=== PATIENT | male | born 1945 | race Caucasian/White ===

== ENCOUNTER → 2017-01-19 | Outpatient (REF) | payer MEDICARE ==
[~2017-01-19] MED LIST: ASPI81TA45 OR; GLUC1000 OR; INHALER; LISI20TA5 OR; LOPR50TA OR; NEUR100C OR; PAIN MED; PLAV75TA2 OR; SIMV20TA2 OR
[2017-01-19 16:36] LABS: BASO % 0.5 % (0.0-1.0); EOS # 0.2 K/mm3 (0.0-0.50); EOS % 3.9 % (0.0-3.0); LARGE UNSTAINED CELL # 0.1 K/mm3 (0.0-0.4); LARGE UNSTAINED CELL % 0.9 % (0.0-4.0); LYMPH # 1.6 K/mm3 (1.5-4.5); LYMPH % 25.2 % (24.0-44.0); MEAN CORPUSCULAR HEMOGLOBIN 32.4 pg (27.0-33.0); MEAN CORPUSCULAR VOLUME 95.2 fl (80.0-96.0); MONO # 0.4 K/mm3 (0.0-0.8); MONO % 6.9 % (0.0-5.0); NEUTROPHILS # 3.8 K/mm3 (1.8-7.7); NEUTROPHILS % 62.5 % (36.0-66.0); PLATELET COUNT, AUTOMATED 139 k/mm3 (150-450); RED CELL DISTRIBUTION WIDTH 12.4 % (11.5-14.5); WHITE BLOOD COUNT 6.1 K/mm3 (4.0-10.0)
[2017-01-19 17:30] LABS: ALBUMIN 4.2 GM/DL (3.2-5.2); ALBUMIN/GLOBULIN RATIO 1.17 (1.00-1.93); BILIRUBIN,TOTAL 0.6 MG/DL (0.2-1.0); CALCIUM LEVEL 9.8 MG/DL (8.8-10.2); CREATININE FOR GFR 1.7 MG/DL (0.70-1.30); GLOMERULAR FILTRATION RATE 42.6 (>42); TOTAL PROTEIN 7.8 GM/DL (6.4-8.2)
== END ==
LOC: M LAB REF 16:12
PROVIDERS: ATTEND Family Medicine
DX: Z00.00 Encounter for general adult medical examination without abnormal findings (principal); M21.969 Unspecified acquired deformity of unspecified lower leg; R41.89 Other symptoms and signs involving cognitive functions and awareness; E11.43 Type 2 diabetes mellitus with diabetic autonomic (poly)neuropathy; E78.4 Other hyperlipidemia; I10 Essential (primary) hypertension; I69.990 Apraxia following unspecified cerebrovascular disease; E11.65 Type 2 diabetes mellitus with hyperglycemia

== ENCOUNTER → 2017-02-07 | Outpatient (REF) | payer MEDICARE ==
[2017-02-07 19:22] LABS: ANION GAP 10 MEQ/L (8-16); BLOOD UREA NITROGEN 9 MG/DL (7-18); CALCIUM LEVEL 8.1 MG/DL (8.8-10.2); CARBON DIOXIDE LEVEL 24 MEQ/L (21-32); CHLORIDE LEVEL 104 MEQ/L (98-107); CREATININE FOR GFR 1.04 MG/DL (0.70-1.30); GLOMERULAR FILTRATION RATE > 60.0 (>42); GLUCOSE, FASTING 158 MG/DL (83-110); POTASSIUM SERUM 4.4 MEQ/L (3.5-5.1); SODIUM LEVEL 138 MEQ/L (136-145)
== END ==
LOC: M LAB REF 16:06
PROVIDERS: ATTEND Family Medicine
DX: E11.9 Type 2 diabetes mellitus without complications (principal)

== ENCOUNTER → 2017-03-28 | Outpatient (REF) | payer MEDICARE ==
[2017-03-28 18:41] LABS: ANION GAP 8 MEQ/L (8-16); BLOOD UREA NITROGEN 24 MG/DL (7-18); CALCIUM LEVEL 9.1 MG/DL (8.8-10.2); CARBON DIOXIDE LEVEL 28 MEQ/L (21-32); CHLORIDE LEVEL 104 MEQ/L (98-107); CREATININE FOR GFR 1.01 MG/DL (0.70-1.30); GLOMERULAR FILTRATION RATE > 60.0 (>42); GLUCOSE, FASTING 164 MG/DL (83-110); POTASSIUM SERUM 4.8 MEQ/L (3.5-5.1); SODIUM LEVEL 140 MEQ/L (136-145)
== END ==
LOC: M LAB REF 17:26
PROVIDERS: ATTEND Family Medicine
DX: E11.40 Type 2 diabetes mellitus with diabetic neuropathy, unspecified (principal)

== ENCOUNTER 2017-04-25 19:23 | Emergency (ER) | payer MEDICARE ==
[~2017-04-25] VITALS: Ht 167.6 cm; Wt 72.0 kg
[2017-04-25] MEDS ORDERED: METOCLOPRAMIDE INJ 10MG/2ML VIAL (J2765) IV ONE (20:15)
[2017-04-25] MEDS ORDERED: NS 1,000 ML IV ONE (20:30)
[2017-04-25 20:41] LABS: BASO % 0.3 % (0.0-1.0); EOS # 0.1 10^3/uL (0.0-0.50); EOS % 0.6 % (0.0-3.0); IMMATURE GRANULOCYTE % 0.5 % (0-0); LYMPH # 0.4 10^3/uL (1.5-4.5); LYMPH % 3.5 % (24.0-44.0); MEAN CORPUSCULAR HGB CONC 34.3 g/dl (32.0-36.5); MEAN CORPUSCULAR VOLUME 93.1 fl (80.0-96.0); MONO # 0.8 10^3/uL (0.0-0.8); NEUTROPHILS # 9.7 10^3/uL (1.8-7.7); NEUTROPHILS % 88.1 % (36.0-66.0); PLATELET COUNT, AUTOMATED 145 10^3/uL (150-450); RED CELL DISTRIBUTION WIDTH 12.3 % (11.5-14.5)
[2017-04-25] MEDS: MORPHINE 2 MG/ML 1ML SYRINGE IV PRN ×2 (20:44→22:23)
[2017-04-25 21:06] LABS: ALBUMIN 3.9 GM/DL (3.2-5.2); ALBUMIN/GLOBULIN RATIO 1.34 (1.00-1.93); ALKALINE PHOSPHATASE 59 U/L (45-117); ALT/SGPT 16 U/L (12-78); ANION GAP 6 MEQ/L (8-16); AST/SGOT 13 U/L (7-37); BILIRUBIN,DIRECT 0.2 MG/DL (0.0-0.2); BILIRUBIN,TOTAL 0.5 MG/DL (0.2-1.0); BLOOD UREA NITROGEN 24 MG/DL (7-18); CALCIUM LEVEL 8.4 MG/DL (8.8-10.2); CARBON DIOXIDE LEVEL 28 MEQ/L (21-32); CHLORIDE LEVEL 106 MEQ/L (98-107); CREATININE FOR GFR 1.13 MG/DL (0.70-1.30); GLOMERULAR FILTRATION RATE > 60.0 (>42); GLUCOSE, FASTING 225 MG/DL (83-110); POTASSIUM SERUM 4.6 MEQ/L (3.5-5.1); SODIUM LEVEL 140 MEQ/L (136-145); TOTAL PROTEIN 6.8 GM/DL (6.4-8.2)
[2017-04-25 22:57] VITALS: BP 108/68
== END 2017-04-26 00:32 | disposition short-term general hospital (02) ==
LOC: EDBD 19:23 → M ED 19:23
DX: T25.222A Burn of second degree of left foot, initial encounter (principal); T25.221A Burn of second degree of right foot, initial encounter; X58.XXXA Exposure to other specified factors, initial encounter; Y92.099 Unspecified place in other non-institutional residence as the place of occurrence of the external cause; Y93.89 Activity, other specified; Y99.9 Unspecified external cause status; I10 Essential (primary) hypertension; E11.9 Type 2 diabetes mellitus without complications; Z79.82 Long term (current) use of aspirin; Z79.84 Long term (current) use of oral hypoglycemic drugs; Z79.899 Other long term (current) drug therapy
CPT/HCPCS: 80048; 80076; 82550; 82553; 83036; 83605; 83690; 84484; 85025; 86140; 87040; 93041; 96374; 96375; 99285; J2765

== ENCOUNTER → 2017-07-18 | Outpatient (REF) | payer MEDICARE ==
[2017-07-18 18:38] LABS: ANION GAP 5 MEQ/L (8-16); BLOOD UREA NITROGEN 15 MG/DL (7-18); CARBON DIOXIDE LEVEL 28 MEQ/L (21-32); CHLORIDE LEVEL 103 MEQ/L (98-107); CREATININE FOR GFR 1.22 MG/DL (0.70-1.30); GLOMERULAR FILTRATION RATE > 60.0 (>42); GLUCOSE, FASTING 199 MG/DL (70-100); POTASSIUM SERUM 5.1 MEQ/L (3.5-5.1); SODIUM LEVEL 136 MEQ/L (136-145)
== END ==
LOC: M LAB REF 17:51
DX: E11.9 Type 2 diabetes mellitus without complications (principal)
CPT/HCPCS: 80048

== ENCOUNTER → 2018-01-29 | Outpatient (REF) | payer MEDICARE ==
[2018-01-29 12:17] LABS: BASO % 0.5 % (0.0-1.0); EOS # 0.5 10^3/uL (0.0-0.50); EOS % 7.7 % (0.0-3.0); HEMATOCRIT 33.8 % (42.0-52.0); HEMOGLOBIN 11.1 g/dl (13.5-17.5); IMMATURE GRANULOCYTE % 0.2 % (0-3.0); LYMPH # 1.6 10^3/uL (1.5-4.5); LYMPH % 27.3 % (24.0-44.0); MEAN CORPUSCULAR HEMOGLOBIN 31.2 pg (27.0-33.0); MEAN CORPUSCULAR HGB CONC 32.8 g/dl (32.0-36.5); MEAN CORPUSCULAR VOLUME 94.9 fl (80.0-96.0); MONO # 0.5 10^3/uL (0.0-0.8); MONO % 7.9 % (0.0-5.0); NEUTROPHILS # 3.4 10^3/uL (1.8-7.7); NEUTROPHILS % 56.4 % (36.0-66.0); PLATELET COUNT, AUTOMATED 199 10^3/uL (150-450); RED BLOOD COUNT 3.56 10^6/uL (4.30-6.10); RED CELL DISTRIBUTION WIDTH 13.1 % (11.5-14.5); WHITE BLOOD COUNT 5.9 10^3/uL (4.0-10.0)
[2018-01-29 12:39] LABS: ALBUMIN 3.9 GM/DL (3.2-5.2); ALBUMIN/GLOBULIN RATIO 1.15 (1.00-1.93); ALKALINE PHOSPHATASE 91 U/L (45-117); ALT/SGPT 15 U/L (12-78); ANION GAP 9 MEQ/L (8-16); AST/SGOT 12 U/L (7-37); BILIRUBIN,TOTAL 0.4 MG/DL (0.2-1.0); BLOOD UREA NITROGEN 22 MG/DL (7-18); C REACTIVE PROTEIN QUANTITATIV < 0.30 MG/DL (0.00-0.30); CALCIUM LEVEL 9.2 MG/DL (8.8-10.2); CARBON DIOXIDE LEVEL 26 MEQ/L (21-32); CHLORIDE LEVEL 104 MEQ/L (98-107); GLOMERULAR FILTRATION RATE 49.1 (>42); GLUCOSE, FASTING 151 MG/DL (70-100); SODIUM LEVEL 139 MEQ/L (136-145); TOTAL PROTEIN 7.3 GM/DL (6.4-8.2)
[2018-01-29 12:45] LABS: ERYTHROCYTE SEDIMENTATION RATE 36 mm/hr (0-20)
== END ==
LOC: M SFHCPLAZ 09:08
DX: M86.172 Other acute osteomyelitis, left ankle and foot (principal); Z23 Encounter for immunization
CPT/HCPCS: 80053

== ENCOUNTER → 2018-02-05 | Outpatient (REF) | payer MEDICARE ==
[2018-02-05 16:05] LABS: BASO % 0.3 % (0.0-1.0); EOS # 0.5 10^3/uL (0.0-0.50); EOS % 7.9 % (0.0-3.0); HEMATOCRIT 36.4 % (42.0-52.0); HEMOGLOBIN 11.8 g/dl (13.5-17.5); IMMATURE GRANULOCYTE % 0.2 % (0-3.0); LYMPH # 1.7 10^3/uL (1.5-4.5); LYMPH % 25.9 % (24.0-44.0); MEAN CORPUSCULAR HEMOGLOBIN 31.1 pg (27.0-33.0); MEAN CORPUSCULAR HGB CONC 32.4 g/dl (32.0-36.5); MONO # 0.5 10^3/uL (0.0-0.8); NEUTROPHILS # 3.7 10^3/uL (1.8-7.7); NEUTROPHILS % 57.7 % (36.0-66.0); PLATELET COUNT, AUTOMATED 175 10^3/uL (150-450); RED BLOOD COUNT 3.79 10^6/uL (4.30-6.10); RED CELL DISTRIBUTION WIDTH 13.1 % (11.5-14.5); WHITE BLOOD COUNT 6.5 10^3/uL (4.0-10.0)
[2018-02-05 16:16] LABS: ANION GAP 7 MEQ/L (8-16); BLOOD UREA NITROGEN 14 MG/DL (7-18); C REACTIVE PROTEIN QUANTITATIV < 0.30 MG/DL (0.00-0.30); CALCIUM LEVEL 8.7 MG/DL (8.8-10.2); CARBON DIOXIDE LEVEL 27 MEQ/L (21-32); CHLORIDE LEVEL 108 MEQ/L (98-107); CREATININE FOR GFR 1.18 MG/DL (0.70-1.30); GLOMERULAR FILTRATION RATE > 60.0 (>42); GLUCOSE, FASTING 97 MG/DL (70-100); POTASSIUM SERUM 5.1 MEQ/L (3.5-5.1); SODIUM LEVEL 142 MEQ/L (136-145)
== END ==
LOC: M SFHCPLAZ 12:53
DX: M86.172 Other acute osteomyelitis, left ankle and foot (principal)
CPT/HCPCS: 80048

== ENCOUNTER 2018-04-28 09:47 | Emergency (ER) | payer MEDICARE ==
[~2018-04-28] VITALS: Ht 165.1 cm; Wt 68.2 kg
[~2018-04-28 09:47] MED LIST changes: +GLIM4TAB; +SERT-138; +ZOFR4TAB14 PO
[2018-04-28] MEDS ORDERED: IPRATROPIUM 0.5MG/ALBUTEROL 2.5MG INH SOL UD 3ML (DUONEB)(J7620) NEB ONE (10:15)
[2018-04-28] MEDS ORDERED: ALBUTEROL SULFATE 2.5 MG/0.5 ML INH NEB SOLN INH ONE (10:15)
[2018-04-28 10:25] LABS: VENOUS BASE EXCESS 0.7 (-2.0-2.0); VENOUS HCO3 27.3 MEQ/L (23.0-27.0); VENOUS PARTIAL PRESSURE CO2 51.1 mmHg (38.0-50.0); VENOUS PARTIAL PRESSURE O2 31.9 mmHg (30.0-50.0); VENOUS PH 7.345 UNITS (7.330-7.430); VENOUS STANDARD HCO3 24.3 MEQ/L; VENOUS TOTAL CO2 28.8 MEQ/L (24.0-28.0)
[2018-04-28 10:30] VITALS: BP 224/102
[2018-04-28] MEDS ORDERED: LISINOPRIL 20 MG TAB PO ONE (10:30)
[2018-04-28 10:33] LABS: BASO % 0.4 % (0.0-1.0); EOS # 0.4 10^3/uL (0.0-0.50); EOS % 5.8 % (0.0-3.0); HEMATOCRIT 38.6 % (42.0-52.0); HEMOGLOBIN 13.2 g/dl (13.5-17.5); LYMPH # 1.5 10^3/uL (1.5-4.5); LYMPH % 21.5 % (24.0-44.0); MEAN CORPUSCULAR HEMOGLOBIN 31.6 pg (27.0-33.0); MEAN CORPUSCULAR HGB CONC 34.2 g/dl (32.0-36.5); MEAN CORPUSCULAR VOLUME 92.3 fl (80.0-96.0); MONO # 0.5 10^3/uL (0.0-0.8); MONO % 7.6 % (0.0-5.0); NEUTROPHILS # 4.4 10^3/uL (1.8-7.7); NEUTROPHILS % 64.6 % (36.0-66.0); PLATELET COUNT, AUTOMATED 145 10^3/uL (150-450); RED BLOOD COUNT 4.18 10^6/uL (4.30-6.10); WHITE BLOOD COUNT 6.9 10^3/uL (4.0-10.0)
--- NOTE | 2018-04-28 10:39 | REP ---
Clinical: Shortness of breath. Technique: AP semiupright view. Comparison: 11/16/2011 Findings: Mediastinum and cardiac silhouette are stable. Lung bradford demonstrate stable chronic interstitial changes. No acute consolidation, effusion, or pneumothorax. Skeletal structures are intact. Impression: Chronic stable changes. No acute cardiopulmonary process. Electronically Signed by Montrell Cole MD 04/28/2018 10:31 A
[2018-04-28 10:47] LABS: ABG BASE EXCESS -0.1 (-2.0-2.0); ABG O2 SATURATION 97.2 % (95.0-99.0); ABG PARTIAL PRESSURE CO2 42.4 mmHg (35.0-45.0); ABG PARTIAL PRESSURE O2 89.7 mmHg (75.0-100.0); ABG STANDARD HCO3 24.4 MEQ/L (22.0-26.0); ABG TOTAL CO2 26.3 MEQ/L (23.0-31.0); ABG pH (ARTERIAL) 7.388 UNITS (7.350-7.450)
[2018-04-28 10:59] LABS: ALBUMIN 3.9 GM/DL (3.2-5.2); ALT/SGPT 21 U/L (12-78); BILIRUBIN,DIRECT 0.2 MG/DL (0.0-0.2); BILIRUBIN,TOTAL 0.7 MG/DL (0.2-1.0); BLOOD UREA NITROGEN 22 MG/DL (7-18); CARBON DIOXIDE LEVEL 29 MEQ/L (21-32); CHLORIDE LEVEL 102 MEQ/L (98-107); CREATININE FOR GFR 1.25 MG/DL (0.70-1.30); GLOMERULAR FILTRATION RATE > 60.0 (>42); GLUCOSE, FASTING 211 MG/DL (70-100); LIPASE 128 U/L (73-393); POTASSIUM SERUM 5.2 MEQ/L (3.5-5.1); SODIUM LEVEL 137 MEQ/L (136-145); THYROXINE (T4) 8.9 UG/DL (4.5-12.0); TOTAL PROTEIN 7.5 GM/DL (6.4-8.2)
[2018-04-28 11:13] LABS: CPK CREATINE PHOSPHOKINASE 84 U/L (39-308); MB/CK RELATIVE INDEX 3.69 (< OR =4); TROPONIN I < 0.02 NG/ML (< 0.10)
[2018-04-28 11:47] LABS: INFLUENZA A AMPLIFICATION NEGATIVE (NEGATIVE); INFLUENZA B AMPLIFICATION NEGATIVE (NEGATIVE)
[2018-04-28 12:30] VITALS: BP 148/67
[2018-04-28] MEDS ORDERED: AZITHROMYCIN 250 MG TAB PO ONE (12:30)
[2018-04-28] MEDS ORDERED: VENTAER INH (12:35)
[2018-04-28] MEDS ORDERED: ZITHTAB PO (12:35)
--- NOTE | 2018-04-28 19:28 | ECGEPIP ---
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
== END 2018-04-28 12:51 | disposition home or self-care (01) ==
LOC: M ED 09:47
DX: J40 Bronchitis, not specified as acute or chronic (principal); I10 Essential (primary) hypertension; E11.9 Type 2 diabetes mellitus without complications; J44.9 Chronic obstructive pulmonary disease, unspecified; E78.9 Disorder of lipoprotein metabolism, unspecified; N40.0 Benign prostatic hyperplasia without lower urinary tract symptoms; Z79.899 Other long term (current) drug therapy; Z91.19 Patient's noncompliance with other medical treatment and regimen; Z87.891 Personal history of nicotine dependence

== ENCOUNTER 2018-07-01 13:46 | Inpatient (IN) | payer MEDICARE ==
[~2018-07-01] VITALS: Ht 165.1 cm; Wt 70.0 kg
[~2018-07-01 13:46] MED LIST changes: +VENTAER INH; +ZITHTAB PO
--- NOTE | 2018-07-01 14:33 | REP ---
CT Head without contrast HISTORY: Rule out infarction COMPARISON: 10/15/2017 An area of decreased attenuation is present in the right basal ganglia. This represents an old lacunar infarction. Areas of decreased attenuation are present in the periventricular white matter. This represents small-vessel ischemic disease. There is no intraparenchymal hemorrhage, acute infarct, mass or midline shift. The ventricular system and cortical sulci are dilated consistent with mild volume loss. There is no extra cerebral collection. There is no fracture. The visualized sinuses are clear. IMPRESSION: 1. Old right basal ganglia lacunar infarction. 2. Small vessel ischemic disease. 3. Mild volume loss. Electronically Signed by Jimbo Huertas MD 07/01/2018 02:23 P
--- NOTE | 2018-07-01 14:36 | REP ---
CT cervical spine without contrast HISTORY: Rule out infarction COMPARISON: 04/28/2012 There is no acute fracture or subluxation. Disc bulges are present at the C3-4 through C5-6 levels. A disc bulge with associated osteophyte formation is present at the C6-7 level. There is minimal narrowing of the spinal canal. Uncinate process and/or facet hypertrophy are present at the C2-3 through C7-T1 levels. These findings produce minimal to moderate narrowing of the neural foramina. The C4-5 through C6-7 intervertebral discs are decreased in height consistent with disc degeneration. IMPRESSION: 1. There is no acute fracture or subluxation. 2. There is cervical spondylosis at the C2-3 through C7-T1 levels. Electronically Signed by Jimbo Huertas MD 07/01/2018 02:28 P
--- NOTE | 2018-07-01 14:55 | REP ---
Chest one-view HISTORY: Altered mental status Comparison: 04/28/2018 The left lung is hyperinflated. A minimal increase in interstitial markings is present in the lungs consistent with chronic interstitial change. There is blunting of the left costophrenic angle due to pleural thickening or small pleural effusion. The heart is normal in size. The pulmonary vasculature is normal in appearance. Impression: 1. Chronic interstitial change. 2. There is blunting of the left costophrenic angle due to pleural thickening or small pleural effusion. Electronically Signed by Jimbo Huertas MD 07/01/2018 02:47 P
--- NOTE | 2018-07-01 14:59 | REP ---
Clinical: Left shoulder pain. Technique: Internal rotation, external rotation, and Y view of the left shoulder. Findings: Age-related osteopenia. Cortical irregularity and spurring at the acromioclavicular joint is appreciated along with subtle blunting to the ossified glenoid rim. Subacromial space measures 7 mm maximal diameter. Chondrocalcinosis suggested. No acute fracture dislocation. Impression: Mild/moderate arthritic degenerative changes. Electronically Signed by Montrell Cole MD 07/01/2018 02:50 P
--- NOTE | 2018-07-01 15:00 | REP ---
Clinical: Pain. Technique: AP view of the pelvis with neutral and frog lateral views of the right and left hip. Findings: Age-related degenerative changes to the pelvis and hips noted. Peripheral vascular disease identified. The no acute fracture dislocation. Impression: Age-related degenerative changes to the pelvis and hips. Electronically Signed by Montrell Cole MD 07/01/2018 02:51 P
[2018-07-01 15:04] LABS: BASO % 0.1 % (0.0-1.0); HEMATOCRIT 35.3 % (42.0-52.0); HEMOGLOBIN 12.5 g/dl (13.5-17.5); LYMPH # 0.3 10^3/uL (1.5-4.5); LYMPH % 1.9 % (24.0-44.0); MEAN CORPUSCULAR HGB CONC 35.4 g/dl (32.0-36.5); MEAN CORPUSCULAR VOLUME 90.3 fl (80.0-96.0); MONO # 1.6 10^3/uL (0.0-0.8); MONO % 9.4 % (0.0-5.0); NEUTROPHILS # 15.2 10^3/uL (1.8-7.7); NEUTROPHILS % 88.1 % (36.0-66.0); PLATELET COUNT, AUTOMATED 138 10^3/uL (150-450); RED BLOOD COUNT 3.91 10^6/uL (4.30-6.10); WHITE BLOOD COUNT 17.3 10^3/uL (4.0-10.0)
[2018-07-01 15:08] LABS: ABG BASE EXCESS -9.2 (-2.0-2.0); ABG HCO3 15.6 MEQ/L (22.0-26.0); ABG O2 SATURATION 96.6 % (95.0-99.0); ABG PARTIAL PRESSURE CO2 30.7 mmHg (35.0-45.0); ABG PARTIAL PRESSURE O2 92.4 mmHg (75.0-100.0); ABG STANDARD HCO3 17.2 MEQ/L (22.0-26.0); ABG TOTAL CO2 16.5 MEQ/L (23.0-31.0); ABG pH (ARTERIAL) 7.323 UNITS (7.350-7.450)
[2018-07-01 15:31] LABS: AMPHETAMINES LEVEL URINE NEGATIVE (NEGATIVE); BARBITURATES URINE NEGATIVE (NEGATIVE); BENZODIAZEPINES URINE NEGATIVE (NEGATIVE); CANNABINOIDS URINE NEGATIVE (NEGATIVE); COCAINE METABOLITE URINE NEGATIVE (NEGATIVE); METHADONE URINE NEGATIVE (NEGATIVE); OPIATES URINE NEGATIVE (NEGATIVE); PHENCYCLIDINE URINE NEGATIVE (NEGATIVE)
[2018-07-01 15:40] LABS: ALBUMIN 3.8 GM/DL (3.2-5.2); ALT/SGPT 42 U/L (12-78); BILIRUBIN,DIRECT 0.6 MG/DL (0.0-0.2); BILIRUBIN,TOTAL 1.6 MG/DL (0.2-1.0); BLOOD UREA NITROGEN 33 MG/DL (7-18); CALCIUM LEVEL 8.5 MG/DL (8.8-10.2); CARBON DIOXIDE LEVEL 20 MEQ/L (21-32); CHLORIDE LEVEL 92 MEQ/L (98-107); CPK CREATINE PHOSPHOKINASE 2358 U/L (39-308); ETHYL ALCOHOL (ETHANOL) < 0.003 % (0.000-0.010); GLOMERULAR FILTRATION RATE 45.6 (>42); GLUCOSE, FASTING 558 MG/DL (70-100); MB/CK RELATIVE INDEX 1.76 (< OR =4); POTASSIUM SERUM 4.6 MEQ/L (3.5-5.1); SODIUM LEVEL 130 MEQ/L (136-145); THYROID STIMULATING HORMONE 0.563 uIU/ML (0.358-3.740); TROPONIN I 0.05 NG/ML (< 0.10)
[2018-07-01] MEDS ORDERED: ONDANSETRON 4MG/2ML VIAL (J2405) IV ONE (15:45)
[2018-07-01] MEDS ORDERED: PANTOPRAZOLE 40MG INJ (PROTONIX) (C9113) IV ONE (15:45)
[2018-07-01] MEDS ORDERED: med rec comment (15:59)
[2018-07-01] MEDS ORDERED: OXAZEPAM 15 MG CAP PO ONE (16:15)
[2018-07-01] MEDS ORDERED: HumaLOG INSULIN (NovoLOG) PER UNIT SC ONE (16:15)
[2018-07-01] MEDS ORDERED: NS 1,000 ML IV ONE ×2 (16:15)
[2018-07-01] MEDS ORDERED: NS 1,000 ML IV SCH ×2 (19:24→20:05)
[2018-07-01] MEDS ORDERED: LORazepam 2 MG TAB PO PRN (19:45)
[2018-07-01] MEDS ORDERED: GLUCAGON FOR INJ 1 MG VIAL (J1610) SC PRN (19:45)
[2018-07-01] MEDS ORDERED: GLUCOSE 4 GM CHEW TABLET PO PRN (19:45)
[2018-07-01] MEDS ORDERED: DEXTROSE 50% 50 ML SYRINGE IV PRN ×2 (19:45→22:00)
[2018-07-01] MEDS ORDERED: D5W/0.45% SODIUM CHLORIDE 1,000 ML IV SCH (20:05)
[2018-07-01] MEDS ORDERED: INSULIN HUMAN REGULAR 100 UNITS in NS 99 ML IV SCH (20:51)
[2018-07-01 20:58] LABS: CREATININE FOR GFR 1.48 MG/DL (0.70-1.30); GLOMERULAR FILTRATION RATE 49.9 (>42)
[2018-07-01] MEDS ORDERED: INSULIN IV RATE CHANGE DOCUMENTATION ML/HR XX SCH (21:00)
[2018-07-01] MEDS: THIAMINE 100 MG TAB PO SCH (21:00)
[2018-07-01] MEDS ORDERED: HumaLOG INSULIN (NovoLOG) PER UNIT SC SCH (21:00)
[2018-07-01] MEDS: HEPARIN SOD (PORCINE) 5000 UNITS/ML VIAL SQ SCH (21:00)
[2018-07-01 22:58] LABS: CALCIUM LEVEL 8.1 MG/DL (8.8-10.2); CREATININE FOR GFR 1.41 MG/DL (0.70-1.30); GLOMERULAR FILTRATION RATE 52.7 (>42)
[2018-07-01 23:31] VITALS: BP 136/82
--- NOTE | 2018-07-01 23:50 | HPE ---
DATE OF ADMISSION: 07/01/2018 CHIEF COMPLAINT: Found down by family. HISTORY OF PRESENT ILLNESS: This is a 72-year-old gentleman with a past medical history of diabetes, hypertension, solitary kidney, prior history of osteomyelitis of the left foot, status post surgeries, history of carotid endarterectomy, found today by his family down on his front porch. The patient reports that he remembers coming home from a bar late last night where he had at least a six pack to drink. He remembers falling on his front porch in an area which is enclosed and after he fell, he could not get up again. He was unable to call for help. His sister, who lives locally, had a neighbor drive by his home this morning, and he found him down, responsive but with multiple abrasions on his right leg. The patient reports that he has not taken his medications for several months. He does drink daily about six drinks a day. He has had a history of multiple falls and family is concerned about his ability to take care of himself. COURSE IN THE EMERGENCY ROOM: The patient was noted to be hyperglycemic with sugars above 500 with mid rhabdomyolysis and acute kidney injury (HOLGER). He was given two liter of fluid bolus and eight units of subcu insulin. He was noted to have an anion gap, and therefore, I am admitting him to the intensive care unit (ICU) for diabetic ketoacidosis (DKA). REVIEW OF SYSTEMS: Negative in 14 out of 14 systems except as noted above. PAST MEDICAL HISTORY: As noted above in the history of the present illness. PAST SURGICAL HISTORY: The patient reports a history of carotid endarterectomy (CEA), bilateral foot surgery, left rotator cuff surgery. MEDICATIONS: The patient is currently not taking any of his medications and has not for the last couple of months. However, he did fill medications in February, which included glimepiride 4 mg daily, metformin 1000 mg twice daily, lisinopril 20 mg daily, simvastatin 20 mg, sertraline 100 mg daily, and Neurontin 600 mg daily. However, he has not been taking these medications for several months. ALLERGIES: No known drug allergies. FAMILY HISTORY: Mother also had diabetes. SOCIAL HISTORY: The patient is . He denies any smoking. He has no children. He is retired. He does drink about a six-pack of beer a day, and he has been drinking most of his adult life. PHYSICAL EXAMINATION: Vital Signs: Currently, blood pressure 148/63, pulse of 100, respirations 16, saturating 98% on room air. General: He is tremulous throughout but in no acute distress. HEENT: Oropharynx clear. Neck: Supple. Cardiovascular: Patient is mildly tachycardic but no murmurs, rubs or gallops. Lungs: Clear to auscultation bilaterally. Abdomen: Soft, nontender, nondistended. Positive bowel sounds. Extremities: No clubbing, cyanosis, edema. Skin: The patient has got multiple abrasions throughout his right leg from this recent fall. Psych: Mood stable. Neurologic: The patient is alert and oriented, follows simple commands. No focal neurologic deficits. Musculoskeletal: Moves all extremities equally. LABORATORY: The patient has a white count to 17.3, hemoglobin 12.5, platelets of 138. Chemistry reveals a creatinine of 1.6, potassium of 4.6, sodium of 130. Sugar is 558 with an anion gap of 18. Lactate is 4 on admission. Repeat is 2.9. Total CK is elevated to 2358. IMAGING: The patient had jolley imaging done, including chest x-ray which showed chronic interstitial change. There is blunting of the left costophrenic angle due to pleural thickening or small pleural effusion. He had a head CT done. This shows old right basal ganglia lacunar infarct, small vessel ischemic disease, mild volume loss. He had a cervical C-spine done, which shows no acute fracture or subluxation. There is cervical spondylosis of C2 to C3 and C7 to T1. Shoulder x-ray showed mild to moderate arthritic degenerative change of the left shoulder. Hip x-ray bilaterally shows age-related degenerative changes to the pelvis and hips. ASSESSMENT AND PLAN: This is a 72-year-old gentleman with a past medical history of diabetes, on oral medications, hypertension, solitary kidney, osteomyelitis of the foot, who presents status post fall, yesterday found down with diabetic ketoacidosis, acute kidney injury, and alcohol withdrawal. PROBLEMS: 1. DKA. The patient presents with acidosis and anion gap, and elevated sugars. He is in DKA. Likely secondary to his medication noncompliance exacerbated likely by his dehydration. I have placed him on an insulin drip, and he is being admitted to the ICU. I have discussed the insulin drip orders with ICU nursing staff and the protocol orders are in. He is on IV fluids and nothing by mouth and will be transitioned to subcu insulin once his gap closes. We will monitor his potassium closely. He is on BMPs every 2 hours for now with aggressive fluid hydration. 2. Mild rhabdomyolysis. IV fluid hydration as above. 3. Mild HOLGER with a creatinine to 1.6. Likely secondary to dehydration. Continue IV fluids as above. 4. Alcohol withdrawal. Patient does report significant alcohol use and has symptoms of tremors, concerning for alcohol withdrawal. I have placed him on a Clinical [place] Withdrawal Assessment (CIWA) protocol for withdrawal symptoms, and he should also have a social work consult for cessation resources. 5. History of diabetes. The patient is on home glimepiride and metformin, last filled in February but has obviously been noncompliant. He is currently on an insulin drip and should be resumed on his home medications on discharge. 6. History of hypertension. The patient is apparently on lisinopril 20 mg, which he has not filled since February. Given he is presenting in HOLGER, I am holding this for now. 7. History of hyperlipidemia. The patient is on a home statin, which he also has not filled in a couple of months. I have resumed it for now. 8. Deep vein thrombosis (DVT) prophylaxis. I am placing him on subcu heparin.
[2018-07-02] VITALS: BP 136/82
[2018-07-02] MEDS: ACETAMINOPHEN TAB 650MG DOSE (2X325MG) PO PRN (00:28)
[2018-07-02] MEDS: SIMVASTATIN 20 MG TAB PO SCH ×2 (00:28→20:28)
[2018-07-02 00:29] LABS: CREATININE FOR GFR 1.37 MG/DL (0.70-1.30); GLOMERULAR FILTRATION RATE 54.5 (>42); POTASSIUM SERUM 4.8 MEQ/L (3.5-5.1)
[2018-07-02 02:37] LABS: CALCIUM LEVEL 7.7 MG/DL (8.8-10.2); CREATININE FOR GFR 1.35 MG/DL (0.70-1.30); GLOMERULAR FILTRATION RATE 55.5 (>42); POTASSIUM SERUM 4.6 MEQ/L (3.5-5.1)
[2018-07-02 04:00] VITALS: BP 133/78
[2018-07-02 05:15] LABS: HEMATOCRIT 28.1 % (42.0-52.0); MEAN CORPUSCULAR HEMOGLOBIN 31.3 pg (27.0-33.0); MEAN CORPUSCULAR HGB CONC 34.5 g/dl (32.0-36.5); MEAN CORPUSCULAR VOLUME 90.6 fl (80.0-96.0); PLATELET COUNT, AUTOMATED 105 10^3/uL (150-450); WHITE BLOOD COUNT 12.7 10^3/uL (4.0-10.0)
[2018-07-02 05:26] LABS: HEMOGLOBIN 9.7 g/dl (13.5-17.5)
[2018-07-02 05:34] LABS: CALCIUM LEVEL 7.7 MG/DL (8.8-10.2); CREATININE FOR GFR 1.28 MG/DL (0.70-1.30); POTASSIUM SERUM 4.4 MEQ/L (3.5-5.1)
[2018-07-02 07:01] LABS: BLOOD UREA NITROGEN 40 MG/DL (7-18); CALCIUM LEVEL 7.7 MG/DL (8.8-10.2); CARBON DIOXIDE LEVEL 26 MEQ/L (21-32); CHLORIDE LEVEL 104 MEQ/L (98-107); CREATININE FOR GFR 1.26 MG/DL (0.70-1.30); GLOMERULAR FILTRATION RATE > 60.0 (>42); GLUCOSE, FASTING 181 MG/DL (70-100); POTASSIUM SERUM 4.6 MEQ/L (3.5-5.1); SODIUM LEVEL 138 MEQ/L (136-145)
[2018-07-02] MEDS ORDERED: HumaLOG INSULIN (NovoLOG) PER UNIT SC SCH ×2 (07:30→21:00)
--- NOTE | 2018-07-02 07:42 | ECGEPIP ---
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
[2018-07-02 08:00] VITALS: BP 146/68
[2018-07-02] MEDS: FOLIC ACID 1 MG TAB PO SCH (08:05)
[2018-07-02] MEDS: HEPARIN SOD (PORCINE) 5000 UNITS/ML VIAL SQ SCH ×2 (08:05→20:28)
[2018-07-02] MEDS: HumaLOG INSULIN (NovoLOG) PER UNIT SC SCH ×3 (08:05→17:38)
[2018-07-02] MEDS: THIAMINE 100 MG TAB PO SCH ×2 (08:05→20:28)
[2018-07-02] MEDS: SERTRALINE 100 MG TAB PO SCH (08:05)
[2018-07-02] MEDS: MULTIVITAMINS/MINERALS THERAP 1 TAB PO SCH (08:05)
[2018-07-02 09:07] LABS: BLOOD UREA NITROGEN 40 MG/DL (7-18); CALCIUM LEVEL 7.9 MG/DL (8.8-10.2); CARBON DIOXIDE LEVEL 24 MEQ/L (21-32); CHLORIDE LEVEL 104 MEQ/L (98-107); CREATININE FOR GFR 1.18 MG/DL (0.70-1.30); GLOMERULAR FILTRATION RATE > 60.0 (>42); GLUCOSE, FASTING 191 MG/DL (70-100); POTASSIUM SERUM 4.4 MEQ/L (3.5-5.1); SODIUM LEVEL 136 MEQ/L (136-145)
[2018-07-02 11:24] LABS: BLOOD UREA NITROGEN 36 MG/DL (7-18); CALCIUM LEVEL 8.1 MG/DL (8.8-10.2); CARBON DIOXIDE LEVEL 25 MEQ/L (21-32); CHLORIDE LEVEL 104 MEQ/L (98-107); CREATININE FOR GFR 1.14 MG/DL (0.70-1.30); GLOMERULAR FILTRATION RATE > 60.0 (>42); GLUCOSE, FASTING 148 MG/DL (70-100); POTASSIUM SERUM 4.1 MEQ/L (3.5-5.1); SODIUM LEVEL 138 MEQ/L (136-145)
[2018-07-02 12:00] VITALS: BP 161/76
[2018-07-02 13:54] LABS: BLOOD UREA NITROGEN 37 MG/DL (7-18); CARBON DIOXIDE LEVEL 23 MEQ/L (21-32); CHLORIDE LEVEL 104 MEQ/L (98-107); CREATININE FOR GFR 1.07 MG/DL (0.70-1.30); GLOMERULAR FILTRATION RATE > 60.0 (>42); GLUCOSE, FASTING 140 MG/DL (70-100); POTASSIUM SERUM 4.2 MEQ/L (3.5-5.1); SODIUM LEVEL 137 MEQ/L (136-145)
--- NOTE | 2018-07-02 14:31 | REP ---
MRI STUDY OF THE LEFT SHOULDER: HISTORY: Shoulder pain after fall. Comparison radiographs are from July 01, 2018. TECHNIQUE: Axial, oblique coronal, and oblique sagittal imaging planes are utilized. T1- and T2-weighted scans were obtained with and without fat saturation. MRI FINDINGS: The patient had the considerable difficulty being motionless due to pain. He was not able to tolerate any more repeat sequences. MRI FINDINGS: There is discontinuity in the lateral margin of the scapula below the glenohumeral joint consistent with a scapular body fracture. This is somewhat displaced. There is considerable extra-articular mild fascial edema associated with this posteriorly and to a lesser extent anteriorly. The glenohumeral articulation is normally aligned. There is minimal glenohumeral joint fluid. No labral cartilage tear is seen. The fracture does not appear to be involving the glenoid neck or the glenoid itself. Scapular spine appears to be intact, although there is some metallic field susceptibility artifact suggesting previous acromioplasty or bursal surgery. The acromioclavicular joint is somewhat diastatic which may be postsurgical as well. This has an old appearance. No definite cuff tear. Biceps tendon appears intact. IMPRESSION: Scapular body fracture incompletely seen. Some motion artifact. Posterior edy-scapular edema pattern. Postoperative changes in the region of the AC joint. Consider CT study of the scapula. Electronically Signed by Malcolm Anguiano MD 07/02/2018 07:29 P
[2018-07-02 15:11] LABS: BLOOD UREA NITROGEN 36 MG/DL (7-18); CALCIUM LEVEL 8.1 MG/DL (8.8-10.2); CARBON DIOXIDE LEVEL 25 MEQ/L (21-32); CHLORIDE LEVEL 106 MEQ/L (98-107); CREATININE FOR GFR 1.06 MG/DL (0.70-1.30); GLOMERULAR FILTRATION RATE > 60.0 (>42); GLUCOSE, FASTING 142 MG/DL (70-100); POTASSIUM SERUM 4.2 MEQ/L (3.5-5.1); SODIUM LEVEL 139 MEQ/L (136-145)
[2018-07-02 16:00] VITALS: BP 155/83
[2018-07-02 16:54] LABS: BLOOD UREA NITROGEN 36 MG/DL (7-18); CALCIUM LEVEL 8.1 MG/DL (8.8-10.2); CARBON DIOXIDE LEVEL 21 MEQ/L (21-32); CHLORIDE LEVEL 105 MEQ/L (98-107); CREATININE FOR GFR 1.05 MG/DL (0.70-1.30); GLOMERULAR FILTRATION RATE > 60.0 (>42); GLUCOSE, FASTING 149 MG/DL (70-100); POTASSIUM SERUM 4.5 MEQ/L (3.5-5.1); SODIUM LEVEL 138 MEQ/L (136-145)
[2018-07-02] MEDS ORDERED: ONDANSETRON 4MG/2ML VIAL (J2405) IV PRN (18:00)
--- NOTE | 2018-07-02 18:34 | IPN ---
DATE: 07/02/2018 SUBJECTIVE: The patient is seen and examined in the room today. The patient still complains about significant pain at the left shoulder. The patient states that he has been falling more frequently for some time. The patient continues to drink a significant amount of alcohol, last drink was 1 to 2 days prior to admission. He admitted to drinking more than six cans of beer on a daily basis. The patient stated that he has not been taking his medications as instructed, may be due to financial issues. Denies any fever or chills. OBJECTIVE: VITAL SIGNS: Temperature is 98.2, pulse 81, respirations 21, blood pressure 146/68, pulse oximetry 97% on room air. GENERAL: The patient is alert and awake. Mild distress secondary to persistent left shoulder pain. HEENT: Normocephalic, atraumatic. Extraocular motors are grossly intact. CARDIOVASCULAR: S1, S2. Regular rate. LUNGS: Clear to auscultation bilaterally. ABDOMEN: Soft, nontender, nondistended. Bowel sounds present. MUSCULOSKELETAL: There is ecchymosis at the left shoulder. There is some swelling noted. There is tenderness to palpation. No lower extremity edema. LABORATORY DATA: WBC is 12.7, hemoglobin 9.7, hematocrit 28.1, platelet count is 105. Sodium 138, potassium 4.5, chloride 105, carbon dioxide 21, BUN 36, creatinine 1.05, GFR greater than 60, fasting glucose 149, calcium 8.1. ASSESSMENT AND PLAN: 1. Diabetic ketoacidosis. The patient has been off the insulin drip. The patient is currently on subcutaneous insulin. The patient is tolerating oral intake. Gap has been closed. 2. Alcohol dependence. According to the patient, he drinks about a six-pack on a daily basis, last drink was approximately 1 to 2 days prior to admission. The patient will be on Clinical [place] Withdrawal Assessment (CIWA) protocol. The patient is on folic acid, multivitamin, and thiamine. 3. Leukocytosis. The patient is afebrile. No clear source of infection at this time. Could be hemoconcentration, could be from DKA. Continue to monitor the patient at this time. 4. Mild rhabdomyolysis. Could be due to the fall injury. The patient presented with an elevated total CK. Continue to monitor. 5. History of hypertension. Currently, the patient is not on any blood pressure medications. We will continue to monitor. Previously, the patient was taking Lisinopril; however, due to noncompliance the patient has not been using Lisinopril. Lisinopril was on hold on admission due to acute kidney injury. 6. History of solitary kidney. 7. Prior history of osteomyelitis of left foot, status post surgery. 8. Medical noncompliance. May complicate patient's care. professional services specialist have been assisting with the patient's case. 9. Metabolic encephalopathy secondary to UTI. Resolved. 10. Deep vein thrombosis (DVT) prophylaxis. Heparin. MTDD
[2018-07-02 20:00] VITALS: BP 162/80
[2018-07-03] VITALS (21 sets, daily range): BP systolic 97–188; BP diastolic 53–103
[2018-07-03] MEDS: LISINOPRIL 40 MG TAB PO SCH (04:52)
[2018-07-03 06:07] LABS: HEMATOCRIT 30.9 % (42.0-52.0); HEMOGLOBIN 10.6 g/dl (13.5-17.5); MEAN CORPUSCULAR HEMOGLOBIN 31.8 pg (27.0-33.0); MEAN CORPUSCULAR HGB CONC 34.3 g/dl (32.0-36.5); MEAN CORPUSCULAR VOLUME 92.8 fl (80.0-96.0); RED BLOOD COUNT 3.33 10^6/uL (4.30-6.10); WHITE BLOOD COUNT 7.8 10^3/uL (4.0-10.0)
[2018-07-03 06:23] LABS: PLATELET COUNT, AUTOMATED 92 10^3/uL (150-450)
[2018-07-03 06:34] LABS: ALBUMIN 2.9 GM/DL (3.2-5.2); ALT/SGPT 54 U/L (12-78); BILIRUBIN,DIRECT 0.2 MG/DL (0.0-0.2); BILIRUBIN,TOTAL 0.8 MG/DL (0.2-1.0); BLOOD UREA NITROGEN 36 MG/DL (7-18); CALCIUM LEVEL 8.2 MG/DL (8.8-10.2); CARBON DIOXIDE LEVEL 22 MEQ/L (21-32); CHLORIDE LEVEL 105 MEQ/L (98-107); CPK CREATINE PHOSPHOKINASE 936 U/L (39-308); CREATININE FOR GFR 1.09 MG/DL (0.70-1.30); GLOMERULAR FILTRATION RATE > 60.0 (>42); GLUCOSE, FASTING 192 MG/DL (70-100); POTASSIUM SERUM 4.8 MEQ/L (3.5-5.1); SODIUM LEVEL 138 MEQ/L (136-145); TOTAL PROTEIN 6.2 GM/DL (6.4-8.2)
[2018-07-03] MEDS: HumaLOG INSULIN (NovoLOG) PER UNIT SC SCH ×4 (09:28→21:00)
[2018-07-03] MEDS: MULTIVITAMINS/MINERALS THERAP 1 TAB PO SCH (09:29)
[2018-07-03] MEDS: FOLIC ACID 1 MG TAB PO SCH (09:29)
[2018-07-03] MEDS: SERTRALINE 100 MG TAB PO SCH (09:30)
[2018-07-03] MEDS: HEPARIN SOD (PORCINE) 5000 UNITS/ML VIAL SQ SCH (09:30)
[2018-07-03] MEDS: THIAMINE 100 MG TAB PO SCH ×2 (09:30→21:06)
--- NOTE | 2018-07-03 12:01 | CR ---
DATE OF CONSULTATION: 07/03/2018 PROVIDER REQUESTING CONSULTATION: Dr. Garcia PROVIDER CONSULTED: Dr. Fred Castro, [facility]. CHIEF COMPLAINT: Left shoulder pain. HISTORY: The patient is a 72-year-old male with multiple comorbid conditions found by a family member down on his front porch two days ago on 07/01/2018. He was at the bar drinking late in the evening and remembers falling on the front porch. He was unable to get up again. When found, he was taken to the emergency room where he was treated for hyperglycemia, mild rhabdomyolysis and acute kidney injury. The patient was admitted to the progressive care unit (PCU) where he complained of left-sided shoulder pain. He had an MRI revealing a left scapula fracture. The patient was placed in a sling and orthopedics was consulted. CURRENT MEDICATIONS: The patient does have prescriptions for multiple medications, however has not been taking them over the last couple of months. He does have prescriptions for: - glimepiride 4 mg daily - metformin 1000 mg twice daily - lisinopril 20 mg daily - Zocor 20 mg daily - Neurontin 600 mg daily - Zoloft 100 mg daily ALLERGIES: There are no known drug allergies. PAST MEDICAL HISTORY: Diabetes. Hypertension. Solitary kidney. History of osteomyelitis of the left foot, status post surgery. History of carotid endarterectomy. Alcohol abuse. PAST SURGICAL HISTORY: Carotid endarterectomy. Bilateral foot surgery. Left rotator cuff repair. FAMILY HISTORY: Noncontributory. SOCIAL HISTORY: The patient is a and lives alone. He does not use tobacco products. He does drink approximately a six-pack of beer per day and is currently retired. REVIEW OF SYSTEMS: The patient denies fevers, chills, nausea, vomiting or diarrhea. Denies any chest pain, headaches or dizziness. Denies any abdominal pain. He does have left sided shoulder pain. GENERAL: The patient is well-nourished and well-developed. He is alert, oriented and cooperative. Mood and affect are appropriate. He is resting comfortably in his room chair. VITAL SIGNS: Blood pressure 138/66, heart rate 88, temperature 98.6, pulse oximetry 97%. NECK: Supple without lymphadenopathy. CARDIOVASCULAR: Radial pulses were 2+ and equal bilaterally. PULMONARY: Breathing is regular and nonlabored. ABDOMEN: Soft, nontender to palpation. MUSCULOSKELETAL: There is diffuse tenderness to palpation about the left shoulder and scapula. The patient does have limited motion of the shoulder secondary to pain. He does have good motion at the wrist and is able to move all of his fingers freely. Does have movement of the elbow although limited, again secondary to pain in the shoulder. SKIN: There is quite a bit of ecchymosis along the shoulder extending down into the left upper arm. Otherwise, skin appears to be warm and well perfused. The patient does have decreased sensation due to his diabetic neuropathy. IMAGING STUDIES: Scapular body fracture on the left that is incompletely seen on an MRI. Posterior periscapular edema pattern with postoperative changes noted in the region of the acromioclavicular (AC) joint. CT scan of the scapula was recommended for further evaluation. IMPRESSION: Left scapula fracture. PLAN: 1. We will go ahead and continue treatment in the sling on the left. The patient will come out of the sling multiple times daily to work on [id number] exercises at the elbow and wrist. We did discuss stiffness if he does not get these moving. 2. CT scan of the left scapula requested. Order placed. 3. Pain control per hospitalist. 4. Recommend follow-up in our office after discharge.
[2018-07-03] MEDS: ACETAMINOPHEN TAB 650MG DOSE (2X325MG) PO PRN (13:52)
--- NOTE | 2018-07-03 14:30 | REP ---
CT scapula left side without contrast: History: Evaluate left scapular fracture. CT technique : Helical scanning is acquired through the left scapula. 3 mm axial images are generated. Multiplanar re-formation images are generated in multiple projections and 3D imaging is generated. CT findings: There is a comminuted fracture across the superior body of the scapula extending from the lateral to the medial scapular surface. There is some overriding along the lateral scapular border. The acromion process, scapular spine, coracoid process and glenoid appear intact. No humeral fracture is seen. Also noted is extrathoracic subcutaneous emphysema. There are nondisplaced fractures of the left anterolateral 3rd and 4th ribs. In addition, there is a moderate-sized left-sided pneumothorax visible. Impression: Transversely oriented comminuted fracture through the upper body of the scapula from medial to lateral margin with some override. Left lateral 3rd and 4th rib fractures. A moderate-sized left-sided pneumothorax noted. Findings were telephoned to Dr. Maribel Garcia at the time of this dictation. Electronically Signed by Malcolm Anguiano MD 07/03/2018 03:22 P
[2018-07-03] MEDS ORDERED: LIDOCAINE 1% MDV 20ML VIAL As Ordered ONE (15:17)
[2018-07-03] MEDS ORDERED: FLUMAZENIL 0.5 MG/5 ML VIAL As Ordered ONE (15:18)
[2018-07-03] MEDS ORDERED: MIDAZOLAM INJ 2 MG/2 ML VIAL (J2250) As Ordered ONE ×2 (15:19→15:20)
[2018-07-03] MEDS ORDERED: LIDOCAINE 1% MDV 20ML VIAL SC ONE (15:20)
[2018-07-03] MEDS ORDERED: MIDAZOLAM INJ 2 MG/2 ML VIAL (J2250) IV SCH (15:20)
--- NOTE | 2018-07-03 15:34 | REP ---
Clinical: Pneumothorax. Comparison: The 07/01/2018 . Technique: PA and lateral. Findings: A moderate left apical pneumothorax of approximately 35% is suggested without associated mediastinal shift. Subcutaneous emphysema along the lateral chest wall is also identified. No obvious rib fracture. Known scapular fracture is poorly visible likely due to a nondisplaced fracture line. Mediastinum and cardiac silhouette are within normal limits. Right hemithorax is well-aerated and clear. Impression: 1. Moderate left pneumothorax and subcutaneous emphysema. Electronically Signed by Montrell Cole MD 07/03/2018 03:26 P
[2018-07-03] MEDS ORDERED: PERCOCET 5MG/325MG TAB PO PRN (15:45)
[2018-07-03] MEDS ORDERED: LEVALBUTEROL 1.25 MG/0.5 ML CONCENTRATE NEB NEB PRN (15:45)
[2018-07-03] MEDS ORDERED: BISACODYL 10 MG SUPP PR PRN (15:45)
--- NOTE | 2018-07-03 16:04 | CR ---
DATE OF CONSULTATION: 07/03/2018 The patient is seen at the request of Dr. Garcia of the hospitalist service for an incidentally discovered pneumothorax on a shoulder CT on the left side. HISTORY OF PRESENT ILLNESS: The patient is a 72-year-old white male who on 07/01/2018 felt dizzy and then fell from his porch on to a concrete slab. He states that he did not lose consciousness. He admits to drinking at least two bottles of beer a day and his sister tells me that he drinks to excess and is often times at the bar and is inebriated. He was admitted to the hospital after his fall for mild diabetic ketoacidosis, for which he was placed on insulin drip. He states that he has had no fevers, chills or sweats, but states that he has also lost 50 pounds since summer. His sister does not corroborate the 50 pound weight loss. He has an occasional cough. No sputum production. No hemoptysis. He complains of pain in his shoulder and also notes increased pain when he takes a deep breath. The pain is centered in and around his shoulder, but also in his anterior superior left chest. There has been no dysphagia. He does state that he does get short of breath with exertion, although he does not exert himself much secondary to neuropathy of his foot and deformity of his foot where he has had surgery. He sleeps in a recliner, indicates that he cannot breathe when he lies flat. He denies waking up short of breath at night. He denies leg swelling. PAST MEDICAL HISTORY: 1. Diabetes. 2. Hypertension. 3. History of osteomyelitis of the left foot, status post drainage and surgeries. 4. Cerebrovascular disease with a history of right carotid endarterectomy. ALLERGIES: None. MEDICATIONS: At home: - glimepiride 4 mg daily - metformin 1000 mg twice a day - Lisinopril 20 mg daily - simvastatin 20 mg daily - sertraline 100 mg daily - Neurontin 600 mg daily The admitting physician notes that he does not take any of his medications at home. TRAVEL HISTORY: He has been to [place] and [place]. OCCUPATIONAL HISTORY: Worked at the [employer]. Denies any asbestos exposure. EXPOSURES: He has a cat at home. No birds or dogs. No exposures to tuberculosis. REVIEW OF SYSTEMS: EYES: Sometimes has diplopia. Without prior jaundice. Without amaurosis fugax. NOSE: Without epistaxis. MOUTH: Is edentulous. RESPIRATORY: See history of present illness. CARDIAC: See history of present illness. No prior history of myocardial infarction. He does get cramps when he walks in the back of his legs. Denies peripheral edema. The above history of orthopnea. GASTROINTESTINAL: Without recent nausea or vomiting or diarrhea. No melena, hematochezia, hematemesis. Denies abdominal pain. 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 He is able to move all of his fingers and toes without paralyses. Without seizures. ENDOCRINE: Without thyroid disease. With diabetes. PSYCHIATRIC: Without pathological anxieties, depression, or psychoses. He does apparently have a problem with excess alcohol intake. PHYSICAL EXAMINATION: Underweight, white male, almost cachectic, complaining of pain in his left shoulder. VITAL SIGNS: Temperature 98.6 with a heart rate of 88 in a sinus rhythm, respiratory rate of 18, who is 97% saturated on room air and his blood pressure is 138/66. EYES: Pupils are equal, round and reactive to light. Extraocular muscles intact. Sclerae nonicteric. NOSE: Without deformity. MOUTH: Shows his mucous membranes to be pink and moist. Lips and commissures without lesions. There is no thrush. He is edentulous. HEAD: Normocephalic. NECK: Supple. There is no jugular venous distention (JVD). No subcutaneous emphysema. Trachea is midline. He has 2+ carotid upstrokes with bilateral carotid systolic bruits. There is no lymphadenopathy. No thyromegaly. LUNGS: Markedly decreased breath sounds on the left side. Percussion note is full to the diaphragm. I hear no wheezes, rhonchi or rales. He does have occasional rhonchi, which clear with coughing. CARDIAC: Exam is without murmurs, clicks, gallops or rubs. I cannot feel his point of maximum impulse (PMI). S1, S2 are normal. ABDOMEN: Soft, nontender but tympanitic. Bowel sounds are positive. There is no hepatomegaly. No costovertebral angle tenderness. EXTREMITIES: No pretibial edema. No calf tenderness. No differential swelling of the upper extremities. He does have a deformed left foot, almost club foot. NEUROLOGIC: Cranial nerves II-XII intact. Gross motor and gross sensation intact. Gait is not tested. PSYCHIATRIC: Shows him to be awake and alert, oriented times three with appropriate mood and affect and conversational. LABORATORY DATA: His white count today is 7.8, down from 17.3 on admission. Hemoglobin and hematocrit are 10.6 and 30.9, down from 12.5 and 35.3, probably secondary to hemodilution. Platelet count is 92. There is no differential. Differential on admission showed 88% neutrophils, 2% lymphocytes and 9% monocytes. There are no immature forms. No toxic granulations. Chemistries show normal electrolytes with a BUN and creatinine of 36 and 1.09, down from 33 and 1.6 on admission. Glucose is 192. Calcium is 8.2 and albumin of 6.2. AST and ALT are 99 and 54, respectively, with a total bilirubin of 0.8 and an alkaline phosphatase of 84. There are no coagulation studies on him at this time. Urinalysis at the time of admission showed a 2+ protein, 3+ glucose and 3+ blood. His chest x-ray, in retrospect on admission, shows a small pneumothorax on the left. His chest x-ray today after discovery of the pneumothorax on the shoulder CT shows subcutaneous emphysema with a slight separation of the lung from the chest wall. I do see a small separation at the cupula of the chest. It is more hyperlucent, however. The lateral chest x-ray is not very interpretable as his arm could not be moved from his lateral side. The CT of his shoulder shows a pneumothorax on the left side. I see no rib fractures in those ribs that are visualized. The pneumothorax certainly looks quite significant. IMPRESSION: 1. Acute pneumothorax secondary to trauma. 2. Hypertension. 3. Diabetes. 4. Noncompliance with medical therapy. 5. Alcoholism. 6. Acute renal insufficiency, now resolved. 7. Hyperlipidemia. 8. Diabetic ketoacidosis, now resolved. PLAN/DISCUSSION: His shoulder CT combined with his physical examination, which showed markedly decreased breath sounds on the left side, will prompt me to place an anterior chest tube. I will do that under conscious sedation. I do think that he should have a syncope workup. His fall has been attributed to his inebriation; however, in the presence of a history of a prior stroke and carotid endarterectomy, he deserves a syncopal workup.
--- NOTE | 2018-07-03 16:04 | REP ---
Clinical: Status post chest tube placement for pneumothorax. Comparison: 07/03/2018 at 1500. Findings: Left apical chest tube identified. The left lung appears reinflated and the previously noted pneumothorax appears to have essentially resolved. Mediastinum and cardiac silhouette are normal. No focal consolidation. No effusion. Skeletal structures appear intact. The left scapular fracture is not identifiable by radiographic evaluation. Impression: 1. Status post left chest tube placement resolution of the previously noted pneumothorax. 2. Stable subcutaneous emphysema. Electronically Signed by Montrell Cole MD 07/03/2018 03:56 P
--- NOTE | 2018-07-03 16:26 | CR ---
DATE OF CONSULTATION: 07/03/2018 ADDENDUM TO NICOLASA CASTRO'S CONSULTATION Patient seen and examined. He has a left scapular fracture based on plain x-ray and an MRI scan. CT scan will be ordered to further define the fracture. Patient essentially had some falls recently. There were likely the culprit. I agree with Nicolasa Castro's assessment. The plan will be sling, CT scan and then follow up in the office in a week to 10 days for repeat x-ray. Overall, I think his prognosis is fairly good for this fracture.
--- NOTE | 2018-07-03 18:11 | IPNPDOC ---
Text Note Date of Service The patient was seen on 07/03/18. NOTE SUBJECTIVE: The patient is seen and examined in the room today. The patient still complains left shoulder pain. Denies shortness of breath. Denies fever or chill. OBJECTIVE: VITAL SIGNS: Listed below. GENERAL: Alert and awake. Mild distress secondary to persistent left shoulder pain. HEENT: Normocephalic, atraumatic. Extraocular motors are grossly intact. CARDIOVASCULAR: S1, S2. Regular rate. LUNGS: Decreased breath sound of left lung. No wheeze nor rhonchi. ABDOMEN: Soft, nontender, nondistended. Bowel sounds present. MUSCULOSKELETAL: Ecchymosis at the left shoulder. Tenderness to palpation. No lower extremity edema. Left foot deformity. LABORATORY DATA: Listed below. ASSESSMENT AND PLAN: # Pneumothorax. - Secondary to trauma from fall. - CT shoulder showed left sided pneumothorax. Left lateral 3rd and 4th rib fracture. Extrathoracic subcutaneous emphysema. - Thoracic surgery consulted. Chest tube placement. # Comminuted fracture of left scapula with left lateral 3rd and 4th rib fracture. - Secondary to trauma from fall. - Orthopedic surgery consulted. - Sling ordered. # Frequent fall - EKG from 07/01/18 demonstrate sinus tachycardia. Continue cardiac telemetry monitoring. - Medication reviewed. Echocardiogram ordered. Carotid US ordered. Orthostatic measurement ordered. #. Diabetic ketoacidosis. - Resolved. S/P insulin drip. Anion gap closed. Patient tolerate oral diet. On subcutaneous insulin regimen. #. Alcohol dependence. - Last drink was approximately 1 to 2 days prior to admission. On Clinical [place] Withdrawal Assessment (CIWA) protocol. On folic acid, multivitamin, and thiamine. #. Leukocytosis. - The patient is afebrile. No clear source of infection at this time. Possibly due to hemoconcentration, stress and/or from DKA. Continue to monitor the patient at this time. # Thrombocytopenia. - History of alcohol dependence. - Heparin on hold. HIT antibody ordered. #. Mild rhabdomyolysis. - Improving. Secondary to recent trauma. Continue to monitor. #. History of hypertension. - Patient has not taken any medication prior to hospitalization due to noncompliance. Start norvasc. #. History of solitary kidney. #. History of osteomyelitis of left foot, status post surgery. #. Medical noncompliance. - Complicate patient's care. tax services manager have been assisting with the patient's case. #. Deep vein thrombosis (DVT) prophylaxis. On JEET. VS,Fishbone, I+O VS, Fishbone, I+O Laboratory Tests 07/03/18 05:38 Red Blood Count 3.33 L, Mean Corpuscular Volume 92.8, Mean Corpuscular Hemoglobin 31.8, Mean Corpuscular Hemoglobin Concent 34.3, Red Cell Distribution Width 13.1 Vital Signs Date Time Temp Pulse Resp B/P (MAP) Pulse Ox O2 Delivery O2 Flow Rate FiO2 07/03/18 13:54 168/86 (113) 07/03/18 12:00 97.4 91 20 98 07/01/18 23:00 Room Air I&O- Last 24 Hours up to 6 AM 07/03/18 06:00 Intake Total 0 ml Output Total 500 ml Balance -500 ml JORGE LOCK DO Jul 03, 2018 18:11
--- NOTE | 2018-07-03 18:30 | REP ---
CAROTID ULTRASOUND: Real-time ultrasound evaluation and duplex Doppler interrogation of the extracranial carotid vasculature is performed. There is mild to moderate plaquing and narrowing in both carotid bulbs extending into the internal and external carotid arteries. Luminal narrowing is less than 50%. There is no evidence of hemodynamically significant stenosis of either internal carotid artery. Normal flow velocities are seen. The vertebral arteries demonstrate normal direction of flow. RIGHT LEFT Peak systolic velocity ICA 89.5 cm/s 91 cm/s End diastolic velocity ICA 16.6 cm/s 13.8 cm/s Peak systolic velocity CCA 80.9 cm/s 117.4 cm/s Peak systolic velocity ECA 165.8 cm/s 111.4 cm/s ICA/CCA ratio 1.11 0.70 IMPRESSION: Bilateral luminal narrowing of the internal carotid arteries less than 50%. No evidence of hemodynamically significant stenosis. Electronically Signed by Matt Purcell MD 07/03/2018 06:22 P
[2018-07-03] MEDS: LEVALBUTEROL 1.25 MG/0.5 ML CONCENTRATE NEB NEB SCH (20:43)
[2018-07-03] MEDS: SIMVASTATIN 20 MG TAB PO SCH (21:06)
[2018-07-03] MEDS: DOCUSATE SODIUM 100 MG CAP PO SCH (21:06)
[2018-07-03] MEDS: NORCO, ANEXSIA 5/325MG TABLET (HYDROcodone/ACETAMINOPHEN) PO PRN (21:08)
[2018-07-04] VITALS (9 sets, daily range): BP systolic 98–174; BP diastolic 50–91
[2018-07-04] MEDS: LEVALBUTEROL 1.25 MG/0.5 ML CONCENTRATE NEB NEB SCH ×4 (02:00→20:06)
[2018-07-04 06:02] LABS: HEMATOCRIT 30.5 % (42.0-52.0); HEMOGLOBIN 10.1 g/dl (13.5-17.5); MEAN CORPUSCULAR HEMOGLOBIN 31.9 pg (27.0-33.0); MEAN CORPUSCULAR HGB CONC 33.1 g/dl (32.0-36.5); MEAN CORPUSCULAR VOLUME 96.2 fl (80.0-96.0); PLATELET COUNT, AUTOMATED 100 10^3/uL (150-450); RED BLOOD COUNT 3.17 10^6/uL (4.30-6.10); WHITE BLOOD COUNT 5.5 10^3/uL (4.0-10.0)
[2018-07-04 06:12] LABS: BLOOD UREA NITROGEN 35 MG/DL (7-18); CALCIUM LEVEL 8.5 MG/DL (8.8-10.2); CARBON DIOXIDE LEVEL 29 MEQ/L (21-32); CHLORIDE LEVEL 104 MEQ/L (98-107); CREATININE FOR GFR 1.17 MG/DL (0.70-1.30); GLOMERULAR FILTRATION RATE > 60.0 (>42); GLUCOSE, FASTING 219 MG/DL (70-100); MAGNESIUM LEVEL 2.7 MG/DL (1.8-2.4); POTASSIUM SERUM 4.9 MEQ/L (3.5-5.1); SODIUM LEVEL 138 MEQ/L (136-145)
--- NOTE | 2018-07-04 08:21 | REP ---
Clinical: Status post left pneumothorax. Comparison: 07/03/2018. Findings: Left apical chest tube in stable satisfactory position and no significant residual pneumothorax is identified. Small amount of subcutaneous emphysema along the chest wall is again noted along with suspected left basilar atelectasis and small pleural reaction. Mediastinum and cardiac silhouette are normal. Right hemithorax appears relatively clear. Impression: No obvious residual left pneumothorax. Left basilar atelectasis and small pleural reaction noted. Electronically Signed by Montrell Cole MD 07/04/2018 08:12 A
[2018-07-04] MEDS: MOM 30ML SUSPENSION UDC PO SCH (08:34)
[2018-07-04] MEDS: PERCOCET 5MG/325MG TAB PO PRN ×2 (08:35→13:20)
[2018-07-04] MEDS: FOLIC ACID 1 MG TAB PO SCH (08:36)
[2018-07-04] MEDS: THIAMINE 100 MG TAB PO SCH (08:36)
[2018-07-04] MEDS: LISINOPRIL 40 MG TAB PO SCH (08:36)
[2018-07-04] MEDS: PANTOPRAZOLE 40MG TAB (PROTONIX) PO SCH (08:36)
[2018-07-04] MEDS: amLODIPine 5 MG TAB PO SCH (08:36)
[2018-07-04] MEDS: DOCUSATE SODIUM 100 MG CAP PO SCH ×2 (08:36→20:35)
[2018-07-04] MEDS: MULTIVITAMINS/MINERALS THERAP 1 TAB PO SCH (08:36)
[2018-07-04] MEDS: SERTRALINE 100 MG TAB PO SCH (08:36)
[2018-07-04] MEDS: HumaLOG INSULIN (NovoLOG) PER UNIT SC SCH ×4 (08:37→20:39)
--- NOTE | 2018-07-04 12:26 | IPN ---
DATE: 07/04/2018 Mr. Sebastian is sitting comfortably in the chair. However, he is still exquisitely painful in and around his shoulder. He has various ecchymoses on his shoulder. His chest tube pain is being well controlled. He is able to take a deep breath. His vital signs are a T-max of 97.6 with a heart rate that ranges between 74 and 80 in a sinus rhythm, a respiratory rate of 18 to 20 without the use of accessory muscles who is 95% saturated on 2 liters nasal cannula and whose blood pressure is ranging 174/79 to 129/69. His intake and output the past 24 hours has been recorded as 1040 in and 652 out for a positivity of 388 mL. He has only put out 2 mL from the chest tube and there is no air leak. Weight today is 71.3 kg compared to 68.7 kg yesterday. On physical examination, his lungs show equal breath sounds on either side. I hear no wheezes, rhonchi or rales. Percussion note is full to the diaphragm. Cardiac Exam: Without murmurs, clicks, gallops or rubs. I cannot feel his PMI. S1 and S2 are normal. Abdomen soft, nontender. Bowel sounds are positive. There is no hepatomegaly, no CVA tenderness. Extremities show on pretibial edema, no calf tenderness and no differential swelling of the upper extremities. Skin is warm, dry and perfused, without cyanosis or mottling, including that of the nail beds and knees. As noted above, he has ecchymoses over the left shoulder and back. Neck is supple. There is no jugular venous distention. No subcutaneous emphysema. Trachea is midline. Mouth shows his mucous membranes to be pink and moist. Lips and commissures without lesions. No thrush. Eyes show her pupils to be equal and reactive. Extraocular movements intact. Sclerae nonicteric. Neurologic shows II-XII intact along with gross motor and gross sensation intact. Gait is not tested. Psychiatric shows him to be awake, alert and oriented times three with appropriate mood and affect and conversational. His white count today is 5.5 with hemoglobin/hematocrit of 10.1/30.5 and a platelet count of 100. There is no differential on him. Electrolytes are normal with a BUN and creatinine of 35 and 1.17, glucose 219, with a calcium of 8.5 and a magnesium of 2.7. His chest x-ray today shows his lung fully expanded to the chest wall. Costophrenic angles are sharp. The chest tube is in a good place. There is minimal subcutaneous emphysema on the lateral chest wall. I do not see any overt infiltrates either on the PA or the lateral view. The lateral view is somewhat obscured by his arm as he cannot move his shoulder. IMPRESSION: 1. Traumatic pneumothorax. 2. Diabetes. 3. Hypertension. 4. History of osteomyelitis left foot. 5. Cerebrovascular disease. 6. Alcoholism. 7. Hyperlipidemia. 8. Acute renal insufficiency, resolved. PLAN AND DISCUSSION: I will take his chest tube off suction today. His shoulder is still exquisitely painful. I do know that Dr. Castro has seen him in consultation from orthopedics. He has a left scapular fracture. He is now in a sling.
--- NOTE | 2018-07-04 18:01 | IPNPDOC ---
Text Note Date of Service The patient was seen on 07/04/18. NOTE SUBJECTIVE: The patient is seen and examined in the room today with his sister. Patient tolerated chest tube placement yesterday. Patient still has significant pain at left shoulder. Denies fever or chill. OBJECTIVE: VITAL SIGNS: Listed below. GENERAL: Alert and awake. Mild distress secondary to persistent left shoulder pain. HEENT: Normocephalic, atraumatic. Extraocular motors are grossly intact. CARDIOVASCULAR: S1, S2. Regular rate. LUNGS: No wheeze nor rhonchi. ABDOMEN: Soft, nontender, nondistended. Bowel sounds present. MUSCULOSKELETAL: Ecchymosis at the left shoulder. Tenderness to palpation. No lower extremity edema. Left foot deformity. LABORATORY DATA: Listed below. ASSESSMENT AND PLAN: # Pneumothorax. - Secondary to trauma from fall. - CT shoulder showed left sided pneumothorax. Left lateral 3rd and 4th rib fracture. Extrathoracic subcutaneous emphysema. - Thoracic surgery consulted. Chest tube in place. # Comminuted fracture of left scapula with left lateral 3rd and 4th rib fracture. - Secondary to trauma from fall. - Orthopedic surgery consulted. - Sling ordered. # Frequent fall - EKG from 07/01/18 demonstrate sinus tachycardia. Continue cardiac telemetry monitoring. - Medications reviewed. Orthostatic measurements were negative. Urine toxicology was negative. Echocardiogram ordered. Carotid US reviewed. #. Diabetic ketoacidosis. - Resolved. S/P insulin drip. Anion gap closed. Patient tolerates oral diet. On subcutaneous insulin regimen. #. Alcohol dependence. - Last drink was approximately 1 to 2 days prior to admission. On Clinical [place] Withdrawal Assessment (CIWA) protocol. On folic acid, multivitamin, and thiamine. #. Leukocytosis. - The patient is afebrile. No clear source of infection at this time. Possibly due to hemoconcentration, stress and/or from DKA. Continue to monitor the patient at this time. # Thrombocytopenia. - History of alcohol dependence. - Heparin on hold. HIT antibody is negative. #. Mild rhabdomyolysis. - Improving. Secondary to recent trauma. Continue to monitor. #. History of hypertension. - Patient has not taken any medication prior to hospitalization due to noncompliance. On norvasc. #. History of solitary kidney. #. History of osteomyelitis of left foot, status post surgery. #. Medical noncompliance. - Complicate patient's care. resident services manager have been assisting with the patient's case. #. Deep vein thrombosis (DVT) prophylaxis. On JEET. VS,Fishbone, I+O VS, Fishbone, I+O Laboratory Tests 07/04/18 05:31 Red Blood Count 3.17 L, Mean Corpuscular Volume 96.2 H, Mean Corpuscular Hemoglobin 31.9, Mean Corpuscular Hemoglobin Concent 33.1, Red Cell Distribution Width 12.8, Calcium Level 8.5 L Vital Signs Date Time Temp Pulse Resp B/P (MAP) Pulse Ox O2 Delivery O2 Flow Rate FiO2 07/04/18 16:00 97.3 80 18 103/55 (71) 97 07/04/18 04:00 2.0 07/01/18 23:00 Room Air I&O- Last 24 Hours up to 6 AM 07/04/18 06:00 Intake Total 1160 ml Output Total 302 ml Balance 858 ml JORGE LOCK DO Jul 04, 2018 18:01
[2018-07-04] MEDS: NORCO, ANEXSIA 5/325MG TABLET (HYDROcodone/ACETAMINOPHEN) PO PRN (20:34)
[2018-07-04] MEDS: SIMVASTATIN 20 MG TAB PO SCH (20:34)
[2018-07-05] MEDS: LEVALBUTEROL 1.25 MG/0.5 ML CONCENTRATE NEB NEB SCH ×4 (01:13→20:00)
[2018-07-05 04:00] VITALS: BP_SYST 102; BP_SYST 145; BP_DIAS 57; BP_DIAS 67
[2018-07-05 05:26] LABS: HEMATOCRIT 29.7 % (42.0-52.0); HEMOGLOBIN 9.6 g/dl (13.5-17.5); MEAN CORPUSCULAR HEMOGLOBIN 31.8 pg (27.0-33.0); MEAN CORPUSCULAR HGB CONC 32.3 g/dl (32.0-36.5); MEAN CORPUSCULAR VOLUME 98.3 fl (80.0-96.0); PLATELET COUNT, AUTOMATED 112 10^3/uL (150-450); RED BLOOD COUNT 3.02 10^6/uL (4.30-6.10); WHITE BLOOD COUNT 5.6 10^3/uL (4.0-10.0)
[2018-07-05 05:45] LABS: HEMOGLOBIN A1c 10.9 %
[2018-07-05 05:50] LABS: CALCIUM LEVEL 8.3 MG/DL (8.8-10.2); CREATININE FOR GFR 1.86 MG/DL (0.70-1.30); GLOMERULAR FILTRATION RATE 38.3 (>42); MAGNESIUM LEVEL 2.9 MG/DL (1.8-2.4); POTASSIUM SERUM 4.8 MEQ/L (3.5-5.1)
[2018-07-05] MEDS: NORCO, ANEXSIA 5/325MG TABLET (HYDROcodone/ACETAMINOPHEN) PO PRN ×2 (06:46→18:00)
[2018-07-05 08:00] VITALS: BP 113/62
[2018-07-05] MEDS: MULTIVITAMINS/MINERALS THERAP 1 TAB PO SCH (08:13)
[2018-07-05] MEDS: DOCUSATE SODIUM 100 MG CAP PO SCH ×2 (08:13→20:58)
[2018-07-05] MEDS: PANTOPRAZOLE 40MG TAB (PROTONIX) PO SCH (08:13)
[2018-07-05] MEDS: MOM 30ML SUSPENSION UDC PO SCH (08:13)
[2018-07-05] MEDS: HumaLOG INSULIN (NovoLOG) PER UNIT SC SCH ×4 (08:13→21:03)
[2018-07-05] MEDS: FOLIC ACID 1 MG TAB PO SCH (08:14)
[2018-07-05] MEDS: LISINOPRIL 40 MG TAB PO SCH (08:14)
[2018-07-05] MEDS: SERTRALINE 100 MG TAB PO SCH (08:14)
[2018-07-05] MEDS: amLODIPine 5 MG TAB PO SCH (08:14)
--- NOTE | 2018-07-05 08:47 | REP ---
CHEST X-RAY: Two views. HISTORY: Left-sided pneumothorax. COMPARISON STUDY: July 03 and July 04, 2018. FINDINGS: The left apical chest tube remains in place. The left lung is reinflated. There is some residual extrathoracic soft tissue emphysema along the left lateral chest wall. A tiny left apical pleural air collection persists. There is slight blunting of the left lateral pleural angle. Left scapular fracture is again seen. There are old healed fractures on the right ribcage. Surgical clips are noted in the soft tissues of the neck on the right. IMPRESSION: Left chest tube remains in place. Tiny left apical pneumothorax. Slight blunting left lateral pleural angle. Scapular fracture unchanged. Electronically Signed by Malcolm Anguiano MD 07/05/2018 02:36 P
--- NOTE | 2018-07-05 11:01 | IPN ---
DATE: 07/05/2018 Mr. Sebastian is still complaining of shoulder and scapula pain directly referable to his fractured scapula. He is able to breathe well, however. His vital signs are a maximum temperature (t-max) of 97.6 with a heart rate that ranges between 75 and 82 in a sinus rhythm, a respiratory rate of 18 to 20 without the use of accessory muscles who is 93 to 94% saturated on room air and whose blood pressure is ranging 99/56 to 145/67. His intake and output the past 24 hours has been recorded as 720 in and 608 out for a positivity of 112 mL. He has put out 8 mL from the chest tube and there is no air leak. Weight today is 69.3 kg compared to 71.3 kg yesterday. PHYSICAL EXAMINATION: LUNGS: He has equal breath sounds on either side. I hear no wheezes, rhonchi or rales. Percussion note is full to the diaphragm. CARDIAC EXAM: Without murmurs, clicks, gallops or rubs. I cannot feel his point of maximum impulse (PMI). S1, S2 are normal. ABDOMEN: Soft, nontender but tympanitic and distended. There is no hepatomegaly. No costovertebral angle tenderness. EXTREMITIES: Show no pretibial edema. No calf tenderness. No differential swelling of the upper extremities. SKIN: Warm, dry and perfused without cyanosis or mottling, including that of the nail beds and knees. NECK: Supple. There is no jugular venous distention. No subcutaneous emphysema. Trachea is midline. MOUTH: Shows his mucous membranes to be pink and moist. Lips and commissures without lesions. There is no thrush. EYES: Show his pupils to be equal and reactive. Extraocular motion intact. Sclerae anicteric. NEUROLOGIC: Shows II through XII intact with gross motor and gross sensation intact. Gait is not tested. PSYCHIATRIC: Shows him to be awake and alert, oriented times three with appropriate mood and affect and conversational. His white count today is 5.6, unchanged from yesterday with a hemoglobin/hematocrit of 9.6 and 29.7, again essentially unchanged from yesterday. Platelet count is 112 and stable. There is no differential on him. His chemistries show normal electrolytes with a BUN and creatinine of 41 and 1.86 today, which is up from 35 and 1.17, glucose is 261 with a calcium of 8.3 and a magnesium of 2.9. He is on Lisinopril, as the only medication that could be impinging on his kidneys. He has never been placed on Toradol. His chest x-ray today shows his lung fully expanded to the chest wall. Chest tubes are in good place. There is minimal subcutaneous emphysema on the lateral chest wall, which seems to be dissipating. He has a blunted left costophrenic angle. Compared to yesterday, there is essentially no change from the costophrenic angle. IMPRESSION: 1. Traumatic pneumothorax. 2. Diabetes. 3. Hypertension. 4. History of osteomyelitis of the left foot. 5. Fractured scapula. 6. Cerebrovascular disease. 7. Alcoholism. 8. Hyperlipidemia. 9. Renal insufficiency, recurrent. PLAN AND DISCUSSION: I will remove his chest tubes today. I suggest that the Lisinopril be discontinued. His scapula fracture is being treated with a sling. He does not seem to be tremulous going through alcohol withdrawal at this point in time.
--- NOTE | 2018-07-05 11:21 | REP ---
Urinary tract sonogram: History: Acute renal injury. Comparison: None Findings: Scanning at the level of the urinary bladder shows no abnormality. Prostate dimensions are 2.8 x 3.4 x 4.4 cm transabdominally. Renal cortical echogenicity pattern is normal bilaterally and contours are smooth. There is no evidence of hydronephrosis, cyst, mass, or calculus in either kidney. The right kidney measures 11.1 x 6.1 x 5.1 cm. Left renal dimensions are 11.1 x 4.5 x 5.1 cm. Impression: Normal urinary tract sonography. Electronically Signed by Malcolm Anguiano MD 07/05/2018 11:13 A
[2018-07-05 12:00] VITALS: BP 119/61
[2018-07-05 16:00] VITALS: BP 133/71
[2018-07-05 17:44] VITALS: BP_SYST 121; BP_SYST 148; BP_SYST 153; BP_DIAS 58; BP_DIAS 68; BP_DIAS 69
--- NOTE | 2018-07-05 18:27 | IPNPDOC ---
Text Note Date of Service The patient was seen on 07/05/18. NOTE SUBJECTIVE: The patient is seen and examined in the room today with his sister. Patient states he has poor oral intake. He has significant left shoulder pain. Denies fever or chill. Patient agrees for rehab. OBJECTIVE: VITAL SIGNS: Listed below. GENERAL: Alert and awake. Mild persistent distress secondary to persistent left shoulder pain. HEENT: Normocephalic, atraumatic. Extraocular motors are grossly intact. CARDIOVASCULAR: S1, S2. Regular rate. LUNGS: No wheeze nor rhonchi. ABDOMEN: Soft, nontender, nondistended. Bowel sounds present. MUSCULOSKELETAL: Ecchymosis at the left shoulder. Sling in place. No lower extremity edema. Left foot deformity. LABORATORY DATA: Listed below. ASSESSMENT AND PLAN: # Pneumothorax. - Secondary to trauma from fall. - CT shoulder showed left sided pneumothorax. Left lateral 3rd and 4th rib fracture. Extrathoracic subcutaneous emphysema. - Thoracic surgery consulted. S/P Chest tube placement. # Acute renal injury. - Patient has rhabdomyolysis. Lisinopril on hold. US ordered. Encourage oral intake. Follow with urine study. Trial of IV fluid. # Frequent fall - EKG from 07/01/18 demonstrate sinus tachycardia. Continue cardiac telemetry monitoring. - Medications reviewed. Urine toxicology was negative. Echocardiogram ordered. Carotid US reviewed. - Orthostatic measurements were positive. # Comminuted fracture of left scapula with left lateral 3rd and 4th rib fracture. - Secondary to trauma from fall. - Orthopedic surgery consulted. - Sling ordered. #. Diabetic ketoacidosis. - Resolved. S/P insulin drip. Anion gap closed. Patient tolerates oral diet. On subcutaneous insulin regimen. #. Alcohol dependence. - Last drink was approximately 1 to 2 days prior to admission. On Clinical [place] Withdrawal Assessment (CIWA) protocol. On folic acid, multivitamin, and thiamine. #. Leukocytosis. - The patient is afebrile. No clear source of infection at this time. Possibly due to hemoconcentration, stress and/or from DKA. Continue to monitor the patient at this time. # Thrombocytopenia. - History of alcohol dependence. - HIT antibody is negative. #. Mild rhabdomyolysis. - Improving. Secondary to recent trauma. Continue to monitor. #. History of hypertension. - Patient has not taken any medication prior to hospitalization due to noncompliance. On norvasc. #. History of solitary kidney. #. History of osteomyelitis of left foot, status post surgery. #. Medical noncompliance. - Complicate patient's care. manager environmental services have been assisting with the patient's case. #. Deep vein thrombosis (DVT) prophylaxis. On JEET. VS,Fishbone, I+O VS, Fishbone, I+O Laboratory Tests 07/05/18 05:02 Red Blood Count 3.02 L, Mean Corpuscular Volume 98.3 H, Mean Corpuscular Hemoglobin 31.8, Mean Corpuscular Hemoglobin Concent 32.3, Red Cell Distribution Width 13.1, Calcium Level 8.3 L Vital Signs Date Time Temp Pulse Resp B/P (MAP) Pulse Ox O2 Delivery O2 Flow Rate FiO2 07/05/18 18:00 18 07/05/18 17:44 85 153/69 (97) 85 148/68 (94) 87 121/58 (79) 07/05/18 16:00 98.7 95 07/04/18 04:00 2.0 07/01/18 23:00 Room Air I&O- Last 24 Hours up to 6 AM 07/05/18 06:00 Intake Total 600 ml Output Total 608 ml Balance -8 ml JORGE LOCK DO Jul 05, 2018 18:27
[2018-07-05] MEDS ORDERED: NS 1,000 ML IV SCH (18:30)
[2018-07-05 18:50] LABS: HEMATOCRIT 30.6 % (42.0-52.0); HEMOGLOBIN 9.9 g/dl (13.5-17.5); MEAN CORPUSCULAR HEMOGLOBIN 31.8 pg (27.0-33.0); MEAN CORPUSCULAR HGB CONC 32.4 g/dl (32.0-36.5); MEAN CORPUSCULAR VOLUME 98.4 fl (80.0-96.0); PLATELET COUNT, AUTOMATED 116 10^3/uL (150-450); RED BLOOD COUNT 3.11 10^6/uL (4.30-6.10); WHITE BLOOD COUNT 5.8 10^3/uL (4.0-10.0)
[2018-07-05 19:42] LABS: CALCIUM LEVEL 7.9 MG/DL (8.8-10.2); CREATININE FOR GFR 1.63 MG/DL (0.70-1.30); GLOMERULAR FILTRATION RATE 44.6 (>42); POTASSIUM SERUM 4.8 MEQ/L (3.5-5.1)
[2018-07-05 20:00] VITALS: BP 125/65
[2018-07-05] MEDS: SIMVASTATIN 20 MG TAB PO SCH (20:58)
[2018-07-06] VITALS (7 sets, daily range): BP systolic 110–188; BP diastolic 56–79
--- NOTE | 2018-07-06 00:02 | ECHO ---
DATE OF PROCEDURE: 07/03/2018 DATE OF : 1945 AGE: 72 REFERRING PROVIDER: Dr. Maribel Garcia PATIENT LOCATION: Room 3228 REASON FOR THE ECHOCARDIOGRAM: Syncope. 2D MEASUREMENTS: IVS: 0.6 cm LV: 4.1 cm LVPW: 0.6 cm LA: 3.9 cm Aorta: 2.8 cm IVC: 1.9 cm DOPPLER MEASUREMENTS: Peak velocity across the aortic valve: 1.0 m/s Peak velocity across the LVOT: 0.81 m/s Mitral E: 0.68, Mitral A: 0.80 with a ratio of 0.9 Maximum tricuspid valve velocity: 2.4 m/s 2D COMMENTS: 1. Normal left ventricular size, wall thickness, and normal global left ventricular systolic function. The estimated left ventricular systolic ejection fraction is 60%. 2. Normal left atrium. Normal right atrium and right ventricle noted in limited views. 3. The atrial septum appeared to be normal without evidence of defect or shunt. 4. Normal aortic root. 5. No pericardial effusion seen. 6. Minimally calcified aortic valve with normal leaflet excursion. Mildly calcified mitral annulus with normal anterior mitral valve leaflet motion. Normal tricuspid valve. The pulmonic valve and proximal pulmonary artery branches were not well visualized. 7. The inferior vena cava was normal in size, central venous pressure is most likely normal. DOPPLER: It detects trace to mild tricuspid regurgitation. The calculated pulmonary artery systolic pressure varied between 30 to 40 mmHg. Abnormal relaxation pattern was noted across the mitral valve leaflet consistent with features of left ventricular diastolic dysfunction. IMPRESSION: 1. Normal global left ventricular systolic function. There were features of left ventricular diastolic dysfunction manifested by abnormal relaxation. 2. Aortic valve sclerosis without stenosis or aortic regurgitation. 3. Mitral annulus calcification, isolated without any mitral regurgitation or mitral stenosis. 4. Trace to mild tricuspid regurgitation with probably mild pulmonary hypertension. 5. The study was technically limited due to poor acoustic window. -
[2018-07-06] MEDS: LEVALBUTEROL 1.25 MG/0.5 ML CONCENTRATE NEB NEB SCH ×4 (01:10→20:40)
[2018-07-06 05:48] LABS: HEMATOCRIT 30.4 % (42.0-52.0); MEAN CORPUSCULAR HEMOGLOBIN 32.4 pg (27.0-33.0); MEAN CORPUSCULAR HGB CONC 32.9 g/dl (32.0-36.5); MEAN CORPUSCULAR VOLUME 98.4 fl (80.0-96.0); PLATELET COUNT, AUTOMATED 117 10^3/uL (150-450); RED BLOOD COUNT 3.09 10^6/uL (4.30-6.10); WHITE BLOOD COUNT 6.4 10^3/uL (4.0-10.0)
[2018-07-06 06:18] LABS: CALCIUM LEVEL 8.1 MG/DL (8.8-10.2); CREATININE FOR GFR 1.33 MG/DL (0.70-1.30); GLOMERULAR FILTRATION RATE 56.4 (>42); MAGNESIUM LEVEL 3.1 MG/DL (1.8-2.4)
--- NOTE | 2018-07-06 08:11 | REP ---
Follow-up left pneumothorax. Technique: PA and lateral. Comparison: 07/05/2018. Findings: Left-sided chest tube has been removed. No significant residual pneumothorax identified. Minimal pleuroparenchymal changes at the left base include trace atelectasis and small pleural effusion. Small residual amount of subcutaneous emphysema along the left lateral chest wall is decreased. No new acute process appreciated. Mediastinum and cardiac silhouette are normal. Skeletal structures are stable. Impression: No significant residual pneumothorax. Minimal left basilar atelectasis and small pleural effusion. Electronically Signed by Montrell Cole MD 07/06/2018 08:03 A
[2018-07-06] MEDS: PANTOPRAZOLE 40MG TAB (PROTONIX) PO SCH (08:32)
[2018-07-06] MEDS: SERTRALINE 100 MG TAB PO SCH (08:32)
[2018-07-06] MEDS: DOCUSATE SODIUM 100 MG CAP PO SCH ×2 (08:32→21:03)
[2018-07-06] MEDS: HumaLOG INSULIN (NovoLOG) PER UNIT SC SCH ×4 (08:32→21:08)
[2018-07-06] MEDS: MULTIVITAMINS/MINERALS THERAP 1 TAB PO SCH (08:33)
[2018-07-06] MEDS: FOLIC ACID 1 MG TAB PO SCH (08:33)
[2018-07-06] MEDS: ACETAMINOPHEN TAB 650MG DOSE (2X325MG) PO PRN (08:33)
[2018-07-06] MEDS: amLODIPine 10 MG TAB PO SCH (08:35)
--- NOTE | 2018-07-06 14:17 | IPN ---
DATE: 07/06/2018 Mr. Sebastian is moving better today and his pain seems to be better controlled. He can at least move his shoulder a bit. His vital signs shows a maximum temperature (t-max) of 98.7 with a heart rate that ranges between 82 and 75 in a sinus rhythm, a respiratory rate that is constant at 18 who is 94% to 97% saturated on room air and whose blood pressure is ranging 126/65 to 156/68. His intake and output the past 24 hours has been recorded as 1200 in and 800 out for a positivity of 400 mL. He weighs 69 kg today compared to 69.3 kg yesterday. On physical examination, his lungs show equal breath sounds on either side. Percussion note is full to the diaphragm. I feel no subcutaneous emphysema. I hear some occasional rhonchi which clear with coughing on the left side. Cardiac Exam: Without murmurs, clicks, gallops or rubs. I cannot feel his point of maximum impulse (PMI). S1, S2 are normal. Abdomen: Soft, nontender, but tympanitic. There is no costovertebral angle (CVA) tenderness. No hepatomegaly. EXTREMITIES: Show no pretibial edema. No calf tenderness. No differential swelling of the upper extremities. His shoulder and posterior chest in the distribution of the scapula is wood milling machine tender. Skin: Warm, dry and perfused without cyanosis or mottling, including that of the nail beds and knees. Neck is supple. There is no jugular venous distention. No subcutaneous emphysema. Trachea is midline. Mouth shows his mucous membranes to be pink and moist. Lips and commissures without lesions. There is no thrush. Eyes: Show his pupils to be equal and reactive. Extraocular motion intact. Sclerae anicteric. Neurologic shows II through XII intact with gross motor and gross sensation intact. Gait is not tested. Psychiatric shows him to be awake and alert, oriented times three with appropriate mood and affect and conversational. His chest x-ray shows his lung fully expanded to the chest wall. The subcutaneous emphysema on the lateral chest wall was all but gone. There is no residual pneumothorax. The right costophrenic angle is sharp, the left costophrenic angle is slightly blunted both on the PA and the lateral views. LABS: His electrolytes are normal with a BUN and creatinine of 39 and 1.33, improved from 42 and 1.63 yesterday. Glucose is 265 with a calcium of 8.1 and a magnesium of 3.1. White count today is 6.4 with hemoglobin and hematocrit of 10.0 and 34.4, essentially unchanged from yesterday, with a platelet count of 117. There is no differential. IMPRESSION: 1. Traumatic pneumothorax. 2. Diabetes. 3. Hypertension. 4. History of osteomyelitis of the left foot. 5. Fractured scapula on the left. 6. Cerebrovascular disease. 7. Alcoholism. 8. Hyperlipidemia. 9. Renal insufficiency, improving. PLAN AND DISCUSSION: His pneumothorax is resolved and I removed his chest tubes yesterday. Will remove the dressing today. He will not need to followup with me. The mainstay of his therapy now is physical therapy and getting him to ambulate and use his shoulder and left arm. I will therefore sign off from his case.
--- NOTE | 2018-07-06 19:13 | IPNPDOC ---
Text Note Date of Service The patient was seen on 07/06/18. NOTE SUBJECTIVE: The patient is seen and examined in the room today with his sister. Patient states his left shoulder pain is manageable. Denies shortness of breathing. Patient complains about dizziness when standing up. OBJECTIVE: VITAL SIGNS: Listed below. GENERAL: Alert and awake. No distress. HEENT: Normocephalic, atraumatic. Extraocular motors are grossly intact. CARDIOVASCULAR: S1, S2. Regular rate. LUNGS: No wheeze nor rhonchi. ABDOMEN: Soft, nontender, nondistended. Bowel sounds present. MUSCULOSKELETAL: Ecchymosis at the left shoulder. Sling in place. No lower extremity edema. Left foot deformity. LABORATORY DATA: Listed below. ASSESSMENT AND PLAN: # Pneumothorax. - Secondary to trauma from fall. - CT shoulder showed left sided pneumothorax. Left lateral 3rd and 4th rib fracture. Extrathoracic subcutaneous emphysema. - Thoracic surgery consulted. S/P Chest tube placement. # Acute renal injury. - Patient has rhabdomyolysis. Lisinopril on hold. US ordered. Encourage oral intake. Follow with urine study. Trial of IV fluid. Renal function is improving. # Frequent fall - EKG from 07/01/18 demonstrate sinus tachycardia. Continue cardiac telemetry monitoring. - Medications reviewed. Urine toxicology was negative. Echocardiogram reviewed. Carotid US reviewed. - Orthostatic measurements were positive. # Comminuted fracture of left scapula with left lateral 3rd and 4th rib fracture. - Secondary to trauma from fall. - Orthopedic surgery consulted. - Sling ordered. #. Diabetic ketoacidosis. - Resolved. S/P insulin drip. Anion gap closed. Patient tolerates oral diet. On subcutaneous insulin regimen. #. Alcohol dependence. - Last drink was approximately 1 to 2 days prior to admission. On Clinical [place] Withdrawal Assessment (CIWA) protocol. On folic acid, multivitamin, and thiamine. #. Leukocytosis. - The patient is afebrile. No clear source of infection at this time. Possibly due to hemoconcentration, stress and/or from DKA. Continue to monitor the patient at this time. # Thrombocytopenia. - History of alcohol dependence. - HIT antibody is negative. #. Mild rhabdomyolysis. - Improving. Secondary to recent trauma. Continue to monitor. #. History of hypertension. - Patient has not taken any medication prior to hospitalization due to noncompliance. On norvasc. #. History of solitary kidney. #. History of osteomyelitis of left foot, status post surgery. #. Medical noncompliance. - Complicate patient's care. banking services advisor have been assisting with the patient's case. #. Deep vein thrombosis (DVT) prophylaxis. On JEET. VS,Fishbone, I+O VS, Fishbone, I+O Laboratory Tests 07/06/18 05:24 Red Blood Count 3.09 L, Mean Corpuscular Volume 98.4 H, Mean Corpuscular Hemoglobin 32.4, Mean Corpuscular Hemoglobin Concent 32.9, Red Cell Distribution Width 12.9, Calcium Level 8.1 L Vital Signs Date Time Temp Pulse Resp B/P (MAP) Pulse Ox O2 Delivery O2 Flow Rate FiO2 07/06/18 11:55 98.0 79 18 129/60 (83) 95 07/04/18 04:00 2.0 07/01/18 23:00 Room Air I&O- Last 24 Hours up to 6 AM 07/06/18 06:00 Intake Total 1680 ml Output Total 1350 ml Balance 330 ml JORGE LOCK DO Jul 06, 2018 19:13
[2018-07-06] MEDS: SIMVASTATIN 20 MG TAB PO SCH (21:04)
[2018-07-06] MEDS: PERCOCET 5MG/325MG TAB PO PRN (21:05)
[2018-07-07] MEDS: LEVALBUTEROL 1.25 MG/0.5 ML CONCENTRATE NEB NEB SCH ×4 (01:38→19:07)
[2018-07-07 04:00] VITALS: BP 122/60
[2018-07-07 07:11] LABS: HEMATOCRIT 29.5 % (42.0-52.0); HEMOGLOBIN 9.6 g/dl (13.5-17.5); MEAN CORPUSCULAR HGB CONC 32.5 g/dl (32.0-36.5); MEAN CORPUSCULAR VOLUME 98.3 fl (80.0-96.0); PLATELET COUNT, AUTOMATED 131 10^3/uL (150-450); WHITE BLOOD COUNT 5.7 10^3/uL (4.0-10.0)
[2018-07-07 07:37] LABS: BLOOD UREA NITROGEN 32 MG/DL (7-18); CALCIUM LEVEL 7.8 MG/DL (8.8-10.2); CARBON DIOXIDE LEVEL 29 MEQ/L (21-32); CHLORIDE LEVEL 107 MEQ/L (98-107); CREATININE FOR GFR 1.22 MG/DL (0.70-1.30); GLOMERULAR FILTRATION RATE > 60.0 (>42); GLUCOSE, FASTING 260 MG/DL (70-100); MAGNESIUM LEVEL 2.7 MG/DL (1.8-2.4); POTASSIUM SERUM 5.2 MEQ/L (3.5-5.1); SODIUM LEVEL 141 MEQ/L (136-145)
[2018-07-07] MEDS: MULTIVITAMINS/MINERALS THERAP 1 TAB PO SCH (08:42)
[2018-07-07] MEDS: PANTOPRAZOLE 40MG TAB (PROTONIX) PO SCH (08:43)
[2018-07-07] MEDS: HumaLOG INSULIN (NovoLOG) PER UNIT SC SCH ×4 (08:43→21:28)
[2018-07-07] MEDS: FOLIC ACID 1 MG TAB PO SCH (08:43)
[2018-07-07] MEDS: DOCUSATE SODIUM 100 MG CAP PO SCH ×2 (08:43→21:25)
[2018-07-07] MEDS: amLODIPine 10 MG TAB PO SCH (08:43)
[2018-07-07] MEDS: SERTRALINE 100 MG TAB PO SCH (08:43)
[2018-07-07 08:56] VITALS: BP_SYST 120; BP_SYST 129; BP_SYST 138; BP_DIAS 57; BP_DIAS 58; BP_DIAS 66
[2018-07-07 11:10] VITALS: BP 150/69
[2018-07-07] MEDS: ACETAMINOPHEN TAB 650MG DOSE (2X325MG) PO PRN (11:56)
[2018-07-07 15:45] VITALS: BP 106/55
[2018-07-07 20:00] VITALS: BP 129/60
--- NOTE | 2018-07-07 20:18 | IPNPDOC ---
Text Note Date of Service The patient was seen on 07/07/18. NOTE SUBJECTIVE: The patient is seen and examined in the room today. Patient states his left shoulder pain is improving. Patient complains about dizziness when standing up. OBJECTIVE: VITAL SIGNS: Listed below. GENERAL: Alert and awake. No distress. HEENT: Normocephalic, atraumatic. Extraocular motors are grossly intact. CARDIOVASCULAR: S1, S2. Regular rate. LUNGS: No wheeze nor rhonchi. ABDOMEN: Soft, nontender, nondistended. Bowel sounds present. MUSCULOSKELETAL: Ecchymosis at the left shoulder. Sling in place. No lower extremity edema. Left foot deformity. LABORATORY DATA: Listed below. ASSESSMENT AND PLAN: # Frequent fall - EKG from 07/01/18 demonstrate sinus tachycardia. Continue cardiac telemetry monitoring. - Medications reviewed. Urine toxicology was negative. Echocardiogram reviewed. Carotid US reviewed. - Orthostatic measurements were positive. - Continue physical therapy and occupational therapy. - No event is recorded on cardiac telemetry. Downgrade to M/S. # Pneumothorax. - Secondary to trauma from fall. - CT shoulder showed left sided pneumothorax. Left lateral 3rd and 4th rib fracture. Extrathoracic subcutaneous emphysema. - Thoracic surgery consulted. S/P Chest tube placement. # Acute renal injury. - Patient has rhabdomyolysis. Lisinopril on hold. US ordered. Encourage oral intake. Follow with urine study. Trial of IV fluid. Renal function is improving. # Comminuted fracture of left scapula with left lateral 3rd and 4th rib fracture. - Secondary to trauma from fall. - Orthopedic surgery consulted. - Sling ordered. #. Diabetic ketoacidosis. - Resolved. S/P insulin drip. Anion gap closed. Patient tolerates oral diet. On subcutaneous insulin regimen. #. Alcohol dependence. - Last drink was approximately 1 to 2 days prior to admission. On Clinical [place] Withdrawal Assessment (CIWA) protocol. On folic acid, multivitamin, and thiamine. #. Leukocytosis. - The patient is afebrile. No clear source of infection at this time. Possibly due to hemoconcentration, stress and/or from DKA. Continue to monitor the patient at this time. # Thrombocytopenia. - History of alcohol dependence. - HIT antibody is negative. #. Mild rhabdomyolysis. - Improving. Secondary to recent trauma. Continue to monitor. #. History of hypertension. - Patient has not taken any medication prior to hospitalization due to noncompliance. On norvasc. #. History of solitary kidney. #. History of osteomyelitis of left foot, status post surgery. #. Medical noncompliance. - Complicate patient's care. financial services sales representative have been assisting with the patient's case. #. Deep vein thrombosis (DVT) prophylaxis. On JEET. VS,Fishbone, I+O VS, Fishbone, I+O Laboratory Tests 07/07/18 06:56 Red Blood Count 3.00 L, Mean Corpuscular Volume 98.3 H, Mean Corpuscular Hemoglobin 32.0, Mean Corpuscular Hemoglobin Concent 32.5, Red Cell Distribution Width 12.8, Calcium Level 7.8 L Vital Signs Date Time Temp Pulse Resp B/P (MAP) Pulse Ox O2 Delivery O2 Flow Rate FiO2 07/07/18 15:45 97.1 76 18 106/55 (72) 100 07/06/18 21:35 20.0 07/01/18 23:00 Room Air I&O- Last 24 Hours up to 6 AM 07/07/18 06:00 Intake Total 960 ml Output Total 350 ml Balance 610 ml JORGE LOCK DO Jul 07, 2018 20:17
[2018-07-07] MEDS: SIMVASTATIN 20 MG TAB PO SCH (21:25)
[2018-07-08] VITALS: BP 123/60
[2018-07-08 04:00] VITALS: BP 148/67
[2018-07-08] MEDS: LEVALBUTEROL 1.25 MG/0.5 ML CONCENTRATE NEB NEB SCH ×4 (04:38→20:01)
[2018-07-08 05:31] LABS: HEMOGLOBIN 10.3 g/dl (13.5-17.5); MEAN CORPUSCULAR HEMOGLOBIN 31.7 pg (27.0-33.0); MEAN CORPUSCULAR HGB CONC 33.2 g/dl (32.0-36.5); MEAN CORPUSCULAR VOLUME 95.4 fl (80.0-96.0); PLATELET COUNT, AUTOMATED 161 10^3/uL (150-450); RED BLOOD COUNT 3.25 10^6/uL (4.30-6.10); WHITE BLOOD COUNT 6.1 10^3/uL (4.0-10.0)
[2018-07-08 05:55] LABS: BLOOD UREA NITROGEN 24 MG/DL (7-18); CALCIUM LEVEL 7.9 MG/DL (8.8-10.2); CARBON DIOXIDE LEVEL 29 MEQ/L (21-32); CHLORIDE LEVEL 106 MEQ/L (98-107); CREATININE FOR GFR 1.18 MG/DL (0.70-1.30); GLOMERULAR FILTRATION RATE > 60.0 (>42); GLUCOSE, FASTING 236 MG/DL (70-100); MAGNESIUM LEVEL 2.4 MG/DL (1.8-2.4); POTASSIUM SERUM 4.9 MEQ/L (3.5-5.1); SODIUM LEVEL 139 MEQ/L (136-145)
[2018-07-08 08:00] VITALS: BP 143/62
[2018-07-08] MEDS: HumaLOG INSULIN (NovoLOG) PER UNIT SC SCH ×4 (08:16→20:15)
[2018-07-08] MEDS: SERTRALINE 100 MG TAB PO SCH (08:17)
[2018-07-08] MEDS: amLODIPine 10 MG TAB PO SCH (08:17)
[2018-07-08] MEDS: PANTOPRAZOLE 40MG TAB (PROTONIX) PO SCH (08:17)
[2018-07-08] MEDS: MULTIVITAMINS/MINERALS THERAP 1 TAB PO SCH (08:17)
[2018-07-08] MEDS: DOCUSATE SODIUM 100 MG CAP PO SCH ×2 (08:17→20:15)
[2018-07-08] MEDS: FOLIC ACID 1 MG TAB PO SCH (08:17)
[2018-07-08 11:57] LABS: OSMOLALITY URINE 511 MOSM/KG (500-800)
[2018-07-08 12:21] LABS: CREATININE,RANDOM URINE 34.6 MG/DL; SODIUM,RANDOM URINE 98 MEQ/L
[2018-07-08 16:00] VITALS: BP_SYST 109; BP_SYST 112; BP_SYST 91; BP_DIAS 51; BP_DIAS 54; BP_DIAS 73
--- NOTE | 2018-07-08 17:22 | IPNPDOC ---
Text Note Date of Service The patient was seen on 07/08/18. NOTE SUBJECTIVE: The patient is seen and examined in the room today. Left shoulder pain is under control. Patient states his dizziness is improving. OBJECTIVE: VITAL SIGNS: Listed below. GENERAL: Alert and awake. No distress. HEENT: Normocephalic, atraumatic. Extraocular motors are grossly intact. CARDIOVASCULAR: S1, S2. Regular rate. LUNGS: No wheeze nor rhonchi. ABDOMEN: Soft, nontender, nondistended. Bowel sounds present. MUSCULOSKELETAL: Ecchymosis at the left shoulder. Sling in place. No lower extremity edema. Left foot deformity. LABORATORY DATA: Listed below. ASSESSMENT AND PLAN: # Comminuted fracture of left scapula with left lateral 3rd and 4th rib fracture. - Secondary to trauma from fall. - Orthopedic surgery consulted. Sling ordered. - Continue physical therapy and occupational therapy. Patient may benefit from rehab. # Frequent fall - EKG from 07/01/18 demonstrate sinus tachycardia. Continue cardiac telemetry monitoring. - Medications reviewed. Urine toxicology was negative. UA was negative. Echocardiogram reviewed. Carotid US reviewed. - Continue physical therapy and occupational therapy. - No event was recorded on cardiac telemetry. - Orthostatic measurements were positive. # Pneumothorax. - Secondary to trauma from fall. - CT shoulder showed left sided pneumothorax. Left lateral 3rd and 4th rib fracture. Extrathoracic subcutaneous emphysema. - Thoracic surgery consulted. S/P Chest tube placement. # Acute renal injury. - Resolved. - Patient had rhabdomyolysis. Lisinopril on hold. Renal US was negative. UA was negative. Encourage oral intake. #. Diabetic ketoacidosis. - Resolved. S/P insulin drip. Anion gap closed. Patient tolerates oral diet. On subcutaneous insulin regimen. #. Alcohol dependence. - Last drink was approximately 1 to 2 days prior to admission. On Clinical [place] Withdrawal Assessment (CIWA) protocol. On folic acid, multivitamin, and thiamine. No sign of withdrawal. #. Leukocytosis. - Resolved. Possibly due to hemoconcentration, stress and/or from DKA. # Thrombocytopenia. - History of alcohol dependence. - Heparin on hold. HIT antibody was negative. #. Mild rhabdomyolysis. - Improved. Secondary to recent trauma. Continue to monitor. #. History of hypertension. - Patient has not taken any medication prior to hospitalization due to noncompl iance. On norvasc. #. History of solitary kidney. #. History of osteomyelitis of left foot, status post surgery. #. Medical noncompliance. - Complicate patient's care. director learning services have been assisting with the patient's case. #. Deep vein thrombosis (DVT) prophylaxis. On JEET. VS,Fishbone, I+O VS, Fishbone, I+O Laboratory Tests 07/08/18 05:15 Red Blood Count 3.25 L, Mean Corpuscular Volume 95.4, Mean Corpuscular Hemoglobin 31.7, Mean Corpuscular Hemoglobin Concent 33.2, Red Cell Distribution Width 12.7, Calcium Level 7.9 L Vital Signs Date Time Temp Pulse Resp B/P (MAP) Pulse Ox O2 Delivery O2 Flow Rate FiO2 07/08/18 16:00 83 112/73 (86) 86 91/54 (66) 88 109/51 (70) 07/08/18 16:00 96.8 18 91 07/06/18 21:35 20.0 I&O- Last 24 Hours up to 6 AM 07/08/18 06:00 Intake Total 1160 ml Output Total 0 ml Balance 1160 ml JORGE LOCK DO Jul 08, 2018 17:22
[2018-07-08] MEDS: SIMVASTATIN 20 MG TAB PO SCH (20:15)
[2018-07-08 23:59] VITALS: BP_SYST 107; BP_SYST 123; BP_SYST 152; BP_DIAS 52; BP_DIAS 54; BP_DIAS 67
[2018-07-09] MEDS: LEVALBUTEROL 1.25 MG/0.5 ML CONCENTRATE NEB NEB SCH ×4 (00:01→20:00)
[2018-07-09 04:58] LABS: HEMATOCRIT 29.9 % (42.0-52.0); HEMOGLOBIN 9.8 g/dl (13.5-17.5); MEAN CORPUSCULAR HEMOGLOBIN 31.3 pg (27.0-33.0); MEAN CORPUSCULAR HGB CONC 32.8 g/dl (32.0-36.5); MEAN CORPUSCULAR VOLUME 95.5 fl (80.0-96.0); PLATELET COUNT, AUTOMATED 171 10^3/uL (150-450); RED BLOOD COUNT 3.13 10^6/uL (4.30-6.10); WHITE BLOOD COUNT 5.5 10^3/uL (4.0-10.0)
[2018-07-09 05:17] LABS: BLOOD UREA NITROGEN 19 MG/DL (7-18); CARBON DIOXIDE LEVEL 28 MEQ/L (21-32); CHLORIDE LEVEL 103 MEQ/L (98-107); CREATININE FOR GFR 1.06 MG/DL (0.70-1.30); GLOMERULAR FILTRATION RATE > 60.0 (>42); GLUCOSE, FASTING 241 MG/DL (70-100); POTASSIUM SERUM 4.6 MEQ/L (3.5-5.1); SODIUM LEVEL 137 MEQ/L (136-145)
[2018-07-09 08:00] VITALS: BP 104/60
--- NOTE | 2018-07-09 08:12 | REP ---
Chest AP and lateral views: Comparison is 07/06/2018. There is no pneumothorax on the left on the right. There is a small left pleural effusion, not significantly changed. Lung bradford otherwise clear. Cardiac size normal. The vangie, mediastinum, skeletal structures are unremarkable. Impression: Small left pleural effusion. No pneumothorax. Electronically Signed by Matt Ordonez MD 07/09/2018 08:03 A
[2018-07-09] MEDS: HumaLOG INSULIN (NovoLOG) PER UNIT SC SCH ×4 (08:47→21:42)
[2018-07-09] MEDS: DOCUSATE SODIUM 100 MG CAP PO SCH ×2 (08:48→21:41)
[2018-07-09] MEDS: FOLIC ACID 1 MG TAB PO SCH (08:48)
[2018-07-09] MEDS: PANTOPRAZOLE 40MG TAB (PROTONIX) PO SCH (08:48)
[2018-07-09] MEDS: amLODIPine 10 MG TAB PO SCH (08:48)
[2018-07-09] MEDS: SERTRALINE 100 MG TAB PO SCH (08:48)
[2018-07-09] MEDS: MULTIVITAMINS/MINERALS THERAP 1 TAB PO SCH (08:48)
[2018-07-09 12:00] VITALS: BP_SYST 106; BP_SYST 119; BP_SYST 132; BP_DIAS 58; BP_DIAS 64; BP_DIAS 68
--- NOTE | 2018-07-09 15:17 | IPNPDOC ---
Subjective Date Seen The patient was seen on 07/09/18. Subjective Chief Complaint/HPI Patient seen and examined at the bedside. No acute overnight events noted. Objective Physical Examination General Exam: Positive: Alert, Cooperative, No Acute Distress ENT Exam: Positive: Mucous membr. moist/pink Neck Exam: Negative: JVD Chest Exam: Positive: Clear to auscultation, Wheezing, Diminished Heart Exam: Positive: Rate Normal, Normal S1, Normal S2 Abdomen Exam: Positive: Soft; Negative: Tenderness Extremity Exam: Positive: Other (left arm noted to be in a sling); Negative: Swelling Assessment /Plan Plan/VTE VTE Prophylaxis Ordered?: Yes Plan Comminuted fracture of left scapula with left lateral 3rd and 4th rib fracture. Secondary to trauma from fall. Orthopedic surgery consulted. Sling ordered. Continue physical therapy and occupational therapy. Patient may benefit from rehab. Frequent Falls 2/2 Alcohol Abuse, Orthostatic Hypotension No acute events noted on Telemetry Echocardiogram reviewed. Carotid US reviewed. Continue physical therapy and occupational therapy. Pneumothorax 2/[address] shoulder showed left sided pneumothorax. Left lateral 3rd and 4th rib fracture. Extrathoracic subcutaneous emphysema. Thoracic surgery consult appreciated s/p Chest tube placement and subsequent removal Acute Kidney Injury, Resolved Diabetic ketoacidosis, resolved Alcohol dependence. Cont On folic acid, multivitamin, and thiamine No sign of withdrawal--the patient is out of the withdrawal window at this time Thrombocytopenia, resolved History of hypertension. Cont on Norvasc. History of solitary kidney. History of osteomyelitis of left foot, status post surgery. Medical noncompliance. Complicate patient's care Deep vein thrombosis (DVT) prophylaxis SCDs/TEDs Disposition-as per PFS. VS[facility] Vital Signs/I&O Vital Signs Date Time Temp Pulse Resp B/P (MAP) Pulse Ox O2 Delivery O2 Flow Rate FiO2 07/09/18 12:00 97.0 84 19 132/68 (89) 94 07/06/18 21:35 20.0 I&O- Last 24 Hours up to 6 AM 07/09/18 06:00 Intake Total 1320 ml Output Total 1000 ml Balance 320 ml Laboratory Data 24H LABS Laboratory Tests 2 07/08/18 17:17: Bedside Glucose (Misc Panel) 289H 07/08/18 19:46: Bedside Glucose (Misc Panel) 257H 07/09/18 04:08: Nucleated Red Blood Cells % (auto) 0.0, Anion Gap 6L, Glomerular Filtration Rate > 60.0, Blood Urea Nitrogen 19H, Creatinine 1.06, Sodium Level 137, Potassium Level 4.6, Chloride Level 103, Carbon Dioxide Level 28, Calcium Level 8.0L, Magnesium Level 2.0 07/09/18 11:29: Bedside Glucose (Misc Panel) 254H CBC/BMP Laboratory Tests 07/09/18 04:08 Red Blood Count 3.13 L, Mean Corpuscular Volume 95.5, Mean Corpuscular Hemoglobin 31.3, Mean Corpuscular Hemoglobin Concent 32.8, Red Cell Distribution Width 12.7, Calcium Level 8.0 L Microbiology Microbiology 07/01/18 Blood Culture - Final, Complete NO GROWTH AFTER 5 DAYS JULIANE HALL MD Jul 09, 2018 15:17
[2018-07-09 16:30] VITALS: BP 121/62
[2018-07-09] MEDS: SIMVASTATIN 20 MG TAB PO SCH (21:41)
[2018-07-09 22:00] VITALS: BP 122/62
[2018-07-10] VITALS: BP_SYST 135; BP_SYST 137; BP_SYST 92; BP_DIAS 58; BP_DIAS 63; BP_DIAS 68
[2018-07-10 02:00] VITALS: BP 144/78
[2018-07-10] MEDS: LEVALBUTEROL 1.25 MG/0.5 ML CONCENTRATE NEB NEB SCH ×2 (02:00→08:29)
[2018-07-10 06:00] VITALS: BP 147/84
[2018-07-10 06:52] LABS: HEMATOCRIT 32.9 % (42.0-52.0); HEMOGLOBIN 10.8 g/dl (13.5-17.5); MEAN CORPUSCULAR HEMOGLOBIN 31.3 pg (27.0-33.0); MEAN CORPUSCULAR HGB CONC 32.8 g/dl (32.0-36.5); MEAN CORPUSCULAR VOLUME 95.4 fl (80.0-96.0); PLATELET COUNT, AUTOMATED 191 10^3/uL (150-450); RED BLOOD COUNT 3.45 10^6/uL (4.30-6.10); WHITE BLOOD COUNT 6.3 10^3/uL (4.0-10.0)
[2018-07-10 07:15] LABS: BLOOD UREA NITROGEN 17 MG/DL (7-18); CALCIUM LEVEL 8.5 MG/DL (8.8-10.2); CARBON DIOXIDE LEVEL 29 MEQ/L (21-32); CHLORIDE LEVEL 104 MEQ/L (98-107); GLOMERULAR FILTRATION RATE > 60.0 (>42); GLUCOSE, FASTING 236 MG/DL (70-100); POTASSIUM SERUM 4.9 MEQ/L (3.5-5.1); SODIUM LEVEL 137 MEQ/L (136-145)
[2018-07-10 08:26] VITALS: BP 147/84
[2018-07-10] MEDS: DOCUSATE SODIUM 100 MG CAP PO SCH (08:26)
[2018-07-10] MEDS: amLODIPine 10 MG TAB PO SCH (08:26)
[2018-07-10] MEDS: SERTRALINE 100 MG TAB PO SCH (08:26)
[2018-07-10] MEDS: PANTOPRAZOLE 40MG TAB (PROTONIX) PO SCH (08:26)
[2018-07-10] MEDS: MULTIVITAMINS/MINERALS THERAP 1 TAB PO SCH (08:26)
[2018-07-10] MEDS: ACETAMINOPHEN TAB 650MG DOSE (2X325MG) PO PRN (08:27)
[2018-07-10] MEDS: FOLIC ACID 1 MG TAB PO SCH (08:27)
[2018-07-10] MEDS: HumaLOG INSULIN (NovoLOG) PER UNIT SC SCH ×2 (08:27→11:39)
[2018-07-10] MEDS ORDERED: SERT-138 PO (09:05)
[2018-07-10] MEDS ORDERED: AMLO10TA5 PO (09:05)
[2018-07-10] MEDS ORDERED: VITMTA PO (09:05)
[2018-07-10] MEDS ORDERED: SIMV20TA2 PO (09:05)
[2018-07-10] MEDS ORDERED: PANT40TA3 PO (09:05)
[2018-07-10] MEDS ORDERED: FOLI1TAB11 PO (09:05)
[2018-07-10] MEDS ORDERED: METF-415 PO (15:41)
--- NOTE | 2018-07-10 15:55 | DS.PDOC ---
Discharge Summary General Date of Admission Jul 01, 2018 at 19:24 Date of Discharge 07/10/18 Specialist/Consultants Involve Dr. Castro of Orthopedic Surgery, Dr. Haro of Thoracic Surgery Discharge Summary PROCEDURES PERFORMED DURING STAY: None. ADMITTING/DISCHARGING DIAGNOSES: Comminuted fracture left scapula with left lateral third and fourth rib fracture Frequent falls secondary to alcohol abuse Left-sided pneumothorax Acute kidney injury Diabetic ketoacidosis History of diabetes mellitus History of alcohol abuse History of osteomyelitis left foot, status post surgery History of medical noncompliance COMPLICATIONS/CHIEF COMPLAINT: Acute Kidney Failure, Fall. HISTORY OF PRESENT ILLNESS: . 72-year-old male with past medical history of diabetes, hypertension, solitary k idney, ostium was left foot status post surgical intervention, history of carotid endarterectomy, and alcohol abuse presents to the ER with a chief complaint of being found down by family. The patient stated that he remembered coming home late from a bar the previous evening and notes that he had a sixpack of alcoholic beverages at least. The patient stated that he had not taken his medications for several months and consumes at least 6 a call at beverages daily. He has a history of multiple falls and was taken to the ER for further evaluation. In the ER, the patient was noted to be hyperglycemic with rhabdomyolysis and acute kidney injury. The patient was admitted to the hospitalist service for further evaluation. During hospitalization, the patient was also noted to have a left scapular fracture from the aforementioned fall/trauma area for which he had a sling placed by orthopedic surgery. In addition, the patient was also noted to have an incidentally found pneumothorax on the left. Thoracic surgery was consulted and placed a chest tube on 07/03 which was subsequently removed. Also, the patient's hemoglobin A1c was noted to be 10.9%. I have discussed options regarding treatment with the patient including subcutaneous insulin injections. At this time, the patient states that he would like to try oral medications only, and dietary/like some modifications. Metformin was discussed, and I did emphasize side effects including interactions with alcohol with the patient. He has v erbalized understanding of the same. At this time, the patient states that he is feeling much better. Alcohol cessation was discussed at length with the patient. I have asked the patient follow-up with his primary care physician within 7 days for further optimization of his medical comorbidities. The patient is also to follow up with orthopedic surgery as scheduled. Lastly, the patient has been co unseled to return to the ER for any acute emergencies. DISCHARGE MEDICATIONS: Please see below. ALLERGIES: Please see below. PHYSICAL EXAMINATION ON DISCHARGE: VITAL SIGNS: Please see below. General Exam: Positive: Alert, Cooperative, No Acute Distress ENT Exam: Positive: Mucous membr. moist/pink Neck Exam: Negative: JVD Chest Exam: Positive: Clear to auscultation, Wheezing, Diminished Heart Exam: Positive: Rate Normal, Normal S1, Normal S2 Abdomen Exam: Positive: Soft; Negative: Tenderness Extremity Exam: Positive: Other (left arm noted to be in a sling); Negative: Swelling LABORATORY DATA: Please see below. IMAGING: MRI STUDY OF THE LEFT SHOULDER: HISTORY: Shoulder pain after fall. Comparison radiographs are from July 01, 2018. TECHNIQUE: Axial, oblique coronal, and oblique sagittal imaging planes are utilized. T1- and T2-weighted scans were obtained with and without fat saturation. MRI FINDINGS: The patient had the considerable difficulty being motionless due to pain. He was not able to tolerate any more repeat sequences. MRI FINDINGS: There is discontinuity in the lateral margin of the scapula below the glenohumeral joint consistent with a scapular body fracture. This is somewhat displaced. There is considerable extra-articular mild fascial edema associated with this posteriorly and to a lesser extent anteriorly. The glenohumeral articulation is normally aligned. There is minimal glenohumeral joint fluid. No labral cartilage tear is seen. The fracture does not appear to be involving the glenoid neck or the glenoid itself. Scapular spine appears to be intact, although there is some metallic field susceptibility artifact suggesting previous acromioplasty or bursal surgery. The acromioclavicular joint is somewhat diastatic which may be postsurgical as well. This has an old appearance. No definite cuff tear. Biceps tendon appears intact. IMPRESSION: Scapular body fracture incompletely seen. Some motion artifact. Posterior edy-scapular edema pattern. Postoperative changes in the region of the AC joint. Consider CT study of the scapula. CT scapula left side without contrast: History: Evaluate left scapular fracture. CT technique : Helical scanning is acquired through the left scapula. 3 mm axial images are generated. Multiplanar re-formation images are generated in multiple projections and 3D imaging is generated. CT findings: There is a comminuted fracture across the superior body of the scapula extending from the lateral to the medial scapular surface. There is some overriding along the lateral scapular border. The acromion process, scapular spine, coracoid process and glenoid appear intact. No humeral fracture is seen. Also noted is extrathoracic subcutaneous emphysema. There are nondisplaced fractures of the left anterolateral 3rd and 4th ribs. In addition, there is a moderate-sized left-sided pneumothorax visible. Impression: Transversely oriented comminuted fracture through the upper body of the scapula from medial to lateral margin with some override. Left lateral 3rd and 4th rib fractures. A moderate-sized left-sided pneumothorax noted. CT Head without contrast HISTORY: Rule out infarction COMPARISON: 10/15/2017 An area of decreased attenuation is present in the right basal ganglia. This represents an old lacunar infarction. Areas of decreased attenuation are present in the periventricular white matter. This represents small-vessel ischemic disease. There is no intraparenchymal hemorrhage, acute infarct, mass or midline shift. The ventricular system and cortical sulci are dilated consistent with mild volume loss. There is no extra cerebral collection. There is no fracture. The visualized sinuses are clear. IMPRESSION: 1. Old right basal ganglia lacunar infarction. 2. Small vessel ischemic disease. 3. Mild volume loss. Chest one-view HISTORY: Altered mental status Comparison: 04/28/2018 The left lung is hyperinflated. A minimal increase in interstitial markings is present in the lungs consistent with chronic interstitial change. There is blunting of the left costophrenic angle due to pleural thickening or small pleural effusion. The heart is normal in size. The pulmonary vasculature is normal in appearance. Impression: 1. Chronic interstitial change. 2. There is blunting of the left costophrenic angle due to pleural thickening or small pleural effusion. PROGNOSIS: Fair ACTIVITY: As tolerated. DIET: 2 g low sodium, carb consistent diet DISCHARGE PLAN: DISPOSITION: [facility]. DISCHARGE INSTRUCTIONS: I have asked the patient follow-up with his primary care physician within 7 days for further optimization of his medical comorbidities. The patient is also to follow up with orthopedic surgery as scheduled. Abstain from alcohol. Lastly, the patient has been counseled to return to the ER for any acute emergencies. DISCHARGE CONDITION: Stable. TIME SPENT ON DISCHARGE: Greater than 30 minutes. Vital Signs/I&Os Vital Signs Date Time Temp Pulse Resp B/P (MAP) Pulse Ox O2 Delivery O2 Flow Rate FiO2 07/10/18 08:26 76 147/84 07/10/18 06:00 98.4 18 95 07/06/18 21:35 20.0 I&O- Last 24 Hours up to 6 AM 07/10/18 06:00 Intake Total 2280 ml Output Total 0 ml Balance 2280 ml Laboratory Data Labs 24H Laboratory Tests 2 07/09/18 16:46: Bedside Glucose (Misc Panel) 272H 07/09/18 19:36: Bedside Glucose (Misc Panel) 262H 07/10/18 06:19: Nucleated Red Blood Cells % (auto) 0.0, Anion Gap 4L, Glomerular Filtration Rate > 60.0, Blood Urea Nitrogen 17, Creatinine 1.10, Sodium Level 137, Potassium Level 4.9, Chloride Level 104, Carbon Dioxide Level 29, Calcium Level 8.5L, Magnesium Level 2.0 CBC/BMP Laboratory Tests 07/10/18 06:19 Red Blood Count 3.45 L, Mean Corpuscular Volume 95.4, Mean Corpuscular Hemoglobin 31.3, Mean Corpuscular Hemoglobin Concent 32.8, Red Cell Distribution Width 12.7, Calcium Level 8.5 L FSBS Laboratory Tests Test 07/09/18 16:46 07/09/18 19:36 Range/Units Bedside Glucose (Misc Panel) 272 262 83-110 MG/DL Microbiology Microbiology 07/01/18 Blood Culture - Final, Complete NO GROWTH AFTER 5 DAYS Discharge Medications Scheduled Amlodipine Besylate (Amlodipine Besylate) 10 Mg Tab, 10 MG PO DAILY Folic Acid (Folic Acid) 1 Mg Tab, 1 MG PO DAILY Metformin Hydrochloride (Metformin HCl ER) 1,000 Mg Tab, 1 TAB PO BID Multivitamins *[facility] STOCKED* (Thera M Plus *[facility] STOCKED*) 1 Tab Tab, 1 TAB PO DAILY Pantoprazole Sodium (Pantoprazole Sodium) 40 Mg Tab, 40 MG PO DAILY Sertraline HCl (Sertraline HCl) 100 Mg Tab, 100 MG PO DAILY Simvastatin (Simvastatin) 20 Mg Tab, 20 MG PO QHS Miscellaneous Medications [med rec comment] , (Reported) PT STATES HASN'T TAKEN MEDS IN 2+ MONTHS Allergies Coded Allergies: No Known Allergies (Verified , 04/25/17) JULIANE HALL MD Jul 10, 2018 15:55
[2019-07-01] MEDS ORDERED: HumaLOG INSULIN (NovoLOG) PER UNIT SC SCH (21:00)
== END 2018-07-10 12:25 | DRG 963 ==
LOC: M ED 13:46 → EDBD 13:46 → M ED INP 19:24 → M PCU 23:19 → M MS5PR 07-09 16:14
PROVIDERS: ADMIT Hospitalist; ATTEND Internal Medicine
DX: S27.0XXA Traumatic pneumothorax, initial encounter (principal); T79.6XXA Traumatic ischemia of muscle, initial encounter; E11.10 Type 2 diabetes mellitus with ketoacidosis without coma; N17.9 Acute kidney failure, unspecified; F10.239 Alcohol dependence with withdrawal, unspecified; S22.42XA Multiple fractures of ribs, left side, initial encounter for closed fracture; Q60.0 Renal agenesis, unilateral; I10 Essential (primary) hypertension; S42.112A Displaced fracture of body of scapula, left shoulder, initial encounter for closed fracture; T79.7XXA Traumatic subcutaneous emphysema, initial encounter; Z91.19 Patient's noncompliance with other medical treatment and regimen; R29.6 Repeated falls; Z79.899 Other long term (current) drug therapy; E78.5 Hyperlipidemia, unspecified; Z86.73 Personal history of transient ischemic attack (TIA), and cerebral infarction without residual deficits; D72.829 Elevated white blood cell count, unspecified; D69.6 Thrombocytopenia, unspecified

== ENCOUNTER → 2018-07-11 | Outpatient (REF) ==
[~2018-07-11] MED LIST changes: +AMLO10TA5 PO; +FOLI1TAB11 PO; +METF-415 PO; +PANT40TA3 PO; +SERT-138 PO; +SIMV20TA2 PO; +VITMTA PO; +med rec comment
[2018-07-11 11:27] LABS: HEMOGLOBIN A1c 10.8 %
== END ==
LOC: SKLAB2 08:00
DX: E11.9 Type 2 diabetes mellitus without complications (principal); Z79.899 Other long term (current) drug therapy

== ENCOUNTER → 2018-07-15 | Outpatient (REF) ==
[2018-07-15 08:58] LABS: HEMATOCRIT 34.2 % (42.0-52.0); HEMOGLOBIN 11.4 g/dl (13.5-17.5); MEAN CORPUSCULAR HEMOGLOBIN 31.2 pg (27.0-33.0); MEAN CORPUSCULAR HGB CONC 33.3 g/dl (32.0-36.5); MEAN CORPUSCULAR VOLUME 93.7 fl (80.0-96.0); PLATELET COUNT, AUTOMATED 256 10^3/uL (150-450); RED BLOOD COUNT 3.65 10^6/uL (4.30-6.10); WHITE BLOOD COUNT 7.7 10^3/uL (4.0-10.0)
[2018-07-15 09:28] LABS: ALT/SGPT 29 U/L (12-78); BILIRUBIN,TOTAL 0.4 MG/DL (0.2-1.0); BLOOD UREA NITROGEN 21 MG/DL (7-18); CALCIUM LEVEL 8.5 MG/DL (8.8-10.2); CARBON DIOXIDE LEVEL 30 MEQ/L (21-32); CHLORIDE LEVEL 103 MEQ/L (98-107); CHOLESTEROL LEVEL 142 MG/DL (<200); CHOLESTEROL RISK RATIO 2.784 (<5); CREATININE FOR GFR 0.95 MG/DL (0.70-1.30); GLOMERULAR FILTRATION RATE > 60.0 (>42); GLUCOSE, FASTING 156 MG/DL (70-100); HDL CHOLESTEROL 51 MG/DL (>40); LDL CHOLESTEROL 63 MG/DL (<100); NON-HDL-C 91 MG/DL; POTASSIUM SERUM 4.7 MEQ/L (3.5-5.1); SODIUM LEVEL 140 MEQ/L (136-145); TOTAL PROTEIN 6.1 GM/DL (6.4-8.2); TRIGLYCERIDES LEVEL 140 MG/DL (<150)
== END ==
LOC: SKLAB2 07:30
DX: F03.90 Unspecified dementia, unspecified severity, without behavioral disturbance, psychotic disturbance, mood disturbance, and anxiety (principal); F32.9 Major depressive disorder, single episode, unspecified; I10 Essential (primary) hypertension

== ENCOUNTER → 2018-08-23 | Outpatient (REF) ==
[2018-08-23 07:55] LABS: HEMOGLOBIN A1c 9.3 %
== END ==
LOC: SKLAB2 07:00
DX: E11.9 Type 2 diabetes mellitus without complications (principal)

== ENCOUNTER → 2018-09-11 | Outpatient (REF) | payer MEDICARE, MEDICAID ==
[2018-09-11 18:36] LABS: BASO % 0.5 % (0.0-1.0); EOS # 0.3 10^3/uL (0.0-0.50); EOS % 5.2 % (0.0-3.0); HEMOGLOBIN 11.8 g/dl (13.5-17.5); LYMPH # 1.5 10^3/uL (1.5-4.5); LYMPH % 22.8 % (24.0-44.0); MEAN CORPUSCULAR HEMOGLOBIN 30.2 pg (27.0-33.0); MEAN CORPUSCULAR HGB CONC 32.8 g/dl (32.0-36.5); MEAN CORPUSCULAR VOLUME 92.1 fl (80.0-96.0); MONO # 0.6 10^3/uL (0.0-0.8); MONO % 8.8 % (0.0-5.0); NEUTROPHILS # 4.1 10^3/uL (1.8-7.7); NEUTROPHILS % 62.4 % (36.0-66.0); PLATELET COUNT, AUTOMATED 153 10^3/uL (150-450); RED BLOOD COUNT 3.91 10^6/uL (4.30-6.10); WHITE BLOOD COUNT 6.6 10^3/uL (4.0-10.0)
[2018-09-11 19:25] LABS: CALCIUM LEVEL 9.2 MG/DL (8.8-10.2); CREATININE FOR GFR 1.42 MG/DL (0.70-1.30); GLOMERULAR FILTRATION RATE 52.3 (>42); POTASSIUM SERUM 4.7 MEQ/L (3.5-5.1)
[2018-09-11 19:44] LABS: HEMOGLOBIN A1c 9.6 %
== END ==
LOC: M SHH 17:48 → M LAB REF 17:48
PROVIDERS: ATTEND Family Medicine
DX: D64.9 Anemia, unspecified (principal); M21.6X9 Other acquired deformities of unspecified foot; E11.43 Type 2 diabetes mellitus with diabetic autonomic (poly)neuropathy; E11.21 Type 2 diabetes mellitus with diabetic nephropathy; E87.4 Mixed disorder of acid-base balance; E87.5 Hyperkalemia

== ENCOUNTER 2018-12-11 12:51 | Emergency (ER) | payer MEDICARE ==
[~2018-12-11] VITALS: Ht 167.6 cm; Wt 71.8 kg
[~2018-12-11 12:51] MED LIST changes: -GLIM4TAB; +GLIM4TAB5; -SIMV20TA2 PO; +SIMV20TA22 PO
[2018-12-11] MEDS ORDERED: GABA600T4 PO (13:09)
[2018-12-11] MEDS ORDERED: ATOR1TAB21 PO (13:09)
[2018-12-11] MEDS ORDERED: NS 1,000 ML IV ONE (13:15)
[2018-12-11] MEDS ORDERED: HumuLIN R (REGULAR) INSULIN (NovoLIN R) **100U/ML** PER UNIT IV ONE ×2 (13:15→14:30)
[2018-12-11] MEDS ORDERED: ONDANSETRON 4MG/2ML VIAL (J2405) IV ONE (13:30)
[2018-12-11 13:36] LABS: VENOUS BASE EXCESS -1.1 (-2.0-2.0); VENOUS HCO3 25.2 MEQ/L (23.0-27.0); VENOUS O2 SATURATION 80.1 % (60.0-80.0); VENOUS PARTIAL PRESSURE CO2 48.6 mmHg (38.0-50.0); VENOUS PARTIAL PRESSURE O2 44.9 mmHg (30.0-50.0); VENOUS PH 7.333 UNITS (7.330-7.430); VENOUS STANDARD HCO3 23.2 MEQ/L; VENOUS TOTAL CO2 26.7 MEQ/L (24.0-28.0)
[2018-12-11 13:38] LABS: BASO % 0.5 % (0.0-1.0); EOS # 0.2 10^3/uL (0.0-0.50); HEMATOCRIT 35.6 % (42.0-52.0); HEMOGLOBIN 12.1 g/dl (13.5-17.5); LYMPH # 1.2 10^3/uL (1.5-4.5); LYMPH % 20.6 % (24.0-44.0); MEAN CORPUSCULAR VOLUME 88.1 fl (80.0-96.0); MONO # 0.4 10^3/uL (0.0-0.8); MONO % 7.6 % (0.0-5.0); NEUTROPHILS # 3.9 10^3/uL (1.8-7.7); NEUTROPHILS % 68.1 % (36.0-66.0); PLATELET COUNT, AUTOMATED 119 10^3/uL (150-450); RED BLOOD COUNT 4.04 10^6/uL (4.30-6.10); WHITE BLOOD COUNT 5.7 10^3/uL (4.0-10.0)
[2018-12-11 14:17] LABS: ALBUMIN 3.9 GM/DL (3.2-5.2); BILIRUBIN,DIRECT 0.2 MG/DL (0.0-0.2); BILIRUBIN,TOTAL 0.6 MG/DL (0.2-1.0); CALCIUM LEVEL 8.8 MG/DL (8.8-10.2); CREATININE FOR GFR 1.64 MG/DL (0.70-1.30); GLOMERULAR FILTRATION RATE 44.2 (>42); HEMOGLOBIN A1c 11.2 %; POTASSIUM SERUM 4.4 MEQ/L (3.5-5.1); TOTAL PROTEIN 6.9 GM/DL (6.4-8.2)
--- NOTE | 2018-12-11 15:00 | REP ---
REASON FOR EXAM: DKA. COMPARISON: Multiple, the latest 07/09/2018. The left-sided pleural effusion has resolved. The cardiomediastinal silhouette is within normal limits but accentuated by technique. The technique utilized in obtaining the radiograph has magnified the cardiac silhouette and accentuated the interstitial markings. No acute patchy parenchymal opacities or pleural effusions have developed. There is no change in the osseous structures. Old right-sided rib fractures are noted status quo. IMPRESSION: No acute cardiopulmonary disease. Electronically Signed by Zach Sweeney DO 12/11/2018 05:15 P
[2018-12-11 16:31] VITALS: BP 156/82
[2018-12-11 16:45] LABS: VENOUS HCO3 26.8 MEQ/L (23.0-27.0); VENOUS O2 SATURATION 96.1 % (60.0-80.0); VENOUS PARTIAL PRESSURE CO2 47.4 mmHg (38.0-50.0); VENOUS PARTIAL PRESSURE O2 83.7 mmHg (30.0-50.0); VENOUS STANDARD HCO3 25.4 MEQ/L; VENOUS TOTAL CO2 28.2 MEQ/L (24.0-28.0)
== END 2018-12-11 17:07 | disposition home or self-care (01) ==
LOC: EDSEX 12:51 → M ED 12:51 → EDBD 12:51 → M ED 17:07
DX: E11.65 Type 2 diabetes mellitus with hyperglycemia (principal); I10 Essential (primary) hypertension; G62.9 Polyneuropathy, unspecified; Z95.5 Presence of coronary angioplasty implant and graft; Z79.899 Other long term (current) drug therapy; Z87.891 Personal history of nicotine dependence
CPT/HCPCS: 36415; 71045; 80048; 80076; 81001; 82803; 83036; 83690; 85025; 93041; 96361; 96374; 96375; 96376; 99285; J2405

== ENCOUNTER → 2019-03-17 | Outpatient (REF) | payer MEDICARE ==
[~2019-03-17] MED LIST changes: +ATOR1TAB21 PO; +GABA600T4 PO; +GLIM4TAB3; -GLIM4TAB5; +SIMV20TA2 PO; -SIMV20TA22 PO
[2019-03-17 19:43] LABS: BASO % 0.3 % (0.0-1.0); EOS # 0.4 10^3/uL (0.0-0.5); EOS % 7.1 % (0.0-3.0); HEMOGLOBIN 11.9 g/dl (13.5-17.5); LYMPH # 1.2 10^3/uL (1.5-5.0); LYMPH % 18.5 % (24.0-44.0); MEAN CORPUSCULAR HEMOGLOBIN 30.2 pg (27.0-33.0); MEAN CORPUSCULAR HGB CONC 32.2 g/dl (32.0-36.5); MEAN CORPUSCULAR VOLUME 93.9 fl (80.0-96.0); MONO # 0.4 10^3/uL (0.0-0.8); MONO % 6.8 % (0.0-5.0); NEUTROPHILS # 4.2 10^3/uL (1.5-8.5); NEUTROPHILS % 67.1 % (36.0-66.0); PLATELET COUNT, AUTOMATED 161 10^3/uL (150-450); RED BLOOD COUNT 3.94 10^6/uL (4.30-6.10); WHITE BLOOD COUNT 6.2 10^3/uL (4.0-10.0)
[2019-03-17 20:01] LABS: ALBUMIN 3.8 GM/DL (3.2-5.2); BILIRUBIN,TOTAL 0.5 MG/DL (0.2-1.0); CHOLESTEROL RISK RATIO 3.122 (<5); CREATININE FOR GFR 1.36 MG/DL (0.70-1.30); GLOMERULAR FILTRATION RATE 54.8 (>42); POTASSIUM SERUM 4.7 MEQ/L (3.5-5.1); TOTAL PROTEIN 6.8 GM/DL (6.4-8.2)
== END ==
LOC: M LAB REF 18:45
PROVIDERS: ATTEND Family Medicine
DX: Z00.00 Encounter for general adult medical examination without abnormal findings (principal); M21.6X9 Other acquired deformities of unspecified foot; E11.9 Type 2 diabetes mellitus without complications; E11.21 Type 2 diabetes mellitus with diabetic nephropathy; R26.9 Unspecified abnormalities of gait and mobility; Z55.0 Illiteracy and low-level literacy; E78.49 Other hyperlipidemia

== ENCOUNTER 2019-05-22 18:52 | Inpatient (IN) | payer MEDICARE ==
[~2019-05-22] VITALS: Ht 165.1 cm; Wt 69.3 kg
[~2019-05-22 18:52] MED LIST changes: -GLIM4TAB3; +GLIM4TAB5; -SIMV20TA2 PO; +SIMV20TA22 PO
[2019-05-22] MEDS ORDERED: NS 1,000 ML IV ONE (20:00)
[2019-05-22 20:36] LABS: BASO % 0.3 % (0.0-1.0); EOS % 0.3 % (0.0-3.0); HEMATOCRIT 39.2 % (42.0-52.0); HEMOGLOBIN 13.6 g/dl (13.5-17.5); LYMPH % 9.5 % (24.0-44.0); MEAN CORPUSCULAR HEMOGLOBIN 29.7 pg (27.0-33.0); MEAN CORPUSCULAR HGB CONC 34.7 g/dl (32.0-36.5); MEAN CORPUSCULAR VOLUME 85.6 fl (80.0-96.0); MONO # 0.8 10^3/uL (0.0-0.8); NEUTROPHILS # 8.9 10^3/uL (1.5-8.5); NEUTROPHILS % 82.6 % (36.0-66.0); PLATELET COUNT, AUTOMATED 142 10^3/uL (150-450); RED BLOOD COUNT 4.58 10^6/uL (4.30-6.10); WHITE BLOOD COUNT 10.8 10^3/uL (4.0-10.0)
--- NOTE | 2019-05-22 20:41 | REPVR ---
PROCEDURE INFORMATION: Exam: CT Head Without Contrast Exam date and time: 05/22/2019 8:00 PM Age: 73 years old Clinical indication: Injury or trauma; Fall; Initial encounter; Blunt trauma (contusions or hematomas); Additional info: Dka TECHNIQUE: Imaging protocol: Computed tomography of the head without contrast. Radiation optimization: All CT scans at this facility use at least one of these dose optimization techniques: automated exposure control; mA and/or kV adjustment per patient size (includes targeted exams where dose is matched to clinical indication); or iterative reconstruction. COMPARISON: CT Head without contrast 07/01/2018 2:05 PM FINDINGS: Brain: Normal. No hemorrhage. Unremarkable white matter. No mass effect. Ventricles: Normal. No ventriculomegaly. Bones/joints: Unremarkable. No acute fracture. Sinuses: Visualized sinuses are unremarkable. No fluid levels. Mastoid air cells: Visualized mastoid air cells are well aerated. Soft tissues: Unremarkable. IMPRESSION: No acute intracranial abnormality. Electronically signed by: Chester Rodriguez On 05/22/2019 20:41:21 PM
[2019-05-22 20:55] LABS: HEMOGLOBIN A1c 14.7 %
[2019-05-22] MEDS: HumaLOG INSULIN (NovoLOG) PER UNIT SC SCH (21:00)
[2019-05-22 21:01] LABS: CK-MB VALUE MASS 3.8 NG/ML (<3.6); CPK CREATINE PHOSPHOKINASE 155 U/L (39-308); MB/CK RELATIVE INDEX 2.45 (< OR =4); TROPONIN I < 0.02 NG/ML (< 0.10)
[2019-05-22 21:11] LABS: ACETONE/KETONE 9.79 MG/DL (<2.81); CALCIUM LEVEL 9.7 MG/DL (8.8-10.2); CREATININE FOR GFR 1.66 MG/DL (0.70-1.30); ETHYL ALCOHOL (ETHANOL) 0.004 % (0.000-0.010); GLOMERULAR FILTRATION RATE 43.6 (>42)
--- NOTE | 2019-05-22 21:56 | REPVR ---
PROCEDURE INFORMATION: Exam: CT Thoracic Spine Without Contrast Exam date and time: 05/22/2019 8:00 PM Age: 73 years old Clinical indication: Injury or trauma; Fall; Initial encounter; Blunt trauma (contusions or hematomas); Additional info: Fall, back pain TECHNIQUE: Imaging protocol: Computed tomography images of the thoracic spine without contrast. Radiation optimization: All CT scans at this facility use at least one of these dose optimization techniques: automated exposure control; mA and/or kV adjustment per patient size (includes targeted exams where dose is matched to clinical indication); or iterative reconstruction. COMPARISON: No relevant prior studies available. FINDINGS: Vertebrae: Probable diffuse idiopathic skeletal hyperostosis. No fractures are seen through the multiple bridging osteophytes. There is no compression fracture in the thoracic spine. Diffuse endplate degeneration. Discs/Spinal canal/Neural foramina: No spinal stenosis or neural foraminal narrowing. Soft tissues: Unremarkable. IMPRESSION: No acute compression fracture in the thoracic spine nor is there a fracture through the multiple bridging osteophytes. Electronically signed by: Antonia Covarrubias On 05/22/2019 21:56:24 PM
--- NOTE | 2019-05-22 22:02 | REPVR ---
PROCEDURE INFORMATION: Exam: CT Lumbar Spine Without Contrast Exam date and time: 05/22/2019 8:00 PM Age: 73 years old Clinical indication: Injury or trauma; Fall; Initial encounter; Blunt trauma (contusions or hematomas); Additional info: Fall, back pain TECHNIQUE: Imaging protocol: Computed tomography images of the lumbar spine without contrast. Radiation optimization: All CT scans at this facility use at least one of these dose optimization techniques: automated exposure control; mA and/or kV adjustment per patient size (includes targeted exams where dose is matched to clinical indication); or iterative reconstruction. COMPARISON: No relevant prior studies available. FINDINGS: Vertebrae: No compression fracture in the lumbar spine. L1-L2: No disc herniation. No spinal stenosis. No neural foraminal narrowing. L2-L3: No disc herniation. No spinal stenosis. No neural foraminal narrowing. L3-L4: Mildly bulging annulus results in mild spinal stenosis. No neural foraminal narrowing. L4-L5: Diffusely bulging annulus with probable moderate spinal stenosis and narrowing of the lateral recesses which may affect the exiting L5 nerve roots. No neural foraminal narrowing. L5-S1: Diffusely bulging annulus narrows the ventral spinal canal and the inferior margin of both neural foramen. It may therefore affect the S1 as well as the L5 nerve roots. Soft tissues: Atherosclerosis. IMPRESSION: No acute fracture the lumbar spine. There are bulging annuli at the L3-4 through L5 S1 levels which may cause neural compromise of the L5 nerve roots at L4-5 and possibly of the L5 and S1 nerve roots at the L5 S1 level. Electronically signed by: Antonia Covarrubias On 05/22/2019 22:01:36 PM
[2019-05-22] MEDS ORDERED: HumuLIN R (REGULAR) INSULIN (NovoLIN R) **100U/ML** PER UNIT IV STA (22:25)
[2019-05-22] MEDS ORDERED: amLODIPine 10 MG TAB PO ONE (22:30)
[2019-05-22] MEDS ORDERED: FOLI1TAB11 PO (22:45)
[2019-05-22] MEDS ORDERED: ATOR1TAB21 PO (22:45)
[2019-05-22] MEDS ORDERED: TOUJ300I2 SC (22:45)
[2019-05-22] MEDS ORDERED: GABA-843 PO (22:45)
[2019-05-22] MEDS ORDERED: SERT-138 PO (22:45)
[2019-05-22] MEDS ORDERED: AMLO10TA5 PO (22:45)
[2019-05-22] MEDS ORDERED: INSU100I9 SC (22:45)
[2019-05-22] MEDS ORDERED: GABA600T4 PO (22:47)
[2019-05-22] MEDS ORDERED: GLUCAGON FOR INJ 1 MG VIAL (J1610) SC PRN (23:45)
[2019-05-22] MEDS ORDERED: GLUCOSE 4 GM CHEW TABLET PO PRN (23:45)
[2019-05-22] MEDS ORDERED: DEXTROSE 50% 50 ML SYRINGE IV PRN (23:45)
[2019-05-23] MEDS ORDERED: MOM 30ML SUSPENSION UDC PO PRN
[2019-05-23] MEDS ORDERED: LEVEMIR (INSULIN DETEMIR) 1 UNITS/0.01ML SC ONE
--- NOTE | 2019-05-23 01:06 | HPEPDOC ---
[facility] Medical History & Physical Date of Admission May 23, 2019 Date of Service: May 23, 2019 Primary Care Physician: Diya Jay Attending Physician: JOYA HAHN MD History and Physical CHIEF COMPLAINT: Fall and unable to care for self HISTORY OF PRESENT ILLNESS: This is a 73-year-old male with a pertinent past medical history of diabetes, hypertension, abnormal gait who presented to our ER after a fall and uncontrolled diabetes. He is a very poor historian but is alert and oriented 3. Patient was brought via EMS after he called them earlier this evening via life alert He states that he fell around noon while sweeping and was trying to avoid his cat. He states that he fell to his side might have hit his head. He denies having any loss of consciousness, lightheadedness or dizziness at the time of the fall or after. He denies having any chest pain, shortness of breath, or trouble breathing.He does admits to low back, and bilaterally lower leg discomfort after the fall. When EMS arrived fasting blood sugar was read "high". When questioned about his history of sugars at home he states that his meter has been reading high for awhile but unsure for how long. He states that he is noncompliant with his medication for it hasnt been delivered from the pharmacy. He states that he eats TV dinners and will take his medications when his sister come. He cannot state how often she will visit. In the ER vitals showed hypertensive blood pressure with the highs of 202 systolic, but regular heart rate and satting appropriately on room air. BMP showed a fasting glucose of 651 with no anion gap. He was given 5 units of regular insulin and hospitalist team was called for admission. PAST MEDICAL HISTORY: 1. Hypertension. 2. Carotid artery stenosis 3. Type 2 diabetes on insulin 4. Solitary kidney 5. Anxiety/depression 6. History of osteomyelitis of the left foot status post multiple surgeries 7. Hyperlipidemia 8. History of abnormal gait HOME MEDICATIONS: Please see below. ALLERGIES: Please see below PAST SURGICAL HISTORY: 1. Carotid endarterectomy 2. Cataracts 3. Rotator cuff repair of the left 4. 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 ETOH: Stop drinking every 2018 previously was drinking six packs of beer today. Illicit drug use: Denies CODE STATUS: DNR/DNI FAMILY HISTORY: Reviewed and noncontributory REVIEW OF SYSTEMS: 10 systems reviewed and negative other than HPI PHYSICAL EXAMINATION: VITAL SIGNS: See below GENERAL: Pleasant 73-year-old male sitting up in bed awake alert oriented speaking in complete sentences no acute distress HEENT: Atraumatic normocephalic pupils are equal round and reactive temporal wasting bilaterally, Moist mucous membranes prominent SCM bilaterally with no JVD no carotid bruits appreciated bilaterally CARDIOVASCULAR: S1 S2 regular no additional heart sounds appreciated. RESPIRATORY: Clear to auscultation bilaterally except bibasilar crackles ABDOMINAL: Bowel sounds present abdomen soft and nontender EXTREMITIES: Multiple abrasions appreciated in the knees bilaterally. 2x3 stage I pressure ulcer on the left lateral foot No clubbing cyanosis or edema NEUROLOGICAL: Spontaneously moves all 4 extremities cranial 2 through 12 grossly intact no gross focal deficits appreciated BACK: Tenderness to palpation on the left lower back. No skin breakdown no hypertrophy or hematoma noted. No skin changes noted as well. No tenderness in the mid spine PSYCHOLOGICAL: Appropriate, alert and oriented 3 surprisingly LABORATORY DATA: See below. MICROBIOLOGY: Please see below. IMAGIN05/22/2019 Thoracic spine CTnegative for acute compression fractures in the thoracic spine nor there is a fracture throughout the multiple bridging osteophytes Lumbar spine CT - No acute fracture the lumbar spine. There are bulging annuli at the L3-4 through L5 S1 levels which may cause neural compromise of the L5 nerve roots at L4-5 and possibly of the L5 and S1 nerve roots at the L5 S1 level. Head CT - no acute intracranial abnormalities ASSESSMENT & PLAN: This is a 73-year-old male who presented to our ER after a mechanical fall earlier this evening and was found to have uncontrolled glucose after missing several of his medications for a couple of days. Patient will be m anaged for the following problems : PROBLEMS: 1. Mechanical Fall/deconditioning. CT of the head negative for any intracranial processes. CT of the lumbar thoracic was negative as well. Did not ambulate the patient during exam but he does have a history of abnormal gait. Has placed PT OT orders. Possibly will need rehabilitation. He did have some tenderness in his left lower back. Tylenol and K pad on board for symptom relief. 2. Uncontrolled diabetes. A1c was 14.7. Sugars at initial presentation > 600 with no anion gap (10). Status post 5 units of insulin regular in the ER responded appropriately last check at 2316 was 376. Well continue with q1h checks until 1:30 then every 4 checks throughout the night until breakfast time. We will them transition to before meals daily at bedtime check with coverage. Nursing will call if sugars are greater than 300 during this evening for insulin coverage. He takes Toujeo 55 units outpatient we will start 30 units daily at bedtime and can titrate up based on short acting coverage. 3. Pseudohyponatremia secondary to hyperglycemia. Sodium was 129 with a glucose of 651. Corrected sodium is 138. Recheck in the morning will normalize with hyperglycemia correction 4. Hypertension. In the ER systolic was a high of 202. Responded appropriately home dose Norvasc 10 mg we will continue as such. 5. Hyperlipidemia. Continue with home Lipitor 20 mg daily. 6. Depression/anxiety. Continue with home Zoloft 100 mg 7. History of solitary kidney. 8. Unable to care for self. States that his sister will come home to provide meals and make sure he takes medications. I do not believe that he is safe at home will need home health aide or possible placement. PFS consult has been placed. 9. Malnourished/underweight. BMI 19.2. Supplement diet with Glucerna with all meals. 10. Lower extremity pain bilateral/ Peripheral neuropathy. Will continue with home gabapentin. He does complain of having cramping during exam. Will check electrolytes and replenish as needed as well. 11. CODE STATUS. DNR/DNI DVT PROPHYLAXIS: Lovenox 30 DISPOSITION: Inpatient expect at least 2 midnights possible placement/home care? Vital Signs Vital Signs Date Time Temp Pulse Resp B/P (MAP) Pulse Ox O2 Delivery O2 Flow Rate FiO2 05/23/19 00:00 80 16 121/65 (83) 98 05/22/19 19:05 97.7 Room Air Laboratory Data Labs 24H Laboratory Tests 2 05/22/19 20:16: Immature Granulocyte % (Auto) 0.3, Neutrophils (%) (Auto) 82.6H, Lymphocytes (%) (Auto) 9.5L, Monocytes (%) (Auto) 7.0H, Eosinophils (%) (Auto) 0.3, Basophils (%) (Auto) 0.3, Neutrophils # (Auto) 8.9H, Lymphocytes # (Auto) 1.0L, Monocytes # (Auto) 0.8, Eosinophils # (Auto) 0.0, Basophils # (Auto) 0.0, Nucleated Red Bl ood Cells % (auto) 0.0, Urine Color STRAW, Urine Appearance CLEAR, Urine pH 5.0, Urine Specific [place] 1.026, Urine Protein 2+H, Urine Glucose (UA) 3+H, Urine Ketones TRACEH, Urine Blood 2+H, Urine Nitrite NEGATIVE, Urine Bilirubin NEGATIVE, Urine Urobilinogen 0.2, Urine Leukocyte Esterase NEGATIVE, Urine WBC (Auto) 0, Urine RBC (Auto) 0, Urine Hyaline Casts (Auto) 0, Urine Bacteria (Auto) 1+H, Urine Squamous Epithelial Cells 0, Urine Sperm (Auto) , Anion Gap 10, Glomerular Filtration Rate 43.6, Estimated Mean Plasma Glucose 375H, Hemoglobin A1c 14.7, Osmolality 315H, Calcium Level 9.7, Total Creatine Kinase 155, Creatine Kinase MB 3.8H, Creatine Kinase MB Relative Index 2.45, Troponin I < 0.02, Ethyl Alcohol Level 0.004, B-Hydroxybutyrate 9.79H 05/22/19 22:10: Bedside Glucose (Misc Panel) 542*H 05/22/19 23:16: Bedside Glucose (Misc Panel) 376H 05/23/19 00:16: Bedside Glucose (Misc Panel) 290H CBC/BMP Laboratory Tests 05/22/19 20:16 Home Medications Scheduled Amlodipine Besylate (Amlodipine Besylate) 10 Mg Tablet, 10 MG PO DAILY Atorvastatin Calcium (Atorvastatin Calcium) 20 Mg Tablet, 20 MG PO DAILY Folic Acid (Folic Acid) 1 Mg Tablet, 1 MG PO DAILY Gabapentin (Gabapentin) 600 Mg Tablet, 600 MG PO DAILY Insulin Glargine,Hum.rec.anlog (Toujeo Max Solostar) 300 Unit/1 Ml Insuln.pen, 55 UNIT SC DAILY Insulin Lispro (Insulin Lispro Kwikpen U-100) 100 Unit/1 Ml Insuln.pen, 5 UNIT SC DAILY LUNCH Sertraline HCl (Sertraline HCl) 100 Mg Tablet, 100 MG PO DAILY Allergies Coded Allergies: No Known Allergies (Verified , 04/25/17) GME ATTESTATION GME ATTESTATION My faculty preceptor for this patient encounter was physically present during the encounter and was fully available. All aspects of the patient interview, examination, medical decision making process, and medical care plan development were reviewed and approved by the faculty preceptor. The faculty preceptor is aware and concurs with the plan as stated in the body of this note and will attest to such by his/her cosignature. ATTENDING NOTE I, Joya Hahn, have independently examined this patient and performed my own physical exam, as well as reviewed the documentation and edited where necessary. I have discussed in detail with the resident / student the findings and plan of treatment as documented by the resident / student and edited their note. I agree with their findings and treatment plan and have edited their documentation. I will continue to follow the patient during this hospital stay. EMORY ARORA DO May 23, 2019 01:06 JOYA HAHN MD May 23, 2019 05:49
[2019-05-23 01:26] LABS: MAGNESIUM LEVEL 2.5 MG/DL (1.8-2.4); PHOSPHORUS LEVEL 2.6 MG/DL (2.5-4.9)
[2019-05-23 02:00] VITALS: BP 95/71
[2019-05-23] MEDS ORDERED: HumaLOG INSULIN (NovoLOG) PER UNIT SC ONE (04:30)
[2019-05-23 06:00] VITALS: BP 146/96
[2019-05-23 06:07] LABS: HEMOGLOBIN 12.2 g/dl (13.5-17.5); MEAN CORPUSCULAR HEMOGLOBIN 30.6 pg (27.0-33.0); MEAN CORPUSCULAR HGB CONC 35.9 g/dl (32.0-36.5); MEAN CORPUSCULAR VOLUME 85.2 fl (80.0-96.0); PLATELET COUNT, AUTOMATED 148 10^3/uL (150-450); RED BLOOD COUNT 3.99 10^6/uL (4.30-6.10); WHITE BLOOD COUNT 8.8 10^3/uL (4.0-10.0)
[2019-05-23 06:45] LABS: CALCIUM LEVEL 9.1 MG/DL (8.8-10.2); CREATININE FOR GFR 1.46 MG/DL (0.70-1.30); GLOMERULAR FILTRATION RATE 50.5 (>42); MAGNESIUM LEVEL 2.3 MG/DL (1.8-2.4); POTASSIUM SERUM 3.2 MEQ/L (3.5-5.1)
[2019-05-23] MEDS: HumaLOG INSULIN (NovoLOG) PER UNIT SC SCH ×4 (07:52→21:00)
[2019-05-23] MEDS: GABAPENTIN 300 MG CAP PO SCH (07:54)
[2019-05-23] MEDS: SERTRALINE 100 MG TAB PO SCH (07:54)
[2019-05-23] MEDS: ENOXAPARIN 30 MG/0.3 ML SYR (J1650) SC SCH (07:58)
[2019-05-23] MEDS: amLODIPine 10 MG TAB PO SCH (07:58)
[2019-05-23] MEDS: FOLIC ACID 1 MG TAB PO SCH (07:58)
[2019-05-23] MEDS: ATORVASTATIN 20 MG TAB PO SCH (07:58)
[2019-05-23 14:00] VITALS: BP 152/74
[2019-05-23] MEDS ORDERED: K-PHOS ORIGINAL (POT.ACID PHOSPHATE) 500MG TAB PO SCH (21:00)
[2019-05-23] MEDS ORDERED: LEVEMIR (INSULIN DETEMIR) 1 UNITS/0.01ML SC SCH (21:00)
[2019-05-23 22:00] VITALS: BP 121/88
[2019-05-24 06:00] VITALS: BP 143/69
[2019-05-24 06:21] LABS: HEMATOCRIT 38.1 % (42.0-52.0); HEMOGLOBIN 12.7 g/dl (13.5-17.5); MEAN CORPUSCULAR HEMOGLOBIN 29.6 pg (27.0-33.0); MEAN CORPUSCULAR HGB CONC 33.3 g/dl (32.0-36.5); MEAN CORPUSCULAR VOLUME 88.8 fl (80.0-96.0); PLATELET COUNT, AUTOMATED 148 10^3/uL (150-450); RED BLOOD COUNT 4.29 10^6/uL (4.30-6.10); WHITE BLOOD COUNT 7.4 10^3/uL (4.0-10.0)
[2019-05-24 06:53] LABS: CALCIUM LEVEL 9.4 MG/DL (8.8-10.2); CREATININE FOR GFR 1.83 MG/DL (0.70-1.30); GLOMERULAR FILTRATION RATE 38.9 (>42); MAGNESIUM LEVEL 2.8 MG/DL (1.8-2.4); PHOSPHORUS LEVEL 3.3 MG/DL (2.5-4.9); POTASSIUM SERUM 3.9 MEQ/L (3.5-5.1)
[2019-05-24] MEDS: GABAPENTIN 300 MG CAP PO SCH (07:58)
[2019-05-24] MEDS: SERTRALINE 100 MG TAB PO SCH (07:58)
[2019-05-24] MEDS: amLODIPine 10 MG TAB PO SCH (07:58)
[2019-05-24] MEDS: FOLIC ACID 1 MG TAB PO SCH (07:58)
[2019-05-24] MEDS: ENOXAPARIN 30 MG/0.3 ML SYR (J1650) SC SCH (07:59)
[2019-05-24] MEDS: ACETAMINOPHEN TAB 650MG DOSE (2X325MG) PO PRN ×2 (07:59→21:15)
[2019-05-24] MEDS: HumaLOG INSULIN (NovoLOG) PER UNIT SC SCH ×4 (07:59→21:13)
[2019-05-24] MEDS: ATORVASTATIN 20 MG TAB PO SCH (07:59)
--- NOTE | 2019-05-24 11:41 | IPNPDOC ---
Subjective Date Seen The patient was seen on 05/24/19. Subjective Chief Complaint/HPI Resting in bed eating breakfast. Not confused during my period speaking with him. No formal complaints to address. No hypoglycemia this morning. Objective Physical Examination General Exam: Positive: Alert, Cooperative, No Acute Distress Eye Exam: Positive: PERRLA; Negative: Sclera icteric ENT Exam: Positive: Atraumatic, Mucous membr. moist/pink Neck Exam: Positive: Supple Chest Exam: Positive: Clear to auscultation Heart Exam: Positive: Rate Normal Abdomen Exam: Positive: Normal bowel sounds Extremity Exam: Negative: Clubbing, Cyanosis, Edema Skin Exam: Positive: Nl turgor and temperature; Negative: Rash Neuro Exam: Positive: Normal Speech, Strength at 5/5 X4 ext, Cranial Nerves 3- 12 NL Psych Exam: Positive: Mood NL; Negative: Anxiety Assessment /Plan Assessment # s/p fall w/o acute fractures - PT notes reviewed, awaiting placement - Tylenol prn # Non-ketotic hyperglycemia due to poorly controlled IDDM2 # peripheral neuropathy - hypoglycemic yesterday after receiving lesser amount of insulin - increase levemir 25 units sq, and continue to titrate up as tolerated - was not compliant with therapy at home - continue gabapentin but monitor for adverse effects # Hypomagnesia - resolved # Hyophosphatemia - resolved # HTN - controlled with norvasc 10 mg qd # Hyperlipidemia - Continue Lipitor 20 mg daily. # Chronic Depression/anxiety Continue Zoloft 100 mg qd # H/o solitary kidney # CKD stage 3 - monitor creat, current levels w/i his historic range - avoid nephrotoxins - encourage po fluid intake # Protein-Calorie Malnutrition - glucerna with meals - dietary note reviewed # DVT prophylaxis - lovenox 30 mg day # Dispo: Awaiting long-term SNF placement Plan/VTE VTE Prophylaxis Ordered?: Yes VTE Exclusion Mechanical Proph: N/A:VTE Prophy Ordered VTE Exclusion Pharmacological: N/A:VTE Prophy Ordered (lovenox 30 mg day) VS, I&O, 24H, Fishbone Vital Signs/I&O Vital Signs Date Time Temp Pulse Resp B/P (MAP) Pulse Ox O2 Delivery O2 Flow Rate FiO2 05/24/19 07:58 68 139/67 05/24/19 06:00 98.4 18 97 Room Air I&O- Last 24 Hours up to 6 AM 05/24/19 06:00 Intake Total 945 ml Output Total 0 ml Balance 945 ml Laboratory Data 24H LABS Laboratory Tests 2 05/23/19 11:31: Bedside Glucose (Misc Panel) 72L 05/23/19 16:35: Bedside Glucose (Misc Panel) 403H 05/23/19 20:47: Bedside Glucose (Misc Panel) 223H 05/24/19 06:02: Nucleated Red Blood Cells % (auto) 0.0, Anion Gap 8, Glomerular Filtration Rate 38.9L, Calcium Level 9.4, Phosphorus Level 3.3#, Magnesium Level 2.8H CBC/BMP Laboratory Tests 05/24/19 06:02 JULIO BRITTON MD May 24, 2019 11:41
[2019-05-24 14:00] VITALS: BP 130/65
[2019-05-24] MEDS ORDERED: LEVEMIR (INSULIN DETEMIR) 1 UNITS/0.01ML SC SCH (21:00)
[2019-05-24 22:00] VITALS: BP 152/74
[2019-05-24 23:30] VITALS: BP 128/64
[2019-05-25 06:00] VITALS: BP 123/71
[2019-05-25 06:30] LABS: HEMOGLOBIN 11.5 g/dl (13.5-17.5); MEAN CORPUSCULAR HEMOGLOBIN 30.7 pg (27.0-33.0); MEAN CORPUSCULAR HGB CONC 34.8 g/dl (32.0-36.5); PLATELET COUNT, AUTOMATED 138 10^3/uL (150-450); RED BLOOD COUNT 3.75 10^6/uL (4.30-6.10); WHITE BLOOD COUNT 5.2 10^3/uL (4.0-10.0)
[2019-05-25 06:55] LABS: CALCIUM LEVEL 8.2 MG/DL (8.8-10.2); CREATININE FOR GFR 1.47 MG/DL (0.70-1.30); GLOMERULAR FILTRATION RATE 50.1 (>42); MAGNESIUM LEVEL 2.3 MG/DL (1.8-2.4); PHOSPHORUS LEVEL 3.5 MG/DL (2.5-4.9); POTASSIUM SERUM 3.9 MEQ/L (3.5-5.1)
[2019-05-25] MEDS: ATORVASTATIN 20 MG TAB PO SCH (08:50)
[2019-05-25] MEDS: amLODIPine 10 MG TAB PO SCH (08:50)
[2019-05-25] MEDS: HumaLOG INSULIN (NovoLOG) PER UNIT SC SCH ×5 (08:50→21:26)
[2019-05-25] MEDS: FOLIC ACID 1 MG TAB PO SCH (08:51)
[2019-05-25] MEDS: SERTRALINE 100 MG TAB PO SCH (08:51)
[2019-05-25] MEDS: ENOXAPARIN 30 MG/0.3 ML SYR (J1650) SC SCH (08:51)
[2019-05-25] MEDS: GABAPENTIN 300 MG CAP PO SCH (08:51)
--- NOTE | 2019-05-25 09:26 | IPNPDOC ---
Subjective Date Seen The patient was seen on 05/25/19. Subjective Chief Complaint/HPI Seven is resting in the cardiac chair. He feels fine. Awaiting placment to SNF Objective Physical Examination General Exam: Positive: Alert, No Acute Distress Eye Exam: Positive: PERRLA; Negative: Sclera icteric ENT Exam: Positive: Atraumatic, Mucous membr. moist/pink Neck Exam: Positive: Supple Chest Exam: Positive: Clear to auscultation Heart Exam: Positive: Rate Normal Abdomen Exam: Positive: Normal bowel sounds Extremity Exam: Negative: Clubbing, Cyanosis, Edema Skin Exam: Positive: Nl turgor and temperature; Negative: Rash Neuro Exam: Positive: Normal Speech, Normal Tone Psych Exam: Positive: Mental status NL, Mood NL; Negative: Anxiety Assessment /Plan Assessment # s/p fall w/o acute fractures - PT notes reviewed, awaiting placement - Tylenol prn # Non-ketotic hyperglycemia due to poorly controlled IDDM2 # peripheral neuropathy - no hypoglycemic episodes overnight - continue to increase levemir to home dose - likely was not compliant with therapy at [facility] with A1c 14% - continue gabapentin but monitor for adverse effects # Hypomagnesia - resolved # Hyophosphatemia - resolved # HTN - controlled with norvasc 10 mg qd # Hyperlipidemia - Continue Lipitor 20 mg daily. # Chronic Depression/anxiety Continue Zoloft 100 mg qd # H/o solitary kidney # CKD stage 3 - monitor creat, current levels w/i his historic range - avoid nephrotoxins - encourage po fluid intake # Protein-Calorie Malnutrition - glucerna with meals - dietary note reviewed # DVT prophylaxis - lovenox 30 mg day # Dispo: Awaiting long-term SNF placement Plan/VTE VTE Prophylaxis Ordered?: Yes VTE Exclusion Mechanical Proph: N/A:VTE Prophy Ordered VTE Exclusion Pharmacological: N/A:VTE Prophy Ordered (lovenox 30 mg day) VS, I&O, 24H, Fishbone Vital Signs/I&O Vital Signs Date Time Temp Pulse Resp B/P (MAP) Pulse Ox O2 Delivery O2 Flow Rate FiO2 05/25/19 08:50 62 123/71 05/25/19 06:00 97.3 17 97 Room Air I&O- Last 24 Hours up to 6 AM 05/25/19 06:00 Intake Total 1728 ml Output Total 0 ml Balance 1728 ml Laboratory Data 24H LABS Laboratory Tests 2 05/24/19 11:31: Bedside Glucose (Misc Panel) 263H 05/24/19 16:22: Bedside Glucose (Misc Panel) 188H 05/24/19 20:54: Bedside Glucose (Misc Panel) 319H 05/25/19 06:14: Nucleated Red Blood Cells % (auto) 0.0, Anion Gap 5L, Glomerular Filtration Rate 50.1, Calcium Level 8.2L, Phosphorus Level 3.5, Magnesium Level 2.3 CBC/BMP Laboratory Tests 05/25/19 06:14 JULIO BRITTON MD May 25, 2019 09:26
[2019-05-25 14:00] VITALS: BP 121/59
[2019-05-25] MEDS: ACETAMINOPHEN TAB 650MG DOSE (2X325MG) PO PRN (18:50)
[2019-05-25] MEDS ORDERED: LEVEMIR (INSULIN DETEMIR) 1 UNITS/0.01ML SC SCH (21:00)
[2019-05-25 22:00] VITALS: BP 125/61
[2019-05-26 06:00] VITALS: BP 115/55
[2019-05-26] MEDS: ACETAMINOPHEN TAB 650MG DOSE (2X325MG) PO PRN (06:09)
[2019-05-26 06:14] LABS: HEMATOCRIT 34.9 % (42.0-52.0); HEMOGLOBIN 11.5 g/dl (13.5-17.5); MEAN CORPUSCULAR HEMOGLOBIN 29.4 pg (27.0-33.0); MEAN CORPUSCULAR VOLUME 89.3 fl (80.0-96.0); PLATELET COUNT, AUTOMATED 133 10^3/uL (150-450); RED BLOOD COUNT 3.91 10^6/uL (4.30-6.10); WHITE BLOOD COUNT 4.7 10^3/uL (4.0-10.0)
[2019-05-26 06:42] LABS: CALCIUM LEVEL 8.4 MG/DL (8.8-10.2); CREATININE FOR GFR 1.27 MG/DL (0.70-1.30); GLOMERULAR FILTRATION RATE 59.3 (>42); MAGNESIUM LEVEL 2.4 MG/DL (1.8-2.4); PHOSPHORUS LEVEL 2.8 MG/DL (2.5-4.9)
[2019-05-26] MEDS: HumaLOG INSULIN (NovoLOG) PER UNIT SC SCH ×4 (07:54→21:00)
[2019-05-26] MEDS: GABAPENTIN 300 MG CAP PO SCH (07:55)
[2019-05-26] MEDS: amLODIPine 10 MG TAB PO SCH (07:55)
[2019-05-26] MEDS: FOLIC ACID 1 MG TAB PO SCH (07:55)
[2019-05-26] MEDS: SERTRALINE 100 MG TAB PO SCH (07:56)
[2019-05-26] MEDS: ATORVASTATIN 20 MG TAB PO SCH (07:56)
[2019-05-26] MEDS: ENOXAPARIN 30 MG/0.3 ML SYR (J1650) SC SCH (07:56)
[2019-05-26 14:00] VITALS: BP 127/59
--- NOTE | 2019-05-26 20:41 | IPNPDOC ---
Subjective Date Seen The patient was seen on 05/26/19. Subjective Chief Complaint/HPI Sitting in bed awaiting SNF placement. Objective Physical Examination General Exam: Positive: Alert, No Acute Distress Eye Exam: Positive: PERRLA; Negative: Sclera icteric ENT Exam: Positive: Atraumatic, Mucous membr. moist/pink Neck Exam: Positive: Supple Chest Exam: Positive: Clear to auscultation Heart Exam: Positive: Rate Normal Abdomen Exam: Positive: Normal bowel sounds Extremity Exam: Negative: Clubbing, Cyanosis, Edema Skin Exam: Positive: Nl turgor and temperature; Negative: Rash Neuro Exam: Positive: Normal Speech, Normal Tone Psych Exam: Positive: Mental status NL, Mood NL; Negative: Anxiety Assessment /Plan Assessment # s/p fall w/o acute fractures - PT notes reviewed, awaiting placement - Tylenol prn # Non-ketotic hyperglycemia due to poorly controlled IDDM2 # peripheral neuropathy - no hypoglycemic episodes overnight - continue to increase levemir to home dose 55 U - likely was not compliant with therapy at home with A1c 14%, tells me he only took insulin when his sugar was really high. - continue gabapentin but monitor for adverse effects # Hypomagnesia - resolved # Hyophosphatemia - resolved # HTN - controlled with norvasc 10 mg qd # Hyperlipidemia - Continue Lipitor 20 mg daily. # Chronic Depression/anxiety Continue Zoloft 100 mg qd # H/o solitary kidney # CKD stage 3 - monitor creat, current levels w/i his historic range - avoid nephrotoxins - encourage po fluid intake # Protein-Calorie Malnutrition - glucerna with meals - dietary note reviewed # DVT prophylaxis - lovenox 30 mg day # Dispo: Awaiting long-term SNF placement Plan/VTE VTE Prophylaxis Ordered?: Yes VTE Exclusion Mechanical Proph: N/A:VTE Prophy Ordered VTE Exclusion Pharmacological: N/A:VTE Prophy Ordered (lovenox 30 mg day) VS, I&O, 24H, Fishbone Vital Signs/I&O Vital Signs Date Time Temp Pulse Resp B/P (MAP) Pulse Ox O2 Delivery O2 Flow Rate FiO2 05/26/19 14:00 98.1 82 14 127/59 (81) 97 Room Air I&O- Last 24 Hours up to 6 AM 05/26/19 09:00 Intake Total 1680 ml Output Total 875 ml Balance 805 ml Laboratory Data 24H LABS Laboratory Tests 2 05/25/19 20:59: Bedside Glucose (Misc Panel) 298H 05/26/19 05:47: Nucleated Red Blood Cells % (auto) 0.0, Anion Gap 4L, Glomerular Filtration Rate 59.3, Calcium Level 8.4L, Phosphorus Level 2.8, Magnesium Level 2.4 05/26/19 11:34: Bedside Glucose (Misc Panel) 260H 05/26/19 16:20: Bedside Glucose (Misc Panel) 285H CBC/BMP Laboratory Tests 05/26/19 05:47 JULIO BRITTON MD May 26, 2019 20:41
--- NOTE | 2019-05-26 20:42 | IPNPDOC ---
Text Note Date of Service The patient was seen on 05/23/19. NOTE Met and spoke with patient. H+P reviewed, admitted after midnight. Am labs reviewed. He developed hypoglycemia (BG 72 this am). Will adjust levemir from 35 to 15 units, and correct HypoPhos and K+ levels. He's agreeable to placement, likely sunday. Repeat labs in am. VS,Fishbone, I+O VS, Fishbone, I+O Laboratory Tests 05/22/19 20:16 05/23/19 05:37 Vital Signs Date Time Temp Pulse Resp B/P (MAP) Pulse Ox O2 Delivery O2 Flow Rate FiO2 05/23/19 07:58 77 111/64 05/23/19 06:00 98.5 20 95 Room Air I&O- Last 24 Hours up to 6 AM 05/23/19 06:00 Intake Total 1000 ml Output Total 0 ml Balance 1000 ml JULIO BRITTON MD May 23, 2019 17:12
[2019-05-26] MEDS ORDERED: LEVEMIR (INSULIN DETEMIR) 1 UNITS/0.01ML SC SCH (21:00)
[2019-05-26 22:00] VITALS: BP 168/71
[2019-05-27 06:00] VITALS: BP 134/61
[2019-05-27 06:18] LABS: HEMOGLOBIN 11.5 g/dl (13.5-17.5); MEAN CORPUSCULAR HEMOGLOBIN 30.3 pg (27.0-33.0); MEAN CORPUSCULAR HGB CONC 33.8 g/dl (32.0-36.5); MEAN CORPUSCULAR VOLUME 89.7 fl (80.0-96.0); PLATELET COUNT, AUTOMATED 153 10^3/uL (150-450); RED BLOOD COUNT 3.79 10^6/uL (4.30-6.10); WHITE BLOOD COUNT 5.4 10^3/uL (4.0-10.0)
[2019-05-27 06:47] LABS: BLOOD UREA NITROGEN 30 MG/DL (7-18); CALCIUM LEVEL 8.6 MG/DL (8.8-10.2); CARBON DIOXIDE LEVEL 32 MEQ/L (21-32); CHLORIDE LEVEL 107 MEQ/L (98-107); CREATININE FOR GFR 1.16 MG/DL (0.70-1.30); GLOMERULAR FILTRATION RATE > 60.0 (>42); GLUCOSE, FASTING 91 MG/DL (70-100); MAGNESIUM LEVEL 2.3 MG/DL (1.8-2.4); PHOSPHORUS LEVEL 2.5 MG/DL (2.5-4.9); POTASSIUM SERUM 4.6 MEQ/L (3.5-5.1); SODIUM LEVEL 142 MEQ/L (136-145)
[2019-05-27] MEDS: HumaLOG INSULIN (NovoLOG) PER UNIT SC SCH ×4 (07:30→22:11)
[2019-05-27] MEDS: FOLIC ACID 1 MG TAB PO SCH (08:08)
[2019-05-27] MEDS: ENOXAPARIN 30 MG/0.3 ML SYR (J1650) SC SCH (08:08)
[2019-05-27] MEDS: SERTRALINE 100 MG TAB PO SCH (08:08)
[2019-05-27] MEDS: amLODIPine 10 MG TAB PO SCH (08:08)
[2019-05-27] MEDS: GABAPENTIN 300 MG CAP PO SCH (08:08)
[2019-05-27] MEDS: ATORVASTATIN 20 MG TAB PO SCH (08:08)
[2019-05-27] MEDS: LEVEMIR (INSULIN DETEMIR) 1 UNITS/0.01ML SC SCH ×2 (13:32→22:11)
--- NOTE | 2019-05-27 15:55 | IPN ---
DATE: 05/27/2019 The patient complains of some left hip pain. No dysuria, urgency or frequency. The patient has no lower extremity weakness. 2 out of 10 pain at rest, alleviated with heating pad but still present, takes Tylenol. The patient denies any polydipsia or polyuria, weight loss. Denies any upper respiratory infection, cough, fever, chills, shortness of breath. Denies diarrhea, nausea, vomiting, epigastric pain. PHYSICAL EXAMINATION: VITAL SIGNS: Temperature 97.1, pulse 59, respiratory rate 18, blood pressure 134/61, 97% on room air. GENERAL: Awake, alert, oriented. Answering questions appropriately. LUNGS: Clear to auscultation. No wheezing or rales. HEART: S1, S2. Sinus bradycardia, rate of 59 to 62. ABDOMEN: Soft, nontender, nondistended. Point tenderness along the left hip. No rebound or guarding. No costovertebral angle tenderness. No hernias noted. EXTREMITIES: No cyanosis or clubbing. LABORATORY DATA: White count 5.4, hemoglobin 11, hematocrit 34, platelet count 153. Sodium 142, potassium 4.6, chloride 107, bicarbonate 32, BUN 30, creatinine 1.16, glucose 91. IMAGING STUDIES: Lumbar spine CT showed bulging anuli at L3-L4 to L5-S1, which may compromise neuro compromise of L5 roots, possibly at L5-S1 level. Thoracic spine x-ray shows no acute compression fracture in the thoracic spine. CT of the head on 05/22/2019 showed no acute intracranial abnormality. ASSESSMENT AND PLAN: This is a 73-year-old male with a history of hypertension, carotid artery stenosis, type 2 diabetes on chronic insulin, solitary kidney, anxiety, depression, left foot chronic osteomyelitis, status post multiple surgeries, hyperlipidemia, abnormal gait, who presented after a fall and unable to care for himself. The patient's glucose was found to be high and is being treated for hyperglycemia. IMPRESSION: 1. Uncontrolled type 2 diabetes. Currently on insulin 40 units subcutaneously daily, long acting. We will increase to 50 units divided in twice a day dosing. The patient was most likely noncompliant with his insulin at home with A1/c of 14. 2. Left hip pain, status post fall. CT of the head, lumbar and thoracic spine reviewed. Obtained hip x-ray. Await physical therapy (PT), acute rehabilitation unit. The patient will need placement. 3. Chronic kidney disease stage III. Avoid nephrotoxins. Renally dose all medications. Encourage oral intake. 4. Electrolyte abnormalities have resolved with hypomagnesemia and hypophosphatemia. 5. Hypertension, stable on Norvasc 10 mg daily. Systolic pressure ranges 130 to 139 currently. 6. Recurrent falls. On folic acid. We will check vitamin D and supplement as needed. 7. Dyslipidemia. On chronic Lipitor. 8. Deep vein thrombosis (DVT) prophylaxis. On Lovenox. DISPOSITION: Await acute rehabilitation unit. The patient will need placement, may change to Alternate level of care (ALC) status. MTDD
--- NOTE | 2019-05-27 17:30 | REP ---
LEFT HIP AP LATERAL: 05/27/2019. Clinical history: Left hip pain. Findings: The two-views show small rim osteophyte acetabular roof but no evidence of fracture or avulsion. The femoral head is without AVN or any focal lesion. Femoral neck, trochanters and proximal shaft intact. Pubic rami, symphysis pubis and the visualized portion of left iliac bone and SI joint were unremarkable. Vascular calcification iliac and femoral arteries noted. Impression: 1. Some mild hip osteoarthritic change without fracture, AVN, avulsion or other acute process in the left hip and visible hemipelvis. Electronically Signed by Jean-Pierre White MD 05/27/2019 05:22 P
[2019-05-27] MEDS: ACETAMINOPHEN TAB 650MG DOSE (2X325MG) PO PRN (22:50)
[2019-05-28 06:00] VITALS: BP 110/51
[2019-05-28 06:05] LABS: HEMATOCRIT 36.8 % (42.0-52.0); HEMOGLOBIN 11.6 g/dl (13.5-17.5); MEAN CORPUSCULAR HEMOGLOBIN 29.4 pg (27.0-33.0); MEAN CORPUSCULAR HGB CONC 31.5 g/dl (32.0-36.5); MEAN CORPUSCULAR VOLUME 93.4 fl (80.0-96.0); PLATELET COUNT, AUTOMATED 167 10^3/uL (150-450); RED BLOOD COUNT 3.94 10^6/uL (4.30-6.10); WHITE BLOOD COUNT 7.5 10^3/uL (4.0-10.0)
[2019-05-28 06:34] LABS: BLOOD UREA NITROGEN 31 MG/DL (7-18); CARBON DIOXIDE LEVEL 29 MEQ/L (21-32); CHLORIDE LEVEL 106 MEQ/L (98-107); CREATININE FOR GFR 1.25 MG/DL (0.70-1.30); GLOMERULAR FILTRATION RATE > 60.0 (>42); GLUCOSE, FASTING 57 MG/DL (70-100); MAGNESIUM LEVEL 2.4 MG/DL (1.8-2.4); PHOSPHORUS LEVEL 2.3 MG/DL (2.5-4.9); POTASSIUM SERUM 4.1 MEQ/L (3.5-5.1); SODIUM LEVEL 141 MEQ/L (136-145)
[2019-05-28] MEDS: HumaLOG INSULIN (NovoLOG) PER UNIT SC SCH ×2 (07:30→12:11)
[2019-05-28] MEDS ORDERED: ANALGESIC BALM CRM 120 GM TOP SCH (09:00)
[2019-05-28] MEDS: LEVEMIR (INSULIN DETEMIR) 1 UNITS/0.01ML SC SCH (09:00)
[2019-05-28] MEDS ORDERED: ACETAMINOPHEN 500 MG TAB PO SCH (09:00)
[2019-05-28] MEDS: ENOXAPARIN 30 MG/0.3 ML SYR (J1650) SC SCH (09:18)
[2019-05-28 09:19] VITALS: BP 117/56
[2019-05-28] MEDS: ATORVASTATIN 20 MG TAB PO SCH (09:19)
[2019-05-28] MEDS: SERTRALINE 100 MG TAB PO SCH (09:19)
[2019-05-28] MEDS: amLODIPine 10 MG TAB PO SCH (09:19)
[2019-05-28] MEDS: GABAPENTIN 300 MG CAP PO SCH (09:19)
[2019-05-28] MEDS: FOLIC ACID 1 MG TAB PO SCH (09:19)
--- NOTE | 2019-05-28 19:55 | DSES ---
DATE OF ADMISSION: 05/23/2019 DATE OF DISCHARGE: 05/28/2019 PRIMARY DISCHARGE DIAGNOSES: 1. Uncontrolled type 2 diabetes. 2. Left hip pain. 3. Chronic kidney disease stage III. 4. Electrolyte abnormalities. 5. Hypotension. 6. Recurrent falls. 7. Dyslipidemia. 8. Unable to care for himself at home and requiring placement. DISCHARGE MEDICATIONS: - amlodipine 10 mg daily - atorvastatin 20 mg daily - folic acid 1 mg daily - gabapentin 600 mg daily - Levemir insulin 55 units daily - insulin sliding scale - sertraline 100 mg daily DISCHARGE INSTRUCTIONS: Followup with primary care provider within 1 week of discharge, call doctor if glucose is greater than 250 with a fasting fingerstick. HOSPITAL COURSE: This is a 73-year-old male who presented after a fall at home and unable to care for himself. Glucose level was read as high. He presented to the emergency room and was found to be hypertensive with a systolic pressure of 202, metabolic panel showed glucose of 651 with no anion gap. The patient was treated for nonketotic hyperosmolar state and was restarted back on his long-acting insulin with significant improvement. A1/c was 14. The patient had recurrent falls. Lumbar spine CT showed no acute fracture but disc bulge is noted at L3-L4, L5-S1. CT of the thoracic spine showed no acute compression of the thoracic spine, nor is there a fracture through the multiple bridging osteophytes. The patient had no rhabdomyolysis. Complete blood count (CBC) and metabolic panel were unremarkable after treatment for type 2 diabetes. A1/c was 14.7. The patient was discharged in stable condition. PHYSICAL EXAMINATION: VITAL SIGNS: Temperature 97.7, pulse 62, respiratory rate 20, blood pressure 110/51, 94% on room air. GENERAL: The patient appears disheveled, older than his stated age. No respiratory distress. Able to speak in full sentences. No jugular venous distention (JVD). No thyromegaly. No cervical lymphadenopathy. LUNGS: Clear to auscultation. No wheezing, rales or rhonchi. HEART: S1, S2. Sinus rhythm. ABDOMEN: Soft, nontender, nondistended. Positive bowel sounds. EXTREMITIES: No cyanosis, clubbing or pitting edema. LABORATORY DATA: On discharge: White count 7.5, hemoglobin 11, hematocrit 36, platelet count 167. Sodium 141, potassium 4.1, chloride 106, bicarbonate 29, BUN 31, creatinine 1.25, glucose of 57. On 05/27/2019, hip x-ray showed mild osteoarthritis of the left hip without acute fracture. Head CT on 05/22/2019 showed no acute intracranial abnormality. Lumbar spine CT on 05/22/2019 showed disc bulging at L3-L4, L5-S1. Thoracic spine CT showed no acute compression fracture of the thoracic spine. No fracture through multiple bridging osteophytes. Time spent on discharge: 30 minutes. DISCHARGE INSTRUCTIONS: Followup with primary care provider within 1 week of hospital discharge. BACILIO
== END 2019-05-28 12:47 | DRG 638 ==
LOC: EDBD 18:52 → M ED 18:52 → M ED INP 05-23 00:08 → ENRESERV 05-23 01:23 → M MSPAV 05-23 01:58
PROVIDERS: ADMIT Internal Medicine; ATTEND General Practice
DX: E11.65 Type 2 diabetes mellitus with hyperglycemia (principal); E87.1 Hypo-osmolality and hyponatremia; Z68.1 Body mass index [BMI] 19.9 or less, adult; E46 Unspecified protein-calorie malnutrition; E11.51 Type 2 diabetes mellitus with diabetic peripheral angiopathy without gangrene; N18.3 Chronic kidney disease, stage 3 (moderate); R29.6 Repeated falls; E78.5 Hyperlipidemia, unspecified; I95.9 Hypotension, unspecified; Z79.899 Other long term (current) drug therapy; Z79.4 Long term (current) use of insulin; I12.9 Hypertensive chronic kidney disease with stage 1 through stage 4 chronic kidney disease, or unspecified chronic kidney disease; F41.9 Anxiety disorder, unspecified; F32.9 Major depressive disorder, single episode, unspecified; R26.89 Other abnormalities of gait and mobility; Z66 Do not resuscitate; E83.42 Hypomagnesemia; E83.39 Other disorders of phosphorus metabolism; Z91.14 Patient's other noncompliance with medication regimen

== ENCOUNTER → 2019-05-30 | Outpatient (REF) ==
[~2019-05-30] MED LIST changes: +GABA-843 PO; +INSU100I9 SC; +TOUJ300I2 SC
[2019-05-30 13:10] LABS: HEMATOCRIT 37.1 % (42.0-52.0); HEMOGLOBIN 12.1 g/dl (13.5-17.5); MEAN CORPUSCULAR HEMOGLOBIN 30.3 pg (27.0-33.0); MEAN CORPUSCULAR HGB CONC 32.6 g/dl (32.0-36.5); MEAN CORPUSCULAR VOLUME 92.8 fl (80.0-96.0); PLATELET COUNT, AUTOMATED 193 10^3/uL (150-450); WHITE BLOOD COUNT 6.5 10^3/uL (4.0-10.0)
[2019-05-30 13:28] LABS: BLOOD UREA NITROGEN 32 MG/DL (7-18); CALCIUM LEVEL 8.9 MG/DL (8.8-10.2); CARBON DIOXIDE LEVEL 31 MEQ/L (21-32); CHLORIDE LEVEL 101 MEQ/L (98-107); CREATININE FOR GFR 1.24 MG/DL (0.70-1.30); GLOMERULAR FILTRATION RATE > 60.0 (>42); GLUCOSE, FASTING 319 MG/DL (70-100); POTASSIUM SERUM 5.2 MEQ/L (3.5-5.1); SODIUM LEVEL 136 MEQ/L (136-145)
[2019-05-30 13:29] LABS: HEMOGLOBIN A1c 14.1 %
== END ==
LOC: SKLAB2 08:44
PROVIDERS: ATTEND Internal Medicine
DX: E11.9 Type 2 diabetes mellitus without complications (principal)

== ENCOUNTER → 2019-06-01 | Outpatient (REF) ==
[2019-06-01 08:06] LABS: BLOOD UREA NITROGEN 32 MG/DL (7-18); CALCIUM LEVEL 8.4 MG/DL (8.8-10.2); CARBON DIOXIDE LEVEL 29 MEQ/L (21-32); CHLORIDE LEVEL 108 MEQ/L (98-107); CREATININE FOR GFR 1.23 MG/DL (0.70-1.30); GLOMERULAR FILTRATION RATE > 60.0 (>42); GLUCOSE, FASTING 213 MG/DL (70-100); POTASSIUM SERUM 5.3 MEQ/L (3.5-5.1); SODIUM LEVEL 143 MEQ/L (136-145)
== END ==
LOC: SKLAB2 07:00
PROVIDERS: ATTEND Internal Medicine
DX: E87.5 Hyperkalemia (principal)

== ENCOUNTER → 2019-06-06 | Outpatient (REF) | payer MEDICARE | LOC: SKLAB2 06:40 | PROVIDERS: ATTEND Internal Medicine | DX: R73.09 Other abnormal glucose (principal) ==

== ENCOUNTER → 2019-06-09 | Outpatient (REF) ==
[2019-06-09 08:09] LABS: BLOOD UREA NITROGEN 37 MG/DL (7-18); CALCIUM LEVEL 8.6 MG/DL (8.8-10.2); CARBON DIOXIDE LEVEL 30 MEQ/L (21-32); CHLORIDE LEVEL 108 MEQ/L (98-107); CREATININE FOR GFR 1.06 MG/DL (0.70-1.30); GLOMERULAR FILTRATION RATE > 60.0 (>42); GLUCOSE, FASTING 116 MG/DL (70-100); POTASSIUM SERUM 5.4 MEQ/L (3.5-5.1); SODIUM LEVEL 143 MEQ/L (136-145)
== END ==
LOC: SKLAB2 07:00
PROVIDERS: ATTEND Internal Medicine
DX: N18.9 Chronic kidney disease, unspecified (principal)

== ENCOUNTER → 2019-06-10 | Outpatient (REF) ==
[2019-06-10 08:21] LABS: BLOOD UREA NITROGEN 35 MG/DL (7-18); CALCIUM LEVEL 8.7 MG/DL (8.8-10.2); CARBON DIOXIDE LEVEL 32 MEQ/L (21-32); CHLORIDE LEVEL 106 MEQ/L (98-107); CREATININE FOR GFR 1.11 MG/DL (0.70-1.30); GLOMERULAR FILTRATION RATE > 60.0 (>42); GLUCOSE, FASTING 151 MG/DL (70-100); POTASSIUM SERUM 5.5 MEQ/L (3.5-5.1); SODIUM LEVEL 142 MEQ/L (136-145)
== END ==
LOC: SKLAB2 08:27
PROVIDERS: ATTEND Internal Medicine
DX: E87.6 Hypokalemia (principal)

== ENCOUNTER → 2019-06-11 | Outpatient (REF) ==
[2019-06-11 08:19] LABS: BLOOD UREA NITROGEN 38 MG/DL (7-18); CALCIUM LEVEL 8.3 MG/DL (8.8-10.2); CARBON DIOXIDE LEVEL 32 MEQ/L (21-32); CHLORIDE LEVEL 105 MEQ/L (98-107); GLOMERULAR FILTRATION RATE > 60.0 (>42); GLUCOSE, FASTING 220 MG/DL (70-100); POTASSIUM SERUM 4.6 MEQ/L (3.5-5.1); SODIUM LEVEL 141 MEQ/L (136-145)
== END ==
LOC: SKLAB2 07:30
PROVIDERS: ATTEND Internal Medicine
DX: E87.6 Hypokalemia (principal)

== ENCOUNTER → 2019-06-17 | Outpatient (REF) | payer MEDICARE ==
[2019-06-17 13:56] LABS: CALCIUM LEVEL 9.2 MG/DL (8.8-10.2); CREATININE FOR GFR 1.38 MG/DL (0.70-1.30); GLOMERULAR FILTRATION RATE 53.9 (>42); POTASSIUM SERUM 4.7 MEQ/L (3.5-5.1)
== END ==
LOC: M LAB REF 13:24
PROVIDERS: ATTEND Nurse Practitioner Family
DX: E87.5 Hyperkalemia (principal)

== ENCOUNTER → 2019-08-07 | Outpatient (REF) | payer MEDICARE ==
[2019-08-07 16:14] LABS: BASO % 0.4 % (0.0-1.0); EOS # 0.3 10^3/uL (0.0-0.5); EOS % 3.7 % (0.0-3.0); HEMATOCRIT 35.8 % (42.0-52.0); HEMOGLOBIN 11.9 g/dl (13.5-17.5); LYMPH # 1.4 10^3/uL (1.5-5.0); LYMPH % 18.6 % (24.0-44.0); MEAN CORPUSCULAR HEMOGLOBIN 30.7 pg (27.0-33.0); MEAN CORPUSCULAR HGB CONC 33.2 g/dl (32.0-36.5); MEAN CORPUSCULAR VOLUME 92.5 fl (80.0-96.0); MONO # 0.6 10^3/uL (0.0-0.8); MONO % 8.5 % (0.0-5.0); NEUTROPHILS % 68.5 % (36.0-66.0); PLATELET COUNT, AUTOMATED 160 10^3/uL (150-450); RED BLOOD COUNT 3.87 10^6/uL (4.30-6.10); WHITE BLOOD COUNT 7.3 10^3/uL (4.0-10.0)
[2019-08-07 16:16] LABS: CALCIUM LEVEL 8.8 MG/DL (8.8-10.2); CREATININE FOR GFR 1.51 MG/DL (0.70-1.30); GLOMERULAR FILTRATION RATE 48.6 (>42); POTASSIUM SERUM 4.6 MEQ/L (3.5-5.1)
== END ==
LOC: M LAB REF 15:51
PROVIDERS: ATTEND Family Medicine
DX: N18.3 Chronic kidney disease, stage 3 (moderate) (principal); E11.40 Type 2 diabetes mellitus with diabetic neuropathy, unspecified; R26.9 Unspecified abnormalities of gait and mobility; Z55.0 Illiteracy and low-level literacy; E11.65 Type 2 diabetes mellitus with hyperglycemia

== ENCOUNTER → 2019-09-03 | Outpatient (REF) | payer MEDICARE ==
[2019-09-03 15:36] LABS: CALCIUM LEVEL 9.2 MG/DL (8.8-10.2); CREATININE FOR GFR 1.79 MG/DL (0.70-1.30); GLOMERULAR FILTRATION RATE 39.9 (>42); POTASSIUM SERUM 4.7 MEQ/L (3.5-5.1)
== END ==
LOC: M SHH 14:47
PROVIDERS: ATTEND Family Medicine
DX: N18.3 Chronic kidney disease, stage 3 (moderate) (principal); E11.40 Type 2 diabetes mellitus with diabetic neuropathy, unspecified; R26.9 Unspecified abnormalities of gait and mobility; Z55.0 Illiteracy and low-level literacy; E11.65 Type 2 diabetes mellitus with hyperglycemia

== ENCOUNTER → 2019-09-17 | Outpatient (REF) | payer MEDICARE ==
[2019-09-17 16:26] LABS: CALCIUM LEVEL 8.7 MG/DL (8.8-10.2); CREATININE FOR GFR 1.55 MG/DL (0.70-1.30); GLOMERULAR FILTRATION RATE 47.2 (>42); POTASSIUM SERUM 4.4 MEQ/L (3.5-5.1)
== END ==
LOC: M SHH 15:52
PROVIDERS: ATTEND Family Medicine
DX: M10.00 Idiopathic gout, unspecified site (principal); I25.10 Atherosclerotic heart disease of native coronary artery without angina pectoris; N18.3 Chronic kidney disease, stage 3 (moderate); E11.9 Type 2 diabetes mellitus without complications

== ENCOUNTER → 2019-10-08 | Outpatient (REF) | payer MEDICARE ==
[2019-10-08 14:49] LABS: CALCIUM LEVEL 8.8 MG/DL (8.8-10.2); CREATININE FOR GFR 1.92 MG/DL (0.70-1.30); GLOMERULAR FILTRATION RATE 36.8 (>42); POTASSIUM SERUM 4.5 MEQ/L (3.5-5.1)
== END ==
LOC: M LAB REF 13:46
PROVIDERS: ATTEND Family Medicine
DX: N18.3 Chronic kidney disease, stage 3 (moderate) (principal); E11.21 Type 2 diabetes mellitus with diabetic nephropathy; R60.9 Edema, unspecified

== ENCOUNTER 2019-10-27 13:00 | Emergency (ER) | payer MEDICARE ==
[~2019-10-27] VITALS: Ht 152.4 cm; Wt 61.7 kg
[~2019-10-27 13:00] MED LIST changes: -AMLO10TA5 PO; +AMLO1TAB25 PO; +PANT40TA29 PO; -PANT40TA3 PO
[2019-10-27] MEDS ORDERED: NS 1,000 ML IV SCH (13:28)
[2019-10-27 13:31] LABS: BASO % 0.2 % (0.0-1.0); EOS # 0.3 10^3/uL (0.0-0.5); EOS % 2.9 % (0.0-3.0); HEMATOCRIT 35.5 % (42.0-52.0); HEMOGLOBIN 12.9 g/dl (13.5-17.5); LYMPH # 1.8 10^3/uL (1.5-5.0); LYMPH % 18.3 % (24.0-44.0); MEAN CORPUSCULAR HEMOGLOBIN 31.4 pg (27.0-33.0); MEAN CORPUSCULAR HGB CONC 36.3 g/dl (32.0-36.5); MEAN CORPUSCULAR VOLUME 86.4 fl (80.0-96.0); MONO # 0.6 10^3/uL (0.0-0.8); MONO % 6.6 % (0.0-5.0); NEUTROPHILS # 6.9 10^3/uL (1.5-8.5); NEUTROPHILS % 71.7 % (36.0-66.0); PLATELET COUNT, AUTOMATED 159 10^3/uL (150-450); RED BLOOD COUNT 4.11 10^6/uL (4.30-6.10); WHITE BLOOD COUNT 9.7 10^3/uL (4.0-10.0)
[2019-10-27 13:55] LABS: CALCIUM LEVEL 9.9 MG/DL (8.8-10.2); CREATININE FOR GFR 2.05 MG/DL (0.70-1.30); GLOMERULAR FILTRATION RATE 34.1 (>42); POTASSIUM SERUM 3.7 MEQ/L (3.5-5.1)
[2019-10-27] MEDS ORDERED: DOCU100C16 PO (14:03)
[2019-10-27] MEDS ORDERED: VITMTA PO (14:03)
[2019-10-27] MEDS ORDERED: AMLO1TAB25 PO (14:03)
[2019-10-27] MEDS ORDERED: SPIR-10 PO (14:06)
[2019-10-27] MEDS ORDERED: MED REC COMMENT (14:07)
[2019-10-27 15:15] VITALS: BP 156/73
== END 2019-10-27 16:08 | disposition home or self-care (01) ==
LOC: M ED 13:00
DX: N18.9 Chronic kidney disease, unspecified (principal); E11.9 Type 2 diabetes mellitus without complications; R26.89 Other abnormalities of gait and mobility; F41.9 Anxiety disorder, unspecified; Z79.4 Long term (current) use of insulin; Z79.899 Other long term (current) drug therapy; Z87.891 Personal history of nicotine dependence

== ENCOUNTER 2019-11-23 14:50 | Emergency (ER) | payer MEDICARE ==
[~2019-11-23] VITALS: Ht 165.1 cm; Wt 58.0 kg
[~2019-11-23 14:50] MED LIST changes: +AMLO10TA5 PO; -AMLO1TAB25 PO; +DOCU100C16 PO; +MED REC COMMENT; -PANT40TA29 PO; +PANT40TA3 PO; +SPIR-10 PO
[2019-11-23] MEDS ORDERED: GABA600T4 PO (15:12)
[2019-11-23] MEDS ORDERED: NS 1,000 ML IV ONE (15:45)
[2019-11-23] MEDS ORDERED: HumuLIN R (REGULAR) INSULIN (NovoLIN R) **100U/ML** PER UNIT IV ONE ×2 (15:45→16:30)
[2019-11-23 15:54] LABS: VENOUS BASE EXCESS 0.2 (-2.0-2.0); VENOUS HCO3 27.4 MEQ/L (23.0-27.0); VENOUS O2 SATURATION 60.5 % (60.0-80.0); VENOUS PH 7.316 UNITS (7.330-7.430); VENOUS STANDARD HCO3 23.8 MEQ/L; VENOUS TOTAL CO2 29.1 MEQ/L (24.0-28.0)
[2019-11-23 15:54] LABS: BASO % 0.3 % (0.0-1.0); EOS # 0.2 10^3/uL (0.0-0.5); EOS % 2.7 % (0.0-3.0); HEMATOCRIT 38.8 % (42.0-52.0); HEMOGLOBIN 13.5 g/dl (13.5-17.5); LYMPH # 1.4 10^3/uL (1.5-5.0); LYMPH % 23.1 % (24.0-44.0); MEAN CORPUSCULAR HEMOGLOBIN 30.6 pg (27.0-33.0); MEAN CORPUSCULAR HGB CONC 34.8 g/dl (32.0-36.5); MONO # 0.4 10^3/uL (0.0-0.8); MONO % 6.5 % (0.0-5.0); NEUTROPHILS # 4.1 10^3/uL (1.5-8.5); NEUTROPHILS % 67.2 % (36.0-66.0); PLATELET COUNT, AUTOMATED 149 10^3/uL (150-450); RED BLOOD COUNT 4.41 10^6/uL (4.30-6.10)
[2019-11-23 16:15] LABS: HEMOGLOBIN A1c 13.7 %
[2019-11-23 16:21] LABS: ACETAMINOPHEN LEVEL < 2.0 UG/ML (10.0-30.0); ALBUMIN 4.3 GM/DL (3.2-5.2); ALT/SGPT 24 U/L (12-78); BILIRUBIN,DIRECT 0.2 MG/DL (0.0-0.2); BILIRUBIN,TOTAL 0.8 MG/DL (0.2-1.0); BLOOD UREA NITROGEN 28 MG/DL (7-18); CALCIUM LEVEL 9.6 MG/DL (8.8-10.2); CARBON DIOXIDE LEVEL 29 MEQ/L (21-32); CHLORIDE LEVEL 98 MEQ/L (98-107); CPK CREATINE PHOSPHOKINASE 35 U/L (39-308); CREATININE FOR GFR 1.93 MG/DL (0.70-1.30); ETHYL ALCOHOL (ETHANOL) < 0.003 % (0.000-0.010); GLOMERULAR FILTRATION RATE 36.5 (>42); GLUCOSE, FASTING 471 MG/DL (70-100); MB/CK RELATIVE INDEX 2.86 (< OR =4); POTASSIUM SERUM 4.3 MEQ/L (3.5-5.1); SALICYLATE LEVEL < 1.7 MG/DL (5.0-30.0); SODIUM LEVEL 134 MEQ/L (136-145); THYROID STIMULATING HORMONE 0.818 uIU/ML (0.358-3.740); TOTAL PROTEIN 7.7 GM/DL (6.4-8.2); TROPONIN I < 0.02 NG/ML (< 0.10)
[2019-11-23 18:31] VITALS: BP 174/97
[2019-11-23 18:41] LABS: AMPHETAMINES LEVEL URINE NEGATIVE (NEGATIVE); BARBITURATES URINE NEGATIVE (NEGATIVE); BENZODIAZEPINES URINE NEGATIVE (NEGATIVE); CANNABINOIDS URINE NEGATIVE (NEGATIVE); COCAINE METABOLITE URINE NEGATIVE (NEGATIVE); METHADONE URINE NEGATIVE (NEGATIVE); OPIATES URINE NEGATIVE (NEGATIVE); PHENCYCLIDINE URINE NEGATIVE (NEGATIVE)
--- NOTE | 2019-11-23 19:19 | ECGEPIP ---
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
--- NOTE | 2019-11-24 09:34 | REP ---
REASON: Altered mental status. COMPARISON: 12/11/2018 also portable and the latest prior. FINDINGS: The technique utilized in obtaining the radiograph has magnified the cardiac silhouette and accentuated the interstitial markings. The superior mediastinal structures are midline. The cardiac silhouette is unremarkable in size, shape, and position. The diaphragmatic surfaces of the lungs are regular, and the costophrenic angles are clear. The pulmonary bradford are clear. The imaged osseous structures are intact. IMPRESSION: There is no acute cardiopulmonary disease. No significant change. Electronically Signed by Zach Sweeney DO 11/24/2019 09:41 A
== END 2019-11-23 18:58 | disposition home or self-care (01) ==
LOC: M ED 14:50
DX: E11.65 Type 2 diabetes mellitus with hyperglycemia (principal); I45.89 Other specified conduction disorders; I10 Essential (primary) hypertension; J44.9 Chronic obstructive pulmonary disease, unspecified; K21.9 Gastro-esophageal reflux disease without esophagitis; Z95.1 Presence of aortocoronary bypass graft; Z87.891 Personal history of nicotine dependence; Z79.4 Long term (current) use of insulin; Z79.899 Other long term (current) drug therapy
CPT/HCPCS: 71045; 80047; 80048; 80076; 80307; 81001; 82550; 82553; 82803; 83036; 84443; 84484; 85025; 93005; 93041; 96360; 99285; G0480

== ENCOUNTER 2020-01-03 14:43 | Inpatient (IN) | payer MEDICARE ==
[~2020-01-03] VITALS: Ht 165.1 cm; Wt 59.2 kg
[~2020-01-03 14:43] MED LIST changes: -AMLO10TA5 PO; +AMLO1TAB25 PO; +PANT40TA29 PO; -PANT40TA3 PO
[2020-01-03 15:55] LABS: BASO % 0.3 % (0.0-1.0); EOS % 0.5 % (0.0-3.0); HEMATOCRIT 37.9 % (42.0-52.0); HEMOGLOBIN 13.3 g/dl (13.5-17.5); LYMPH # 0.8 10^3/uL (1.5-5.0); LYMPH % 12.2 % (24.0-44.0); MEAN CORPUSCULAR HEMOGLOBIN 30.9 pg (27.0-33.0); MEAN CORPUSCULAR HGB CONC 35.1 g/dl (32.0-36.5); MEAN CORPUSCULAR VOLUME 87.9 fl (80.0-96.0); MONO # 0.5 10^3/uL (0.0-0.8); MONO % 7.6 % (0.0-5.0); NEUTROPHILS # 4.9 10^3/uL (1.5-8.5); NEUTROPHILS % 78.9 % (36.0-66.0); PLATELET COUNT, AUTOMATED 137 10^3/uL (150-450); RED BLOOD COUNT 4.31 10^6/uL (4.30-6.10); WHITE BLOOD COUNT 6.2 10^3/uL (4.0-10.0)
[2020-01-03 16:21] LABS: ALBUMIN 3.9 GM/DL (3.2-5.2); ALT/SGPT 27 U/L (12-78); BILIRUBIN,TOTAL 0.7 MG/DL (0.2-1.0); BLOOD UREA NITROGEN 28 MG/DL (7-18); CALCIUM LEVEL 9.8 MG/DL (8.8-10.2); CARBON DIOXIDE LEVEL 30 MEQ/L (21-32); CHLORIDE LEVEL 91 MEQ/L (98-107); CREATININE FOR GFR 1.78 MG/DL (0.70-1.30); GLOMERULAR FILTRATION RATE 40.1 (>42); GLUCOSE, FASTING 790 MG/DL (70-100); LIPASE 97 U/L (73-393); POTASSIUM SERUM 4.6 MEQ/L (3.5-5.1); SODIUM LEVEL 129 MEQ/L (136-145); TOTAL PROTEIN 7.1 GM/DL (6.4-8.2)
[2020-01-03] MEDS ORDERED: HumuLIN R (REGULAR) INSULIN (NovoLIN R) **100U/ML** PER UNIT IV ONE (18:00)
[2020-01-03] MEDS ORDERED: NS 1,000 ML IV ONE (18:00)
[2020-01-03 18:13] LABS: OSMOLALITY SERUM 324 MOSM/KG (280-301)
[2020-01-03 18:52] LABS: CPK CREATINE PHOSPHOKINASE 40 U/L (39-308); TROPONIN I < 0.02 NG/ML (< 0.10)
[2020-01-03 19:08] LABS: ACETONE/KETONE 12.53 MG/DL (<2.81)
[2020-01-03] MEDS ORDERED: GLUCOSE 4GM CHEW TABLET PO PRN (19:15)
[2020-01-03] MEDS ORDERED: ACETAMINOPHEN TAB 650MG DOSE (2X325MG) PO PRN (19:15)
[2020-01-03] MEDS ORDERED: DOCUSATE SODIUM 100 MG CAP PO PRN (19:15)
[2020-01-03] MEDS ORDERED: GLUCAGON INJ 1MG VIAL SC PRN (19:15)
[2020-01-03] MEDS ORDERED: DEXTROSE 50% 50 ML SYRINGE IV PRN (19:15)
--- NOTE | 2020-01-03 19:33 | REPVR ---
PROCEDURE INFORMATION: Exam: CT Head Without Contrast Exam date and time: 01/03/2020 6:51 PM Age: 74 years old Clinical indication: Injury or trauma; Fall; Initial encounter; Blunt trauma (contusions or hematomas); Consciousness not specified TECHNIQUE: Imaging protocol: Computed tomography of the head without contrast. Radiation optimization: All CT scans at this facility use at least one of these dose optimization techniques: automated exposure control; mA and/or kV adjustment per patient size (includes targeted exams where dose is matched to clinical indication); or iterative reconstruction. COMPARISON: CT Head without contrast 05/22/2019 7:57 PM FINDINGS: Brain: The brain demonstrates diffuse volume loss. There is white matter hypodensity most consistent with chronic small vessel ischemic change. No visible evolving territorial infarct. No hemorrhage. Ventricles: The ventricles appear mildly enlarged in keeping with volume loss. Bones/joints: No acute calvarial fracture seen. Sinuses: Visualized sinuses are unremarkable. No fluid levels. Mastoid air cells: Visualized mastoid air cells are well aerated. Orbits: Thinning of the lenses of the globes consistent with prior lens surgery. Soft tissues: Unremarkable. IMPRESSION: No acute intracranial abnormality seen. Electronically signed by: Farida Levy On 01/03/2020 19:32:27 PM
[2020-01-03 19:34] LABS: ESTIMATED AVERAGE GLUCOSE 355 MG/DL (60-110)
[2020-01-03 19:36] LABS: HEMOGLOBIN A1c > 14.0 %
--- NOTE | 2020-01-03 19:39 | REPVR ---
PROCEDURE INFORMATION: Exam: CT Cervical Spine Without Contrast Exam date and time: 01/03/2020 6:51 PM Age: 74 years old Clinical indication: Injury or trauma; Fall; Initial encounter; Blunt trauma TECHNIQUE: Imaging protocol: Computed tomography images of the cervical spine without contrast. Radiation optimization: All CT scans at this facility use at least one of these dose optimization techniques: automated exposure control; mA and/or kV adjustment per patient size (includes targeted exams where dose is matched to clinical indication); or iterative reconstruction. COMPARISON: CT Spine,cervical w/o contrast 07/01/2018 2:05 PM FINDINGS: Vertebrae: Slight grade 1 degenerative anterolisthesis at multiple levels, as before. No acute fracture seen. Slight, chronic anterior wedging of C5, C6 and T1. Diffuse osseous demineralization. Severe cervical facet arthropathy. Tlyu-ye-mahlbijo diffuse disc height loss and spondylosis at C5-C6 and C6-C7. There is srkp-vd-nyuhrudv uncovertebral arthropathy elsewhere. Discs/Spinal canal/Neural foramina: See "Vertebrae" finding. Soft tissues: Unremarkable. Lungs: Lung apices are normal. IMPRESSION: No cervical spine fracture seen. Electronically signed by: Farida Levy On 01/03/2020 19:39:36 PM
[2020-01-03 19:58] VITALS: BP 163/81
--- NOTE | 2020-01-03 19:58 | HPEPDOC ---
[facility] Medical History & Physical Date of Admission Jan 03, 2020 Date of Service: Jan 03, 2020 Primary Care Physician: Diya Jay Attending Physician: JOYA HAHN MD History and Physical CHIEF COMPLAINT: Fall due to leg weakness HISTORY OF PRESENT ILLNESS: The pt is a 74 year old male with past history of IDDM, HTN, presented to the ER after two falls on his back. He is a poor historian but alert oriented to time place and person. He denies any loss of consciousness, vision changes, dizziness at the time of the fall but does report confusion after the fall. He denies any chest pain, shortness of breath, difficulty breathing, fevers, recent infections. The patient states he is compliant with all his medications but didn't take his insulin since the last two days after the fall. However his fasting blood sugars and HbA1c are very high (in 800's). He states he regularly gets the meals on wheels and everyday PAST MEDICAL HISTORY: 1. IDDM Type 2 2. Hypertension 3. Carotid artery stenosis 4. Solitary Kidney 5. Anxiety/Depression 6.Hyperlipidemia PAST SURGICAL HISTORY: 1. Left shoulder surgery for fracture 2. Rt wrist surgery SOCIAL HISTORY: Employment: Retired- used to work in a [employer] Tobacco use:Smoker for > 4 years. Quit 2 years ago. ETOH: socially Illicit drug use: No FAMILY HISTORY: History of Diabetes on maternal side ALLERGIES: Please see below. REVIEW OF SYSTEMS: CONSTITUTIONAL:Pt denies any weight loss/ fever, nausea/ vomiting HEENT: No vision changes/ No conjunctival injection. CARDIOVASCULAR: No Orthopnea, no PND RESPIRATORY: No shortness of breath GASTROINTESTINAL: No nausea ,vomiting or constipation GENITOURINARY: No bladder outlet obstruction symptoms SKIN: No rash MUSCULOSKELETAL: No joint pain or no joint swelling NEUROLOGICAL: No headaches, no focal neurological deficits PSYCHIATRIC: No suicidal ideation. HOME MEDICATIONS: Please see below. PHYSICAL EXAMINATION: VITAL SIGNS: See Below GENERAL APPEARANCE: The patient looked fine, not in any acute distress, talking in full sentences. HEENT: NC/AT, EOMI CARDIOVASCULAR: RRR , S1,S2 , No murmurs heard RESPIRATORY: Symmetrical chest expansion, mild wheezing at the bases heard, No crackles, no rhonchi ABDOMEN: ND/NT, No organomegaly , BS +. MUSCULOSKELETAL: Good range of motion in all joints. EXTREMITIES: No edema, no rash, Good regular pulses. NEUROLOGICAL: -Upper extremities:Good motor strength, sensations intact. -Lower Extremities: Leg strength is 4/5, Sensations intact PSYCHIATRIC: AOx3,Normal mood and affect LABORATORY DATA: See below. IMAGING: CT head Findings: Brain: The brain demonstrates diffuse volume loss. There is white matter hypodensity most consistent with chronic small vessel ischemic change. No visible evolving territorial infarct. No hemorrhage. Ventricles: The ventricles appear mildly enlarged in keeping with volume loss. Bones/joints: No acute calvarial fracture seen. Sinuses: Visualized sinuses are unremarkable. No fluid levels. Mastoid air cells: Visualized mastoid air cells are well aerated. Orbits: Thinning of the lenses of the globes consistent with prior lens surgery. Cervical Spine CT findings: Vertebrae: Slight grade 1 degenerative anterolisthesis at multiple levels, as before. No acute fracture seen. Slight, chronic anterior wedging of C5, C6 and T1. Diffuse osseous demineralization. Severe cervical facet arthropathy. Cmrw-yu-dxnyqqsl diffuse disc height loss and spondylosis at C5-C6 and C6-C7. There is wwgn-ld-wgigpktb uncovertebral arthropathy elsewhere. Discs/Spinal canal/Neural foramina: See "Vertebrae" finding. Soft tissues: Unremarkable. Lungs: Lung apices are normal MICROBIOLOGY: Please see below. ASSESSMENT/PLAN: The pt is a 74 year old male with past history of IDDM, HTN, presented to the ER after two falls on his back. He is a poor historian but alert oriented to time place and person found to have a blood glucose of 800 concerning for Uncontrolled Hyperglycemia and Weakness in legs leading to the fall. #Uncontrolled Hyperglycemia - likely 2/2 non-compliance with medications - missed long acting insulin dose x2 - No evidence of infection - EKG reviewed; cardiac markers negative - No evidence of DKA / HHS; - Mild elevation of Beta-hydroxybutyrate - s/p 5 units of Insulin IV and Normal saline bolus in the ER - Pt is started on sliding scale insulin. - Will start Levemir 20 U BID # Lactic Acidosis - Negative ROS - CXR negative - UA negative - Giving IV fluids (80 cc/hr) #. Pseudohyponatremia - due to Hyperglycemia - Corrected sodium of 140 # Fall causing back pain -Start Tylenol (625mg) Q4 as needed. -CT C-spine And head CT without contrast ordered to rule out possible head and neck injury. -In the event of C-Spine fracture please consult Ortho. -Head Ct -Normal. Ruled out any intracranial injury -OT and PT is consulted #. HTN -Continue home medications. #. Anxiety and Depression -Continue home medications. #. Elevated Creatinine: -Pt is at his baseline Creatinine. #. Hyperlipidemia: -Continue Atorvastatin. -Pt put on fall precaution. -DVT prophylaxis: heparin tid. Disposition: - Will likely require long term care social worker placement Vital Signs Vital Signs Date Time Temp Pulse Resp B/P (MAP) Pulse Ox O2 Delivery O2 Flow Rate FiO2 01/03/20 18:32 98.0 80 18 154/72 (99) 97 Room Air Laboratory Data Labs 24H Laboratory Tests 2 01/03/20 15:00: Lactic Acid Level 2.1*H 01/03/20 15:20: Immature Granulocyte % (Auto) 0.5, Neutrophils (%) (Auto) 78.9H, Lymphocytes (%) (Auto) 12.2L, Monocytes (%) (Auto) 7.6H, Eosinophils (%) (Auto) 0.5, Basophils (%) (Auto) 0.3, Neutrophils # (Auto) 4.9, Lymphocytes # (Auto) 0.8L, Monocytes # (Auto) 0.5, Eosinophils # (Auto) 0.0, Basophils # (Auto) 0.0, Nucleated Red Blood Cells % (auto) 0.0, Anion Gap 8, Glomerular Filtration Rate 40.1L, Osmolality 324H, Calcium Level 9.8, Total Bilirubin 0.7, Aspartate Amino Transf (AST/SGOT) 23, Alanine Aminotransferase (ALT/SGPT) 27, Alkaline Phosphatase 106, Total Creatine Kinase 40, Creatine Kinase MB 3.0, Creatine Kinase MB Relative Index 7.50H, Troponin I < 0.02, Total Protein 7.1, Albumin 3.9, Albumin/Globulin Ratio 1.2, Lipase 97, B-Hydroxybutyrate 12.53H 01/03/20 17:15: Urine Color YELLOW, Urine Appearance CLEAR, Urine pH 5.0, Urine Specific Orange 1.025, Urine Protein 1+H, Urine Glucose (UA) 3+H, Urine Ketones NEGATIVE, Urine Blood NEGATIVE, Urine Nitrite NEGATIVE, Urine Bilirubin NEGATIVE, Urine Urobilinogen 0.2, Urine Leukocyte Esterase NEGATIVE, Urine WBC (Auto) 0, Urine RBC (Auto) 0, Urine Hyaline Casts (Auto) 0, Urine Bacteria (Auto) NEGATIVE, Urine Squamous Epithelial Cells 0, Urine Sperm (Auto) CBC/BMP Laboratory Tests 01/03/20 15:20 Home Medications Scheduled Amlodipine Besylate (Amlodipine Besylate) 10 Mg Tablet, 10 MG PO DAILY Atorvastatin Calcium (Atorvastatin Calcium) 20 Mg Tablet, 20 MG PO DAILY Folic Acid (Folic Acid) 1 Mg Tablet, 1 MG PO DAILY Gabapentin (Gabapentin) 600 Mg Tablet, 600 MG PO DAILY Insulin Glargine,Hum.rec.anlog (Toujeo Max Solostar) 300 Unit/1 Ml Insuln.pen, 68 UNIT SC DAILY Insulin Lispro (Insulin Lispro Kwikpen U-100) 100 Unit/1 Ml Insuln.pen, 8 UNIT SC DAILY LUNCHTIME Multivitamins (Thera M Plus Tablet) 1 Each Tablet, 1 TAB PO DAILY Sertraline HCl (Sertraline HCl) 100 Mg Tablet, 100 MG PO DAILY Spironolactone (Spironolactone) 25 Mg Tablet, 12.5 MG PO DAILY Scheduled PRN Docusate Sodium (Docusate Sodium) 100 Mg Capsule, 100 MG PO DAILY PRN for CONSTIPATION Allergies Coded Allergies: No Known Allergies (Verified , 04/25/17) A-FIB/CHADSVASC A-FIB History Current/History of A-Fib/PAF?: No GME ATTESTATION GME ATTESTATION My faculty preceptor for this patient encounter was physically present during the encounter and was fully available. All aspects of the patient interview, examination, medical decision making process, and medical care plan development were reviewed and approved by the faculty preceptor. The faculty preceptor is aware and concurs with the plan as stated in the body of this note and will attest to such by his/her cosignature. ATTENDING NOTE I, Joya Hahn, have independently examined this patient and performed my own physical exam, as well as reviewed the documentation and edited where necessary. I have discussed in detail with the resident / student the findings and plan of treatment as documented by the resident / student and edited their note. I agree with their findings and treatment plan and have edited their documentation. I will continue to follow the patient during this hospital stay. Tammy Mosley MD Jan 03, 2020 19:58 JOYA HAHN MD Jan 04, 2020 09:08
[2020-01-03 20:19] LABS: INR 1.06; PARTIAL THROMBOPLASTIN TIME 24.7 SECONDS (25.0-38.4); PROTHROMBIN TIME 14.1 SECONDS (11.8-14.0)
[2020-01-03] MEDS: HEPARIN SOD (PORCINE) 5000UNITS/ML 1ML VIAL/SYRINGE SC SCH (21:50)
[2020-01-03] MEDS: HumaLOG INSULIN (NovoLOG) PER UNIT SC SCH (21:51)
[2020-01-03] MEDS: LEVEMIR (INSULIN DETEMIR) 1 UNITS/0.01ML SC SCH (21:51)
[2020-01-03 21:58] LABS: CALCIUM LEVEL 9.3 MG/DL (8.8-10.2); CREATININE FOR GFR 1.57 MG/DL (0.70-1.30); GLOMERULAR FILTRATION RATE 46.3 (>42); POTASSIUM SERUM 3.8 MEQ/L (3.5-5.1)
[2020-01-04] MEDS ORDERED: KCL 40MEQ in NS 1000ML 1,000 ML IV SCH
[2020-01-04] MEDS: HumaLOG INSULIN (NovoLOG) PER UNIT SC SCH ×4 (00:27→21:00)
[2020-01-04 01:47] LABS: VENOUS PARTIAL PRESSURE CO2 56.5 mmHg (38.0-50.0); VENOUS PARTIAL PRESSURE O2 35.9 mmHg (30.0-50.0); VENOUS PH 7.293 UNITS (7.330-7.430)
[2020-01-04 01:48] LABS: VENOUS BASE EXCESS -0.8 (-2.0-2.0); VENOUS HCO3 26.7 MEQ/L (23.0-27.0); VENOUS O2 SATURATION 68.3 % (60.0-80.0); VENOUS STANDARD HCO3 23.2 MEQ/L; VENOUS TOTAL CO2 28.5 MEQ/L (24.0-28.0)
[2020-01-04 02:17] LABS: ACETONE/KETONE 0.84 MG/DL (<2.81); CALCIUM LEVEL 9.5 MG/DL (8.8-10.2); CK-MB VALUE MASS 3.4 NG/ML (<3.6); CREATININE FOR GFR 1.43 MG/DL (0.70-1.30); GLOMERULAR FILTRATION RATE 51.6 (>42); MB/CK RELATIVE INDEX 6.94 (< OR =4); POTASSIUM SERUM 3.1 MEQ/L (3.5-5.1); TROPONIN I 0.02 NG/ML (< 0.10)
[2020-01-04] MEDS ORDERED: DEXTROSE 50% 50 ML SYRINGE IV STA (02:44)
[2020-01-04] MEDS: KCL 10MEQ/100ML SWI (KRUN) 10 MEQ in IV 1 EA IV SCH ×3 (03:21→05:41)
[2020-01-04] MEDS: K-PHOS NEUTRAL 250MG TABLET (SOD.PHOSPHATE/POT.PHOSPHATE) PO SCH ×3 (04:21→21:59)
[2020-01-04] MEDS ORDERED: D5W/0.45% SODIUM CHLORIDE 1,000 ML IV SCH (04:30)
[2020-01-04 05:39] LABS: VENOUS HCO3 22.4 MEQ/L (23.0-27.0); VENOUS PARTIAL PRESSURE CO2 45.7 mmHg (38.0-50.0); VENOUS PARTIAL PRESSURE O2 32.2 mmHg (30.0-50.0); VENOUS PH 7.309 UNITS (7.330-7.430); VENOUS TOTAL CO2 23.8 MEQ/L (24.0-28.0)
[2020-01-04 05:40] LABS: VENOUS BASE EXCESS -3.9 (-2.0-2.0); VENOUS O2 SATURATION 64.5 % (60.0-80.0); VENOUS STANDARD HCO3 20.6 MEQ/L
[2020-01-04] MEDS: HEPARIN SOD (PORCINE) 5000UNITS/ML 1ML VIAL/SYRINGE SC SCH ×3 (05:40→21:59)
[2020-01-04 06:00] VITALS: BP 174/74
[2020-01-04] MEDS ORDERED: HumaLOG INSULIN (NovoLOG) PER UNIT SC SCH (06:00)
[2020-01-04 06:47] LABS: ALBUMIN 3.4 GM/DL (3.2-5.2); BILIRUBIN,TOTAL 0.4 MG/DL (0.2-1.0); CALCIUM LEVEL 8.8 MG/DL (8.8-10.2); CK-MB VALUE MASS 3.5 NG/ML (<3.6); CREATININE FOR GFR 1.38 MG/DL (0.70-1.30); GLOMERULAR FILTRATION RATE 53.8 (>42); MAGNESIUM LEVEL 1.9 MG/DL (1.8-2.4); MB/CK RELATIVE INDEX 6.73 (< OR =4); POTASSIUM SERUM 4.4 MEQ/L (3.5-5.1); TOTAL PROTEIN 6.2 GM/DL (6.4-8.2); TROPONIN I 0.02 NG/ML (< 0.10)
[2020-01-04] MEDS: SERTRALINE 100 MG TAB PO SCH (08:17)
[2020-01-04] MEDS: LEVEMIR (INSULIN DETEMIR) 1 UNITS/0.01ML SC SCH ×2 (08:17→21:59)
[2020-01-04] MEDS: FOLIC ACID 1 MG TAB PO SCH (08:17)
[2020-01-04] MEDS: ATORVASTATIN 20 MG TAB PO SCH (08:17)
[2020-01-04] MEDS: amLODIPine 10 MG TAB PO SCH (08:18)
[2020-01-04] MEDS: GABAPENTIN 300 MG CAP PO SCH (08:18)
[2020-01-04] MEDS: MULTIVITAMINS/MINERALS THERAP 1 TAB PO SCH (08:18)
[2020-01-04 08:42] LABS: BASO % 0.3 % (0.0-1.0); EOS # 0.1 10^3/uL (0.0-0.5); EOS % 1.1 % (0.0-3.0); HEMATOCRIT 32.1 % (42.0-52.0); HEMOGLOBIN 11.3 g/dl (13.5-17.5); LYMPH # 1.5 10^3/uL (1.5-5.0); MEAN CORPUSCULAR HEMOGLOBIN 30.5 pg (27.0-33.0); MEAN CORPUSCULAR HGB CONC 35.2 g/dl (32.0-36.5); MEAN CORPUSCULAR VOLUME 86.8 fl (80.0-96.0); MONO # 0.5 10^3/uL (0.0-0.8); NEUTROPHILS # 5.1 10^3/uL (1.5-8.5); NEUTROPHILS % 70.5 % (36.0-66.0); PLATELET COUNT, AUTOMATED 126 10^3/uL (150-450); WHITE BLOOD COUNT 7.2 10^3/uL (4.0-10.0)
--- NOTE | 2020-01-04 10:28 | IPNPDOC ---
Text Note Date of Service The patient was seen on 01/04/20. NOTE Subjective: Patient is a 74 year old male with PMHx of IDDM2, DLP, HTN, Anxiety / Depression, who presented to the ER after two falls on his back. Patient is a poor historian and lives alone. In the ER he was noted to have an elevated glucose, without evidence of DKA / HHS. Was admitted to the hospitalist service for further evaluation and treatment. Patient was seen and examined at the bedside. Currently denies any problems this morning. Was sitting on the edge of bed and eating breakfast. Denies any CP, SOB or palpitations. Denies any abdominal pain, C/D or urinary discomfort. Objective: Vitals (See below) General: Lying in bed, appears comfortable, AAOx3 HEENT: NC, AT CVS: +S1S2 Lungs: Fair air entry b/l, -w/r/r Abdomen: Soft, ND, NT Extremities: - Edema, - Calf tenderness Assessment and plan: Uncontrolled Hyperglycemia - likely 2/2 non-compliance with medications - Patient reported that he missed long acting insulin dose for 3 days - No evidence of infection - EKG reviewed; cardiac markers negative - No evidence of DKA / HHS; labs imprved - Mild elevation of Beta-hydroxybutyrate; now normaliezd - s/p 5 units of Insulin IV and Normal saline bolus in the ER - c/w ISS and Levemir Lactic Acidosis - Appears to be trending down - Clinically patient does not appear to have any signs of infection; saturating well on room air; not tachycardic / tachypneic, no fevers - Possibly 2/2 type 2 lactic acidosis; D-lactic acidosis from above - Negative ROS - CXR negative - UA negative - Will hold IV fluids s/p Pseudohyponatremia - likely 2/2 Hyperglycemia Multiple fall - No focal deficit - XR Thoracic / Lumbar spine (01/02): No acute fracture - CT head 01/02: No acute intracranial abnormality seen. - CT c-spine 01/02: No cervical spine fracture seen. - c/w Tylenol - c/w PT and OT HTN - BP well controlled - c/w Amlodipine and Lisinopril Anxiety and Depression - c/w Sertraline CKD3 - Cr appears to be at baseline - DC IV fluids DLP - c/w Atorvastatin DVT prophylaxis - c/w Heparin Disposition: - Will likely require terminal gauger placement - Will start PT / OT; fall precautions VS,Fishbone, I+O VS, Fishbone, I+O Laboratory Tests 01/03/20 15:20 01/03/20 21:30 01/04/20 01:32 01/04/20 05:31 01/04/20 08:16 Vital Signs Date Time Temp Pulse Resp B/P (MAP) Pulse Ox O2 Delivery O2 Flow Rate FiO2 01/04/20 08:18 70 174/74 01/04/20 06:00 97.1 20 96 Room Air I&O- Last 24 Hours up to 6 AM 01/04/20 05:59 Intake Total 990 ml Output Total 100 ml Balance 890 ml CHANEL HAHN MD Jan 04, 2020 10:28
[2020-01-04 14:00] VITALS: BP 126/63
[2020-01-04 18:00] VITALS: BP 111/64
[2020-01-04] MEDS ORDERED: NS 500 ML IV ONE (19:00)
[2020-01-04 20:06] LABS: CALCIUM LEVEL 8.6 MG/DL (8.8-10.2); CREATININE FOR GFR 1.33 MG/DL (0.70-1.30); GLOMERULAR FILTRATION RATE 56.1 (>42); POTASSIUM SERUM 4.5 MEQ/L (3.5-5.1)
[2020-01-04 22:00] VITALS: BP 112/52
[2020-01-05 06:00] VITALS: BP 113/59
[2020-01-05] MEDS: HEPARIN SOD (PORCINE) 5000UNITS/ML 1ML VIAL/SYRINGE SC SCH ×3 (06:08→20:47)
[2020-01-05 06:51] LABS: BASO % 0.4 % (0.0-1.0); EOS # 0.2 10^3/uL (0.0-0.5); EOS % 2.3 % (0.0-3.0); LYMPH # 2.6 10^3/uL (1.5-5.0); LYMPH % 35.2 % (24.0-44.0); MEAN CORPUSCULAR HEMOGLOBIN 30.6 pg (27.0-33.0); MEAN CORPUSCULAR HGB CONC 34.3 g/dl (32.0-36.5); MEAN CORPUSCULAR VOLUME 89.3 fl (80.0-96.0); MONO # 0.5 10^3/uL (0.0-0.8); MONO % 6.8 % (0.0-5.0); NEUTROPHILS # 4.1 10^3/uL (1.5-8.5); NEUTROPHILS % 54.9 % (36.0-66.0); PLATELET COUNT, AUTOMATED 130 10^3/uL (150-450); RED BLOOD COUNT 3.92 10^6/uL (4.30-6.10); WHITE BLOOD COUNT 7.5 10^3/uL (4.0-10.0)
[2020-01-05 07:14] LABS: BLOOD UREA NITROGEN 24 MG/DL (7-18); CALCIUM LEVEL 8.4 MG/DL (8.8-10.2); CARBON DIOXIDE LEVEL 27 MEQ/L (21-32); CHLORIDE LEVEL 107 MEQ/L (98-107); CREATININE FOR GFR 1.19 MG/DL (0.70-1.30); GLOMERULAR FILTRATION RATE > 60.0 (>42); GLUCOSE, FASTING 63 MG/DL (70-100); MAGNESIUM LEVEL 1.9 MG/DL (1.8-2.4); POTASSIUM SERUM 3.9 MEQ/L (3.5-5.1); SODIUM LEVEL 139 MEQ/L (136-145)
[2020-01-05] MEDS: HumaLOG INSULIN (NovoLOG) PER UNIT SC SCH ×4 (07:30→20:46)
[2020-01-05] MEDS ORDERED: PREVNAR 13 VACCINE SYRINGE IM ONE (09:00)
[2020-01-05] MEDS: ATORVASTATIN 20 MG TAB PO SCH (09:35)
[2020-01-05] MEDS: MULTIVITAMINS/MINERALS THERAP 1 TAB PO SCH (09:35)
[2020-01-05] MEDS: FOLIC ACID 1 MG TAB PO SCH (09:35)
[2020-01-05] MEDS: SERTRALINE 100 MG TAB PO SCH (09:35)
[2020-01-05] MEDS: amLODIPine 10 MG TAB PO SCH (09:35)
[2020-01-05] MEDS: K-PHOS NEUTRAL 250MG TABLET (SOD.PHOSPHATE/POT.PHOSPHATE) PO SCH ×3 (09:36→20:46)
[2020-01-05] MEDS: GABAPENTIN 300 MG CAP PO SCH (09:36)
[2020-01-05] MEDS: LEVEMIR (INSULIN DETEMIR) 1 UNITS/0.01ML SC SCH ×2 (09:36→20:46)
--- NOTE | 2020-01-05 11:23 | IPNPDOC ---
Text Note Date of Service The patient was seen on 01/05/20. NOTE Subjective: Patient is a 74 year old male with PMHx of IDDM2, DLP, HTN, Anxiety / Depression, who presented to the ER after two falls on his back. Patient is a poor historian and lives alone. In the ER he was noted to have an elevated glucose, without evidence of DKA / HHS. Was admitted to the hospitalist service for further evaluation and treatment. Patient was seen and examined at the bedside. Patient was seen at the bedside today. Yesterday he had a controlled bring down to the floor. Patient did not experience any trauma, no LOC or head injury. Discussed with nursing staff; was started on care view, and continued with bed alarm, fall precautions and physical therapy. Currently patient denies any CP, SOB, palpitations, abdominal pain, C/D or urinary discomfort. Objective: Vitals (See below) General: Lying in bed, remains comfortable, AAOx3 HEENT: NC, AT CVS: +S1S2 Lungs: Fair air entry b/l, no wheezing / rhonchi / rales Abdomen: Soft, non-distended, non-tender Extremities: No LE edema, - Calf tenderness Assessment and plan: Uncontrolled Hyperglycemia - likely 2/2 non-compliance with medications - Complicated with few episodes of hypoglycemia - Patient reported that he missed long acting insulin dose for 3 days - No evidence of infection - EKG reviewed; cardiac markers negative - No evidence of DKA / HHS; labs improved - Mild elevation of Beta-hydroxybutyrate; now normalized - s/p 5 units of Insulin IV and Normal saline bolus in the ER - c/w ISS and Levemir at reduced dose s/p Lactic Acidosis - Again he does not clinically appear to have any signs of infection - Saturating well on room air; not tachycardic, tachypneic, and is without fevers - Negative ROS - CXR negative - UA negative - s/p IV fluids s/p Pseudohyponatremia - likely 2/2 Hyperglycemia Multiple fall - No focal deficit - XR Thoracic / Lumbar spine (01/02): No acute fracture - CT head 01/02: No acute intracranial abnormality seen. - CT c-spine 01/02: No cervical spine fracture seen. - c/w Tylenol - c/w PT and OT - Fall precautions and Care View monitoring HTN - BP well controlled - c/w Amlodipine and Lisinopril Anxiety and Depression - c/w Sertraline CKD3 - Cr appears to be at baseline - s/p IV fluids DLP - c/w Atorvastatin DVT prophylaxis - c/w Heparin Disposition: - Will likely require watermelon harvesting supervisor placement - c/w PT / OT; fall precautions; care view monitoring VS,Fishbone, I+O VS, Fishbone, I+O Laboratory Tests 01/04/20 19:21 01/05/20 06:28 Vital Signs Date Time Temp Pulse Resp B/P (MAP) Pulse Ox O2 Delivery O2 Flow Rate FiO2 01/05/20 09:35 68 113/59 01/05/20 06:00 97.5 17 97 Room Air I&O- Last 24 Hours up to 6 AM 01/05/20 06:00 Intake Total 940 ml Output Total 300 ml Balance 640 ml CHANEL HAHN MD Jan 05, 2020 11:23
[2020-01-05 14:00] VITALS: BP 94/57
[2020-01-05 22:00] VITALS: BP 132/63
[2020-01-06] MEDS: HEPARIN SOD (PORCINE) 5000UNITS/ML 1ML VIAL/SYRINGE SC SCH ×3 (05:56→20:11)
[2020-01-06 07:24] LABS: BASO % 0.2 % (0.0-1.0); EOS # 0.2 10^3/uL (0.0-0.5); EOS % 3.1 % (0.0-3.0); HEMATOCRIT 32.3 % (42.0-52.0); HEMOGLOBIN 11.2 g/dl (13.5-17.5); LYMPH # 1.6 10^3/uL (1.5-5.0); LYMPH % 30.5 % (24.0-44.0); MEAN CORPUSCULAR HEMOGLOBIN 31.3 pg (27.0-33.0); MEAN CORPUSCULAR HGB CONC 34.7 g/dl (32.0-36.5); MEAN CORPUSCULAR VOLUME 90.2 fl (80.0-96.0); MONO # 0.4 10^3/uL (0.0-0.8); MONO % 7.6 % (0.0-5.0); NEUTROPHILS % 58.2 % (36.0-66.0); PLATELET COUNT, AUTOMATED 118 10^3/uL (150-450); RED BLOOD COUNT 3.58 10^6/uL (4.30-6.10); WHITE BLOOD COUNT 5.1 10^3/uL (4.0-10.0)
[2020-01-06 08:00] LABS: BLOOD UREA NITROGEN 27 MG/DL (7-18); CALCIUM LEVEL 8.4 MG/DL (8.8-10.2); CARBON DIOXIDE LEVEL 28 MEQ/L (21-32); CHLORIDE LEVEL 107 MEQ/L (98-107); CREATININE FOR GFR 1.14 MG/DL (0.70-1.30); GLOMERULAR FILTRATION RATE > 60.0 (>42); GLUCOSE, FASTING 92 MG/DL (70-100); POTASSIUM SERUM 4.2 MEQ/L (3.5-5.1); SODIUM LEVEL 141 MEQ/L (136-145)
[2020-01-06] MEDS: HumaLOG INSULIN (NovoLOG) PER UNIT SC SCH ×4 (08:34→20:10)
[2020-01-06] MEDS: LEVEMIR (INSULIN DETEMIR) 1 UNITS/0.01ML SC SCH ×2 (08:34→20:10)
[2020-01-06] MEDS: MULTIVITAMINS/MINERALS THERAP 1 TAB PO SCH (08:35)
[2020-01-06] MEDS: K-PHOS NEUTRAL 250MG TABLET (SOD.PHOSPHATE/POT.PHOSPHATE) PO SCH ×3 (08:35→20:10)
[2020-01-06] MEDS: SERTRALINE 100 MG TAB PO SCH (08:35)
[2020-01-06] MEDS: amLODIPine 10 MG TAB PO SCH (08:35)
[2020-01-06] MEDS: GABAPENTIN 300 MG CAP PO SCH (08:35)
[2020-01-06] MEDS: ATORVASTATIN 20 MG TAB PO SCH (08:36)
[2020-01-06] MEDS: FOLIC ACID 1 MG TAB PO SCH (08:36)
[2020-01-06 14:00] VITALS: BP 99/54
--- NOTE | 2020-01-06 16:34 | IPNPDOC ---
Text Note Date of Service The patient was seen on 01/06/20. NOTE Subjective: no overnight events Objective: Vitals (See below) General: Lying in bed, remains comfortable, AAOx3 HEENT: NC, AT CVS: regular in rate and rhythm Lungs: no abnormalities on auscultation Abdomen: Soft, non-distended, non-tender Extremities: No LE edema Assessment and plan: Patient is a 74 year old male with PMHx of IDDM2, DLP, HTN, Anxiety / Depression, who presented to the ER after two falls on his back. Patient is a poor historian and lives alone. In the ER he was noted to have an elevated glucose, without evidence of DKA / HHS. Was admitted to the hospitalist service for further evaluation and treatment. Uncontrolled Hyperglycemia - likely 2/2 non-compliance with medications - Complicated with few episodes of hypoglycemia - Patient reported that he missed long acting insulin dose for 3 days - No evidence of infection - EKG reviewed; cardiac markers negative - No evidence of DKA / HHS; labs improved - Mild elevation of Beta-hydroxybutyrate; now normalized - s/p 5 units of Insulin IV and Normal saline bolus in the ER - c/w ISS and Levemir at reduced dose s/p Lactic Acidosis - Again he does not clinically appear to have any signs of infection - Saturating well on room air; not tachycardic, tachypneic, and is without fevers - Negative ROS - CXR negative - UA negative - s/p IV fluids s/p Pseudohyponatremia - likely 2/2 Hyperglycemia Multiple fall - No focal deficit - XR Thoracic / Lumbar spine (01/02): No acute fracture - CT head 01/02: No acute intracranial abnormality seen. - CT c-spine 01/02: No cervical spine fracture seen. - c/w Tylenol - c/w PT and OT - Fall precautions and Care View monitoring HTN - BP well controlled - c/w Amlodipine and Lisinopril Anxiety and Depression - c/w Sertraline CKD3 - Cr appears to be at baseline - s/p IV fluids DLP - c/w Atorvastatin DVT prophylaxis - c/w Heparin Disposition: - Will likely require fci placement; possible ARU tomorrow - c/w PT / OT; fall precautions; care view monitoring VS,Fishbone, I+O VS, Fishbone, I+O Laboratory Tests 01/06/20 07:04 Vital Signs Date Time Temp Pulse Resp B/P (MAP) Pulse Ox O2 Delivery O2 Flow Rate FiO2 01/06/20 14:00 97.3 72 16 99/54 (69) 96 Room Air I&O- Last 24 Hours up to 6 AM 01/06/20 05:59 Intake Total 1380 ml Output Total 350 ml Balance 1030 ml NIRMALA COLORADO DO Jan 06, 2020 16:34
[2020-01-06 22:00] VITALS: BP 137/87
[2020-01-07] MEDS: HEPARIN SOD (PORCINE) 5000UNITS/ML 1ML VIAL/SYRINGE SC SCH ×3 (05:48→20:34)
[2020-01-07 06:00] VITALS: BP 124/63
[2020-01-07 06:50] LABS: BASO % 0.4 % (0.0-1.0); EOS # 0.1 10^3/uL (0.0-0.5); EOS % 2.6 % (0.0-3.0); HEMATOCRIT 29.7 % (42.0-52.0); HEMOGLOBIN 10.2 g/dl (13.5-17.5); LYMPH # 1.4 10^3/uL (1.5-5.0); LYMPH % 27.7 % (24.0-44.0); MEAN CORPUSCULAR HEMOGLOBIN 31.5 pg (27.0-33.0); MEAN CORPUSCULAR HGB CONC 34.3 g/dl (32.0-36.5); MEAN CORPUSCULAR VOLUME 91.7 fl (80.0-96.0); MONO # 0.5 10^3/uL (0.0-0.8); MONO % 9.6 % (0.0-5.0); NEUTROPHILS % 59.3 % (36.0-66.0); PLATELET COUNT, AUTOMATED 117 10^3/uL (150-450); RED BLOOD COUNT 3.24 10^6/uL (4.30-6.10)
[2020-01-07 07:16] LABS: CALCIUM LEVEL 8.5 MG/DL (8.8-10.2); CREATININE FOR GFR 1.28 MG/DL (0.70-1.30); GLOMERULAR FILTRATION RATE 58.6 (>42); MAGNESIUM LEVEL 1.9 MG/DL (1.8-2.4); POTASSIUM SERUM 4.6 MEQ/L (3.5-5.1)
[2020-01-07] MEDS: GABAPENTIN 300 MG CAP PO SCH (08:15)
[2020-01-07] MEDS: LEVEMIR (INSULIN DETEMIR) 1 UNITS/0.01ML SC SCH ×2 (08:15→20:35)
[2020-01-07] MEDS: HumaLOG INSULIN (NovoLOG) PER UNIT SC SCH ×4 (08:15→20:35)
[2020-01-07] MEDS: amLODIPine 10 MG TAB PO SCH (08:16)
[2020-01-07] MEDS: MULTIVITAMINS/MINERALS THERAP 1 TAB PO SCH (08:16)
[2020-01-07] MEDS: FOLIC ACID 1 MG TAB PO SCH (08:16)
[2020-01-07] MEDS: SERTRALINE 100 MG TAB PO SCH (08:17)
[2020-01-07] MEDS: K-PHOS NEUTRAL 250MG TABLET (SOD.PHOSPHATE/POT.PHOSPHATE) PO SCH ×3 (08:17→20:35)
[2020-01-07] MEDS: ATORVASTATIN 20 MG TAB PO SCH (08:18)
[2020-01-07 14:00] VITALS: BP 120/58
[2020-01-07 22:00] VITALS: BP 122/54
[2020-01-08 06:00] VITALS: BP 132/58
[2020-01-08] MEDS: HEPARIN SOD (PORCINE) 5000UNITS/ML 1ML VIAL/SYRINGE SC SCH ×3 (06:27→21:20)
[2020-01-08 07:09] LABS: BASO % 0.2 % (0.0-1.0); EOS # 0.1 10^3/uL (0.0-0.5); HEMATOCRIT 31.9 % (42.0-52.0); HEMOGLOBIN 10.7 g/dl (13.5-17.5); LYMPH # 1.6 10^3/uL (1.5-5.0); LYMPH % 36.4 % (24.0-44.0); MEAN CORPUSCULAR HGB CONC 33.5 g/dl (32.0-36.5); MEAN CORPUSCULAR VOLUME 92.5 fl (80.0-96.0); MONO # 0.4 10^3/uL (0.0-0.8); MONO % 9.6 % (0.0-5.0); NEUTROPHILS # 2.3 10^3/uL (1.5-8.5); NEUTROPHILS % 51.6 % (36.0-66.0); PLATELET COUNT, AUTOMATED 127 10^3/uL (150-450); RED BLOOD COUNT 3.45 10^6/uL (4.30-6.10); WHITE BLOOD COUNT 4.5 10^3/uL (4.0-10.0)
[2020-01-08] MEDS: HumaLOG INSULIN (NovoLOG) PER UNIT SC SCH ×4 (07:30→21:20)
[2020-01-08 07:31] LABS: BLOOD UREA NITROGEN 24 MG/DL (7-18); CALCIUM LEVEL 8.3 MG/DL (8.8-10.2); CARBON DIOXIDE LEVEL 29 MEQ/L (21-32); CHLORIDE LEVEL 109 MEQ/L (98-107); CREATININE FOR GFR 1.06 MG/DL (0.70-1.30); GLOMERULAR FILTRATION RATE > 60.0 (>42); GLUCOSE, FASTING 112 MG/DL (70-100); POTASSIUM SERUM 3.9 MEQ/L (3.5-5.1); SODIUM LEVEL 143 MEQ/L (136-145)
[2020-01-08] MEDS: MULTIVITAMINS/MINERALS THERAP 1 TAB PO SCH (08:14)
[2020-01-08] MEDS: FOLIC ACID 1 MG TAB PO SCH (08:14)
[2020-01-08] MEDS: SERTRALINE 100 MG TAB PO SCH (08:15)
[2020-01-08] MEDS: LEVEMIR (INSULIN DETEMIR) 1 UNITS/0.01ML SC SCH ×2 (08:15→21:19)
[2020-01-08] MEDS: GABAPENTIN 300 MG CAP PO SCH (08:15)
[2020-01-08] MEDS: K-PHOS NEUTRAL 250MG TABLET (SOD.PHOSPHATE/POT.PHOSPHATE) PO SCH ×3 (08:15→21:20)
[2020-01-08] MEDS: ATORVASTATIN 20 MG TAB PO SCH (08:15)
[2020-01-08 08:16] VITALS: BP 91/50
[2020-01-08] MEDS: amLODIPine 10 MG TAB PO SCH (08:16)
[2020-01-08 17:54] VITALS: BP 110/68
[2020-01-08 19:54] VITALS: BP 148/58
[2020-01-09] MEDS: HEPARIN SOD (PORCINE) 5000UNITS/ML 1ML VIAL/SYRINGE SC SCH ×3 (05:19→21:58)
[2020-01-09 06:18] LABS: BASO % 0.2 % (0.0-1.0); EOS # 0.2 10^3/uL (0.0-0.5); EOS % 2.7 % (0.0-3.0); HEMATOCRIT 33.6 % (42.0-52.0); LYMPH # 1.9 10^3/uL (1.5-5.0); LYMPH % 32.6 % (24.0-44.0); MEAN CORPUSCULAR HEMOGLOBIN 30.6 pg (27.0-33.0); MEAN CORPUSCULAR HGB CONC 32.7 g/dl (32.0-36.5); MEAN CORPUSCULAR VOLUME 93.3 fl (80.0-96.0); MONO # 0.6 10^3/uL (0.0-0.8); MONO % 9.8 % (0.0-5.0); NEUTROPHILS # 3.2 10^3/uL (1.5-8.5); NEUTROPHILS % 54.4 % (36.0-66.0); PLATELET COUNT, AUTOMATED 141 10^3/uL (150-450); WHITE BLOOD COUNT 5.8 10^3/uL (4.0-10.0)
[2020-01-09 06:39] VITALS: BP 115/49
[2020-01-09 06:44] LABS: BLOOD UREA NITROGEN 22 MG/DL (7-18); CALCIUM LEVEL 8.5 MG/DL (8.8-10.2); CARBON DIOXIDE LEVEL 29 MEQ/L (21-32); CHLORIDE LEVEL 107 MEQ/L (98-107); CREATININE FOR GFR 1.06 MG/DL (0.70-1.30); GLOMERULAR FILTRATION RATE > 60.0 (>42); GLUCOSE, FASTING 109 MG/DL (70-100); MAGNESIUM LEVEL 1.9 MG/DL (1.8-2.4); POTASSIUM SERUM 3.9 MEQ/L (3.5-5.1); SODIUM LEVEL 140 MEQ/L (136-145)
[2020-01-09] MEDS: LEVEMIR (INSULIN DETEMIR) 1 UNITS/0.01ML SC SCH ×2 (08:07→21:59)
[2020-01-09] MEDS: ATORVASTATIN 20 MG TAB PO SCH (08:08)
[2020-01-09] MEDS: HumaLOG INSULIN (NovoLOG) PER UNIT SC SCH ×4 (08:08→21:00)
[2020-01-09] MEDS: SERTRALINE 100 MG TAB PO SCH (08:08)
[2020-01-09] MEDS: MULTIVITAMINS/MINERALS THERAP 1 TAB PO SCH (08:09)
[2020-01-09] MEDS: GABAPENTIN 300 MG CAP PO SCH (08:09)
[2020-01-09] MEDS: FOLIC ACID 1 MG TAB PO SCH (08:09)
[2020-01-09] MEDS: K-PHOS NEUTRAL 250MG TABLET (SOD.PHOSPHATE/POT.PHOSPHATE) PO SCH ×3 (08:10→21:58)
[2020-01-09 14:00] VITALS: BP 115/50
[2020-01-09 20:00] VITALS: BP 143/63
[2020-01-10] MEDS: HEPARIN SOD (PORCINE) 5000UNITS/ML 1ML VIAL/SYRINGE SC SCH ×3 (05:14→21:12)
[2020-01-10 06:37] VITALS: BP 141/58
[2020-01-10 08:15] LABS: BASO % 0.2 % (0.0-1.0); EOS # 0.1 10^3/uL (0.0-0.5); EOS % 2.1 % (0.0-3.0); HEMATOCRIT 30.3 % (42.0-52.0); HEMOGLOBIN 10.3 g/dl (13.5-17.5); LYMPH % 19.4 % (24.0-44.0); MEAN CORPUSCULAR HEMOGLOBIN 31.2 pg (27.0-33.0); MEAN CORPUSCULAR VOLUME 91.8 fl (80.0-96.0); MONO # 0.5 10^3/uL (0.0-0.8); MONO % 9.1 % (0.0-5.0); NEUTROPHILS # 3.6 10^3/uL (1.5-8.5); PLATELET COUNT, AUTOMATED 126 10^3/uL (150-450); WHITE BLOOD COUNT 5.2 10^3/uL (4.0-10.0)
[2020-01-10 08:45] LABS: BLOOD UREA NITROGEN 20 MG/DL (7-18); CALCIUM LEVEL 8.5 MG/DL (8.8-10.2); CARBON DIOXIDE LEVEL 29 MEQ/L (21-32); CHLORIDE LEVEL 108 MEQ/L (98-107); CREATININE FOR GFR 0.96 MG/DL (0.70-1.30); GLOMERULAR FILTRATION RATE > 60.0 (>42); GLUCOSE, FASTING 144 MG/DL (70-100); MAGNESIUM LEVEL 1.9 MG/DL (1.8-2.4); POTASSIUM SERUM 4.3 MEQ/L (3.5-5.1); SODIUM LEVEL 143 MEQ/L (136-145)
[2020-01-10] MEDS: LEVEMIR (INSULIN DETEMIR) 1 UNITS/0.01ML SC SCH ×2 (09:10→21:13)
[2020-01-10] MEDS: K-PHOS NEUTRAL 250MG TABLET (SOD.PHOSPHATE/POT.PHOSPHATE) PO SCH ×3 (09:11→21:12)
[2020-01-10] MEDS: FOLIC ACID 1 MG TAB PO SCH (09:11)
[2020-01-10] MEDS: MULTIVITAMINS/MINERALS THERAP 1 TAB PO SCH (09:11)
[2020-01-10] MEDS: SERTRALINE 100 MG TAB PO SCH (09:11)
[2020-01-10] MEDS: HumaLOG INSULIN (NovoLOG) PER UNIT SC SCH ×4 (09:11→21:00)
[2020-01-10] MEDS: GABAPENTIN 300 MG CAP PO SCH (09:11)
[2020-01-10] MEDS: ATORVASTATIN 20 MG TAB PO SCH (09:11)
[2020-01-10 14:00] VITALS: BP 141/63
[2020-01-10 20:00] VITALS: BP 142/62
[2020-01-11] MEDS: HEPARIN SOD (PORCINE) 5000UNITS/ML 1ML VIAL/SYRINGE SC SCH ×3 (05:43→20:36)
[2020-01-11 06:00] VITALS: BP 140/63
[2020-01-11 07:28] LABS: BASO % 0.4 % (0.0-1.0); EOS # 0.1 10^3/uL (0.0-0.5); EOS % 2.5 % (0.0-3.0); HEMATOCRIT 34.4 % (42.0-52.0); HEMOGLOBIN 11.2 g/dl (13.5-17.5); LYMPH # 1.6 10^3/uL (1.5-5.0); LYMPH % 31.1 % (24.0-44.0); MEAN CORPUSCULAR HEMOGLOBIN 30.6 pg (27.0-33.0); MEAN CORPUSCULAR HGB CONC 32.6 g/dl (32.0-36.5); MONO # 0.5 10^3/uL (0.0-0.8); NEUTROPHILS % 56.6 % (36.0-66.0); PLATELET COUNT, AUTOMATED 156 10^3/uL (150-450); RED BLOOD COUNT 3.66 10^6/uL (4.30-6.10); WHITE BLOOD COUNT 5.2 10^3/uL (4.0-10.0)
[2020-01-11] MEDS: SERTRALINE 100 MG TAB PO SCH (07:56)
[2020-01-11] MEDS: ATORVASTATIN 20 MG TAB PO SCH (07:56)
[2020-01-11] MEDS: LEVEMIR (INSULIN DETEMIR) 1 UNITS/0.01ML SC SCH ×2 (07:56→20:36)
[2020-01-11] MEDS: FOLIC ACID 1 MG TAB PO SCH (07:56)
[2020-01-11] MEDS: HumaLOG INSULIN (NovoLOG) PER UNIT SC SCH ×4 (07:56→20:42)
[2020-01-11] MEDS: MULTIVITAMINS/MINERALS THERAP 1 TAB PO SCH (07:56)
[2020-01-11] MEDS: K-PHOS NEUTRAL 250MG TABLET (SOD.PHOSPHATE/POT.PHOSPHATE) PO SCH ×3 (07:57→20:36)
[2020-01-11] MEDS: GABAPENTIN 300 MG CAP PO SCH (07:57)
[2020-01-11 08:05] LABS: BLOOD UREA NITROGEN 20 MG/DL (7-18); CALCIUM LEVEL 8.2 MG/DL (8.8-10.2); CARBON DIOXIDE LEVEL 29 MEQ/L (21-32); CHLORIDE LEVEL 109 MEQ/L (98-107); CREATININE FOR GFR 0.99 MG/DL (0.70-1.30); GLOMERULAR FILTRATION RATE > 60.0 (>42); GLUCOSE, FASTING 103 MG/DL (70-100); MAGNESIUM LEVEL 2.1 MG/DL (1.8-2.4); POTASSIUM SERUM 4.5 MEQ/L (3.5-5.1); SODIUM LEVEL 143 MEQ/L (136-145)
[2020-01-11 14:00] VITALS: BP 143/63
[2020-01-11 22:00] VITALS: BP 141/64
[2020-01-12] MEDS: HEPARIN SOD (PORCINE) 5000UNITS/ML 1ML VIAL/SYRINGE SC SCH ×4 (05:22→21:33)
[2020-01-12 06:00] VITALS: BP 133/61
[2020-01-12] MEDS: HumaLOG INSULIN (NovoLOG) PER UNIT SC SCH ×4 (07:57→21:00)
[2020-01-12] MEDS: LEVEMIR (INSULIN DETEMIR) 1 UNITS/0.01ML SC SCH ×2 (07:58→21:29)
[2020-01-12] MEDS: K-PHOS NEUTRAL 250MG TABLET (SOD.PHOSPHATE/POT.PHOSPHATE) PO SCH ×3 (07:58→21:27)
[2020-01-12] MEDS: SERTRALINE 100 MG TAB PO SCH (07:58)
[2020-01-12] MEDS: FOLIC ACID 1 MG TAB PO SCH (07:58)
[2020-01-12] MEDS: ATORVASTATIN 20 MG TAB PO SCH (07:58)
[2020-01-12] MEDS: MULTIVITAMINS/MINERALS THERAP 1 TAB PO SCH (07:58)
[2020-01-12] MEDS: GABAPENTIN 300 MG CAP PO SCH (07:59)
[2020-01-12] MEDS: NYSTATIN 100,000 UNITS/GM TOPICAL PWD 15 GM TOP SCH ×2 (14:31→21:28)
[2020-01-13 06:00] VITALS: BP 153/70
[2020-01-13] MEDS: HEPARIN SOD (PORCINE) 5000UNITS/ML 1ML VIAL/SYRINGE SC SCH ×3 (06:16→22:00)
[2020-01-13] MEDS: HumaLOG INSULIN (NovoLOG) PER UNIT SC SCH ×4 (07:30→21:00)
[2020-01-13] MEDS: NYSTATIN 100,000 UNITS/GM TOPICAL PWD 15 GM TOP SCH ×2 (09:00→21:00)
[2020-01-13] MEDS: MULTIVITAMINS/MINERALS THERAP 1 TAB PO SCH (09:00)
[2020-01-13] MEDS: FOLIC ACID 1 MG TAB PO SCH (09:00)
[2020-01-13] MEDS: ATORVASTATIN 20 MG TAB PO SCH (09:00)
[2020-01-13] MEDS: K-PHOS NEUTRAL 250MG TABLET (SOD.PHOSPHATE/POT.PHOSPHATE) PO SCH ×3 (09:00→22:01)
[2020-01-13] MEDS: LEVEMIR (INSULIN DETEMIR) 1 UNITS/0.01ML SC SCH ×2 (09:00→21:00)
[2020-01-13] MEDS: GABAPENTIN 300 MG CAP PO SCH (09:00)
[2020-01-13] MEDS: SERTRALINE 100 MG TAB PO SCH (09:00)
--- NOTE | 2020-01-13 12:03 | IPNPDOC ---
Text Note Date of Service The patient was seen on 01/13/20. NOTE Subjective: Patient is a 74 year old male with PMHx of IDDM2, DLP, HTN, Anxiety / Depression, who presented to the ER after two falls on his back. Patient is a poor historian and lives alone. In the ER he was noted to have an elevated glu cose, without evidence of DKA / HHS. Was admitted to the hospitalist service for further evaluation and treatment. Patient was seen and examined at the bedside. Currently he has no new complaints. Sitting up in chair and eating breakfast. Denies any CP, SOB or palpitations. Denies any abdominal pain, constipation or diarrhea. Objective: Vitals (See below) General: Sitting up in chair, not in any acute distress and is comfortable, AAOx3 HEENT: NC, AT CVS: +S1S2 Lungs: Fair air entry b/l, auscultation is without wheezing / rhonchi / rales Abdomen: Soft, remains non-distended and is without tenderness Extremities: LE are without any edema, - Calf tenderness Assessment and plan: s/p Uncontrolled Hyperglycemia - likely 2/2 non-compliance with medications - Few episodes of hypoglycemia initially - Patient reported that he missed long acting insulin dose for 3 days prior to admission - No evidence of infection - EKG reviewed; cardiac markers negative - No evidence of DKA / HHS; labs improved - Mild elevation of Beta-hydroxybutyrate; now normalized - s/p 5 units of Insulin IV and Normal saline bolus in the ER - c/w ISS and adjusted dose of Levemir s/p Lactic Acidosis s/p Pseudohyponatremia - likely 2/2 Hyperglycemia Multiple fall - No focal deficit - XR Thoracic / Lumbar spine (01/02): No acute fracture - CT head 01/02: No acute intracranial abnormality seen. - CT c-spine 01/02: No cervical spine fracture seen. - c/w Tylenol - c/w Fall precautions and Care View monitoring - c/w PT and OT; looking into buttermaker helper placement HTN - BP well controlled - c/w Amlodipine and Lisinopril Anxiety and Depression - c/w Sertraline CKD3 - Cr appears to be at baseline - s/p IV fluids DLP - c/w Atorvastatin DVT prophylaxis - c/w Heparin Disposition: - ALC status - c/w PT / OT; Fall precautions and care view monitoring - PFS on board for buttermaker helper placement VS,Fishbone, I+O VS, Fishbone, I+O Vital Signs Date Time Temp Pulse Resp B/P (MAP) Pulse Ox O2 Delivery O2 Flow Rate FiO2 01/13/20 06:00 98.1 69 18 153/70 (97) 99 Room Air I&O- Last 24 Hours up to 6 AM 01/13/20 06:00 Intake Total 1820 ml Output Total 0 ml Balance 1820 ml CHANEL HAHN MD Jan 13, 2020 12:02
[2020-01-14] MEDS: HEPARIN SOD (PORCINE) 5000UNITS/ML 1ML VIAL/SYRINGE SC SCH ×2 (05:18→12:28)
[2020-01-14 06:00] VITALS: BP 165/69
[2020-01-14] MEDS: FOLIC ACID 1 MG TAB PO SCH (08:30)
[2020-01-14] MEDS: K-PHOS NEUTRAL 250MG TABLET (SOD.PHOSPHATE/POT.PHOSPHATE) PO SCH (08:30)
[2020-01-14] MEDS: ATORVASTATIN 20 MG TAB PO SCH (08:30)
[2020-01-14] MEDS: HumaLOG INSULIN (NovoLOG) PER UNIT SC SCH ×2 (08:30→12:28)
[2020-01-14] MEDS: MULTIVITAMINS/MINERALS THERAP 1 TAB PO SCH (08:30)
[2020-01-14] MEDS: SERTRALINE 100 MG TAB PO SCH (08:30)
[2020-01-14] MEDS: GABAPENTIN 300 MG CAP PO SCH (08:30)
[2020-01-14] MEDS: NYSTATIN 100,000 UNITS/GM TOPICAL PWD 15 GM TOP SCH (08:31)
[2020-01-14] MEDS ORDERED: INSUHUMDS SC (11:16)
[2020-01-14] MEDS ORDERED: AMLO25TA PO (12:34)
--- NOTE | 2020-01-14 12:34 | DS.PDOC ---
Discharge Summary General Date of Admission Jan 03, 2020 at 19:01 Date of Discharge 01/14/2020 Discharge Summary PROCEDURES PERFORMED DURING STAY: [None]. ADMITTING DIAGNOSES / DISCHARGE DIAGNOSES: s/p Uncontrolled Hyperglycemia - likely 2/2 non-compliance with medications s/p Lactic Acidosis s/p Pseudohyponatremia - likely 2/2 Hyperglycemia Multiple fall HTN Anxiety and Depression CKD3 DLP DVT prophylaxis COMPLICATIONS/CHIEF COMPLAINT: Hyperglycemia / Falls HISTORY OF PRESENT ILLNESS: Patient is a 74 year old male with PMHx of IDDM2, DLP, HTN, Anxiety / Depression, who presented to the ER after two falls on his back. Patient is a poor historian and lives alone. In the ER he was noted to have an elevated glucose, without evidence of DKA / HHS. Was admitted to the hospitalist service for further evaluation and treatment. HOSPITAL COURSE: s/p Uncontrolled Hyperglycemia - likely 2/2 non-compliance with medications - Few episodes of hypoglycemia initially - Patient reported that he missed long acting insulin dose for 3 days prior to admission - No evidence of infection - EKG reviewed; cardiac markers negative - No evidence of DKA / HHS; labs improved - Mild elevation of Beta-hydroxybutyrate; now normalized - s/p 5 units of Insulin IV and Normal saline bolus in the ER - c/w ISS; s/p Levemir - Will have outpatient follow up with PCP within 7 days s/p Lactic Acidosis s/p Pseudohyponatremia - likely 2/2 Hyperglycemia Multiple fall - No focal deficit - XR Thoracic / Lumbar spine (01/02): No acute fracture - CT head 01/02: No acute intracranial abnormality seen. - CT c-spine 01/02: No cervical spine fracture seen. - c/w Tylenol - c/w Fall precautions and Care View monitoring - c/w PT and OT; looking into exterminator helper placement HTN - BP well controlled - s/p Amlodipine and Lisinopril - Will c/w low dose amlodipine for now Anxiety and Depression - c/w Sertraline CKD3 - Cr appears to be at baseline - s/p IV fluids DLP - c/w Atorvastatin DVT prophylaxis - c/w Heparin DISCHARGE MEDICATIONS: Please see below. ALLERGIES: Please see below. PHYSICAL EXAMINATION ON DISCHARGE: Vitals (See below) General: Sitting in chair, comfortable, AAOx3 HEENT: NC, AT CVS: +S1S2 Lungs: Fair air entry b/l, no appreciable wheezing / crackles / rhonchi Abdomen: Soft, without tenderness / distention Extremities: LE do not reveal edema, - Calf tenderness LABORATORY DATA: Please see below. ACTIVITY: [As tolerated]. DISCHARGE PLAN: Register Rehab DISPOSITION: Follow up with PCP within 7 days Remain compliant with treatment plan and medications Return to the ER if you experience any problems DISCHARGE CONDITION: [Stable]. TIME SPENT ON DISCHARGE: 35 minutes. Vital Signs/I&Os Vital Signs Date Time Temp Pulse Resp B/P (MAP) Pulse Ox O2 Delivery O2 Flow Rate FiO2 01/14/20 06:00 97.9 63 18 165/69 (101) 98 Room Air I&O- Last 24 Hours up to 6 AM 01/14/20 06:00 Intake Total 1570 ml Output Total 1650 ml Balance -80 ml Laboratory Data Labs 24H Laboratory Tests 2 01/13/20 12:53: Bedside Glucose (Misc Panel) 138H 01/13/20 17:21: Bedside Glucose (Misc Panel) 157H 01/14/20 11:16: Coronavirus (COVID-19)(PCR) NEGATIVE FSBS Laboratory Tests Test 01/13/20 12:53 01/13/20 17:21 Range/Units Bedside Glucose (Misc Panel) 138 157 83-110 MG/DL Microbiology Microbiology 01/04/20 Blood Culture - Final, Complete NO GROWTH AFTER 5 DAYS 01/04/20 Blood Culture - Final, Complete NO GROWTH AFTER 5 DAYS 01/04/20 Blood Culture - Final, Complete NO GROWTH AFTER 5 DAYS Discharge Medications Scheduled Atorvastatin Calcium (Atorvastatin Calcium) 20 Mg Tablet, 20 MG PO DAILY, (Reported) Folic Acid (Folic Acid) 1 Mg Tablet, 1 MG PO DAILY, (Reported) Gabapentin (Gabapentin) 600 Mg Tablet, 600 MG PO DAILY, (Reported) Insulin Human Lispro (Humalog) 100 Unit/1 Ml Vial, 0 UNITS SC ACHS As per [facility] insulin sliding scale Multivitamins (Thera M Plus Tablet) 1 Each Tablet, 1 TAB PO DAILY, (Reported) Sertraline HCl (Sertraline HCl) 100 Mg Tablet, 100 MG PO DAILY, (Reported) Scheduled PRN Docusate Sodium (Docusate Sodium) 100 Mg Capsule, 100 MG PO DAILY PRN for CONSTIPATION, (Reported) Allergies Coded Allergies: No Known Allergies (Verified , 04/25/17) CHANEL HAHN MD Jan 14, 2020 12:34
--- NOTE | 2020-01-18 07:14 | ECGEPIP ---
[facility], [place] - ED Test Date: 2020-01-03 Pat Name: ELFEGO DAVIS Department: Room: [place] [address] Gender: Male Four Slide Operator: sebastian : 1945 Requested By: Lona Velasquez Order Number: [id number] Reading MD: Elan Huang Measurements Intervals [place] Rate: 79 P: 51 GA: 176 QRS: -5 QRSD: 118 T: -6 QT: 394 QTc: 454 Interpretive Statements SINUS RHYTHM MODERATE INTRAVENTRICULAR CONDUCTION DELAY NONSPECIFIC T T WAVE CHANGES SEE DOWNTIME SCANNED REPORT
--- NOTE | 2020-01-30 14:22 | REP ---
THORACIC SPINE SERIES CLINICAL: Trauma. TECHNIQUE: AP, lateral, swimmers views of the thoracic spine. FINDINGS: Age-related osteopenia and advanced multilevel degenerative changes include osteophytosis, endplate sclerosis, and disc space narrowing. Alignment and kyphosis maintained. No acute fracture/compression injury or subluxation. IMPRESSION: Age-related osteopenia and multilevel degenerative changes. No acute fracture/compression injury or subluxation. MTDD
--- NOTE | 2020-01-30 14:24 | REP ---
LUMBOSACRAL SPINE SERIES CLINICAL: Trauma. TECHNIQUE: AP, lateral, bilateral oblique, and coned down views of the lumbosacral spine. FINDINGS: Age-related osteopenia and moderate/early advanced multilevel degenerative changes include endplate sclerosis, marginal spurring, and hypertrophic facet changes. Alignment and lordosis maintained. No acute fracture/compression injury or subluxation. No obvious spondylolysis or spondylolisthesis. IMPRESSION: Osteopenia and multilevel degenerative spondylosis. No acute fracture/compression injury or subluxation. MTDD
--- NOTE | 2020-01-30 14:25 | REP ---
PORTABLE CHEST X-RAY: HISTORY: Hyperglycemia. COMPARISON: 11/23/19 FINDINGS: Mediastinum and cardiac silhouette are within normal limits and stable. Lung bradford demonstrates stable chronic changes. No acute consolidation, effusion or pneumothorax. Skeletal structures demonstrate age related changes. IMPRESSION: Chronic stable changes. No acute cardiopulmonary process. MTDD
--- NOTE | 2020-01-30 14:26 | REP ---
NONCONTRAST CT OF THE PELVIS CLINICAL: Pain. TECHNIQUE: Axial noncontrast images through the pelvis with coronal and sagittal reformations. FINDINGS: The osseous structures demonstrate age-related osteopenia and generalized degenerative changes. There is no evidence for acute fracture or dislocation. Bilateral sacroiliac joints are symmetric and essentially age appropriate. Bilateral hip joints are intact. Pelvic structures including visualized portions of the small and large bowel and bladder are normal. Age-related prostatomegaly noted. There is a 3 cm fat containing periumbilical hernia identified. Atherosclerotic changes to the aorta and vasculature appreciated. IMPRESSION: * Musculoskeletal structures demonstrate age-related osteopenia and degenerative changes without acute fracture or dislocation. * Fat containing periumbilical hernia. * Prostatomegaly. MTDD
--- NOTE | 2020-01-30 14:27 | REP ---
NONCONTRAST CT OF THE LUMBAR SPINE CLINICAL: Back pain. TECHNIQUE: Axial noncontrast images of the lumbosacral spine with coronal and sagittal reformations. FINDINGS: Age-related osteopenia. Alignment and lordosis maintained. No acute fracture/compression injury or subluxation. Moderate/early advanced multilevel degenerative changes include endplate sclerosis, osteophytosis, and facet arthropathy. Small posterior disc bulges at the L3-4, L4-5, and L5-S1 levels noted. Posterior elements and spinous processes are intact. Spinal canal appears patent. Neural foramen appeared patent. Paravertebral soft tissues are within normal limits. IMPRESSION: Osteopenia and moderate/early advanced multilevel degenerative spondylosis. Small posterior disc bulges at L3-4 through L5-S1. No acute fracture/compression injury or subluxation. MTDD
--- NOTE | 2020-01-30 14:29 | REP ---
PORTABLE CHEST X-RAY: HISTORY: Lactic acidosis. COMPARISON: 01/03/20 at 6:37 PM FINDINGS: Mediastinum and cardiac silhouette are normal. Lung bradford demonstrates chronic stable changes. No acute consolidation, effusion or pneumothorax. Skeletal structures are intact. IMPRESSION: Normal stable portable chest x-ray. No acute process. MTDD
== END 2020-01-14 14:18 | DRG 638 ==
LOC: EDBD 14:43 → M ED 14:43 → M ED INP 19:01 → ENRESERVTM 19:28 → ENRESERVDT 19:28 → M MS5PR 19:55
PROVIDERS: ADMIT Internal Medicine; ATTEND Internal Medicine
DX: E11.65 Type 2 diabetes mellitus with hyperglycemia (principal); E87.2 Acidosis; E87.1 Hypo-osmolality and hyponatremia; N18.3 Chronic kidney disease, stage 3 (moderate); M54.9 Dorsalgia, unspecified; Z91.14 Patient's other noncompliance with medication regimen; F41.9 Anxiety disorder, unspecified; F32.9 Major depressive disorder, single episode, unspecified; I12.9 Hypertensive chronic kidney disease with stage 1 through stage 4 chronic kidney disease, or unspecified chronic kidney disease; R29.6 Repeated falls; Z79.899 Other long term (current) drug therapy; E78.5 Hyperlipidemia, unspecified

== ENCOUNTER 2020-08-02 11:31 | Inpatient (IN) | payer MEDICARE, MEDICAID ==
[~2020-08-02] VITALS: Ht 170.2 cm; Wt 67.8 kg
[~2020-08-02 11:31] MED LIST changes: +AMLO25TA PO; +GABA-282 PO; -GABA-843 PO; +INSUHUMDS SC
[2020-08-02] MEDS ORDERED: LEVE1INJ5 SC (12:14)
[2020-08-02] MEDS ORDERED: FURO80VL IV (12:14)
[2020-08-02] MEDS ORDERED: HEPARIN (12:14)
[2020-08-02] MEDS ORDERED: ISOS1TAB35 PO (12:14)
[2020-08-02] MEDS ORDERED: PANT40TA29 PO (12:14)
[2020-08-02] MEDS ORDERED: SIME80CH6 PO (12:14)
[2020-08-02] MEDS ORDERED: FERR325T3 PO (12:14)
[2020-08-02] MEDS ORDERED: BUME0.5T2 PO (12:14)
[2020-08-02] MEDS ORDERED: CARV3.12 PO (12:14)
[2020-08-02] MEDS ORDERED: AMLO2.5T3 PO (12:14)
[2020-08-02] MEDS ORDERED: NITR0.4D6 TOP (12:14)
[2020-08-02] MEDS ORDERED: INSU100V3 SC (12:15)
[2020-08-02] MEDS ORDERED: FUROSEMIDE 100MG/10ML VIAL (J1940) IV ONE (12:20)
[2020-08-02] MEDS ORDERED: MORPHINE 2 MG/ML 1ML VIAL (J2270) IV ONE ×2 (12:20→13:40)
[2020-08-02] MEDS ORDERED: MORPHINE 2 MG/ML 1ML VIAL (J2270) As Ordered ONE (12:21)
--- NOTE | 2020-08-02 12:25 | REP ---
INDICATION: CHEST PAIN COMPARISON: 01/04/2020 TECHNIQUE: Portable AP view of the chest FINDINGS: Lung bradford demonstrate diffuse chronic interstitial changes with scattered bilateral airspace disease (left greater than right) along with small pleural effusions. No pneumothorax. Mediastinum and cardiac silhouette grossly normal for portable technique. IMPRESSION: Diffuse bilateral airspace disease along with small pleural effusions. <Electronically signed by Montrell Cole > 08/02/20 [id number]
[2020-08-02 12:30] LABS: BASO # 0.1 10^3/uL (0.0-0.2); BASO % 0.4 % (0.0-1.0); EOS # 0.5 10^3/uL (0.0-0.5); EOS % 3.1 % (0.0-3.0); HEMATOCRIT 37.6 % (42.0-52.0); HEMOGLOBIN 11.2 g/dl (13.5-17.5); LYMPH # 3.1 10^3/uL (1.5-5.0); LYMPH % 21.6 % (24.0-44.0); MEAN CORPUSCULAR HEMOGLOBIN 29.3 pg (27.0-33.0); MEAN CORPUSCULAR HGB CONC 29.8 g/dl (32.0-36.5); MEAN CORPUSCULAR VOLUME 98.4 fl (80.0-96.0); MONO # 0.9 10^3/uL (0.0-0.8); MONO % 6.3 % (2.0-8.0); NEUTROPHILS # 9.9 10^3/uL (1.5-8.5); NEUTROPHILS % 68.3 % (36.0-66.0); PLATELET COUNT, AUTOMATED 264 10^3/uL (150-450); RED BLOOD COUNT 3.82 10^6/uL (4.30-6.10); WHITE BLOOD COUNT 14.5 10^3/uL (4.0-10.0)
[2020-08-02] MEDS ORDERED: LIDOCAINE 2% 5ML JELLY UROJET TOP ONE (12:40)
[2020-08-02] MEDS ORDERED: hydrALAZINE 20MG/ML 1ML VIAL (J0360 PER 20MG) IV STA (12:40)
[2020-08-02 12:51] LABS: CALCIUM LEVEL 8.8 MG/DL (8.8-10.2); CREATININE FOR GFR 1.88 MG/DL (0.70-1.30); GLOMERULAR FILTRATION RATE 37.6 (>42); POTASSIUM SERUM 4.4 MEQ/L (3.5-5.1)
[2020-08-02] MEDS ORDERED: ZOLO100T PO (14:49)
[2020-08-02] MEDS ORDERED: ACET1TAB55 PO (14:49)
[2020-08-02] MEDS ORDERED: HEPA500011 SC (14:49)
[2020-08-02] MEDS ORDERED: ONDA4INJ4 IV (14:49)
[2020-08-02] MEDS ORDERED: IPRA0.00 NEB (14:49)
[2020-08-02] MEDS ORDERED: GABA-282 PO (14:49)
[2020-08-02] MEDS ORDERED: AMLO1TAB24 PO (14:49)
[2020-08-02] MEDS ORDERED: COMMENTS (14:51)
[2020-08-02 15:02] LABS: RSV AMPLIFICATION NEGATIVE (NEGATIVE)
[2020-08-02 15:35] LABS: ABG BASE EXCESS -6.3 (-2.0-2.0); ABG HCO3 26.1 MEQ/L (22.0-26.0); ABG O2 SATURATION 95.1 % (95.0-99.0); ABG PARTIAL PRESSURE O2 90.8 mmHg (75.0-100.0); ABG STANDARD HCO3 19.3 MEQ/L (22.0-26.0); ABG TOTAL CO2 29.1 MEQ/L (23.0-31.0)
[2020-08-02 15:37] LABS: ABG PARTIAL PRESSURE CO2 98.6 mmHg (35.0-45.0); ABG pH (ARTERIAL) 7.041 UNITS (7.350-7.450)
[2020-08-02 16:23] VITALS: BP 176/78
[2020-08-02 16:30] VITALS: BP 169/72
--- NOTE | 2020-08-02 16:32 | REP ---
INDICATION: Acute hypoxic hypercapnic respiratory failure. COMPARISON: No comparison chest CT studies. Comparison is made with today's chest x-ray.. TECHNIQUE: Helical scanning is acquired. 3 mm axial images are generated. Coronal and sagittal MPR and coronal MIP images are generated. FINDINGS: There are moderate size bilateral pleural effusions. The heart is prominent in size. No pericardial effusion is seen. There is compressive atelectasis in the lower lobes bilaterally. There is bilateral perihilar alveolar edema pattern noted. These changes are compatible with CHF/volume overload. No mediastinal or hilar obvious hilar adenopathy is seen. Vascular calcifications noted. There does appear to be a 12 mm left perihilar nodule in the upper lobe. This is partially obscured by the alveolar edema pattern. No bony destructive lesion is appreciated. There is diffuse subcutaneous edema/anasarca pattern mild in degree. No adrenal lesion is seen. The visualized upper abdominal structures are unremarkable. IMPRESSION: Moderate-sized bilateral pleural effusions and diffuse alveolar lung disease consistent with pulmonary edema. CHF/volume overload pattern. Question 1.2 cm left upper lobe noncalcified pulmonary nodule. Edematous pattern in the extra thoracic and flank soft tissues noted as well, question anasarca or hypoproteinemia. <Electronically signed by Hayes Anguiano > 08/02/20 1415
[2020-08-02] MEDS ORDERED: DEXTROSE 50% 50 ML SYRINGE IV PRN (17:05)
[2020-08-02] MEDS ORDERED: hydrALAZINE 20MG/ML 1ML VIAL (J0360 PER 20MG) IV PRN (17:05)
[2020-08-02] MEDS ORDERED: GLUCAGON INJ 1MG VIAL SC PRN (17:05)
[2020-08-02] MEDS ORDERED: GLUCOSE 4GM CHEW TABLET PO PRN (17:05)
[2020-08-02 17:47] LABS: ABG BASE EXCESS -1.7 (-2.0-2.0); ABG HCO3 28.2 MEQ/L (22.0-26.0); ABG O2 SATURATION 89.8 % (95.0-99.0); ABG PARTIAL PRESSURE O2 63.8 mmHg (75.0-100.0); ABG STANDARD HCO3 22.9 MEQ/L (22.0-26.0); ABG TOTAL CO2 30.7 MEQ/L (23.0-31.0)
[2020-08-02 17:49] LABS: ABG PARTIAL PRESSURE CO2 81.3 mmHg (35.0-45.0); ABG pH (ARTERIAL) 7.158 UNITS (7.350-7.450)
--- NOTE | 2020-08-02 17:51 | HPEPDOC ---
General Date of Admission Aug 02, 2020 at 15:52 Date of Service: Aug 02, 2020 Chief Complaint The patient is a 74-year-old male admitted with a reason for visit of dyspnea and chest pain and found to have acute hypoxic hypercapnic respiratory failure secondary to congestive heart failure Source: Family History of Present Illness Mr. Sebastian is a 74 year old male history of CHF and IDDM who presents with chest pain and dyspnea and found to have acute hypoxic hypercapnic respiratory failure. Patient is lethargic and unable to provide any history. Sister, Mary Ellen, is present and provided the history. Patient has been living his rehab for 7 months due to frequent falls. He was recently admitted at [facility] for CHF and Pneumonia. Afterwards, he was back at rehab. He was last seen by her on Sunday. He was alert and ambulatory. Today, he was being transported to Dr. Desai's office for his diabetic foot, when he was complaining of chest pain and dyspnea. He was then brought into the ED. He progressively got worse and became lethargic. POC abg was performed. Demonstrated pH of 7.015, pO2 87, and pCO2 of 117.2. Patient's MOLST was DNR/DNI. Patient's sister Mary Ellen was contacted and she came to the ED. When I went down to the ED, patient was in severe respiratory distress. He was breathing hard using his respiratory muscles and his abdomen. He was lethargic and would not answer questions or follow commands. The sister tells me that she is his only living blood relative. He was , but . They did not have children. Parents were . Sister was HCP, but she does not know where the paperwork is located. I discussed the options with the sister, Mary Ellen. We could continue with DNR/DNI, and he would be in distress and possibly pass away. Diuretics would not reveres his hypercarbia, and he would continue to be lethargic and would not be able to eat. The other options would be comfort measures only. We would make him comfor table and treat his symptoms, but he would not get better and he would pass away. The last option is to switch him to DNR with trial of BIPAP. It can be uncomfortable with the BIPAP, but it would treat his hypercarbia, and would most likely survive. She wanted to talk with her son who works in EMS. After discussion with her son, she wanted to do the BIPAP. We filled out the MOLST reflecting DNR/DNI with trial of BIPAP. Pulmonary was consulted. Patient will be admitted to the ICU for acute hypoxic hypercapnic respiratory failure 2/2 decompensated CHF. Home Medications Scheduled Amlodipine Besylate (Amlodipine Besylate) 5 Mg Tablet, 5 MG PO DAILY, (Reported) Atorvastatin Calcium (Atorvastatin Calcium) 20 Mg Tablet, 20 MG PO QHS, (Reported) Bumetanide (Bumetanide) 0.5 Mg Tablet, 1 MG PO DAILY, (Reported) Carvedilol (Carvedilol) 3.125 Mg Tablet, 3.125 MG PO BID, (Reported) Ferrous Sulfate (Ferrous Sulfate) 325 Mg Tablet.dr, 325 MG PO BID, (Reported) Folic Acid (Folic Acid) 1 Mg Tablet, 1 MG PO DAILY, (Reported) Furosemide (Furosemide) 10 Mg/1 Ml Vial, 20 MG IV DAILY, (Reported) Gabapentin (Gabapentin) 300 Mg Capsule, 300 MG PO DAILY, (Reported) Heparin Sodium,Porcine (Heparin Sodium) 5,000 Unit/1 Ml Vial, 5,000 UNIT SC Q8H, (Reported) Insulin Aspart (Insulin Aspart) 100 Unit/1 Ml Vial, 1 DOSE SC ACHS, (Reported) PER SLIDING SCALE Insulin Detemir (Levemir Flextouch) 100 Unit/1 Ml Insuln.pen, 10 UNIT SC QHS, (Reported) Isosorbide Mononitrate (Isosorbide Mononitrate ER) 30 Mg Tab.er.24h, 30 MG PO DAILY, (Reported) Multivitamins (Thera M Plus Tablet) 1 Each Tablet, 1 TAB PO DAILY, (Reported) Nitroglycerin (Nitroglycerin Patch) 0.4 Mg/Hr Patch.td24, 1 PATCH TOP QHS, (Reported) Pantoprazole Sodium (Pantoprazole Sodium) 40 Mg Tablet.dr, 40 MG PO DAILY, (Reported) Sertraline Hcl (Zoloft) 100 Mg Tablet, 100 MG PO DAILY, (Reported) Scheduled PRN Acetaminophen (Acetaminophen) 325 Mg Tablet, 650 MG PO Q4H PRN for PAIN / FEVER, (Reported) Docusate Sodium (Docusate Sodium) 100 Mg Capsule, 100 MG PO DAILY PRN for CONSTIPATION, (Reported) Ipratropium/Albuterol Sulfate (Iprat-Albut 0.5-3(2.5) mg/3 ml) 3 Ml Ampul.neb, 1 VIAL NEB Q4H PRN for SOB/WHEEZING, (Reported) Ondansetron HCl/Pf (Ondansetron HCl 4 mg/2 ml Vial) 4 Mg/2 Ml Vial, 4 MG IV Q6H PRN for NAUSEA OR VOMITING, (Reported) Simethicone (Simethicone) 80 Mg Tab.chew, 120 MG PO TID PRN for GAS PAIN, (Reported) Miscellaneous Medications [Comments] , (Reported) MED LIST MADE WITH 5 DAY M.A.R. SUPPLIED BY [facility] Allergies Coded Allergies: No Known Allergies (Verified , 04/25/17) Past Medical History Medical History 1. IDDM Type 2 2. Hypertension 3. CAD s/p stents 4. Solitary Kidney 5. Anxiety/Depression 6. Hyperlipidemia 7. CHF Surgical History 1. Left shoulder surgery for fracture 2. Rt wrist surgery 3. Right carotid endarterectomy Family History Patient is lethargic and unable to provide history. Information obtained from chart Mother: History of diabetes mellitus, COPD Social History * Smoker: other Patient is lethargic and unable to provide history. Information obtained from chart from January 03, 2020. Smoker: Former smoker ETOH: Socially Illicit drug use: No A-FIB/CHADSVASC A-FIB History Current/History of A-Fib/PAF?: No Review of Systems Other systems Patient is lethargic and unable to provide history. Information obtained from chart. Prior to coming to our ED, he had reported chest pain and dyspnea Physical Examination General Exam: Negative: Alert, Cooperative Neck Exam: Positive: JVD Chest Exam: Positive: Diminished, Other (Very mild expiratory wheezes) Heart Exam: Positive: Rate Normal, Tachycardic Abdomen Exam: Positive: Normal bowel sounds Extremity Exam: Positive: Edema (Bilateral pitting edema) Neuro Exam: Positive: Other (Unable to assess due to lethargy) Psych Exam: Positive: Other (Unable to assess due to lethargy); Negative: Mental status NL Vital Signs Vital Signs Date Time Temp Pulse Resp B/P (MAP) Pulse Ox O2 Delivery O2 Flow Rate FiO2 08/02/20 16:23 176/78 (110) 08/02/20 16:22 40 08/02/20 16:16 92 94 NIPPV (BIPAP/CPAP) 08/02/20 14:16 28 15.0 08/02/20 11:32 97.4 Laboratory Data Labs 24H Laboratory Tests 2 08/02/20 12:17: Immature Granulocyte % (Auto) 0.3, Neutrophils (%) (Auto) 68.3H, Lymphocytes (%) (Auto) 21.6L, Monocytes (%) (Auto) 6.3, Eosinophils (%) (Auto) 3.1H, Basophils (%) (Auto) 0.4, Neutrophils # (Auto) 9.9H, Lymphocytes # (Auto) 3.1, Monocytes # (Auto) 0.9H, Eosinophils # (Auto) 0.5, Basophils # (Auto) 0.1, Nucleated Red Blood Cells % (auto) 0.0, Anion Gap 5L, Glomerular Filtration Rate 37.6L, Calcium Level 8.8 08/02/20 12:27: POC pH (Misc Panel) 7.015*L, POC Base Excess (Misc Panel) -1.0, POC Saturated Percent O2 (Misc) 87L, POC pO2 (Misc Panel) 83.0, POC pCO2 (Misc Panel) 117.2*H, POC HCO3 (Misc Panel) 29.9H, POC Total CO2 (Misc Panel) 33.0H 08/02/20 12:38: POC Troponin I (Misc) 0.02 08/02/20 13:42: Coronavirus (COVID-19)(PCR) NEGATIVE, Influenza Type A (RT-PCR) NEGATIVE, Influenza Type B (RT-PCR) NEGATIVE, Respiratory Syncytial Virus (PCR) NEGATIVE 08/02/20 15:14: Blood Gas Bicarbonate Standard 19.3L, Arterial Blood pH 7.041*L, Arterial Blood Partial Pressure CO2 98.6*H, Arterial Blood Partial Pressure O2 90.8, Arterial Blood Total CO2 29.1, Arterial Blood HCO3 26.1H, Arterial Blood Base Excess - 6.3L, Arterial Blood Oxygen Saturation 95.1 CBC/BMP Laboratory Tests 08/02/20 12:17 Assessment/Plan Mr. Sebastian is a 74 year old male history of CHF and IDDM who presents with chest pain and dyspnea and found to have acute hypoxic hypercapnic respiratory failure 2/2 CHF exacerbation. He is edematous and has JVD. Patient will be put on BIPAP and started on diuretics. Due to his lethargy, will hold off on food and medications. Pulmonary was consulted. Recommendations appreciated. Plan / VTE VTE Prophylaxis Ordered?: Yes Plan Plan 1. Acute hypoxic hypercapnic respiratory failure secondary to decompensated CHF -Recently at [facility] for CHF -On admission, pH 7.041, pCO2 98.6, pO2 90.8. BMP bicarb 29 -Pulmonary/critical care was consulted, recommendations appreciated -Patient started on BIPAP -Diuresis 2. Metabolic encephalopathy secondary to hypercarbia -pCO2 98.6 -On BIPAP -NPO until mentation improves -Hold off on oral medications at this time 3. Acute decompensated congestive heart failure -Last echocardiogram on 07/03/2018 demonstrates EF of 60% with diastolic dysfunction -Continue with diuresis 4. Hypertension -Due to lethargy, hold amlodipine and carvedilol -PRN hydralazine until more awake to take oral medication 5. Diabetes mellitus -Since NPO, will hold off on sliding scale insulin -Monitor glucose q6h -When awake, restart insulin -01/02/2021 HgbA1c >14 6. CAD s/p stents -Restart carvedilol, atorvastatin, carvedilol, and Imdur when more awake 7. Depression/Anxiety -Restart sertraline when more awake 8. Pain -Restart gabapentin when more awake 9. GERD -Restart pantoprazole and simethicone when more awake 10. DVT ppx -Heparin subq TRACY COPE DO Aug 02, 2020 17:51
[2020-08-02 18:00] VITALS: BP 166/76
[2020-08-02] MEDS ORDERED: HumaLOG INSULIN (NovoLOG) PER UNIT SC SCH (18:00)
--- NOTE | 2020-08-02 18:08 | CCN ---
CRITICAL CARE NOTE DATE: 08/02/2020 SUBJECTIVE: I was called to the emergency department to evaluate this 74-year-old male with acute respiratory failure. He was brought from [facility] rehab where he had been recovering from congestive heart failure and pneumonia. He experienced chest pain and was brought to the emergency department and developed lethargy. An arterial blood gas showed a pH of 7.04, pCO2 of 98, and pO2 of 90. On review of the electronic medical record, the patient has an extensive past history of diabetes, hypertension, carotid artery disease status post right carotid endarterectomy. He suffered an occipital stroke remotely. Has lumbar disc disease. Foot ulcers bilaterally due to his diabetes. Traumatic pneumothorax in 2019 and a past history of alcohol and tobacco use. OBJECTIVE: VITAL SIGNS: At bedside, his temperature is 97.4, pulse rate 90, respirations 28, blood pressure 160/70. HEENT: His pupils are small and sluggish to react. He is obtunded. There is no response to voice and minimal response to pain. His oral mucosa is pink. NECK: Supple. Jugular veins are at the angle of the jaw. Carotid upstrokes sluggish. HEART: Sounds are regular with some ectopy. LUNGS: Breath sounds are diminished with rales bilaterally and dullness in the base. ABDOMEN: Soft with intact bowel sounds. EXTREMITIES: Feet are dressed. Pulses are diminished x4. DIAGNOSTIC STUDIES: Assessed include CBC showing a white count of 14.5, hemoglobin 11.2, hematocrit 37.6, platelet count 264,000. Differential white cell count shows 68% neutrophils. His electrolytes are sodium 145, potassium 4.4, chloride 111, CO2 of 29, BUN 51, creatinine is 1.88, and glucose 230. Arterial blood gas show a pH of 7.04, pCO2 of 98, pO2 of 90.8. DIAGNOSTIC IMAGING: Chest imaging was reviewed. Formal report is pending. To my eye, there is pulmonary edema, bilateral pleural effusions, and large heart size. ASSESSMENT AND PLAN: 1. The primary problem requiring critical attention is acute respiratory failure with hypercarbia. The patient's documents indicate no intubation or resuscitation. We will apply noninvasive ventilation and recheck arterial blood gases. 2. Pulmonary edema. Diuresis has been initiated. We will closely monitor urine output. 3. Chronic obstructive pulmonary disease by history. The patient has not smoked in some years. We will administer nebulized bronchodilators to optimize airway tone. 4. Acute kidney injury. Creatinine is quite elevated. We will monitor urine output and follow labs. 5. Anemia. This is [id number] and may be chronic. We will monitor hemoglobin and hematocrit (H&H). 6. Deep vein thrombosis (DVT) prophylaxis will be addressed with subcutaneous heparin. The patient's family has been updated at bedside. I have reviewed the case with the attending hospitalist. I have updated the intensive care unit staff now and nursing is aware of the patient's condition and plans for care. The patient's condition is critical. Prognosis is guarded. CRITICAL CARE TIME: 66 minutes was spent in the provision of bedside critical care and coordination, exclusive of any time spent in the performance of procedures.
[2020-08-02 20:00] VITALS: BP 142/71
--- NOTE | 2020-08-02 20:02 | ECGEPIP ---
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
[2020-08-02] MEDS: IPRATROPIUM 0.5MG/ALBUTEROL 2.5MG INH SOL UD 3ML (DUONEB) NEB SCH (20:51)
[2020-08-02 21:00] VITALS: BP 131/64
[2020-08-02] MEDS: HEPARIN SOD (PORCINE) 5000UNITS/ML 1ML VIAL/SYRINGE SQ SCH (21:09)
[2020-08-02] MEDS: FUROSEMIDE 100MG/10ML VIAL (J1940) IV SCH (21:09)
[2020-08-02 22:00] VITALS: BP 93/54
[2020-08-03] VITALS (12 sets, daily range): BP systolic 104–185; BP diastolic 51–78
[2020-08-03 00:14] LABS: ALBUMIN 3.3 GM/DL (3.2-5.2); BILIRUBIN,TOTAL 0.3 MG/DL (0.2-1.0); MAGNESIUM LEVEL 2.4 MG/DL (1.8-2.4); PHOSPHORUS LEVEL 3.7 MG/DL (2.5-4.9); TOTAL PROTEIN 7.6 GM/DL (6.4-8.2)
[2020-08-03] MEDS: IPRATROPIUM 0.5MG/ALBUTEROL 2.5MG INH SOL UD 3ML (DUONEB) NEB SCH ×4 (02:02→19:50)
[2020-08-03] MEDS: FUROSEMIDE 100MG/10ML VIAL (J1940) IV SCH (04:00)
[2020-08-03 05:48] LABS: ABG BASE EXCESS -2.4 (-2.0-2.0); ABG HCO3 22.9 MEQ/L (22.0-26.0); ABG O2 SATURATION 98.8 % (95.0-99.0); ABG PARTIAL PRESSURE CO2 41.6 mmHg (35.0-45.0); ABG PARTIAL PRESSURE O2 116.4 mmHg (75.0-100.0); ABG STANDARD HCO3 22.4 MEQ/L (22.0-26.0); ABG TOTAL CO2 24.1 MEQ/L (23.0-31.0); ABG pH (ARTERIAL) 7.358 UNITS (7.350-7.450)
[2020-08-03 05:52] LABS: HEMOGLOBIN A1c 7.3 %
[2020-08-03 06:37] LABS: BASO % 0.2 % (0.0-1.0); EOS % 0.1 % (0.0-3.0); HEMATOCRIT 27.7 % (42.0-52.0); LYMPH # 0.9 10^3/uL (1.5-5.0); MEAN CORPUSCULAR HEMOGLOBIN 29.4 pg (27.0-33.0); MEAN CORPUSCULAR HGB CONC 30.7 g/dl (32.0-36.5); MEAN CORPUSCULAR VOLUME 95.8 fl (80.0-96.0); MONO # 0.8 10^3/uL (0.0-0.8); MONO % 8.9 % (2.0-8.0); NEUTROPHILS # 6.8 10^3/uL (1.5-8.5); NEUTROPHILS % 79.3 % (36.0-66.0); RED BLOOD COUNT 2.89 10^6/uL (4.30-6.10); WHITE BLOOD COUNT 8.6 10^3/uL (4.0-10.0)
[2020-08-03 06:43] LABS: HEMOGLOBIN 8.5 g/dl (13.5-17.5); PLATELET COUNT, AUTOMATED 149 10^3/uL (150-450)
[2020-08-03 06:55] LABS: ALBUMIN 2.3 GM/DL (3.2-5.2); BILIRUBIN,TOTAL 0.2 MG/DL (0.2-1.0); CALCIUM LEVEL 7.9 MG/DL (8.8-10.2); CREATININE FOR GFR 2.3 MG/DL (0.70-1.30); GLOMERULAR FILTRATION RATE 29.8 (>42); MAGNESIUM LEVEL 2.1 MG/DL (1.8-2.4); PHOSPHORUS LEVEL 4.5 MG/DL (2.5-4.9); POTASSIUM SERUM 5.1 MEQ/L (3.5-5.1); TOTAL PROTEIN 5.4 GM/DL (6.4-8.2)
--- NOTE | 2020-08-03 07:58 | REP ---
INDICATION: pulm edema. COMPARISON: Comparison radiograph August 02, 2020. TECHNIQUE: Portable upright AP chest radiograph. FINDINGS: There is pleural opacity in the lung bases bilaterally consistent with bilateral effusions essentially unchanged from the previous day's study. Heart remains prominent. Pulmonary vasculature is congested and indistinct consistent with diffuse interstitial edema. No focal infiltrate is seen. EKG monitoring electrodes and oxygen delivery tubing are seen.. IMPRESSION: Bilateral pleural effusions and diffuse interstitial pulmonary edema pattern. Mildly prominent heart. CHF versus volume overload. <Electronically signed by Hayes Anguiano > 08/03/20 [id number]
[2020-08-03] MEDS: FUROSEMIDE 40MG/4ML VIAL (J1940) IV SCH ×2 (09:22→17:07)
[2020-08-03] MEDS: HEPARIN SOD (PORCINE) 5000UNITS/ML 1ML VIAL/SYRINGE SQ SCH ×2 (09:22→20:59)
--- NOTE | 2020-08-03 12:34 | CCN ---
CRITICAL CARE NOTE DATE: 08/03/2020 SUBJECTIVE: The patient is seen in the intensive care unit on noninvasive positive pressure ventilation. This is hospital day #2, ICU day #2. OBJECTIVE: His temperature is 99.5, pulse rate 71, respirations 16, blood pressure 131/62, oxygen saturation 100% with 40% oxygen. Intake and output (I and O) for the past 24 hours since midnight: Zero in, 380 out. At bedside, he is ill-appearing and cachectic, but his mucosa are moist. Jugular veins are distended. Carotid upstroke is sluggish. Heart sounds are regular without appreciable murmur. Breath sounds diminished with some rales. Abdomen is soft. Extremities show muscle weakness. His legs are edematous and feet are dressed. DIAGNOSTIC STUDIES: CBC which shows an improvement in the white count to 8.6, hemoglobin is down significantly to 8.5, as is the hematocrit at 27.7 and platelet count is 149,000. Differential white cell count shows 79% neutrophils. His electrolytes are sodium 148, potassium 5.1, chloride 117, BUN 62, creatinine is up to 2.3, glucose 165, calcium 7.9 and an albumin of 2.3 ALT 14, AST 14, alkaline phosphatase 104. Arterial blood gasses this morning showed a pH of 7.35, pCO2 of 41, pO2 of 116 on noninvasive positive pressure ventilation. His chest x-ray continues to show interstitial edema. MEDICATIONS: On medication review, he is receiving: - heparin 5000 mg subcutaneous every 12 hours - nebulized bronchodilators - hydralazine as needed for hypertension - Lasix 40 mg every 12 hours ASSESSMENT: 1. The primary problem requiring critical attention is acute respiratory failure. The patient tolerated noninvasive positive pressure ventilation and thankfully, his pCO2 is improved this morning. Will attempt to allow him off to supplemental oxygen at intervals and continue close followup of gas exchange. 2. Pulmonary edema. Chest x-ray is not changed significantly and the patient is not diuresed terribly well with the Lasix. 3. Acute kidney injury. Creatinine is up this morning. I have discussed with the hospitalist service we may need to involve nephrology. 4. Anemia. Patient's hemoglobin has dropped substantially. The etiology is not entirely clear. We will monitor for blood loss. 5. Deep venous thrombosis (DVT) prophylaxis. Being addressed with low dose subcutaneous heparin. The patient remains critical. Prognosis is guarded. Seventy-three minutes was spent in the provision of bedside critical care and coordination.
[2020-08-03] MEDS ORDERED: hydrALAZINE 20MG/ML 1ML VIAL (J0360 PER 20MG) IV PRN (13:30)
[2020-08-03] MEDS ORDERED: ONDANSETRON 4MG/2ML VIAL IV PRN (13:45)
[2020-08-03] MEDS ORDERED: SIMETHICONE 80MG CHEW TAB PO PRN (13:45)
[2020-08-03] MEDS ORDERED: DOCUSATE SODIUM 100MG CAPSULE PO PRN (13:45)
--- NOTE | 2020-08-03 13:52 | IPNPDOC ---
Text Note Date of Service The patient was seen on 08/03/20. NOTE Subjective: Patient is alert, awake in the morning breathing via BiPAP Objective: GENERAL APPEARANCE: Cachectic male breathing via BiPAP HEENT: no scleral icterus, + JVD, EOMI CARDIOVASCULAR: S1S2 LUNGS: Diminished lung sounds bilaterally ABDOMEN: soft & not tender w palpitation, mildly distended MUSCULOSKELETAL: legs are edematous and feet are dressed, +2 non-pitting edema INTEGUMENT: no generalized pallor NEUROLOGICAL: cranial nerve function from 2-12 intact intact, follows commands, speech not dysarthric Assessment and plan Pt is a 74 year old male history of CHF and IDDM who presents with chest pain and dyspnea and found to have acute hypoxic hypercapnic respiratory failure 2/2 CHF exacerbation. He is edematous and has JVD. Acute hypoxemic hypercapnic respiratory failure Secondary to decompensated CHF Continue BiPAP Continue monitor ABG CHF exacerbation I's and O's Continue Lasix IV Await echo Pulmonary edema Most likely secondary to CHF exacerbation Continue Lasix IV Acute kidney injury Creatinine increased to 2.3. I reduced the dose of Lasix to 40 mg twice a day Patient developed oliguria for past 24 hours. In the morning patient had urine output was around 250 mL Kidney ultrasound Will continue to monitor Type 2 diabetes Insulin sliding scale Glucose level under control Hypertension Continue home cardioprotective medications Hydralazine IV with parameters Anemia Hemoglobin dropped from 11.2 to 8.5 No signs of any acute bleed H&H every 6 hours We'll check the stool for occult blood Hyperlipidemia Continue statin Coronary artery diseases status post stents Continue home cardioprotective medications I will add aspirin 81 mg his regimen Foot ulcers Stage II to stage III, noninfected Continue follow-up with wound care in the outpatient settings Cachexia Patient has reduced muscle mass, temporal wasting Ensure Depression/anxiety Continue home meds GERD PPI by mouth VS,Fishbone, I+O VS, Fishbone, I+O Laboratory Tests 08/03/20 04:55 Vital Signs Date Time Temp Pulse Resp B/P (MAP) Pulse Ox O2 Delivery O2 Flow Rate FiO2 08/03/20 12:00 2.0 08/03/20 11:53 185/72 08/03/20 08:00 99.5 71 16 100 NIPPV (BIPAP/CPAP) 40 I&O- Last 24 Hours up to 6 AM 08/03/20 05:59 Intake Total 0 ml Output Total 390 ml Balance -390 ml CARL HERNANDEZ DO Aug 03, 2020 13:52
[2020-08-03 14:10] LABS: HEMATOCRIT 32.9 % (42.0-52.0); HEMOGLOBIN 10.1 g/dl (13.5-17.5)
[2020-08-03] MEDS ORDERED: ASPIRIN 81 MG CHEW TABLET PO ONE (14:15)
[2020-08-03] MEDS: CARVedilol 3.125 MG TAB PO SCH ×2 (14:43→21:00)
[2020-08-03] MEDS: PANTOPRAZOLE 40MG TAB (PROTONIX) PO SCH (14:44)
[2020-08-03] MEDS: FERROUS SULFATE 325MG TAB PO SCH ×2 (14:44→21:00)
[2020-08-03] MEDS: amLODIPine 5 MG TAB PO SCH (14:46)
[2020-08-03] MEDS: ISOSORBIDE MON. (IMDUR) 30 MG XR TAB PO SCH (14:46)
[2020-08-03] MEDS: FOLIC ACID 1 MG TAB PO SCH (14:46)
[2020-08-03] MEDS: SERTRALINE 100 MG TAB PO SCH (14:47)
[2020-08-03] MEDS ORDERED: GLUCOSE 4GM CHEW TABLET PO PRN (15:55)
[2020-08-03] MEDS ORDERED: GLUCAGON INJ 1MG VIAL SC PRN (15:55)
[2020-08-03] MEDS ORDERED: DEXTROSE 50% 50 ML SYRINGE IV PRN (15:55)
[2020-08-03] MEDS: HumaLOG INSULIN (NovoLOG) PER UNIT SC SCH ×2 (17:09→21:00)
--- NOTE | 2020-08-03 18:05 | REP ---
INDICATION: HOLGER. COMPARISON: Comparison sonography July 05, 2018.. TECHNIQUE: Urinary tract sonography. FINDINGS: Scanning of the level of the urinary bladder shows a mildly prominent prostate. Some air is seen in the urinary bladder. Weaver catheter was recently removed.. Renal cortical echogenicity pattern is somewhat increased consistent with chronic medical renal disease, cortical echogenicity is isoechoic with liver.. There is no evidence of hydronephrosis, mass or cyst on either side.. The right kidney measures 10.6 x 4.3 x 4.2 cm. Left renal dimensions are 11.7 x 3.9 x 4.6 cm. IMPRESSION: Slightly increased renal cortical echogenicity, isoechoic with liver and spleen. Consistent with chronic medical renal disease. No significant hydronephrosis seen. A small quantity of air in the urinary bladder. Slightly prominent prostate.. <Electronically signed by Hayes Anguiano > 08/03/20 [id number]
[2020-08-03 19:34] LABS: HEMATOCRIT 29.8 % (42.0-52.0); HEMOGLOBIN 8.9 g/dl (13.5-17.5)
[2020-08-03] MEDS: ATORVASTATIN 20 MG TAB PO SCH (20:59)
[2020-08-03] MEDS: NITROGLYCERIN 0.4 MG/HR PATCH TOP SCH (21:05)
[2020-08-04] VITALS (8 sets, daily range): BP systolic 130–180; BP diastolic 58–81
[2020-08-04 01:22] LABS: HEMATOCRIT 28.5 % (42.0-52.0); HEMOGLOBIN 8.6 g/dl (13.5-17.5)
[2020-08-04] MEDS: IPRATROPIUM 0.5MG/ALBUTEROL 2.5MG INH SOL UD 3ML (DUONEB) NEB SCH ×4 (02:33→19:25)
[2020-08-04 05:27] LABS: BASO % 0.3 % (0.0-1.0); EOS # 0.1 10^3/uL (0.0-0.5); EOS % 1.6 % (0.0-3.0); HEMATOCRIT 29.1 % (42.0-52.0); HEMOGLOBIN 8.8 g/dl (13.5-17.5); LYMPH # 1.2 10^3/uL (1.5-5.0); LYMPH % 16.7 % (24.0-44.0); MEAN CORPUSCULAR HEMOGLOBIN 29.4 pg (27.0-33.0); MEAN CORPUSCULAR HGB CONC 30.2 g/dl (32.0-36.5); MEAN CORPUSCULAR VOLUME 97.3 fl (80.0-96.0); MONO # 0.5 10^3/uL (0.0-0.8); MONO % 7.4 % (2.0-8.0); NEUTROPHILS # 5.2 10^3/uL (1.5-8.5); NEUTROPHILS % 73.7 % (36.0-66.0); PLATELET COUNT, AUTOMATED 141 10^3/uL (150-450); RED BLOOD COUNT 2.99 10^6/uL (4.30-6.10); WHITE BLOOD COUNT 7.1 10^3/uL (4.0-10.0)
[2020-08-04 05:36] LABS: INR 1.09; PROTHROMBIN TIME 14.4 SECONDS (12.5-14.3)
[2020-08-04 05:37] LABS: PARTIAL THROMBOPLASTIN TIME 39.4 SECONDS (24.2-38.5)
[2020-08-04 05:51] LABS: ALBUMIN 2.5 GM/DL (3.2-5.2); BILIRUBIN,TOTAL 0.3 MG/DL (0.2-1.0); CALCIUM LEVEL 8.4 MG/DL (8.8-10.2); CREATININE FOR GFR 2.47 MG/DL (0.70-1.30); GLOMERULAR FILTRATION RATE 27.5 (>42); MAGNESIUM LEVEL 2.2 MG/DL (1.8-2.4); PHOSPHORUS LEVEL 3.9 MG/DL (2.5-4.9); POTASSIUM SERUM 4.6 MEQ/L (3.5-5.1); TOTAL PROTEIN 6.3 GM/DL (6.4-8.2)
[2020-08-04] MEDS: HEPARIN SOD (PORCINE) 5000UNITS/ML 1ML VIAL/SYRINGE SQ SCH ×2 (08:44→20:38)
[2020-08-04] MEDS: FUROSEMIDE 40MG/4ML VIAL (J1940) IV SCH ×2 (08:45→16:55)
[2020-08-04] MEDS: HumaLOG INSULIN (NovoLOG) PER UNIT SC SCH ×4 (08:45→21:00)
[2020-08-04] MEDS: FOLIC ACID 1 MG TAB PO SCH (08:45)
[2020-08-04] MEDS: CARVedilol 3.125 MG TAB PO SCH ×2 (08:46→20:38)
[2020-08-04] MEDS: FERROUS SULFATE 325MG TAB PO SCH ×2 (08:46→20:38)
[2020-08-04] MEDS: amLODIPine 5 MG TAB PO SCH (08:46)
[2020-08-04] MEDS: PANTOPRAZOLE 40MG TAB (PROTONIX) PO SCH (08:46)
[2020-08-04] MEDS: ISOSORBIDE MON. (IMDUR) 30 MG XR TAB PO SCH (08:46)
[2020-08-04] MEDS: SERTRALINE 100 MG TAB PO SCH (08:46)
[2020-08-04] MEDS: ASPIRIN 81 MG CHEW TABLET PO SCH (08:47)
[2020-08-04] MEDS: **NOTE PATIENT COMMENT** MISC XX SCH (08:48)
[2020-08-04] MEDS: CADEXOMER IODINE 10GM (IODOSORB) GEL TOP SCH (09:00)
--- NOTE | 2020-08-04 10:26 | ECHO ---
DATE OF PROCEDURE: 08/03/2020 Age: 74 Gender: Male Height: 170 cm Weight: 78 kg REFERRING PHYSICIAN: Yared Coles DO INDICATION: Heart failure, unspecified. MEASUREMENTS: 2D Measurements: Aortic root 2.6 cm Left atrium 3.4 cm Left ventricle diastole 4.7 cm Intraventricular septum 1.01 cm Posterior wall 0.91 cm Inferior vena cava 2.0 cm (more than 50% respiratory variation) Doppler Measurements: No aortic stenosis No aortic regurgitation Aortic valve velocity 135 cm/s LVOT velocity 86.2 cm/s Mild mitral regurgitation No mitral stenosis Mitral E velocity 120 cm/s Mitral A velocity 120 cm/s Mitral deceleration time 135 msec Trace tricuspid regurgitation Estimated right ventricular systolic pressure 54-59 mmHg Estimated right atrial pressure 5-10 mmHg No pulmonic regurgitation MITRAL ANNULAR TISSUE DOPPLER E prime septal 7.8 cm/s, E prime lateral 8.3 cm/s DESCRIPTION: This was a moderately technically difficult echocardiogram, which was performed with the patient supine and sitting. Rhythm was sinus. This was a 2D, M-mode, color flow Doppler, and pulsed wave Doppler examination including mitral annular tissue Doppler. CONCLUSIONS: 1. Normal left ventricle internal dimensions and wall thickness. Normal regional LV wall motion and wall thickening. Normal LV systolic function. LVEF 60% by visual estimate. Probably normal LV diastolic function for age. Normal left atrial size. 2. Suggestive of at least moderate elevation of estimated right ventricle systolic pressure 64-69 mmHg. Normal right ventricle size and systolic function. Trace tricuspid regurgitation. No pulmonic regurgitation. Right atrium appeared normal in size. 3. Moderate aortic valve sclerosis of a 3-cuspid aortic valve. No aortic regurgitation or stenosis. 4. Moderate mitral annular calcification. Mild mitral regurgitation. No mitral stenosis. 5. No pericardial effusion. 6. Left pleural effusion. MTDD
--- NOTE | 2020-08-04 12:00 | CCN ---
CRITICAL CARE NOTE DATE: 08/04/2020 SUBJECTIVE: The patient is seen in the intensive care unit on noninvasive ventilatory support. He has been able to come off the device for periods of time. OBJECTIVE: GENERAL: At bedside, he is more interactive today. VITAL SIGNS: His temperature is 98, pulse rate 75, respirations 18, blood pressure 153/93, 40% oxygen is yielding a saturation of 99%. INTAKE AND OUTPUT: For the past 24 hours, 950 in and 840 out. Since midnight, 240 in and 200 mL out. HEENT: He is ill-appearing and cachectic. Oral mucosa is pink. NECK: Supple with jugular venous distention. HEART: Sounds are regular. LUNGS: Breath sounds diminished with scattered rales. ABDOMEN: Soft. Intact bowel sounds. EXTREMITIES: Motor weakness is noted. DIAGNOSTIC STUDIES: His CBC shows a white count of 7.1, hemoglobin 8.8 up from 8.5 yesterday, hematocrit of 29.1, and platelet count 141,000. Differential white cell count shows 73% neutrophils. His electrolytes are sodium 143, potassium 4.6, chloride 113, CO2 of 27, BUN 63, creatinine is up to 2.47, glucose is 156. His calcium is 8.4, phosphorus is 3.9, magnesium is 2.2, AST 20, ALT 16, LDH 166, albumin 2.5. Echocardiogram showed a significant elevation in right ventricular systolic pressure and some diastolic dysfunction was called. Chest imaging shows congestive heart failure. MEDICATIONS: On review, he is receiving DuoNebs q.i.d., subcutaneous heparin, IV Protonix, Lasix 40 mg a day, Coreg, Norvasc, and Imdur. ASSESSMENT AND PLAN: 1. Primary problem requiring critical attention is acute respiratory failure. The patient is tolerating noninvasive ventilation and has been able to come off to supplemental oxygen at intervals. We will continue to closely monitor gas exchange. 2. Pulmonary edema persistent, but at least his gas exchange does appear to be improving. 3. Acute kidney injury. Creatinine is up some. He did, however, have some urine output in the night. We will closely monitor his kidney function. 4. Anemia. Hemoglobin is stable low. 5. Deep vein thrombosis (DVT) prophylaxis being addressed with subcutaneous heparin. 6. Ulcer prophylaxis being addressed with Protonix. The patient's condition does remain critical. He is unstable and I would recommend keeping him in the intensive care unit for at least another 24 hours. I have discussed the case with the hospitalist service and have updated the ICU nursing team with regards to plans for management and plans of care for the day. CRITICAL CARE TIME: 68 minutes was spent in the provision of bedside critical care and coordination, exclusive of any procedure time.
--- NOTE | 2020-08-04 13:16 | IPNPDOC ---
Text Note Date of Service The patient was seen on 08/04/20. NOTE Subjective: Patient was sitting on the chair eating his breakfast in the morn ing. He stated that his breathing improved. No fever or chills overnight Objective: GENERAL APPEARANCE: Cachectic male breathing via BiPAP HEENT: no scleral icterus, + JVD, EOMI CARDIOVASCULAR: S1S2 LUNGS: Diminished lung sounds bilaterally ABDOMEN: soft & not tender w palpitation, mildly distended MUSCULOSKELETAL: legs are edematous and feet are dressed, +2 non-pitting edema INTEGUMENT: no generalized pallor NEUROLOGICAL: cranial nerve function from 2-12 intact intact, follows commands, speech not dysarthric Assessment and plan Pt is a 74 year old male history of CHF and IDDM who presents with chest pain and dyspnea and found to have acute hypoxic hypercapnic respiratory failure 2/2 CHF exacerbation. He is edematous and has JVD. Acute hypoxemic hypercapnic respiratory failure Secondary to decompensated CHF Continue BiPAP with interval for supplemental oxygen Continue monitor ABG Diastolic CHF exacerbation Echo was done and showed: Normal LV systolic function. LVEF 60% by visual estimate. Probably normal LV diastolic function for age. Normal left atrial size. Suggestive of at least moderate elevation of estimated right ventricle systolic pressure 64-69 mmHg. Normal right ventricle size and systolic function I's and O's Continue Lasix IV Pulmonary edema Most likely secondary to CHF exacerbation Continue Lasix IV Acute kidney injury Creatinine increased to 2.47 Continue Lasix to 40 mg twice a day For past 24 hours urine output around 800 mL Will continue to monitor Type 2 diabetes Insulin sliding scale Glucose level under control Hypertension Continue home cardioprotective medications Hydralazine IV with parameters Anemia Hemoglobin 8.8 No signs of any acute bleed H&H every 6 hours Await stool for occult blood Hyperlipidemia Continue statin Coronary artery diseases status post stents Continue home cardioprotective medications Foot ulcers Stage II to stage III, noninfected Continue follow-up with wound care in the outpatient settings Cachexia Patient has reduced muscle mass, temporal wasting Ensure Depression/anxiety Continue home meds GERD PPI by mouth VS,Fishbone, I+O VS, Fishbone, I+O Laboratory Tests 08/03/20 14:00 08/03/20 19:18 08/04/20 01:15 08/04/20 05:05 Vital Signs Date Time Temp Pulse Resp B/P (MAP) Pulse Ox O2 Delivery O2 Flow Rate FiO2 08/04/20 10:00 73 20 130/62 (84) 96 Nasal Cannula 1.0 08/04/20 08:00 98.0 08/04/20 04:00 40 I&O- Last 24 Hours up to 6 AM 08/04/20 06:00 Intake Total 950 ml Output Total 830 ml Balance 120 ml CARL HERNANDEZ DO Aug 04, 2020 13:16
[2020-08-04 13:35] LABS: HEMATOCRIT 30.2 % (42.0-52.0); HEMOGLOBIN 9.2 g/dl (13.5-17.5)
[2020-08-04 19:43] LABS: HEMATOCRIT 31.7 % (42.0-52.0); HEMOGLOBIN 9.6 g/dl (13.5-17.5)
[2020-08-04] MEDS: NITROGLYCERIN 0.4 MG/HR PATCH TOP SCH (20:37)
[2020-08-04] MEDS: ATORVASTATIN 20 MG TAB PO SCH (20:38)
[2020-08-05] VITALS (8 sets, daily range): BP systolic 126–179; BP diastolic 60–88
[2020-08-05 00:40] LABS: APPEARANCE, URINE CLEAR (CLEAR); BACTERIA, URINE AUTO NEGATIVE (NEGATIVE); BILIRUBIN, URINE AUTO NEGATIVE (NEGATIVE); BLOOD, URINE BLOOD 1+ (NEGATIVE); COLOR, URINE YELLOW (YELLOW); CREATININE,RANDOM URINE 39.6 MG/DL; GLUCOSE, URINE (UA) AUTO NEGATIVE (NEGATIVE); KETONE, URINE AUTO NEGATIVE (NEGATIVE); LEUKOCYTE ESTERASE, URINE AUTO NEGATIVE (NEGATIVE); NITRITE, URINE AUTO NEGATIVE (NEGATIVE); PROTEIN, URINE AUTO 2+ mg/dL (NEGATIVE); RBC, URINE AUTO 6 /HPF (0-3); SODIUM,RANDOM URINE 96 MEQ/L; SPECIFIC GRAVITY URINE AUTO 1.008 (1.002-1.035); SQUAMOUS EPITHELIAL CELL UR AU 0 /HPF (0-6); UREA NITROGEN RANDOM URINE 309 MG/DL; UROBILINOGEN, URINE AUTO 0.2 mg/dL (0.0-2.0); WBC, URINE AUTO 8 /HPF (0-3)
[2020-08-05] MEDS: IPRATROPIUM 0.5MG/ALBUTEROL 2.5MG INH SOL UD 3ML (DUONEB) NEB SCH ×4 (01:42→19:42)
[2020-08-05 05:04] LABS: BASO % 0.3 % (0.0-1.0); EOS # 0.2 10^3/uL (0.0-0.5); EOS % 2.4 % (0.0-3.0); HEMATOCRIT 30.7 % (42.0-52.0); HEMOGLOBIN 9.2 g/dl (13.5-17.5); LYMPH % 14.3 % (24.0-44.0); MEAN CORPUSCULAR HEMOGLOBIN 28.9 pg (27.0-33.0); MEAN CORPUSCULAR VOLUME 96.5 fl (80.0-96.0); MONO # 0.6 10^3/uL (0.0-0.8); MONO % 8.6 % (2.0-8.0); NEUTROPHILS # 5.3 10^3/uL (1.5-8.5); NEUTROPHILS % 74.1 % (36.0-66.0); PLATELET COUNT, AUTOMATED 159 10^3/uL (150-450); RED BLOOD COUNT 3.18 10^6/uL (4.30-6.10); WHITE BLOOD COUNT 7.1 10^3/uL (4.0-10.0)
[2020-08-05 05:33] LABS: ALBUMIN 2.6 GM/DL (3.2-5.2); BILIRUBIN,TOTAL 0.3 MG/DL (0.2-1.0); CALCIUM LEVEL 8.6 MG/DL (8.8-10.2); CREATININE FOR GFR 2.28 MG/DL (0.70-1.30); GLOMERULAR FILTRATION RATE 30.1 (>42); MAGNESIUM LEVEL 1.9 MG/DL (1.8-2.4); PHOSPHORUS LEVEL 3.6 MG/DL (2.5-4.9); POTASSIUM SERUM 4.5 MEQ/L (3.5-5.1); TOTAL PROTEIN 6.5 GM/DL (6.4-8.2)
[2020-08-05 06:18] LABS: ABG BASE EXCESS -1.9 (-2.0-2.0); ABG HCO3 24.5 MEQ/L (22.0-26.0); ABG O2 SATURATION 98.4 % (95.0-99.0); ABG PARTIAL PRESSURE CO2 49.6 mmHg (35.0-45.0); ABG PARTIAL PRESSURE O2 108.2 mmHg (75.0-100.0); ABG STANDARD HCO3 22.9 MEQ/L (22.0-26.0); ABG pH (ARTERIAL) 7.312 UNITS (7.350-7.450)
--- NOTE | 2020-08-05 07:54 | REP ---
INDICATION: pulm edema. COMPARISON: Portable chest dated 08/03/2020. TECHNIQUE: Portable AP chest with the patient semi upright. FINDINGS: There are bilateral interstitial and alveolar infiltrates and bilateral pleural effusions, all is essentially unchanged. Cardiac size is upper normal, unchanged. The vangie, mediastinum, and skeletal structures are unchanged. IMPRESSION: There is no significant interval change. <Electronically signed by Matt Ordonez > 08/05/20 [id number]
[2020-08-05] MEDS: HumaLOG INSULIN (NovoLOG) PER UNIT SC SCH ×4 (08:36→21:00)
[2020-08-05] MEDS: FUROSEMIDE 40MG/4ML VIAL (J1940) IV SCH ×2 (08:37→16:13)
[2020-08-05] MEDS: HEPARIN SOD (PORCINE) 5000UNITS/ML 1ML VIAL/SYRINGE SQ SCH ×2 (08:38→21:06)
[2020-08-05] MEDS: ASPIRIN 81 MG CHEW TABLET PO SCH (08:38)
[2020-08-05] MEDS: CADEXOMER IODINE 10GM (IODOSORB) GEL TOP SCH (08:38)
[2020-08-05] MEDS: FOLIC ACID 1 MG TAB PO SCH (08:39)
[2020-08-05] MEDS: SERTRALINE 100 MG TAB PO SCH (08:39)
[2020-08-05] MEDS: PANTOPRAZOLE 40MG TAB (PROTONIX) PO SCH (08:39)
[2020-08-05] MEDS: FERROUS SULFATE 325MG TAB PO SCH ×2 (08:39→21:06)
[2020-08-05] MEDS: amLODIPine 5 MG TAB PO SCH (08:40)
[2020-08-05] MEDS: CARVedilol 3.125 MG TAB PO SCH ×2 (08:40→21:06)
[2020-08-05] MEDS: ISOSORBIDE MON. (IMDUR) 30 MG XR TAB PO SCH (08:40)
[2020-08-05] MEDS: **NOTE PATIENT COMMENT** MISC XX SCH (08:41)
--- NOTE | 2020-08-05 13:10 | IPNPDOC ---
Text Note Date of Service The patient was seen on 08/05/20. NOTE Subjective: No any acute events overnight. Patient developed around 1400 mL of urine output for past 24 hours Objective: GENERAL APPEARANCE: Cachectic male breathing via BiPAP HEENT: no scleral icterus, + JVD, EOMI CARDIOVASCULAR: S1S2 LUNGS: Diminished lung sounds bilaterally ABDOMEN: soft & not tender w palpitation, mildly distended MUSCULOSKELETAL: legs are edematous and feet are dressed, +2 non-pitting edema INTEGUMENT: no generalized pallor NEUROLOGICAL: cranial nerve function from 2-12 intact intact, follows commands, speech not dysarthric Assessment and plan Pt is a 74 year old male history of CHF and IDDM who presents with chest pain and dyspnea and found to have acute hypoxic hypercapnic respiratory failure 2/2 CHF exacerbation. He is edematous and has JVD. Acute hypoxemic hypercapnic respiratory failure Secondary to decompensated CHF Continue BiPAP with interval for supplemental oxygen Continue monitor ABG Diastolic CHF exacerbation Echo was done and showed: Normal LV systolic function. LVEF 60% by visual estimate. Probably normal LV diastolic function for age. Normal left atrial size. Suggestive of at least moderate elevation of estimated right ventricle systolic pressure 64-69 mmHg. Normal right ventricle size and systolic function I's and O's Continue Lasix IV BNP continues to be elevated to 9324 Pulmonary edema Most likely secondary to CHF exacerbation Continue Lasix IV Acute kidney injury Creatinine 2.28, slightly improved today Continue Lasix to 40 mg twice a day Continue to monitor Type 2 diabetes Insulin sliding scale Glucose level under control Hypertension Continue home cardioprotective medications Hydralazine IV with parameters Anemia Hemoglobin 9.2 No signs of any acute bleed H&H every 6 hours Await stool for occult blood Hyperlipidemia Continue statin Coronary artery diseases status post stents Continue home cardioprotective medications Foot ulcers Stage II to stage III, noninfected Continue follow-up with wound care in the outpatient settings Cachexia Patient has reduced muscle mass, temporal wasting Ensure Depression/anxiety Continue Home meds GERD PPI by mouth VS,Fishbone, I+O VS, Fishbone, I+O Laboratory Tests 08/04/20 13:09 08/04/20 19:31 08/05/20 04:47 Vital Signs Date Time Temp Pulse Resp B/P (MAP) Pulse Ox O2 Delivery O2 Flow Rate FiO2 08/05/20 10:32 75 126/61 (82) 95 Nasal Cannula 1.0 08/05/20 07:51 97.6 20 08/04/20 04:00 40 I&O- Last 24 Hours up to 6 AM 08/05/20 06:00 Intake Total 870 ml Output Total 1450 ml Balance -580 ml CARL HERNANDEZ DO Aug 05, 2020 13:10
--- NOTE | 2020-08-05 14:33 | CCN ---
CRITICAL CARE NOTE DATE: 08/05/2020 SUBJECTIVE: The patient is seen in the Intensive Care Unit, noninvasive positive pressure ventilation has been weaned and off for the past 24 hours. PHYSICAL EXAMINATION: VITAL SIGNS : His temperature is 97, pulse rate is 90, respirations 18, blood pressure is 166/88. I and O's for the past 24 hours: 770 in, 1230 out, since midnight __ out. GENERAL: He is ill-appearing and cachectic. His mucosa are moist. Jugular veins are distended. HEART: Regular without appreciable murmur. LUNGS: Breath sounds diminished with expiratory phase prolongation and some scattered rales. No dullness to percussion. ABDOMEN: Soft with intact bowel sounds. EXTREMITIES: His feet are dressed. DIAGNOSTIC STUDIES: His CBC shows a white count of 7.1, hemoglobin is up to 9.2, hematocrit is 30.7, platelet count is 159,000. Electrolytes: Sodium is 144, potassium 4.5, chloride 111, his CO2 is 27, BUN is up slightly at 68, creatinine is better at 2.28. Glucose at 146. Calcium is stable at 8.6 and an albumin of 2.6. His phosphorus was 3.6. Magnesium 1.9. AST 25 and ALT 19. LDH is 174. Beta natruretic peptid is 9324. Chest imaging continues to show edema. MEDICATIONS REVIEW: He is receiving Lasix 40 mg b.i.d., Coreg 3.125 mg b.i.d., Norvasc 5 mg a day, iron, Imdur 30 mg a day, Protonix 40 mg daily, Heparin 5000 q. 12 and nebulized Albuterol and Ipratropium q.i.d. The primary problem requiring critical attention is acute on chronic respiratory failure. The patient's arterial blood gases are improved. His CO2 is borderline but we will discontinue his noninvasive ventilation at this point and continue monitoring gas exchange. If he remains stable, he could be downgraded from the ICU tomorrow. Pulmonary edema. Patient is diuresing albeit slowly. Acute kidney injury. Creatinine is improved slightly today and he is nonoliguric. Anemia, hemoglobin is slightly better than yesterday. DVT prophylaxis being addressed with subcutaneous Heparin. Also, prophylaxis being addressed with Protonix. Patient's condition remains critical and ICU care is appropriate for today, but as noted above if he remains off noninvasive ventilation transfer out of the ICU could be effective tomorrow. I have reviewed the patient's status with the attending Hospitalist and updated the nursing team regarding his care plans for the day; 47 minutes was spent in the provision of bedside critical care and coordination excluding any procedure time.
[2020-08-05] MEDS: ATORVASTATIN 20 MG TAB PO SCH (21:05)
[2020-08-05] MEDS: NITROGLYCERIN 0.4 MG/HR PATCH TOP SCH (21:06)
[2020-08-06] VITALS: BP 146/73
[2020-08-06] MEDS: IPRATROPIUM 0.5MG/ALBUTEROL 2.5MG INH SOL UD 3ML (DUONEB) NEB SCH ×4 (01:28→20:45)
[2020-08-06 04:00] VITALS: BP 160/72
[2020-08-06 05:05] LABS: BASO % 0.4 % (0.0-1.0); EOS # 0.2 10^3/uL (0.0-0.5); EOS % 4.1 % (0.0-3.0); HEMATOCRIT 29.4 % (42.0-52.0); LYMPH % 17.4 % (24.0-44.0); MEAN CORPUSCULAR HEMOGLOBIN 29.2 pg (27.0-33.0); MEAN CORPUSCULAR HGB CONC 30.6 g/dl (32.0-36.5); MEAN CORPUSCULAR VOLUME 95.5 fl (80.0-96.0); MONO # 0.5 10^3/uL (0.0-0.8); MONO % 9.7 % (2.0-8.0); NEUTROPHILS # 3.8 10^3/uL (1.5-8.5); NEUTROPHILS % 68.2 % (36.0-66.0); PLATELET COUNT, AUTOMATED 143 10^3/uL (150-450); RED BLOOD COUNT 3.08 10^6/uL (4.30-6.10); WHITE BLOOD COUNT 5.6 10^3/uL (4.0-10.0)
[2020-08-06 05:47] LABS: BLOOD UREA NITROGEN 67 MG/DL (7-18); CREATININE FOR GFR 2.25 MG/DL (0.70-1.30); GLUCOSE, FASTING 162 MG/DL (70-100)
[2020-08-06 05:48] LABS: ALBUMIN 2.8 GM/DL (3.2-5.2); ALT/SGPT 18 U/L (12-78); BILIRUBIN,TOTAL 0.2 MG/DL (0.2-1.0); CARBON DIOXIDE LEVEL 29 MEQ/L (21-32); CHLORIDE LEVEL 110 MEQ/L (98-107); CHOLESTEROL LEVEL 152 MG/DL (< 200); CPK CREATINE PHOSPHOKINASE 70 U/L (39-308); GLOMERULAR FILTRATION RATE 30.6 (>42); LDH LACTATE DEHYDROGENASE 187 U/L (87-241); PHOSPHORUS LEVEL 3.6 MG/DL (2.5-4.9); POTASSIUM SERUM 4.8 MEQ/L (3.5-5.1); SODIUM LEVEL 144 MEQ/L (136-145); TOTAL PROTEIN 6.1 GM/DL (6.4-8.2); TRIGLYCERIDES LEVEL 105 MG/DL (<150)
[2020-08-06 08:00] VITALS: BP 172/78
[2020-08-06 08:15] LABS: IRON (FE) 45 UG/DL (65-175); TOTAL IRON BINDING CAPACITY 214 UG/DL (250-450)
[2020-08-06] MEDS: HEPARIN SOD (PORCINE) 5000UNITS/ML 1ML VIAL/SYRINGE SQ SCH ×2 (08:22→20:34)
[2020-08-06] MEDS: FOLIC ACID 1 MG TAB PO SCH (08:23)
[2020-08-06] MEDS: ISOSORBIDE MON. (IMDUR) 30 MG XR TAB PO SCH (08:23)
[2020-08-06] MEDS: HumaLOG INSULIN (NovoLOG) PER UNIT SC SCH ×4 (08:23→20:35)
[2020-08-06] MEDS: FUROSEMIDE 40MG/4ML VIAL (J1940) IV SCH ×2 (08:23→16:58)
[2020-08-06] MEDS: ASPIRIN 81 MG CHEW TABLET PO SCH (08:24)
[2020-08-06] MEDS: FERROUS SULFATE 325MG TAB PO SCH ×2 (08:24→20:34)
[2020-08-06] MEDS: CARVedilol 3.125 MG TAB PO SCH ×2 (08:24→20:33)
[2020-08-06] MEDS: PANTOPRAZOLE 40MG TAB (PROTONIX) PO SCH (08:24)
[2020-08-06] MEDS: amLODIPine 5 MG TAB PO SCH (08:24)
[2020-08-06] MEDS: SERTRALINE 100 MG TAB PO SCH (08:24)
[2020-08-06] MEDS: **NOTE PATIENT COMMENT** MISC XX SCH (08:25)
[2020-08-06] MEDS: CADEXOMER IODINE 10GM (IODOSORB) GEL TOP SCH (08:26)
[2020-08-06 10:56] LABS: VITAMIN B12 LEVEL 724 PG/ML (247-911)
[2020-08-06 11:38] LABS: FOLATE > 24.0 NG/ML (>5.4)
[2020-08-06 12:00] VITALS: BP 137/63
--- NOTE | 2020-08-06 13:33 | IPNPDOC ---
Text Note Date of Service The patient was seen on 08/06/20. NOTE Subjective: No any acute events overnight. Patient stated that his breathing i mproved and his breathing via nasal cannula at 1 L Objective: GENERAL APPEARANCE: Cachectic male breathing via BiPAP HEENT: no scleral icterus, + JVD, EOMI CARDIOVASCULAR: S1S2 LUNGS: Diminished lung sounds bilaterally ABDOMEN: soft & not tender w palpitation, mildly distended MUSCULOSKELETAL: legs are edematous and feet are dressed, +2 non-pitting edema INTEGUMENT: no generalized pallor NEUROLOGICAL: cranial nerve function from 2-12 intact intact, follows commands, speech not dysarthric Assessment and plan Pt is a 74 year old male history of CHF and IDDM who presents with chest pain and dyspnea and found to have acute hypoxic hypercapnic respiratory failure 2/2 CHF exacerbation. He is edematous and has JVD. Acute hypoxemic hypercapnic respiratory failure Secondary to decompensated CHF Continue BiPAP daily at bedtime, supplemental oxygen daytime Continue monitor ABG Diastolic CHF exacerbation Echo was done and showed: Normal LV systolic function. LVEF 60% by visual estimate. Probably normal LV diastolic function for age. Normal left atrial size. Suggestive of at least moderate elevation of estimated right ventricle systolic pressure 64-69 mmHg. Normal right ventricle size and systolic function I's and O's Continue Lasix IV BNP continues to be elevated to 9324 Patient with decreased from 78.2 kg to 76.1 kg since admission Patient is not oliguric, urine output around 2 L for past 24 hours Pulmonary edema Most likely secondary to CHF exacerbation Continue Lasix IV Acute kidney injury Creatinine 2.25, slightly improved today Continue Lasix to 40 mg twice a day Continue to monitor Type 2 diabetes Insulin sliding scale Glucose level under control Hypertension Continue home cardioprotective medications I increased the dose of Norvasc to 10 mg given morning hypertension Hydralazine IV with parameters Normocytic Anemia Hemoglobin 9.0 No signs of any acute bleed Await stool for occult blood Continue iron supplementation Hyperlipidemia Continue statin Coronary artery diseases status post stents Continue home cardioprotective medications Foot ulcers Stage II to stage III, noninfected Continue follow-up with wound care in the outpatient settings Cachexia Patient has reduced muscle mass, temporal wasting Ensure Depression/anxiety Continue Home meds GERD PPI by mouth VS,Fishbone, I+O VS, Fishbone, I+O Laboratory Tests 08/06/20 04:53 Vital Signs Date Time Temp Pulse Resp B/P (MAP) Pulse Ox O2 Delivery O2 Flow Rate FiO2 08/06/20 12:00 1.0 08/06/20 12:00 97.6 67 24 137/63 (87) 98 Nasal Cannula 08/04/20 04:00 40 I&O- Last 24 Hours up to 6 AM 08/06/20 06:00 Intake Total 760 ml Output Total 1305 ml Balance -545 ml CARL HERNANDEZ DO Aug 06, 2020 13:33
[2020-08-06 16:00] VITALS: BP 150/78
[2020-08-06 20:00] VITALS: BP 175/121
[2020-08-06] MEDS: ATORVASTATIN 20 MG TAB PO SCH (20:34)
[2020-08-06] MEDS: NITROGLYCERIN 0.4 MG/HR PATCH TOP SCH (20:34)
[2020-08-07] VITALS (11 sets, daily range): BP systolic 123–178; BP diastolic 59–84; PULSE 78
[2020-08-07] MEDS: IPRATROPIUM 0.5MG/ALBUTEROL 2.5MG INH SOL UD 3ML (DUONEB) NEB SCH ×4 (02:21→20:46)
[2020-08-07 06:45] LABS: HEMATOCRIT 32.4 % (42.0-52.0); HEMOGLOBIN 9.9 g/dl (13.5-17.5); MEAN CORPUSCULAR HEMOGLOBIN 28.9 pg (27.0-33.0); MEAN CORPUSCULAR HGB CONC 30.6 g/dl (32.0-36.5); MEAN CORPUSCULAR VOLUME 94.7 fl (80.0-96.0); PLATELET COUNT, AUTOMATED 176 10^3/uL (150-450); RED BLOOD COUNT 3.42 10^6/uL (4.30-6.10); WHITE BLOOD COUNT 6.5 10^3/uL (4.0-10.0)
[2020-08-07 07:01] LABS: CALCIUM LEVEL 8.6 MG/DL (8.8-10.2); CREATININE FOR GFR 2.11 MG/DL (0.70-1.30); GLOMERULAR FILTRATION RATE 32.9 (>42)
[2020-08-07] MEDS: HumaLOG INSULIN (NovoLOG) PER UNIT SC SCH ×4 (07:30→21:00)
[2020-08-07] MEDS: HEPARIN SOD (PORCINE) 5000UNITS/ML 1ML VIAL/SYRINGE SQ SCH ×2 (08:59→21:31)
[2020-08-07] MEDS: **NOTE PATIENT COMMENT** MISC XX SCH (09:00)
[2020-08-07] MEDS: FUROSEMIDE 40MG/4ML VIAL (J1940) IV SCH (09:00)
[2020-08-07] MEDS: FERROUS SULFATE 325MG TAB PO SCH ×2 (09:00→21:32)
[2020-08-07] MEDS: ASPIRIN 81 MG CHEW TABLET PO SCH (09:00)
[2020-08-07] MEDS: CADEXOMER IODINE 10GM (IODOSORB) GEL TOP SCH (09:00)
[2020-08-07] MEDS: CARVedilol 3.125 MG TAB PO SCH ×2 (09:01→21:32)
[2020-08-07] MEDS: **hydrALAZINE** 10 MG TAB PO SCH ×3 (09:02→21:31)
[2020-08-07] MEDS: FOLIC ACID 1 MG TAB PO SCH (09:02)
[2020-08-07] MEDS: SERTRALINE 100 MG TAB PO SCH (09:02)
[2020-08-07] MEDS: PANTOPRAZOLE 40MG TAB (PROTONIX) PO SCH (09:02)
[2020-08-07] MEDS: ISOSORBIDE MON. (IMDUR) 30 MG XR TAB PO SCH (09:02)
[2020-08-07] MEDS ORDERED: hydrALAZINE 20MG/ML 1ML VIAL (J0360 PER 20MG) IV PRN (09:10)
[2020-08-07 10:35] LABS: ABG BASE EXCESS 1.8 (-2.0-2.0); ABG HCO3 27.3 MEQ/L (22.0-26.0); ABG O2 SATURATION 98.3 % (95.0-99.0); ABG PARTIAL PRESSURE CO2 47.5 mmHg (35.0-45.0); ABG PARTIAL PRESSURE O2 109.2 mmHg (75.0-100.0); ABG STANDARD HCO3 26.1 MEQ/L (22.0-26.0); ABG TOTAL CO2 28.8 MEQ/L (23.0-31.0); ABG pH (ARTERIAL) 7.378 UNITS (7.350-7.450)
--- NOTE | 2020-08-07 11:27 | REP ---
INDICATION: resp failure. COMPARISON: A chest CT without IV contrast dated 08/02/2020. TECHNIQUE: Chest CT without IV contrast. FINDINGS: There are moderate bilateral pleural effusions, on changed. The compression atelectasis adjacent to the pleural effusions is unchanged. The bilateral alveolar infiltrates identified previously have significantly improved. There are ground-glass densities in the left upper lobe parahilar zone of uncertain significance, lung nodules versus infiltrates. Follow-up is recommended. The subcutaneous dependent edema previously has improved. The visualized upper abdominal structures are unremarkable. IMPRESSION: The bilateral alveolar infiltrates is significantly improved. The bilateral moderate pleural effusions with compression atelectasis in the adjacent lung are unchanged. The subcutaneous dependent edema has improved. Left upper lobe lung nodules versus subsegmental infiltrates. Follow-up recommended. <Electronically signed by Matt Ordonez > 08/07/20 1120
--- NOTE | 2020-08-07 11:37 | IPNPDOC ---
Text Note Date of Service The patient was seen on 08/07/20. NOTE Subjective: Patient developed hypertensive urgency with systolic blood pressure over 200. He denied any headache, but has increased shortness of breath. Objective: GENERAL APPEARANCE: Cachectic male breathing via BiPAP HEENT: no scleral icterus, + JVD, EOMI CARDIOVASCULAR: S1S2 LUNGS: Diminished lung sounds bilaterally ABDOMEN: soft & not tender w palpitation, mildly distended MUSCULOSKELETAL: legs are edematous and feet are dressed, +2 non-pitting edema INTEGUMENT: no generalized pallor NEUROLOGICAL: cranial nerve function from 2-12 intact intact, follows commands, speech not dysarthric Assessment and plan Pt is a 74 year old male history of CHF and IDDM who presents with chest pain and dyspnea and found to have acute hypoxic hypercapnic respiratory failure 2/2 CHF exacerbation. He is edematous and has JVD. Acute hypoxemic hypercapnic respiratory failure Secondary to decompensated CHF Continue BiPAP daily at bedtime, supplemental oxygen daytime Continue monitor ABG Diastolic CHF exacerbation Echo was done and showed: Normal LV systolic function. LVEF 60% by visual estimate. Probably normal LV diastolic function for age. Normal left atrial size. Suggestive of at least moderate elevation of estimated right ventricle systolic pressure 64-69 mmHg. Normal right ventricle size and systolic function I's and O's Continue Lasix IV BNP continues to be elevated to 9324 08/05/20. Continue to monitor Patient with decreased from 78.2 kg to 76.1 kg since admission Pulmonary edema Most likely secondary to CHF exacerbation Continue Lasix IV CT showed from 08/07/20 The bilateral alveolar infiltrates is significantly improved. The bilateral moderate pleural effusions with compression atelectasis in the adjacent lung are unchanged. The subcutaneous dependent edema has improved. Left upper lobe lung nodules versus subsegmental infiltrate. Acute kidney injury Creatinine 2.11, slightly improved today Continue Lasix to 40 mg twice a day Continue to monitor Type 2 diabetes Insulin sliding scale Glucose level under control Hypertension/hypertensive urgency Continue home cardioprotective medications I added hydralazine 10 mg by mouth every 8 hours Hydralazine IV with parameters Normocytic Anemia Hemoglobin 9.9 No signs of any acute bleed Await stool for occult blood Continue iron supplementation Hyperlipidemia Continue statin Coronary artery diseases status post stents Continue home cardioprotective medications Foot ulcers Stage II to stage III, noninfected Continue follow-up with wound care in the outpatient settings Cachexia Patient has reduced muscle mass, temporal wasting Ensure Depression/anxiety Continue Home meds GERD PPI by mouth VS,Fishbone, I+O VS, Fishbone, I+O Laboratory Tests 08/07/20 06:12 Vital Signs Date Time Temp Pulse Resp B/P (MAP) Pulse Ox O2 Delivery O2 Flow Rate FiO2 08/07/20 10:45 123/59 (80) 08/07/20 09:01 86 08/07/20 07:14 97.5 22 90 Nasal Cannula 1.0 08/04/20 04:00 40 I&O- Last 24 Hours up to 6 AM 08/07/20 06:00 Intake Total 440 ml Output Total 700 ml Balance -260 ml CARL HERNANDEZ DO Aug 07, 2020 11:37
[2020-08-07] MEDS ORDERED: FUROSEMIDE 100MG/10ML VIAL (J1940) IV SCH (17:00)
[2020-08-07] MEDS ORDERED: NITROGLYCERIN 0.3 MG SUBL TAB SL STA (17:45)
[2020-08-07] MEDS: ATORVASTATIN 20 MG TAB PO SCH (21:31)
[2020-08-07] MEDS: NITROGLYCERIN 0.4 MG/HR PATCH TOP SCH (22:14)
[2020-08-08] MEDS: IPRATROPIUM 0.5MG/ALBUTEROL 2.5MG INH SOL UD 3ML (DUONEB) NEB SCH ×4 (01:03→19:51)
[2020-08-08] MEDS: **hydrALAZINE** 10 MG TAB PO SCH ×3 (04:16→20:17)
[2020-08-08 06:00] VITALS: BP 166/69
[2020-08-08 06:24] LABS: BASO % 0.4 % (0.0-1.0); EOS # 0.2 10^3/uL (0.0-0.5); EOS % 4.7 % (0.0-3.0); HEMATOCRIT 27.9 % (42.0-52.0); HEMOGLOBIN 8.6 g/dl (13.5-17.5); LYMPH # 0.9 10^3/uL (1.5-5.0); LYMPH % 17.7 % (24.0-44.0); MEAN CORPUSCULAR HEMOGLOBIN 29.1 pg (27.0-33.0); MEAN CORPUSCULAR HGB CONC 30.8 g/dl (32.0-36.5); MEAN CORPUSCULAR VOLUME 94.3 fl (80.0-96.0); MONO # 0.5 10^3/uL (0.0-0.8); MONO % 9.5 % (2.0-8.0); NEUTROPHILS # 3.5 10^3/uL (1.5-8.5); NEUTROPHILS % 67.3 % (36.0-66.0); PLATELET COUNT, AUTOMATED 155 10^3/uL (150-450); RED BLOOD COUNT 2.96 10^6/uL (4.30-6.10); WHITE BLOOD COUNT 5.1 10^3/uL (4.0-10.0)
[2020-08-08 07:04] LABS: ALBUMIN 2.5 GM/DL (3.2-5.2); BILIRUBIN,TOTAL 0.4 MG/DL (0.2-1.0); CALCIUM LEVEL 8.2 MG/DL (8.8-10.2); CREATININE FOR GFR 1.93 MG/DL (0.70-1.30); GLOMERULAR FILTRATION RATE 36.5 (>42); MAGNESIUM LEVEL 1.9 MG/DL (1.8-2.4); POTASSIUM SERUM 4.5 MEQ/L (3.5-5.1); TOTAL PROTEIN 5.5 GM/DL (6.4-8.2)
[2020-08-08] MEDS: PANTOPRAZOLE 40MG TAB (PROTONIX) PO SCH (08:19)
[2020-08-08] MEDS: ASPIRIN 81 MG CHEW TABLET PO SCH (08:19)
[2020-08-08] MEDS: FERROUS SULFATE 325MG TAB PO SCH ×2 (08:19→20:17)
[2020-08-08] MEDS: HumaLOG INSULIN (NovoLOG) PER UNIT SC SCH ×4 (08:19→20:10)
[2020-08-08] MEDS: SERTRALINE 100 MG TAB PO SCH (08:19)
[2020-08-08] MEDS: FOLIC ACID 1 MG TAB PO SCH (08:20)
[2020-08-08] MEDS: ISOSORBIDE MON. (IMDUR) 30 MG XR TAB PO SCH (08:20)
[2020-08-08] MEDS: CARVedilol 3.125 MG TAB PO SCH ×2 (08:20→20:18)
[2020-08-08] MEDS: HEPARIN SOD (PORCINE) 5000UNITS/ML 1ML VIAL/SYRINGE SQ SCH ×2 (08:21→20:18)
[2020-08-08] MEDS: **NOTE PATIENT COMMENT** MISC XX SCH (09:00)
[2020-08-08] MEDS: FUROSEMIDE 100MG/10ML VIAL (J1940) IV SCH ×2 (09:30→17:53)
[2020-08-08] MEDS: metOLazone 5 MG TAB PO SCH (09:31)
--- NOTE | 2020-08-08 10:00 | ECGEPIP ---
[facility] Test Date: 2020-08-07 Pat Name: ELFEGO DAVIS Department: Room: [place] [address] Gender: Male Environmental Consultant: CHARLEY : 1945 Requested By: CARL HERNANDEZ Order Number: [id number] Reading MD: Kwesi Goldman Measurements Intervals [place] Rate: 81 P: 27 WI: 148 QRS: 8 QRSD: 122 T: 47 QT: 400 QTc: 464 Interpretive Statements Normal sinus rhythm Nonspecific intraventricular conduction delay Minimal voltage criteria for LVH, may be normal variant ( Topher product ) Nonspecific ST-T wave abnormalities Delayed anterior R wave progression Similar to tracing done 08-02-20 Electronically Signed on 08-08-2020 9:59:50 EDT by Kwesi Goldman
[2020-08-08] MEDS: CADEXOMER IODINE 10GM (IODOSORB) GEL TOP SCH (12:45)
[2020-08-08 14:00] VITALS: BP 109/62
[2020-08-08 19:51] VITALS: O2SAT 28
[2020-08-08] MEDS: ATORVASTATIN 20 MG TAB PO SCH (20:18)
[2020-08-08 22:00] VITALS: BP 174/86
[2020-08-08] MEDS: NITROGLYCERIN 0.4 MG/HR PATCH TOP SCH (22:33)
[2020-08-09] MEDS: **hydrALAZINE** 10 MG TAB PO SCH ×3 (03:53→20:48)
[2020-08-09 06:00] VITALS: BP 139/80
[2020-08-09 06:01] LABS: BASO % 0.4 % (0.0-1.0); EOS # 0.3 10^3/uL (0.0-0.5); EOS % 5.2 % (0.0-3.0); HEMATOCRIT 30.7 % (42.0-52.0); HEMOGLOBIN 9.6 g/dl (13.5-17.5); LYMPH % 18.8 % (24.0-44.0); MEAN CORPUSCULAR HEMOGLOBIN 29.4 pg (27.0-33.0); MEAN CORPUSCULAR HGB CONC 31.3 g/dl (32.0-36.5); MEAN CORPUSCULAR VOLUME 94.2 fl (80.0-96.0); MONO # 0.6 10^3/uL (0.0-0.8); MONO % 11.5 % (2.0-8.0); NEUTROPHILS # 3.4 10^3/uL (1.5-8.5); NEUTROPHILS % 63.7 % (36.0-66.0); PLATELET COUNT, AUTOMATED 161 10^3/uL (150-450); RED BLOOD COUNT 3.26 10^6/uL (4.30-6.10); WHITE BLOOD COUNT 5.4 10^3/uL (4.0-10.0)
[2020-08-09 06:37] LABS: ALBUMIN 2.6 GM/DL (3.2-5.2); BILIRUBIN,TOTAL 0.4 MG/DL (0.2-1.0); CALCIUM LEVEL 8.7 MG/DL (8.8-10.2); CREATININE FOR GFR 1.93 MG/DL (0.70-1.30); GLOMERULAR FILTRATION RATE 36.5 (>42); TOTAL PROTEIN 6.4 GM/DL (6.4-8.2)
[2020-08-09] MEDS: IPRATROPIUM 0.5MG/ALBUTEROL 2.5MG INH SOL UD 3ML (DUONEB) NEB SCH ×4 (07:54→19:28)
[2020-08-09] MEDS: CARVedilol 3.125 MG TAB PO SCH ×2 (08:17→20:48)
[2020-08-09] MEDS: SERTRALINE 100 MG TAB PO SCH (08:17)
[2020-08-09] MEDS: ASPIRIN 81 MG CHEW TABLET PO SCH (08:18)
[2020-08-09] MEDS: metOLazone 5 MG TAB PO SCH (08:18)
[2020-08-09] MEDS: HumaLOG INSULIN (NovoLOG) PER UNIT SC SCH ×4 (08:18→20:08)
[2020-08-09] MEDS: FERROUS SULFATE 325MG TAB PO SCH ×2 (08:18→20:48)
[2020-08-09] MEDS: FOLIC ACID 1 MG TAB PO SCH (08:18)
[2020-08-09] MEDS: ISOSORBIDE MON. (IMDUR) 30 MG XR TAB PO SCH (08:18)
[2020-08-09] MEDS: HEPARIN SOD (PORCINE) 5000UNITS/ML 1ML VIAL/SYRINGE SQ SCH ×2 (08:19→20:49)
[2020-08-09] MEDS: PANTOPRAZOLE 40MG TAB (PROTONIX) PO SCH (08:19)
[2020-08-09] MEDS: **NOTE PATIENT COMMENT** MISC XX SCH (08:20)
[2020-08-09] MEDS: CADEXOMER IODINE 10GM (IODOSORB) GEL TOP SCH (08:20)
[2020-08-09] MEDS: FUROSEMIDE 100MG/10ML VIAL (J1940) IV SCH ×2 (08:47→17:59)
--- NOTE | 2020-08-09 12:00 | IPNPDOC ---
Text Note Date of Service The patient was seen on 08/09/20. NOTE Subjective: Patient stated that he is better today. Patient was able to breathe in normal air with good oxygen saturation of 95% Objective: GENERAL APPEARANCE: Cachectic male breathing via BiPAP HEENT: no scleral icterus, no JVD, EOMI CARDIOVASCULAR: S1S2 LUNGS: Diminished lung sounds bilaterally ABDOMEN: soft & not tender w palpitation, mildly distended MUSCULOSKELETAL: legs are edematous and feet are dressed, +2 non-pitting edema INTEGUMENT: no generalized pallor NEUROLOGICAL: cranial nerve function from 2-12 intact intact, follows commands, speech not dysarthric Assessment and plan Pt is a 74 year old male history of CHF and IDDM who presents with chest pain and dyspnea and found to have acute hypoxic hypercapnic respiratory failure 2/2 CHF exacerbation. He is edematous and has JVD. Acute hypoxemic hypercapnic respiratory failure Secondary to decompensated CHF Continue BiPAP daily at bedtime, supplemental oxygen daytime Diastolic CHF exacerbation Echo was done and showed: Normal LV systolic function. LVEF 60% by visual estimate. Probably normal LV diastolic function for age. Normal left atrial size. Suggestive of at least moderate elevation of estimated right ventricle systolic pressure 64-69 mmHg. Normal right ventricle size and systolic function I's and O's BNP continues to be elevated to 9324 08/05/20. Continue to monitor Patient with decreased from 78.2 kg to 77.3 kg since admission Continue Lasix IV BID, metolazone added Pulmonary edema Most likely secondary to CHF exacerbation Continue Lasix IV CT showed from 08/07/20 The bilateral alveolar infiltrates is significantly improved. The bilateral moderate pleural effusions with compression atelectasis in the adjacent lung are unchanged. The subcutaneous dependent edema has improved. Left upper lobe lung nodules versus subsegmental infiltrate. Acute kidney injury Creatinine 1.9, slightly improved today Continue to monitor Type 2 diabetes Insulin sliding scale Glucose level under control Hypertension/hypertensive urgency Continue home cardioprotective medications I added hydralazine 10 mg by mouth every 8 hours Hydralazine IV with parameters Normocytic Anemia Hemoglobin 9.9 No signs of any acute bleed Await stool for occult blood Continue iron supplementation Hyperlipidemia Continue statin Coronary artery diseases status post stents Continue home cardioprotective medications Foot ulcers Stage II to stage III, noninfected Continue follow-up with wound care in the outpatient settings Cachexia Patient has reduced muscle mass, temporal wasting Ensure Depression/anxiety Continue Home meds GERD PPI by mouth VS,Fishbone, I+O VS, Fishbone, I+O Laboratory Tests 08/09/20 05:21 Vital Signs Date Time Temp Pulse Resp B/P (MAP) Pulse Ox O2 Delivery O2 Flow Rate FiO2 08/09/20 09:00 1.0 08/09/20 08:17 81 147/62 08/09/20 07:54 17 08/09/20 06:00 97.7 97 Nasal Cannula 08/04/20 04:00 40 I&O- Last 24 Hours up to 6 AM 08/09/20 06:00 Intake Total 2520 ml Output Total 650 ml Balance 1870 ml CARL HERNANDEZ DO Aug 09, 2020 12:00
[2020-08-09 14:00] VITALS: BP 142/82
[2020-08-09 19:28] VITALS: O2SAT 95
[2020-08-09] MEDS: NITROGLYCERIN 0.4 MG/HR PATCH TOP SCH (20:47)
[2020-08-09] MEDS: ATORVASTATIN 20 MG TAB PO SCH (20:48)
[2020-08-09 22:00] VITALS: BP 153/68
[2020-08-10] MEDS: IPRATROPIUM 0.5MG/ALBUTEROL 2.5MG INH SOL UD 3ML (DUONEB) NEB SCH ×4 (01:27→20:00)
[2020-08-10] MEDS: ACETAMINOPHEN TAB 650MG DOSE (2X325MG) PO PRN ×2 (03:39→21:58)
[2020-08-10] MEDS: **hydrALAZINE** 10 MG TAB PO SCH ×4 (03:40→21:58)
[2020-08-10 06:00] VITALS: BP 141/71
[2020-08-10 06:33] LABS: BASO % 0.2 % (0.0-1.0); EOS # 0.2 10^3/uL (0.0-0.5); HEMATOCRIT 29.8 % (42.0-52.0); HEMOGLOBIN 9.4 g/dl (13.5-17.5); LYMPH # 0.8 10^3/uL (1.5-5.0); LYMPH % 11.9 % (24.0-44.0); MEAN CORPUSCULAR HEMOGLOBIN 29.2 pg (27.0-33.0); MEAN CORPUSCULAR HGB CONC 31.5 g/dl (32.0-36.5); MEAN CORPUSCULAR VOLUME 92.5 fl (80.0-96.0); MONO # 0.7 10^3/uL (0.0-0.8); MONO % 10.3 % (2.0-8.0); NEUTROPHILS # 4.9 10^3/uL (1.5-8.5); NEUTROPHILS % 74.1 % (36.0-66.0); PLATELET COUNT, AUTOMATED 178 10^3/uL (150-450); RED BLOOD COUNT 3.22 10^6/uL (4.30-6.10); WHITE BLOOD COUNT 6.6 10^3/uL (4.0-10.0)
[2020-08-10 06:54] LABS: ALBUMIN 2.7 GM/DL (3.2-5.2); BILIRUBIN,TOTAL 0.4 MG/DL (0.2-1.0); CALCIUM LEVEL 8.8 MG/DL (8.8-10.2); CREATININE FOR GFR 1.97 MG/DL (0.70-1.30); GLOMERULAR FILTRATION RATE 35.7 (>42); MAGNESIUM LEVEL 1.9 MG/DL (1.8-2.4); POTASSIUM SERUM 3.8 MEQ/L (3.5-5.1); TOTAL PROTEIN 6.4 GM/DL (6.4-8.2)
[2020-08-10] MEDS: PANTOPRAZOLE 40MG TAB (PROTONIX) PO SCH (08:17)
[2020-08-10] MEDS: HumaLOG INSULIN (NovoLOG) PER UNIT SC SCH ×4 (08:17→20:59)
[2020-08-10] MEDS: FOLIC ACID 1 MG TAB PO SCH (08:17)
[2020-08-10] MEDS: CARVedilol 3.125 MG TAB PO SCH ×3 (08:17→21:57)
[2020-08-10] MEDS: ASPIRIN 81 MG CHEW TABLET PO SCH (08:17)
[2020-08-10] MEDS: metOLazone 5 MG TAB PO SCH (08:17)
[2020-08-10] MEDS: SERTRALINE 100 MG TAB PO SCH (08:18)
[2020-08-10] MEDS: ISOSORBIDE MON. (IMDUR) 30 MG XR TAB PO SCH (08:18)
[2020-08-10] MEDS: FERROUS SULFATE 325MG TAB PO SCH ×2 (08:18→21:57)
[2020-08-10] MEDS: HEPARIN SOD (PORCINE) 5000UNITS/ML 1ML VIAL/SYRINGE SQ SCH ×2 (08:20→21:58)
[2020-08-10] MEDS: FUROSEMIDE 100MG/10ML VIAL (J1940) IV SCH ×2 (08:21→17:32)
[2020-08-10] MEDS: CADEXOMER IODINE 10GM (IODOSORB) GEL TOP SCH (08:21)
[2020-08-10] MEDS: **NOTE PATIENT COMMENT** MISC XX SCH (09:17)
[2020-08-10] MEDS ORDERED: TORS20TA2 PO (11:40)
[2020-08-10] MEDS ORDERED: ASPI81CH8 PO (11:40)
[2020-08-10] MEDS ORDERED: HYDR10TAB PO (11:40)
[2020-08-10] MEDS ORDERED: METO5TA PO (11:40)
[2020-08-10] MEDS ORDERED: AMLO1TAB25 PO (11:40)
[2020-08-10 14:00] VITALS: BP 130/61
--- NOTE | 2020-08-10 15:28 | IPNPDOC ---
Text Note Date of Service The patient was seen on 08/10/20. NOTE Subjective: No any acute events overnight. Patient denies fever, chills, nausea, vomiting, diarrhea Objective: GENERAL APPEARANCE: Cachectic male breathing via BiPAP HEENT: no scleral icterus, no JVD, EOMI CARDIOVASCULAR: S1S2 LUNGS: Diminished lung sounds bilaterally ABDOMEN: soft & not tender w palpitation, mildly distended MUSCULOSKELETAL: legs are edematous and feet are dressed, +2 non-pitting edema INTEGUMENT: no generalized pallor NEUROLOGICAL: cranial nerve function from 2-12 intact intact, follows commands, speech not dysarthric Assessment and plan Pt is a 74 year old male history of CHF and IDDM who presents with chest pain and dyspnea and found to have acute hypoxic hypercapnic respiratory failure 2/2 CHF exacerbation. He is edematous and has JVD. Acute hypoxemic hypercapnic respiratory failure Secondary to decompensated CHF Continue BiPAP daily at bedtime, supplemental oxygen daytime Diastolic CHF exacerbation Echo was done and showed: Normal LV systolic function. LVEF 60% by visual estimate. Probably normal LV diastolic function for age. Normal left atrial size. Suggestive of at least moderate elevation of estimated right ventricle systolic pressure 64-69 mmHg. Normal right ventricle size and systolic function I's and O's BNP continues to be elevated to 9324 08/05/20. Continue to monitor Patient with decreased from 78.2 kg to 77.3 kg since admission Continue Lasix IV BID, metolazone Pulmonary edema Most likely secondary to CHF exacerbation Continue Lasix IV CT showed from 08/07/20 The bilateral alveolar infiltrates is significantly improved. The bilateral moderate pleural effusions with compression atelectasis in the adjacent lung are unchanged. The subcutaneous dependent edema has improved. Left upper lobe lung nodules versus subsegmental infiltrate. Acute kidney injury Creatinine 1.9, Continue to monitor Type 2 diabetes Insulin sliding scale Glucose level under control Hypertension/hypertensive urgency Continue home cardioprotective medications I added hydralazine 10 mg by mouth every 8 hours Hydralazine IV with parameters Normocytic Anemia Hemoglobin 9.9 No signs of any acute bleed Await stool for occult blood Continue iron supplementation Hyperlipidemia Continue statin Coronary artery diseases status post stents Continue home cardioprotective medications Foot ulcers Stage II to stage III, noninfected Continue follow-up with wound care in the outpatient settings Dr. Desai recommended referral to vascular surgeon. Patient has HOLGER and we postpone CTA of the distal aorta with bilateral runoff Cachexia Patient has reduced muscle mass, temporal wasting Ensure Depression/anxiety Continue Home meds GERD PPI by mouth VS,Fishbone, I+O VS, Fishbone, I+O Laboratory Tests 08/10/20 05:25 Vital Signs Date Time Temp Pulse Resp B/P (MAP) Pulse Ox O2 Delivery O2 Flow Rate FiO2 08/10/20 12:41 128/60 08/10/20 09:00 1.0 08/10/20 08:17 79 08/10/20 06:00 97.4 19 93 Nasal Cannula 08/09/20 19:28 28 I&O- Last 24 Hours up to 6 AM 08/10/20 06:00 Intake Total 2150 ml Output Total 850 ml Balance 1300 ml CARL HERNANDEZ DO Aug 10, 2020 15:28
[2020-08-10] MEDS: NITROGLYCERIN 0.4 MG/HR PATCH TOP SCH ×2 (20:55→21:59)
[2020-08-10 21:34] VITALS: O2SAT 95
[2020-08-10] MEDS: ATORVASTATIN 20 MG TAB PO SCH (21:58)
[2020-08-10 22:00] VITALS: BP 127/57
[2020-08-11] MEDS: IPRATROPIUM 0.5MG/ALBUTEROL 2.5MG INH SOL UD 3ML (DUONEB) NEB SCH ×4 (02:00→20:23)
[2020-08-11] MEDS: **hydrALAZINE** 10 MG TAB PO SCH ×2 (05:05→12:32)
[2020-08-11 06:00] VITALS: BP 136/58
--- NOTE | 2020-08-11 06:54 | CR ---
WOUND CARE CONSULTATION DATE: 08/10/2020 REQUESTING PHYSICIAN: Dr. Bassett REASON FOR CONSULTATION: Bilateral lower extremity wounds. Wound care telemedicine provides a visual assessment of a wound or wounds without the benefit of physical examination. It can assist with establishing a diagnosis and etiology. This allows for initial treatment plan. As wounds often change it may be necessary to modify the original care. Our recommendations are for periodic follow-up for wound reassessment to monitor wound treatment in progress. Failure to comply may result in nonhealing of the wounds, possible complications and or a poor outcome. Patient's name verified and consent verbally obtained. HISTORY OF PRESENT ILLNESS: This is a 74-year-old male admitted for respiratory issues associated with congestive heart failure, stabilized in the ICU and then transferred to the floor. The patient had been evaluated at our Wound Clinic recently for bilateral lower extremity wounds involving right and left feet. The patient is a diabetic, controlled with an A1c of 7.3. Recent blood work showed a CBC with a white count of 6.6, hemoglobin of 9.5, hematocrit of 29.8 and a GFR of 35.7. The patient had been recently hospitalized at [facility]. When evaluated via telemedicine today, the left lower extremity shows multiple wounds involving the lateral plantar aspect measuring 0.9 cm x 1.5 cm., the left heel measuring 4.0 cm x 3.5 cm and the dorsal aspect of his left great toe wound measuring 1.1 cm x 0.6 cm. All wounds show moderate serosanguinous drainage and have depths of 0.4 cm involving the underlying subcutaneous tissue without exposure of bone or tendon. Patient's right heel shows a wound measuring 9.0 cm x 3.2 cm which includes the edy-wound, the actual central portion of the wound measures 3.0cm. x 2.5 cm. ABIs could not be obtained when the patient was evaluated at our clinic and at present the patient is in need of a vascular workup. Options include a CT angio which is relatively specific as a mapping prior to angiography. The issue here is the patient's GFR of 35.7. The usual cut-off is 30. An MRA could give you similar evaluatory results and is not nephrotoxic and would be preferred in this situation. The thought being to localized pathology and limit the time required for an arteriogram and the amount of contrast material required for the evaluation. I discussed the case in detail with our Interventional Radiologist, Dr. Levy and she prefers to have the patient scheduled and go directly to arteriogram. This will allow evaluation of distal aorta bilateral runoff and determine whether or not there are any critical stenotic areas for limb salvage. Aggressive treatment is indicated at this time as the patient is at risk for limb salvage. Dressing changes: Clean all wounds with Vashe Wound Cleanser and then use alginate dressing placed directly into the wound avoiding contact with the periwound. Covered with foam. Heel flow boots are mandatory bilaterally. Patient can be reevaluated at our clinic and it is my understanding he will be transferred to the [facility]. BACILIO
[2020-08-11 07:17] LABS: BASO % 0.2 % (0.0-1.0); EOS # 0.3 10^3/uL (0.0-0.5); EOS % 6.6 % (0.0-3.0); HEMATOCRIT 29.1 % (42.0-52.0); HEMOGLOBIN 9.1 g/dl (13.5-17.5); LYMPH # 0.8 10^3/uL (1.5-5.0); LYMPH % 16.6 % (24.0-44.0); MEAN CORPUSCULAR HEMOGLOBIN 29.2 pg (27.0-33.0); MEAN CORPUSCULAR HGB CONC 31.3 g/dl (32.0-36.5); MEAN CORPUSCULAR VOLUME 93.3 fl (80.0-96.0); MONO # 0.6 10^3/uL (0.0-0.8); MONO % 12.7 % (2.0-8.0); NEUTROPHILS # 3.1 10^3/uL (1.5-8.5); NEUTROPHILS % 63.7 % (36.0-66.0); PLATELET COUNT, AUTOMATED 164 10^3/uL (150-450); RED BLOOD COUNT 3.12 10^6/uL (4.30-6.10); WHITE BLOOD COUNT 4.8 10^3/uL (4.0-10.0)
[2020-08-11 07:38] LABS: ALBUMIN 2.5 GM/DL (3.2-5.2); BILIRUBIN,TOTAL 0.3 MG/DL (0.2-1.0); CALCIUM LEVEL 8.1 MG/DL (8.8-10.2); CREATININE FOR GFR 2.02 MG/DL (0.70-1.30); GLOMERULAR FILTRATION RATE 34.6 (>42); MAGNESIUM LEVEL 1.9 MG/DL (1.8-2.4); TOTAL PROTEIN 5.5 GM/DL (6.4-8.2)
[2020-08-11] MEDS: metOLazone 5 MG TAB PO SCH (09:03)
[2020-08-11] MEDS: FOLIC ACID 1 MG TAB PO SCH (09:03)
[2020-08-11] MEDS: PANTOPRAZOLE 40MG TAB (PROTONIX) PO SCH (09:03)
[2020-08-11] MEDS: FERROUS SULFATE 325MG TAB PO SCH ×2 (09:03→22:29)
[2020-08-11] MEDS: ASPIRIN 81 MG CHEW TABLET PO SCH (09:03)
[2020-08-11] MEDS: HumaLOG INSULIN (NovoLOG) PER UNIT SC SCH ×4 (09:05→20:54)
[2020-08-11] MEDS: ISOSORBIDE MON. (IMDUR) 30 MG XR TAB PO SCH (09:07)
[2020-08-11] MEDS: HEPARIN SOD (PORCINE) 5000UNITS/ML 1ML VIAL/SYRINGE SQ SCH ×2 (09:08→22:28)
[2020-08-11] MEDS: SERTRALINE 100 MG TAB PO SCH (09:08)
[2020-08-11] MEDS: CARVedilol 3.125 MG TAB PO SCH (09:08)
[2020-08-11] MEDS: FUROSEMIDE 100MG/10ML VIAL (J1940) IV SCH (09:10)
[2020-08-11] MEDS: **NOTE PATIENT COMMENT** MISC XX SCH (09:10)
[2020-08-11] MEDS: CADEXOMER IODINE 10GM (IODOSORB) GEL TOP SCH (09:10)
--- NOTE | 2020-08-11 09:31 | REP ---
INDICATION: evaluate blood flow. COMPARISON: None. TECHNIQUE: Duplex ultrasound of the lower extremity arteries bilaterally. FINDINGS: Right lower extremity: Brachial peak systole: NA mmHg Dorsalis pedis peak systole: Noncompressible mmHg WELFARE INTERVIEWER peak systole: Noncompressible mmHg MARYLU: NA CHECK OUT CLERK: 197 velocity, monophasic phasicity Profunda: Basic 166 velocity, monophasic phasicity SFA prox: Tick 178 velocity, monophasic phasicity SFA mid: 151-237 velocity, the triphasic phasicity SFA dist: 226 velocity, triphasic phasicity Pop: 132-247 velocity, triphasic phasicity ELIAS prox: 105 velocity, biphasic phasicity Tib/P tr: 112 velocity, biphasic phasicity WELFARE INTERVIEWER pr: 192 velocity, biphasic phasicity WELFARE INTERVIEWER dst: 67 velocity, biphasic phasicity ELIAS dst: 144 velocity, monophasic phasicity Left lower extremity: Brachial peak systole: NA mmHg Dorsalis pedis peak systole: Noncompressible mmHg WELFARE INTERVIEWER peak systole: Noncompressible mmHg MARYLU: NA CHECK OUT CLERK: 166 velocity, biphasic phasicity Profunda: 140 velocity, monophasic phasicity SFA prox: 182 velocity, biphasic phasicity SFA mid: 145 velocity, biphasic phasicity SFA dist: 140-229 velocity, biphasic phasicity Pop: 148-187 velocity, biphasic phasicity ELIAS prox: 91 velocity, biphasic phasicity Tib/P tr: 102 velocity, biphasic phasicity WELFARE INTERVIEWER pr: 99 velocity, biphasic phasicity WELFARE INTERVIEWER dst: 84 velocity, biphasic phasicity ELIAS dst: 93 velocity, biphasic phasicity IMPRESSION: Right lower extremity: There is significant heavily calcified atheroma from the CHECK OUT CLERK through the calf vessels. The calcified calf vessels are noncompressible. There are multiple stenoses throughout, worse at the distal SFA above the knee and at the popliteal. Left lower extremity: Significant heavily calcified plaque throughout similar to the right lower extremity. There are areas of narrowing approaching 2-1 stenosis. The calcified calf vessels are noncompressible. Overall there is severe bilateral atheromatous disease. <Electronically signed by Matt Ordonez > 08/11/20 0939
--- NOTE | 2020-08-11 11:42 | CR.PDOC ---
General Date of Consultation: Aug 11, 2020 Consultation REASON FOR CONSULTATION/CHIEF COMPLAINT: Concern for arterial insufficiency, bilateral lower extremity chronic wounds HISTORY OF PRESENT ILLNESS: This is a very pleasant 74-year-old patient who was admitted to the hospital over a week ago with decompensated CHF, but who has slowly been optimized from the standpoint as much as possible. He is now on 1-2 L nasal cannula oxygen, and his fluid status is improved. We were consulted to evaluate for arterial insufficiency. The hospitalist initial plan was for CTA with runoff, but I requested an arterial duplex instead due to the patient's renal insufficiency. If we are going to do an arteriogram, we certainly do not want to give a large dose of contrast for CTA with runoff prior to that in a patient with a creatinine greater than 2 and GFR less than 35. After reviewing the arterial duplex, the patient has diffuse calcification as well as diffuse stenoses throughout the bilateral lower extremities. I want to see him to review this with him today. I took a look at his wounds on his feet, the wounds are multiple, variable size and depths, mildly malodorous, mild to moderate drainage noted on current dressings, but no significant surrounding erythema and induration of the feet. My initial recommendation was for arteriogram, starting with the right leg because it has the worst wounds, since from an arterial standpoint they're very similar. At first, patient was not eager to proceed with any type of procedure, even minimally invasive, but he has decided he is willing to try the procedure.. When I tried to lay him flat to see if he was able to breathe laying flat, he got very anxious and said it is difficult to lay flat an d he is not very comfortable. I warned him that it will be a 1-2 hour procedure due to significant multiple level disease. At this point, it is not clear to me if the patient could tolerate an arteriogram. He does not have mild disease- it is diffuse disease which requires quite a bit of work, but it is worth it to try for limb salvage. We will start with the right leg since the right foot wounds seem a bit worse than the left. Risks benefits and alternatives were explained and the patient is agreeable to proceed. Informed consent was obtained. ALLERGIES: Please see below. HOME MEDICATIONS: Please see below. PAST MEDICAL HISTORY: DM, HTN, CAD, HLD, CHF, anxiety/depression PAST SURGICAL HISTORY: R CEA, L shoulder, R wrist. FAMILY HISTORY: DM, COPD, heart disease SOCIAL HISTORY: Former tobacco use and ETOH, denies current. No illicit drug use. REVIEW OF SYSTEMS: CONSTITUTIONAL: Denies fevers chills HEENT: Denies hearing or vision changes CARDIOVASCULAR: Denies chest pain RESPIRATORY: Positive shortness of breath GENITOURINARY: Denies dysuria MUSCULOSKELETAL: Positive difficulty ambulation GASTROINTESTINAL: Denies nausea and vomiting SKIN: Positive for wounds on his feet NEUROLOGICAL: Denies headaches or seizures PSYCHIATRIC: Positive anxiety depression ENDOCRINE: Positive diabetes HEMATOLOGIC/LYMPHATIC: Denies bleeding or clotting disorders ALLERGIC/IMMUNOLOGIC: Denies PHYSICAL EXAMINATION: VITAL SIGNS: Please see below. GENERAL APPEARANCE: Medically stable, frail HEENT: Normocephalic, [place] RESPIRATORY: Slightly coarse breath sounds bilaterally no wheezes CARDIOVASCULAR: Regular rate and rhythm ABDOMEN: Soft nontender nondistended EXTREMITIES: Bilateral lower extremities with Tubigrip and dressings intact. DP and PT signals are biphasic and somewhat faint. There are ulcerations of various stages and sizes on both feet, the right greater than the left, some are ma lodorous, some drainage is noted on the dressings, no significant erythema or induration is present, minimal edema is noted. NEUROLOGICAL: Alert and oriented to person and place, not time, [place] PSYCHIATRIC: Pleasant and cooperative LABORATORY DATA: Please see below. ASSESSMENT/PLAN: This very pleasant 74-year-old patient with atherosclerosis of the [place] arteries, heavily calcified lower extremity vessels, multiple level stenoses, and nonhealing wounds of both feet, right greater than left. 1. We will attempt arteriogram with potential intervention, right lower extremity first since the wounds are the worst, but it is unclear if the patient will be able to tolerate the procedure due to shortness of breath when laying flat. I think it is worth trying, and I have tried to reassure the patient that if he cannot tolerate it, we will stop the procedure. The patient has renal insufficiency with creatinine greater than 2, mostly stable but slightly rising daily, so we will be very judicious in use as little contrast as possible. We will also gently hydrate him during the procedure. I did explain to him that there is no amount of contrast that is 100% safe, but we will use as little as possible. He accepts the risk of GHASSAN on top of CRI. 2. Continue with local wound care per the wound care center. We appreciate the opportunity to participate in the care of this patient. Vital Signs/I&O Vital Signs Date Time Temp Pulse Resp B/P (MAP) Pulse Ox O2 Delivery O2 Flow Rate FiO2 08/11/20 09:08 79 156/61 08/11/20 06:00 97.7 18 95 Nasal Cannula 1.0 08/10/20 21:34 28 I&O- Last 24 Hours up to 6 AM 08/11/20 06:00 Intake Total 340 ml Output Total 0 ml Balance 340 ml Laboratory Data Labs 24H Laboratory Tests 2 08/10/20 11:36: Bedside Glucose (Misc Panel) 158H 08/10/20 16:53: Bedside Glucose (Misc Panel) 75L 08/10/20 20:44: Bedside Glucose (Misc Panel) 234H 08/11/20 06:52: Immature Granulocyte % (Auto) 0.2, Neutrophils (%) (Auto) 63.7, Lymphocytes (%) (Auto) 16.6L, Monocytes (%) (Auto) 12.7H, Eosinophils (%) (Auto) 6.6H, Basophils (%) (Auto) 0.2, Neutrophils # (Auto) 3.1, Lymphocytes # (Auto) 0.8L, Monocytes # (Auto) 0.6, Eosinophils # (Auto) 0.3, Basophils # (Auto) 0.0, Nucleated Red Blood Cells % (auto) 0.0, Anion Gap 4L, Glomerular Filtration Rate 34.6L, Calcium Level 8.1L, Magnesium Level 1.9, Total Bilirubin 0.3, Aspartate Amino Transf (AST/SGOT) 14, Alanine Aminotransferase (ALT/SGPT) 13, Alkaline Phosphatase 107, Total Protein 5.5L, Albumin 2.5L, Albumin/Globulin Ratio 0.8 CBC/BMP Laboratory Tests 08/11/20 06:52 Allergies Coded Allergies: No Known Allergies (Verified , 04/25/17) Home Medications Scheduled Amlodipine Besylate (Amlodipine Besylate) 10 Mg Tablet, 10 MG PO DAILY for 30 Days, #30 Aspirin (Children's Aspirin) 81 Mg Tab.chew, 81 MG PO DAILY for 30 Days, #30 Atorvastatin Calcium (Atorvastatin Calcium) 20 Mg Tablet, 20 MG PO QHS, (Reported) Bumetanide (Bumetanide) 0.5 Mg Tablet, 1 MG PO DAILY, (Reported) Carvedilol (Carvedilol) 3.125 Mg Tablet, 3.125 MG PO BID, (Reported) Ferrous Sulfate (Ferrous Sulfate) 325 Mg Tablet.dr, 325 MG PO BID, (Reported) Folic Acid (Folic Acid) 1 Mg Tablet, 1 MG PO DAILY, (Reported) Gabapentin (Gabapentin) 300 Mg Capsule, 300 MG PO DAILY, (Reported) Hydralazine HCl (Hydralazine HCl) 10 Mg Tablet, 10 MG PO BID for 30 Days, #60 Insulin Aspart (Insulin Aspart) 100 Unit/1 Ml Vial, 1 DOSE SC ACHS, (Reported) PER SLIDING SCALE Insulin Detemir (Levemir Flextouch) 100 Unit/1 Ml Insuln.pen, 10 UNIT SC QHS, (Reported) Isosorbide Mononitrate (Isosorbide Mononitrate ER) 30 Mg Tab.er.24h, 30 MG PO DAILY, (Reported) Metolazone (Metolazone) 5 Mg Tablet, 10 MG PO DAILY@0830 for 30 Days, #30 Multivitamins (Thera M Plus Tablet) 1 Each Tablet, 1 TAB PO DAILY, (Reported) Nitroglycerin (Nitroglycerin Patch) 0.4 Mg/Hr Patch.td24, 1 PATCH TOP QHS, (Reported) Pantoprazole Sodium (Pantoprazole Sodium) 40 Mg Tablet.dr, 40 MG PO DAILY, (Reported) Sertraline Hcl (Zoloft) 100 Mg Tablet, 100 MG PO DAILY, (Reported) Torsemide (Torsemide) 20 Mg Tablet, 20 MG PO DAILY for 30 Days, #30 Scheduled PRN Acetaminophen (Acetaminophen) 325 Mg Tablet, 650 MG PO Q4H PRN for PAIN / FEVER, (Reported) Docusate Sodium (Docusate Sodium) 100 Mg Capsule, 100 MG PO DAILY PRN for CONSTIPATION, (Reported) Ipratropium/Albuterol Sulfate (Iprat-Albut 0.5-3(2.5) mg/3 ml) 3 Ml Ampul.neb, 1 VIAL NEB Q4H PRN for SOB/WHEEZING, (Reported) Simethicone (Simethicone) 80 Mg Tab.chew, 120 MG PO TID PRN for GAS PAIN, (Reported) Miscellaneous Medications [Comments] , (Reported) MED LIST MADE WITH 5 DAY M.A.R. SUPPLIED BY YANIRA GRECO MD Aug 11, 2020 11:42
--- NOTE | 2020-08-11 11:52 | IPNPDOC ---
Text Note Date of Service The patient was seen on 08/11/20. NOTE Subjective: No any acute events overnight. Patient denies fever, chills, nausea, vomiting, diarrhea. I explained to patient that most likely he will need a vascular surgery for both legs. Patient agreed to have procedure Objective: GENERAL APPEARANCE: Cachectic male breathing via BiPAP HEENT: no scleral icterus, no JVD, EOMI CARDIOVASCULAR: S1S2 LUNGS: Diminished lung sounds bilaterally ABDOMEN: soft & not tender w palpitation, mildly distended MUSCULOSKELETAL: Left foot has multiple malodorous wounds from stage III to stage IV, left heel has wound around 4 cm stage III, and wound of right heel stage IV , +2 non-pitting edema, and INTEGUMENT: no generalized pallor NEUROLOGICAL: cranial nerve function from 2-12 intact intact, follows commands, speech not dysarthric Assessment and plan Pt is a 74 year old male history of CHF and IDDM who presents with chest pain and dyspnea and found to have acute hypoxic hypercapnic respiratory failure 2/2 CHF exacerbation. He is edematous and has JVD. Acute hypoxemic hypercapnic respiratory failure Secondary to decompensated CHF Continue BiPAP daily at bedtime, supplemental oxygen daytime Improved Diastolic CHF exacerbation Echo was done and showed: Normal LV systolic function. LVEF 60% by visual estimate. Probably normal LV diastolic function for age. Normal left atrial size. Suggestive of at least moderate elevation of estimated right ventricle systolic pressure 64-69 mmHg. Normal right ventricle size and systolic function I's and O's BNP continues to be elevated to 9324 08/05/20. Continue to monitor Patient with decreased from 78.2 kg to 77 kg since admission Continue Lasix IV BID, metolazone Pulmonary edema Most likely secondary to CHF exacerbation Continue Lasix IV CT showed from 08/07/20 The bilateral alveolar infiltrates is significantly improved. The bilateral moderate pleural effusions with compression atelectasis in the adjacent lung are unchanged. The subcutaneous dependent edema has improved. Left upper lobe lung nodules versus subsegmental infiltrate. Acute kidney injury Creatinine 2.02 Continue to monitor Type 2 diabetes Insulin sliding scale Glucose level under control Hypertension/hypertensive urgency Blood pressure under control Continue home cardioprotective medications I added hydralazine 10 mg by mouth every 8 hours Hydralazine IV with parameters Normocytic Anemia Hemoglobin 9.9 No signs of any acute bleed Await stool for occult blood Continue iron supplementation Hyperlipidemia Continue statin Coronary artery diseases status post stents Continue home cardioprotective medications Foot ulcers Stage II to stage III, noninfected Continue follow-up with wound care in the outpatient settings Vascular ultrasound was done yesterday and showed has diffuse calcification as well as diffuse stenoses throughout the bilateral lower extremities. Dr Jillian foster plan to proceed with arteriogram and possible surgical intervention and patient was agreed when I talked to him. Cachexia Patient has reduced muscle mass, temporal wasting Ensure Depression/anxiety Continue Home meds GERD PPI by mouth VS,Fishbone, I+O VS, Fishbone, I+O Laboratory Tests 08/11/20 06:52 Vital Signs Date Time Temp Pulse Resp B/P (MAP) Pulse Ox O2 Delivery O2 Flow Rate FiO2 08/11/20 09:08 79 156/61 08/11/20 06:00 97.7 18 95 Nasal Cannula 1.0 08/10/20 21:34 28 I&O- Last 24 Hours up to 6 AM 08/11/20 06:00 Intake Total 340 ml Output Total 0 ml Balance 340 ml CARL HERNANDEZ DO Aug 11, 2020 11:52
[2020-08-11 14:00] VITALS: BP 127/53
[2020-08-11] MEDS: FUROSEMIDE 20MG/2ML VIAL (J1940) IV SCH (18:00)
[2020-08-11 20:23] VITALS: O2SAT 94
[2020-08-11 22:00] VITALS: BP 139/62
[2020-08-11] MEDS: ATORVASTATIN 20 MG TAB PO SCH (22:28)
[2020-08-12] MEDS: IPRATROPIUM 0.5MG/ALBUTEROL 2.5MG INH SOL UD 3ML (DUONEB) NEB SCH ×4 (01:17→19:56)
[2020-08-12] MEDS: **hydrALAZINE** 10 MG TAB PO SCH ×3 (04:26→20:46)
[2020-08-12 06:00] VITALS: BP 145/61
[2020-08-12 07:34] LABS: BASO % 0.3 % (0.0-1.0); EOS # 0.3 10^3/uL (0.0-0.5); EOS % 4.1 % (0.0-3.0); HEMATOCRIT 30.1 % (42.0-52.0); HEMOGLOBIN 9.1 g/dl (13.5-17.5); LYMPH # 1.1 10^3/uL (1.5-5.0); LYMPH % 17.7 % (24.0-44.0); MEAN CORPUSCULAR HEMOGLOBIN 28.7 pg (27.0-33.0); MEAN CORPUSCULAR HGB CONC 30.2 g/dl (32.0-36.5); MONO # 0.6 10^3/uL (0.0-0.8); MONO % 10.5 % (2.0-8.0); NEUTROPHILS # 4.1 10^3/uL (1.5-8.5); NEUTROPHILS % 66.9 % (36.0-66.0); PLATELET COUNT, AUTOMATED 179 10^3/uL (150-450); RED BLOOD COUNT 3.17 10^6/uL (4.30-6.10); WHITE BLOOD COUNT 6.1 10^3/uL (4.0-10.0)
[2020-08-12 08:04] LABS: ALBUMIN 2.5 GM/DL (3.2-5.2); BILIRUBIN,TOTAL 0.3 MG/DL (0.2-1.0); CALCIUM LEVEL 8.1 MG/DL (8.8-10.2); CREATININE FOR GFR 2.14 MG/DL (0.70-1.30); GLOMERULAR FILTRATION RATE 32.4 (>42); POTASSIUM SERUM 3.8 MEQ/L (3.5-5.1); TOTAL PROTEIN 5.4 GM/DL (6.4-8.2)
[2020-08-12] MEDS: HumaLOG INSULIN (NovoLOG) PER UNIT SC SCH ×4 (08:16→21:00)
[2020-08-12] MEDS: HEPARIN SOD (PORCINE) 5000UNITS/ML 1ML VIAL/SYRINGE SQ SCH ×2 (08:16→20:37)
[2020-08-12] MEDS: ASPIRIN 81 MG CHEW TABLET PO SCH (08:17)
[2020-08-12] MEDS: FOLIC ACID 1 MG TAB PO SCH (08:17)
[2020-08-12] MEDS: SERTRALINE 100 MG TAB PO SCH (08:17)
[2020-08-12] MEDS: PANTOPRAZOLE 40MG TAB (PROTONIX) PO SCH (08:17)
[2020-08-12] MEDS: FERROUS SULFATE 325MG TAB PO SCH ×2 (08:17→20:36)
[2020-08-12] MEDS: CADEXOMER IODINE 10GM (IODOSORB) GEL TOP SCH (08:18)
[2020-08-12] MEDS: ISOSORBIDE MON. (IMDUR) 30 MG XR TAB PO SCH (08:18)
[2020-08-12] MEDS: CARVedilol 3.125 MG TAB PO SCH ×2 (08:18→21:00)
[2020-08-12] MEDS: **NOTE PATIENT COMMENT** MISC XX SCH (08:19)
--- NOTE | 2020-08-12 09:10 | IPNPDOC ---
Text Note Date of Service The patient was seen on 08/12/20. NOTE Vascular Surgery Dr Muñoz. The pt is a 74yo male with atherosclerosis of the [place] arteries, heavily calcified lower extremity vessels, multiple level stenoses, and nonhealing wounds of both feet, right greater than left. Patient is seen and examined this morning with Dr. Muñoz. Plan is to proceed with arteriogram with potential intervention 08/13/20, right lower extremity first since the wounds are the worst. It remains unclear if the patient will be able to tolerate the procedure due to shortness of breath when laying flat, but after discussion with the pt and family it is felt worth trying. If he is unable to tolerate the procedure, Dr. Muñoz has reassured the patient they will stop the procedure. The patient has renal insufficiency with creatinine greater than 2, so plan to use as little contrast as possible. We will also gently hydrate him during the procedure. He accepts the risk of GHASSAN on top of CRI. Continue with local wound care. NPO tonight for procedure 08/13/20. He will not need to hold ASA for procedure. VS,Fishbone, I+O VS, Fishbone, I+O Laboratory Tests 08/12/20 06:47 Vital Signs Date Time Temp Pulse Resp B/P (MAP) Pulse Ox O2 Delivery O2 Flow Rate FiO2 08/12/20 08:18 139/56 08/12/20 08:18 80 08/12/20 06:00 98.2 20 97 Nasal Cannula 2.0 08/11/20 20:23 28 I&O- Last 24 Hours up to 6 AM 08/12/20 05:59 Intake Total 770 ml Output Total 750 ml Balance 20 ml Deya Neff Aug 12, 2020 09:10
[2020-08-12 14:00] VITALS: BP 130/57
--- NOTE | 2020-08-12 15:58 | IPNPDOC ---
Text Note Date of Service The patient was seen on 08/12/20. NOTE Subjective: No any acute events overnight. I discussed with patient interventi onal vascular procedure again. Patient stated that he would like to have it Objective: GENERAL APPEARANCE: Cachectic male breathing via BiPAP HEENT: no scleral icterus, no JVD, EOMI CARDIOVASCULAR: S1S2 LUNGS: Diminished lung sounds bilaterally ABDOMEN: soft & not tender w palpitation, mildly distended MUSCULOSKELETAL: Left foot has multiple malodorous wounds from stage III to stage IV, left heel has wound around 4 cm stage III, and wound of right heel stage IV , +2 non-pitting edema, and INTEGUMENT: no generalized pallor NEUROLOGICAL: cranial nerve function from 2-12 intact intact, follows commands, speech not dysarthric Assessment and plan Pt is a 74 year old male history of CHF and IDDM who presents with chest pain and dyspnea and found to have acute hypoxic hypercapnic respiratory failure 2/2 CHF exacerbation. He is edematous and has JVD. Acute hypoxemic hypercapnic respiratory failure Secondary to decompensated CHF Continue BiPAP daily at bedtime, supplemental oxygen daytime Improved Diastolic CHF exacerbation Echo was done and showed: Normal LV systolic function. LVEF 60% by visual estimate. Probably normal LV diastolic function for age. Normal left atrial size. Suggestive of at least moderate elevation of estimated right ventricle systolic pressure 64-69 mmHg. Normal right ventricle size and systolic function I's and O's BNP continues to be elevated to 9324 08/05/20. Continue to monitor Patient with decreased from 78.2 kg to 69.3 kg since admission Creatinine worsening today, diuretics on hold. Pulmonary edema Most likely secondary to CHF exacerbation Continue Lasix IV CT showed from 08/07/20 The bilateral alveolar infiltrates is significantly improved. The bilateral moderate pleural effusions with compression atelectasis in the adjacent lung are unchanged. The subcutaneous dependent edema has improved. Left upper lobe lung nodules versus subsegmental infiltrate. Acute kidney injury Worsening today, due to upcoming CTA diuretics on hold Continue to monitor Type 2 diabetes Insulin sliding scale Glucose level under control Hypertension/hypertensive urgency Blood pressure under control Continue home cardioprotective medications I added hydralazine 10 mg by mouth every 8 hours Hydralazine IV with parameters Normocytic Anemia Hemoglobin 9.1 No signs of any acute bleed Await stool for occult blood Continue iron supplementation Hyperlipidemia Continue statin Coronary artery diseases status post stents Continue home cardioprotective medications Foot ulcers Stage II to stage III, noninfected Continue follow-up with wound care in the outpatient settings Vascular ultrasound was done and showed has diffuse calcification as well as diffuse stenoses throughout the bilateral lower extremities. Dr Ashley plan to proceed with arteriogram and possible surgical intervention and patient was agreed when I talked to him. Plan is to proceed with arteriogram with potential intervention 08/13/20, right lower extremity first since the wounds are the worst NPO tonight for procedure 08/13/20. Cachexia Patient has reduced muscle mass, temporal wasting Ensure Depression/anxiety Continue Home meds GERD PPI by mouth VS,Fishbone, I+O VS, Fishbone, I+O Laboratory Tests 08/12/20 06:47 Vital Signs Date Time Temp Pulse Resp B/P (MAP) Pulse Ox O2 Delivery O2 Flow Rate FiO2 08/12/20 14:00 98.1 70 19 130/57 (81) 98 Nasal Cannula 2.0 08/11/20 20:23 28 I&O- Last 24 Hours up to 6 AM 08/12/20 06:00 Intake Total 770 ml Output Total 750 ml Balance 20 ml CARL HERNANDEZ DO Aug 12, 2020 15:57
[2020-08-12 19:56] VITALS: O2SAT 95
[2020-08-12 20:35] VITALS: BP 106/74
[2020-08-12] MEDS: ATORVASTATIN 20 MG TAB PO SCH (20:36)
[2020-08-12] MEDS: NITROGLYCERIN 0.4 MG/HR PATCH TOP SCH (21:00)
[2020-08-12 22:00] VITALS: BP 145/63
[2020-08-13] VITALS (8 sets, daily range): BP systolic 104–164; BP diastolic 60–90
[2020-08-13] MEDS: IPRATROPIUM 0.5MG/ALBUTEROL 2.5MG INH SOL UD 3ML (DUONEB) NEB SCH ×4 (00:42→19:23)
[2020-08-13] MEDS: **hydrALAZINE** 10 MG TAB PO SCH ×3 (05:11→20:28)
[2020-08-13 06:32] LABS: BASO % 0.5 % (0.0-1.0); EOS # 0.3 10^3/uL (0.0-0.5); EOS % 4.3 % (0.0-3.0); HEMATOCRIT 28.8 % (42.0-52.0); LYMPH # 1.1 10^3/uL (1.5-5.0); LYMPH % 17.5 % (24.0-44.0); MEAN CORPUSCULAR HEMOGLOBIN 29.4 pg (27.0-33.0); MEAN CORPUSCULAR HGB CONC 31.3 g/dl (32.0-36.5); MEAN CORPUSCULAR VOLUME 94.1 fl (80.0-96.0); MONO # 0.7 10^3/uL (0.0-0.8); MONO % 10.6 % (2.0-8.0); NEUTROPHILS # 4.2 10^3/uL (1.5-8.5); NEUTROPHILS % 66.8 % (36.0-66.0); PLATELET COUNT, AUTOMATED 185 10^3/uL (150-450); RED BLOOD COUNT 3.06 10^6/uL (4.30-6.10); WHITE BLOOD COUNT 6.2 10^3/uL (4.0-10.0)
[2020-08-13 06:57] LABS: ALBUMIN 2.4 GM/DL (3.2-5.2); BILIRUBIN,TOTAL 0.4 MG/DL (0.2-1.0); CREATININE FOR GFR 2.04 MG/DL (0.70-1.30); GLOMERULAR FILTRATION RATE 34.2 (>42); POTASSIUM SERUM 3.8 MEQ/L (3.5-5.1); TOTAL PROTEIN 5.5 GM/DL (6.4-8.2)
[2020-08-13] MEDS: HumaLOG INSULIN (NovoLOG) PER UNIT SC SCH ×4 (08:23→20:31)
[2020-08-13] MEDS: HEPARIN SOD (PORCINE) 5000UNITS/ML 1ML VIAL/SYRINGE SQ SCH ×2 (08:23→20:30)
[2020-08-13] MEDS: FERROUS SULFATE 325MG TAB PO SCH ×2 (08:24→20:27)
[2020-08-13] MEDS: FOLIC ACID 1 MG TAB PO SCH (08:24)
[2020-08-13] MEDS: PANTOPRAZOLE 40MG TAB (PROTONIX) PO SCH (08:24)
[2020-08-13] MEDS: CADEXOMER IODINE 10GM (IODOSORB) GEL TOP SCH (08:24)
[2020-08-13] MEDS: **NOTE PATIENT COMMENT** MISC XX SCH (08:24)
[2020-08-13] MEDS: ASPIRIN 81 MG CHEW TABLET PO SCH (08:24)
[2020-08-13] MEDS: SERTRALINE 100 MG TAB PO SCH (08:24)
[2020-08-13] MEDS: CARVedilol 3.125 MG TAB PO SCH ×2 (08:26→20:29)
[2020-08-13] MEDS: ISOSORBIDE MON. (IMDUR) 30 MG XR TAB PO SCH (10:12)
[2020-08-13] MEDS ORDERED: ISOVUE-300 61% 50ML VIAL As Ordered ONE (13:32)
[2020-08-13] MEDS ORDERED: fentaNYL 100 MCG/2 ML INJECTION (J3010) As Ordered ONE (13:32)
[2020-08-13] MEDS ORDERED: MIDAZOLAM INJ 2MG/2ML VIAL (J2250 PER 1MG) As Ordered ONE (13:32)
[2020-08-13] MEDS ORDERED: LIDOCAINE 1% MDV 20ML VIAL As Ordered ONE (13:32)
--- NOTE | 2020-08-13 15:52 | ROOPDOC ---
[facility] Report Of Operation Report of Operation DATE OF PROCEDURE: 08/13/20 PREPROCEDURE DIAGNOSES: Atherosclerosis in the [place] arteries with nonhealing wound lateral/plantar right foot POSTPROCEDURE DIAGNOSES: Same PROCEDURE: 1. Ultrasound-guided access left common femoral artery 2. Aortoiliofemoral arteriogram 3. Selection right common femoral artery and right popliteal artery with right lower extremity runoff 4. Angioplasty right posterior tibial artery with 2.5 x 220 Raymond balloon 5. Completion arteriograms right lower extremity 6. Runoff left lower extremity from femoral access 7. Mynx closure left common femoral artery SURGEON: Yanira Muñoz MD ANESTHESIA: Local anesthesia 9 mL lidocaine. Moderate intravenous conscious sedation was supervised by Dr. Muñoz. The patient was independently monitored by a registered nurse assigned to the Department of radiology using automated blood pressure, EKG, and pulse oximetry. The details sedation record is primarily stored in the hospital information system. The following is a brief sedation record: Start time 14:14, stop time 14:56, Versed 0.5 mg IV, fentanyl 25 g IV, heparin or thousand units IV. CONTRAST: 49 mL Isovue-300 INDICATION FOR PROCEDURE: This is a very pleasant 74-year-old gentleman with atherosclerosis in the [place] arteries and nonhealing wounds of the bilateral feet. Risks benefits and alternatives to an arteriogram with potential intervention were explained to the patient and his family. We discussed with them the risks of contrast-induced nephropathy with even a small amount of contrast given his renal insufficiency. However, we will uses little contrast since possible, and gently hydrate the patient before during and after the procedure to minimize this risk. Unfortunately, we cannot give him significant hydration due to congestive heart failure. However, he is is optimized to see can be from that standpoint. I also discussed with the patient's family that if he is not able to lay flat and be comfortable during the procedure, we will be happy to stop the procedure any time. He does complain of some difficulty laying flat, but we can elevate him a little bit on a few pillows while keeping him relatively flat. He thinks this will work. Informed consent was obtained. The patient had his sister signed a consent because he said his hand was a little sore, but she says he is able to find his own consents in the future. INTERPRETATION: 1. Distal aorta is patent but calcified, except for a small focal plaque on the right side that makes for a focal area about 20-30% stenotic, but this is not flow-limiting and does not limit flow into the right common iliac artery. The bilateral common iliac arteries were calcified but widely patent. No significant stenosis noted. The hypogastric arteries and external iliac arteries are calcified but widely patent. No significant stenosis noted. Both common femoral arteries have some plaque and ectasia noted, but are otherwise widely patent with no flow limitation into the proximal profunda or SFA bilaterally. 2. The right SFA is widely patent but calcified plaque is noted throughout. However, none of these plaques contribute to more than 10% stenoses, and none of the stenoses are flow-limiting. The patient has a very rapid flow through the right SFA. The popliteal artery on the right also has some proximal calcified plaque, but this does not create a visible stenosis and there is no flow limitation into the tibial vessels. There is widely patent flow into the right anterior tibial artery with good flow all the way through the dorsal pedis artery to the distal foot. There is widely patent flow through the peroneal artery to the ankle. The right posterior tibial artery has some mild stenosis and calcification throughout, including at the origin, and then there is a focal occlusion in the distal third of the vessel, with reconstitution and good flow beyond this into the plantar vessels. 3. After angioplasty of the right posterior tibial artery, there is widely patent flow with no significant residual stenosis, flow limitation, AV fistula, extravasation, dissection, embolization. Final imaging of the right lower extremity shows rapid 3 vessel runoff to the distal foot. 4. Left lower extremity runoff reveals widely patent flow into the profunda and SFA with some heavier calcification in the mid SFA that does not appear to be flow-limiting, and the area has about a 20% stenosis. The rest of the SFA is also calcified but widely patent. No flow limitation is noted and there is rapid. The popliteal artery which is also calcified but widely patent. There is 3 vessel runoff through the left tibial vessels, with the best flow through the posterior tibial artery and peroneal artery, and a near occlusion in the mid anterior tibial artery. There is flow distal to this with good runoff into the dorsal pedis artery. REPORT OF OPERATION: The patient was brought to the angiographic suite in stable condition. His bilateral groins were prepped and draped in a sterile fashion. A timeout was performed. Local anesthesia was administered to the skin and subcutaneous tissue over the left common femoral artery. Sedation was administered without complication. A microneedle was used to access left common femoral artery under ultrasound guidance. A wire was passed through this access needle was removed. A 4 Hebrew sheath was placed and flushed with saline. A Glidewire and flushing catheter were advanced in the distal aorta. Aortoiliofemoral arteriograms were performed, please see interpretation above. We then went up and over the bifurcation with a Glidewire in the flushing catheter and selected the right common femoral artery. Arteriograms were performed. We then advanced a Glidewire down to the popliteal artery and exchange the sheath for a 6 Hebrew by 90 Hebrew destination sheath and selected the right popliteal artery. Tibial vessel runoff was performed. Please see interpretation above. The wire was exchanged for Ebenezer Robertson twitch was advanced in the posterior tibial artery. Utilizing this wire and a 2.5 x 220 Raymond balloon, we are able to cross the occlusion in the posterior tibial artery and advanced the wire and the balloon down to the distal posterior tibial artery near the peel-away vessels. Three-minute inflations were performed along the length of the artery. Following this, the patient had rapid 3 vessel runoff to the foot with no significant residual stenosis. Because we use a little contrast for this case, and because the arterial disease was not as significant as we expected based on the arterial duplex, I thought it was worthwhile to do a quick runoff of the left lower extremity to make sure that we actually need to bring the patient back on Sunday to do the left lower extremity, as he is scheduled. We exchange the wire for 035 Glidewire and exchange the sheath for short 6 Hebrew sheath over the wire. The sheath was flushed with saline. Through the sheath in the left common femoral artery, a left lower extremity runoff was performed, please see interpretation above. We did see stenosis in the mid left SFA and occlusion and anterior tibial artery on the left, so we will in fact bring the patient on Sunday as scheduled to address these 2 issues. Over the weekend, he will be gently hydrated and we will watch his creatinine. As long as his creatinine remains stable after today's procedure, we will plan to proceed on Sunday. Mynx closure device was deployed and left common femoral artery with good hemostasis. Sterile dressings were applied and the patient was taken to recovery in stable condition. He tolerated the procedure and the sedation well. ESTIMATED BLOOD LOSS: Approximately 5 mL. COMPLICATIONS: none. PLAN: Okay to resume preprocedure orders, diet and medications. Bedrest until 8 PM tonight, then light activity as tolerated. Patient should remain flat for 3 hours postprocedure until 6 PM. We will plan to bring the patient back on Sunday for intervention on the left lower extremity. Please continue careful wound care to the bilateral lower extremities per the wound care nurse orders. We plan to b ring the patient back on Sunday for arteriogram and possible intervention for the left lower extremity SFA and tibial disease. We appreciate the opportunity to participate in the care of this patient. YANIRA MUÑOZ MD Aug 13, 2020 15:52
--- NOTE | 2020-08-13 19:49 | IPNPDOC ---
Text Note Date of Service The patient was seen on 08/13/20. NOTE Subjective: No any acute events overnight. Patient denies fever, chills, nausea, diarrhea or dysuria Objective: GENERAL APPEARANCE: NAD HEENT: no scleral icterus, no JVD, EOMI CARDIOVASCULAR: S1S2 LUNGS: Diminished lung sounds bilaterally ABDOMEN: soft & not tender w palpitation, mildly distended MUSCULOSKELETAL: Left foot has multiple malodorous wounds from stage III to st age IV, left heel has wound around 4 cm stage III, and wound of right heel stage IV , +2 non-pitting edema, and INTEGUMENT: no generalized pallor NEUROLOGICAL: cranial nerve function from 2-12 intact intact, follows commands, speech not dysarthric Assessment and plan Pt is a 74 year old male history of CHF and IDDM who presents with chest pain and dyspnea and found to have acute hypoxic hypercapnic respiratory failure 2/2 CHF exacerbation. He is edematous and has JVD. Acute hypoxemic hypercapnic respiratory failure Secondary to decompensated CHF Continue BiPAP daily at bedtime, supplemental oxygen daytime Improved Diastolic CHF exacerbation Echo was done and showed: Normal LV systolic function. LVEF 60% by visual estimate. Probably normal LV diastolic function for age. Normal left atrial size. Suggestive of at least moderate elevation of estimated right ventricle systolic pressure 64-69 mmHg. Normal right ventricle size and systolic function I's and O's BNP continues to be elevated to 9324 08/05/20. Continue to monitor Patient with decreased from 78.2 kg to 69.3 kg since admission Creatinine stable, diuretics on hold. Pulmonary edema Most likely secondary to CHF exacerbation Continue Lasix IV CT showed from 08/07/20 The bilateral alveolar infiltrates is significantly improved. The bilateral moderate pleural effusions with compression atelectasis in the adjacent lung are unchanged. The subcutaneous dependent edema has improved. Left upper lobe lung nodules versus subsegmental infiltrate. Acute kidney injury Worsening today, due to upcoming CTA diuretics on hold Continue to monitor Type 2 diabetes Insulin sliding scale Glucose level under control Hypertension/hypertensive urgency Blood pressure under control Continue home cardioprotective medications I added hydralazine 10 mg by mouth every 8 hours Hydralazine IV with parameters Normocytic Anemia Hemoglobin 9 No signs of any acute bleed stool for occult blood negative Continue iron supplementation Hyperlipidemia Continue statin Coronary artery diseases status post stents Continue home cardioprotective medications Foot ulcers Stage II to stage III, noninfected Continue follow-up with wound care in the outpatient settings Vascular ultrasound was done and showed has diffuse calcification as well as diffuse stenoses throughout the bilateral lower extremities. Dr Ashley plan to proceed with arteriogram and possible surgical intervention and patient was agreed when I talked to him. Plan is to proceed with arteriogram with potential intervention 08/13/20, right lower extremity first since the wounds are the worst Dr. Ashley will proceed with arteriogram today Cachexia Patient has reduced muscle mass, temporal wasting Ensure Depression/anxiety Continue Home meds GERD PPI by mouth VS,Fishbone, I+O VS, Fishbone, I+O Laboratory Tests 08/13/20 06:11 Vital Signs Date Time Temp Pulse Resp B/P (MAP) Pulse Ox O2 Delivery O2 Flow Rate FiO2 08/13/20 19:00 98.3 82 17 150/60 (90) 90 Nasal Cannula 2.0 08/12/20 19:56 28 I&O- Last 24 Hours up to 6 AM 08/13/20 06:00 Intake Total 760 ml Output Total 350 ml Balance 410 ml CARL HERNANDEZ DO Aug 13, 2020 19:49
[2020-08-13] MEDS: ATORVASTATIN 20 MG TAB PO SCH (20:27)
[2020-08-13] MEDS: NITROGLYCERIN 0.4 MG/HR PATCH TOP SCH (20:31)
[2020-08-14] MEDS: IPRATROPIUM 0.5MG/ALBUTEROL 2.5MG INH SOL UD 3ML (DUONEB) NEB SCH ×4 (01:03→19:27)
[2020-08-14] MEDS: **hydrALAZINE** 10 MG TAB PO SCH ×3 (04:43→20:00)
[2020-08-14 06:00] VITALS: BP 147/58
[2020-08-14 06:20] LABS: BASO % 0.3 % (0.0-1.0); EOS # 0.3 10^3/uL (0.0-0.5); EOS % 4.5 % (0.0-3.0); HEMATOCRIT 32.1 % (42.0-52.0); LYMPH # 0.8 10^3/uL (1.5-5.0); LYMPH % 13.8 % (24.0-44.0); MEAN CORPUSCULAR HEMOGLOBIN 29.6 pg (27.0-33.0); MEAN CORPUSCULAR HGB CONC 31.2 g/dl (32.0-36.5); MONO # 0.6 10^3/uL (0.0-0.8); MONO % 10.1 % (2.0-8.0); NEUTROPHILS # 4.3 10^3/uL (1.5-8.5); NEUTROPHILS % 71.1 % (36.0-66.0); PLATELET COUNT, AUTOMATED 208 10^3/uL (150-450); RED BLOOD COUNT 3.38 10^6/uL (4.30-6.10)
[2020-08-14 06:52] LABS: ALBUMIN 2.5 GM/DL (3.2-5.2); BILIRUBIN,TOTAL 0.4 MG/DL (0.2-1.0); CALCIUM LEVEL 8.1 MG/DL (8.8-10.2); CREATININE FOR GFR 1.75 MG/DL (0.70-1.30); GLOMERULAR FILTRATION RATE 40.9 (>42); MAGNESIUM LEVEL 2.2 MG/DL (1.8-2.4); POTASSIUM SERUM 4.4 MEQ/L (3.5-5.1); TOTAL PROTEIN 5.8 GM/DL (6.4-8.2)
[2020-08-14] MEDS: HumaLOG INSULIN (NovoLOG) PER UNIT SC SCH ×4 (08:13→21:00)
[2020-08-14] MEDS: FERROUS SULFATE 325MG TAB PO SCH ×2 (08:13→21:17)
[2020-08-14] MEDS: ASPIRIN 81 MG CHEW TABLET PO SCH (08:13)
[2020-08-14] MEDS: CADEXOMER IODINE 10GM (IODOSORB) GEL TOP SCH (08:13)
[2020-08-14] MEDS: SERTRALINE 100 MG TAB PO SCH (08:13)
[2020-08-14] MEDS: FUROSEMIDE 20MG/2ML VIAL (J1940) IV SCH ×2 (08:14→17:36)
[2020-08-14] MEDS: HEPARIN SOD (PORCINE) 5000UNITS/ML 1ML VIAL/SYRINGE SQ SCH ×2 (08:14→21:17)
[2020-08-14] MEDS: CARVedilol 3.125 MG TAB PO SCH ×2 (08:17→22:14)
[2020-08-14] MEDS: ISOSORBIDE MON. (IMDUR) 30 MG XR TAB PO SCH (08:17)
[2020-08-14] MEDS: PANTOPRAZOLE 40MG TAB (PROTONIX) PO SCH (08:45)
[2020-08-14] MEDS: FOLIC ACID 1 MG TAB PO SCH (08:45)
[2020-08-14 09:00] VITALS: BP 124/40
[2020-08-14] MEDS: **NOTE PATIENT COMMENT** MISC XX SCH (09:00)
--- NOTE | 2020-08-14 12:45 | IPNPDOC ---
Date Seen The patient was seen on 08/14/20. Progress Note Patient seen and examined postop day 1 status post arteriogram right lower extremity with tibial intervention. He is doing well. Left groin access site is clean dry and intact with no hematoma present. Patient has palpable pulses at the DP and PT, biphasic signals. The foot is warm and well-perfused and clean dressings have been placed by the nurses this morning. We will plan for left lower extremity SFA and tibial intervention on Sunday if his creatinine remained stable. Creatinine is down from 2 to 1.7 after procedure yesterday, GFR to up to 40. We are pleased to see this. We appreciate the opportunity to participate in the care of this patient. VS, I&O, 24H, Fishbone Vital Signs/I&O Vital Signs Date Time Temp Pulse Resp B/P (MAP) Pulse Ox O2 Delivery O2 Flow Rate FiO2 08/14/20 09:00 97.2 73 18 124/40 (68) 94 Room Air 08/14/20 06:00 1.0 08/12/20 19:56 28 I&O- Last 24 Hours up to 6 AM 08/14/20 06:00 Intake Total 330 ml Output Total 300 ml Balance 30 ml Laboratory Data 24H LABS Laboratory Tests 2 08/13/20 16:40: Bedside Glucose (Misc Panel) 141H 08/13/20 20:21: Bedside Glucose (Misc Panel) 134H 08/14/20 05:20: Immature Granulocyte % (Auto) 0.2, Neutrophils (%) (Auto) 71.1H, Lymphocytes (%) (Auto) 13.8L, Monocytes (%) (Auto) 10.1H, Eosinophils (%) (Auto) 4.5H, Basophils (%) (Auto) 0.3, Neutrophils # (Auto) 4.3, Lymphocytes # (Auto) 0.8L, Monocytes # (Auto) 0.6, Eosinophils # (Auto) 0.3, Basophils # (Auto) 0.0, Nucleated Red Blood Cells % (auto) 0.0, Anion Gap 3L, Glomerular Filtration Rate 40.9L, Calcium Level 8.1L, Magnesium Level 2.2, Total Bilirubin 0.4, Aspartate Amino Transf (AST/SGOT) 13, Alanine Aminotransferase (ALT/SGPT) 12, Alkaline Phosphatase 120H, Total Protein 5.8L, Albumin 2.5L, Albumin/Globulin Ratio 0.8 08/14/20 11:50: Bedside Glucose (Misc Panel) 193H CBC/BMP Laboratory Tests 08/14/20 05:20 Microbiology Microbiology 08/13/20 Stool Occult Blood (JOSHUA) - Final, Complete YANIRA RAINEY MD Aug 14, 2020 12:45
[2020-08-14 14:00] VITALS: BP 115/43
--- NOTE | 2020-08-14 14:34 | IPNPDOC ---
Text Note Date of Service The patient was seen on 08/14/20. NOTE Subjective: Patient stated that he feels better today. He tolerated arteriogram well Objective: GENERAL APPEARANCE: NAD HEENT: no scleral icterus, no JVD, EOMI CARDIOVASCULAR: S1S2 LUNGS: Diminished lung sounds bilaterally ABDOMEN: soft & not tender w palpitation, mildly distended MUSCULOSKELETAL: Both legs covered with dressing INTEGUMENT: no generalized pallor NEUROLOGICAL: cranial nerve function from 2-12 intact intact, follows commands, speech not dysarthric Assessment and plan Pt is a 74 year old male history of CHF and IDDM who presents with chest pain and dyspnea and found to have acute hypoxic hypercapnic respiratory failure 2/2 CHF exacerbation. He is edematous and has JVD. Acute hypoxemic hypercapnic respiratory failure Secondary to decompensated CHF Continue BiPAP daily at bedtime, supplemental oxygen daytime Improved Diastolic CHF exacerbation Echo was done and showed: Normal LV systolic function. LVEF 60% by visual estimate. Probably normal LV diastolic function for age. Normal left atrial size. Suggestive of at least moderate elevation of estimated right ventricle systolic pressure 64-69 mmHg. Normal right ventricle size and systolic function I's and O's BNP continues to be elevated to 9324 08/05/20. Continue to monitor Patient with decreased from 78.2 kg to 69.3 kg since admission Creatinine 1.7 improved Pulmonary edema Most likely secondary to CHF exacerbation Continue Lasix IV CT showed from 08/07/20 The bilateral alveolar infiltrates is significantly improved. The bilateral moderate pleural effusions with compression atelectasis in the adjacent lung are unchanged. The subcutaneous dependent edema has improved. Left upper lobe lung nodules versus subsegmental infiltrate. Acute kidney injury Improved today, creatinine 1.7 Continue to monitor Type 2 diabetes Insulin sliding scale Glucose level under control Hypertension/hypertensive urgency Blood pressure under control Continue home cardioprotective medications I added hydralazine 10 mg by mouth every 8 hours Hydralazine IV with parameters Normocytic Anemia Hemoglobin stable No signs of any acute bleed stool for occult blood negative Continue iron supplementation Hyperlipidemia Continue statin Coronary artery diseases status post stents Continue home cardioprotective medications Foot ulcers Stage II to stage III, noninfected Continue follow-up with wound care in the outpatient settings Vascular ultrasound was done and showed has diffuse calcification as well as diffuse stenoses throughout the bilateral lower extremities. Dr Ashley plan to proceed with arteriogram and possible surgical intervention and patient was agreed when I talked to him. Plan was to proceed with arteriogram with potential intervention 08/13/20, right lower extremity first since the wounds are the worst Dr. Ashley did arteriogram right lower extremity with tibial intervention on 08/13/20 Cachexia Patient has reduced muscle mass, temporal wasting Ensure Depression/anxiety Continue Home meds GERD PPI by mouth VS,Fishbone, I+O VS, Fishbone, I+O Laboratory Tests 08/14/20 05:20 Vital Signs Date Time Temp Pulse Resp B/P (MAP) Pulse Ox O2 Delivery O2 Flow Rate FiO2 08/14/20 12:57 120/48 08/14/20 09:00 97.2 73 18 94 Room Air 08/14/20 06:00 1.0 08/12/20 19:56 28 I&O- Last 24 Hours up to 6 AM 08/14/20 06:00 Intake Total 330 ml Output Total 300 ml Balance 30 ml CARL HERNANDEZ DO Aug 14, 2020 14:34
[2020-08-14 19:27] VITALS: O2SAT 95
[2020-08-14] MEDS: NITROGLYCERIN 0.4 MG/HR PATCH TOP SCH (21:00)
[2020-08-14] MEDS: ATORVASTATIN 20 MG TAB PO SCH (21:18)
[2020-08-14 22:00] VITALS: BP 122/57
[2020-08-15] MEDS: IPRATROPIUM 0.5MG/ALBUTEROL 2.5MG INH SOL UD 3ML (DUONEB) NEB SCH ×4 (01:27→21:47)
[2020-08-15] MEDS: **hydrALAZINE** 10 MG TAB PO SCH ×2 (03:59→20:19)
[2020-08-15 05:49] LABS: BASO % 0.5 % (0.0-1.0); EOS # 0.3 10^3/uL (0.0-0.5); EOS % 4.1 % (0.0-3.0); HEMATOCRIT 30.7 % (42.0-52.0); HEMOGLOBIN 9.4 g/dl (13.5-17.5); LYMPH # 1.1 10^3/uL (1.5-5.0); LYMPH % 17.5 % (24.0-44.0); MEAN CORPUSCULAR HEMOGLOBIN 28.8 pg (27.0-33.0); MEAN CORPUSCULAR HGB CONC 30.6 g/dl (32.0-36.5); MEAN CORPUSCULAR VOLUME 94.2 fl (80.0-96.0); MONO # 0.8 10^3/uL (0.0-0.8); MONO % 11.8 % (2.0-8.0); NEUTROPHILS # 4.3 10^3/uL (1.5-8.5); NEUTROPHILS % 65.8 % (36.0-66.0); PLATELET COUNT, AUTOMATED 189 10^3/uL (150-450); RED BLOOD COUNT 3.26 10^6/uL (4.30-6.10); WHITE BLOOD COUNT 6.5 10^3/uL (4.0-10.0)
[2020-08-15 06:00] VITALS: BP 140/59
[2020-08-15 06:11] LABS: ALBUMIN 2.4 GM/DL (3.2-5.2); BILIRUBIN,TOTAL 0.4 MG/DL (0.2-1.0); CALCIUM LEVEL 8.7 MG/DL (8.8-10.2); CREATININE FOR GFR 2.11 MG/DL (0.70-1.30); GLOMERULAR FILTRATION RATE 32.9 (>42); MAGNESIUM LEVEL 2.1 MG/DL (1.8-2.4); POTASSIUM SERUM 3.8 MEQ/L (3.5-5.1); TOTAL PROTEIN 6.1 GM/DL (6.4-8.2)
[2020-08-15] MEDS: SERTRALINE 100 MG TAB PO SCH (08:08)
[2020-08-15] MEDS: FERROUS SULFATE 325MG TAB PO SCH ×2 (08:08→20:19)
[2020-08-15] MEDS: ASPIRIN 81 MG CHEW TABLET PO SCH (08:08)
[2020-08-15] MEDS: PANTOPRAZOLE 40MG TAB (PROTONIX) PO SCH (08:08)
[2020-08-15] MEDS: FOLIC ACID 1 MG TAB PO SCH (08:08)
[2020-08-15] MEDS: HumaLOG INSULIN (NovoLOG) PER UNIT SC SCH ×4 (08:08→21:00)
[2020-08-15] MEDS: **NOTE PATIENT COMMENT** MISC XX SCH (08:09)
[2020-08-15] MEDS: HEPARIN SOD (PORCINE) 5000UNITS/ML 1ML VIAL/SYRINGE SQ SCH ×2 (08:09→20:18)
[2020-08-15] MEDS: CARVedilol 3.125 MG TAB PO SCH ×2 (08:13→20:19)
[2020-08-15] MEDS: ISOSORBIDE MON. (IMDUR) 30 MG XR TAB PO SCH (08:20)
[2020-08-15] MEDS: CADEXOMER IODINE 10GM (IODOSORB) GEL TOP SCH (08:23)
[2020-08-15] MEDS: FUROSEMIDE 20MG/2ML VIAL (J1940) IV SCH (10:54)
--- NOTE | 2020-08-15 13:53 | IPNPDOC ---
Text Note Date of Service The patient was seen on 08/15/20. NOTE Subjective: No any acute events overnight. Pt breathing on the RA Objective: GENERAL APPEARANCE: NAD HEENT: no scleral icterus, no JVD, EOMI CARDIOVASCULAR: S1S2 LUNGS: Diminished lung sounds bilaterally ABDOMEN: soft & not tender w palpitation, mildly distended MUSCULOSKELETAL: Both legs covered with dressing INTEGUMENT: no generalized pallor NEUROLOGICAL: cranial nerve function from 2-12 intact intact, follows commands, speech not dysarthric Assessment and plan Pt is a 74 year old male history of CHF and IDDM who presents with chest pain and dyspnea and found to have acute hypoxic hypercapnic respiratory failure 2/2 CHF exacerbation. . Acute hypoxemic hypercapnic respiratory failure Secondary to decompensated CHF Continue BiPAP daily at bedtime, supplemental oxygen daytime PRN Improved Diastolic CHF exacerbation Echo was done and showed: Normal LV systolic function. LVEF 60% by visual estimate. Probably normal LV diastolic function for age. Normal left atrial size. Suggestive of at least moderate elevation of estimated right ventricle systolic pressure 64-69 mmHg. Normal right ventricle size and systolic function I's and O's BNP continues to be elevated to 9324 08/05/20. Continue to monitor Patient with decreased from 78.2 kg to 69.4 kg since admission Creatinine 2.11 Pulmonary edema Most likely secondary to CHF exacerbation Continue Lasix IV CT showed from 08/07/20 The bilateral alveolar infiltrates is significantly improved. The bilateral moderate pleural effusions with compression atelectasis in the adjacent lung are unchanged. The subcutaneous dependent edema has improved. Left upper lobe lung nodules versus subsegmental infiltrate. Acute kidney injury Worsening today, Continue to monitor Type 2 diabetes Insulin sliding scale Glucose level under control Hypertension/hypertensive urgency Blood pressure under control Continue home cardioprotective medications Hydralazine 10 mg twice a day Hydralazine IV with parameters Normocytic Anemia Hemoglobin stable No signs of any acute bleed stool for occult blood negative Continue iron supplementation Hyperlipidemia Continue statin Coronary artery diseases status post stents Continue home cardioprotective medications Foot ulcers Stage II to stage III, noninfected Continue follow-up with wound care in the outpatient settings Vascular ultrasound was done and showed has diffuse calcification as well as diffuse stenoses throughout the bilateral lower extremities. Dr Ashley plan to proceed with arteriogram and possible surgical intervention and patient was agreed when I talked to him. Plan was to proceed with arteriogram with potential intervention 08/13/20, right lower extremity first since the wounds are the worst Dr. Ashley did arteriogram right lower extremity with tibial intervention on 08/13/20 Cachexia Patient has reduced muscle mass, temporal wasting Ensure Depression/anxiety Continue Home meds GERD PPI by mouth VS,Fishbone, I+O VS, Fishbone, I+O Laboratory Tests 08/15/20 05:26 Vital Signs Date Time Temp Pulse Resp B/P (MAP) Pulse Ox O2 Delivery O2 Flow Rate FiO2 08/15/20 08:20 75 08/15/20 08:20 108/54 08/15/20 06:00 98.2 18 93 Nasal Cannula 1.0 08/14/20 19:27 25 I&O- Last 24 Hours up to 6 AM 08/15/20 06:00 Intake Total 1388 ml Output Total 925 ml Balance 463 ml CARL HERNANDEZ DO Aug 15, 2020 13:53
[2020-08-15 14:00] VITALS: BP 123/54
[2020-08-15] MEDS: ATORVASTATIN 20 MG TAB PO SCH (20:19)
[2020-08-15] MEDS: NITROGLYCERIN 0.4 MG/HR PATCH TOP SCH (20:20)
[2020-08-15 21:48] VITALS: O2SAT 95
[2020-08-15 22:00] VITALS: BP 144/63
[2020-08-16] VITALS (8 sets, daily range): BP systolic 100–146; BP diastolic 62–71
[2020-08-16] MEDS: IPRATROPIUM 0.5MG/ALBUTEROL 2.5MG INH SOL UD 3ML (DUONEB) NEB SCH ×4 (01:54→19:26)
[2020-08-16] MEDS ORDERED: ISOVUE-300 61% 50ML VIAL As Ordered ONE (06:37)
[2020-08-16] MEDS ORDERED: LIDOCAINE 1% MDV 20ML VIAL As Ordered ONE (06:37)
[2020-08-16 07:03] LABS: BASO % 0.4 % (0.0-1.0); EOS # 0.3 10^3/uL (0.0-0.5); HEMATOCRIT 28.3 % (42.0-52.0); HEMOGLOBIN 8.8 g/dl (13.5-17.5); LYMPH # 1.4 10^3/uL (1.5-5.0); LYMPH % 24.6 % (24.0-44.0); MEAN CORPUSCULAR HEMOGLOBIN 29.5 pg (27.0-33.0); MEAN CORPUSCULAR HGB CONC 31.1 g/dl (32.0-36.5); MONO # 0.6 10^3/uL (0.0-0.8); MONO % 10.8 % (2.0-8.0); NEUTROPHILS # 3.3 10^3/uL (1.5-8.5); NEUTROPHILS % 57.8 % (36.0-66.0); PLATELET COUNT, AUTOMATED 202 10^3/uL (150-450); RED BLOOD COUNT 2.98 10^6/uL (4.30-6.10); WHITE BLOOD COUNT 5.6 10^3/uL (4.0-10.0)
[2020-08-16] MEDS ORDERED: fentaNYL 100 MCG/2 ML INJECTION (J3010) As Ordered ONE (07:09)
[2020-08-16] MEDS ORDERED: MIDAZOLAM INJ 2MG/2ML VIAL (J2250 PER 1MG) As Ordered ONE (07:09)
[2020-08-16] MEDS: HumaLOG INSULIN (NovoLOG) PER UNIT SC SCH ×4 (07:30→20:38)
[2020-08-16 07:34] LABS: ALBUMIN 2.3 GM/DL (3.2-5.2); BILIRUBIN,TOTAL 0.3 MG/DL (0.2-1.0); POTASSIUM SERUM 4.2 MEQ/L (3.5-5.1); TOTAL PROTEIN 5.2 GM/DL (6.4-8.2)
[2020-08-16] MEDS: **NOTE PATIENT COMMENT** MISC XX SCH (09:00)
--- NOTE | 2020-08-16 09:44 | ROOPDOC ---
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 Ultrasound-guided access right common femoral artery 2. Selection left common femoral artery and left popliteal artery with right lower extremity runoff 3. Angioplasty left superficial femoral artery with 6 x 200 Moran balloon 4. Stent to left mid distal superficial femoral artery with 6 x 150 Innova stent and post-dilation with Moran balloon 5. Angioplasty left anterior tibial artery with 3 x 100 Moran balloon 6. Angioplasty left peroneal and anterior tibial artery with 2.5 x 220 Raymond balloon 7. Completion arteriograms left lower extremity 8. Mynx closure right common femoral artery SURGEON: Farida Muñoz MD ANESTHESIA: Local anesthesia 5 mL lidocaine. Moderate intravenous conscious sedation was supervised by Dr. Muñoz. The patient was independently monitored by a registered nurse assigned to the Department of radiology using automated blood pressure, EKG, and pulse oximetry. The details sedation record is primarily stored in the hospital information system. The following is a brief sedation record: Start time 07:52, stop time 09:01, Versed 0.5 mg IV, fentanyl 25 g IV, heparin 4000 units IV. CONTRAST: 29 mL Isovue-300 INDICATION FOR PROCEDURE: This is a very pleasant 74-year-old gentleman with atherosclerosis in the torres martinez arteries and nonhealing wounds of the bilateral feet. Risks benefits and alternatives to an arteriogram left lower extremity with potential intervention were explained to the patient and his family. We discussed with them the risks of contrast-induced nephropathy with even a small amount of contrast given his renal insufficiency. However, we will uses little contrast since possible, and gently hydrate the patient before during and after the procedure to minimize this risk. Unfortunately, we cannot give him signifi cant hydration due to congestive heart failure. However, he is is optimized to see can be from that standpoint. His creatinine actually went down after his last procedure, and GFR went up slightly. He is currently at his baseline renal insufficiency today. I also discussed with the patient's family that if he is not able to lay flat and be comfortable during the procedure, we will be happy to stop the procedure any time, he did well on Sunday so we are hopeful he will tolerate it well again today. Informed consent was obtained. The patient had his sister signed a consent because he said his hand was a little sore, but she says he is able to find his own consents in the future. INTERPRETATION: 1. Left lower extremity runoff reveals widely patent flow into the profunda and SFA with some heavier calcification in the mid SFA that is mildly flow-limiting, and the area has about a 20% stenosis visualize, but I anticipate it is somewhat more along the posterior wall. The rest of the SFA is also calcified but widely patent. There is 3 vessel runoff through the left tibial vessels, with the best flow through the anterior tibial artery and peroneal artery, and a near occlusion in the mid posterior tibial artery. There is flow distal to this with good runoff into the pedal vessels. 2. After angioplasty the length of the SFA with a 6 x 200 Moran balloon, there is a marked improvement flow in the proximal SFA, but there is some irregularity and dissection from heavier plaque than expected in the mid distal SFA. After the stenting and post dilating the area, it is widely patent with no significant residual stenosis and rapid flow. 3. After angioplasty of the posterior tibial artery with a 3 x 100 Moran balloon, there is widely patent flow with no dissection embolization extravasation or residual stenosis. Rapid flow noted to the distal foot. However, we noticed more sluggish flow through the anterior tibial artery and the mid distal peroneal artery. After angioplasty of both of these with a 2.5 x 220 Raymond balloon, there is rapid 3 vessel runoff to the foot. There is a little bit of spasm in the dorsal pedis artery from our wire, but that will resolve with a bit of time. There is a marked improvement if flow to the foot. Distal pedal vessels are widely patent. No extravasation, embolization, or dissections noted. REPORT OF OPERATION: The patient was brought to the angiographic suite in stable condition. His bilateral groins were prepped and draped in a sterile fashion. A timeout was performed. Local anesthesia was administered to the skin and subcutaneous tissue over the right common femoral artery. Sedation was administered without complication. A microneedle was used to access right common femoral artery under ultrasound guidance. A wire was passed through this access needle was removed. A 4 Hungarian sheath was placed and flushed with saline. A Glidewire and flushing catheter were advanced in the distal aorta and then we went up and over the bifurcation with a Glidewire in the flushing catheter and selected the left common femoral artery. Arteriograms of the left lower extremity were performed. We then advanced a Glidewire down to the popliteal ar cl and exchange the sheath for a 6 Hungarian by 60 cm destination sheath, but it was challenging to advance the sheath over the bifurcation. The tip of the sheath was left in the common iliac artery on the right, we removed the inner cannula and flushed sheath with saline, and we advanced a glide cath over the wire. We attempted to exchange the wire for a stiff Amplatz wire in order to better separate the bifurcation and passed the sheath up and over. Unfortunately, instead, the sheath backed out from the common iliac artery out of the femoral artery all we're attempting to advance the wire. There was only a few seconds were the sheath was outside of the vessel, and we readvanced it over the glide cath into the vessel, but still there was a small hematoma present at that time. No active bleeding noted afterwards. We monitored the groin closely throughout the case. Eventually, we were able to advance the wire and the catheter and the sheath up and over the bifurcation into the left common femoral artery. We then advanced a Glidewire to the popliteal artery and utilized a 6 x 200 Moran balloon to angioplasty from the origin to the distal SFA for three- minute inflations. Following this, there is widely patent flow proximally, but some irregularity in the mid and distal SFA, from heavy plaque, as well as a dissection in the mid distal aspect. A 6 x 150 Innova stent was placed just distal to Brandyn's canal to the mid SFA. This was postdilated with a 6 x 200 balloon. Following this is widely patent flow, no dissection, no embolization, no extravasation noted with rapid flow and no significant residual stenosis. We then replaced the inner cannula of the sheath and advanced it to the mid distal SFA through the stent. The inner cannula was removed and the sheath was flushed with saline. We advanced a Glidewire into the posterior tibial artery distal to the near occlusion, and a 3 x 100 Moran balloon was used angioplasty the mid distal posterior tibial artery. Following this there is widely patent flow with rapid flow to the distal foot, but we noticed more sluggish flow in the anterior tibial and peroneal artery. We therefore exchange the wire for a 018 Glidewire advantage advanced his into the anterior tibial artery distally Along the length of the vessel, 2.5 x 220 Raymond balloon was used to gently angioplasty. We then advanced the wire and the balloon into the mid distal peroneal artery and a three-minute inflations was performed. Following this, there is widely patent flow through the tibial vessels, no extravasation embolization R extravasation noted. No significant residual stenosis. A small amount of spasm was noticed that the dorsal pedis artery, but this will resolve with a bit of time. This did not impede flow to the distal foot. The pedal vessels are widely patent. We then exchanged the wire for 035 Glidewire and exchange the sheath for short 6 Hungarian sheath over the wire. The sheath was flushed with saline. Mynx closure device was deployed and right common femoral artery with good hemostasis. Sterile dressings were applied and the patient was taken to recovery in stable condition. He tolerated the procedure and the sedation well. He did have a small palpable hematoma in the right groin from earlier in the case when the sheath backed out for a few seconds, but no large or expanding hematoma was present, no active bleeding was noted. ESTIMATED BLOOD LOSS: Approximately 5 mL. COMPLICATIONS: none. PLAN: The patient will need to be on Plavix for 60 days postprocedure. We will start this this afternoon to make sure he does not have any new bleeding or oozing from the right groin. Okay to resume preprocedure orders, diet and medications. Bedrest until 2 PM this afternoon, then light activity as tolerated. Patient should remain flat for 3 hours postprocedure until 12 PM. Please continue careful wound care to the bilateral lower extremities per the wound care nurse orders. We appreciate the opportunity to participate in the care of this patient. FARIDA MUÑOZ MD Aug 16, 2020 09:44
[2020-08-16] MEDS: FOLIC ACID 1 MG TAB PO SCH (10:23)
[2020-08-16] MEDS: ASPIRIN 81 MG CHEW TABLET PO SCH (10:23)
[2020-08-16] MEDS: CARVedilol 3.125 MG TAB PO SCH ×2 (10:24→20:39)
[2020-08-16] MEDS: FERROUS SULFATE 325MG TAB PO SCH ×2 (10:24→20:38)
[2020-08-16] MEDS: PANTOPRAZOLE 40MG TAB (PROTONIX) PO SCH (10:24)
[2020-08-16] MEDS: SERTRALINE 100 MG TAB PO SCH (10:24)
[2020-08-16] MEDS: ISOSORBIDE MON. (IMDUR) 30 MG XR TAB PO SCH (10:25)
[2020-08-16] MEDS: **hydrALAZINE** 10 MG TAB PO SCH ×2 (10:25→20:41)
[2020-08-16] MEDS: FUROSEMIDE 20MG/2ML VIAL (J1940) IV SCH (10:26)
[2020-08-16] MEDS: CADEXOMER IODINE 10GM (IODOSORB) GEL TOP SCH (10:26)
[2020-08-16] MEDS: HEPARIN SOD (PORCINE) 5000UNITS/ML 1ML VIAL/SYRINGE SQ SCH ×2 (10:28→20:37)
[2020-08-16] MEDS ORDERED: CLOPIDOGREL 75 MG TAB PO ONE (15:00)
--- NOTE | 2020-08-16 17:48 | IPNPDOC ---
Text Note Date of Service The patient was seen on 08/16/20. NOTE Subjective: Patient stated that he tolerates procedure well. No fever, no chi lls. Objective: GENERAL APPEARANCE: NAD HEENT: no scleral icterus, no JVD, EOMI CARDIOVASCULAR: S1S2 LUNGS: Diminished lung sounds bilaterally ABDOMEN: soft & not tender w palpitation, mildly distended MUSCULOSKELETAL: Both legs covered with dressing INTEGUMENT: no generalized pallor NEUROLOGICAL: cranial nerve function from 2-12 intact intact, follows commands, speech not dysarthric Assessment and plan Pt is a 74 year old male history of CHF and IDDM who presents with chest pain and dyspnea and found to have acute hypoxic hypercapnic respiratory failure 2/2 CHF exacerbation. . Acute hypoxemic hypercapnic respiratory failure Secondary to decompensated CHF Continue BiPAP daily at bedtime, supplemental oxygen daytime PRN Improved Diastolic CHF exacerbation Echo was done and showed: Normal LV systolic function. LVEF 60% by visual estimate. Probably normal LV diastolic function for age. Normal left atrial size. Suggestive of at least moderate elevation of estimated right ventricle systolic pressure 64-69 mmHg. Normal right ventricle size and systolic function I's and O's BNP continues to be elevated to 9324 08/05/20. Continue to monitor Creatinine 2.0 Patient received intensive diuresis with Lasix IV and metolazone with positive dynamics Pulmonary edema Most likely secondary to CHF exacerbation Continue Lasix IV CT showed from 08/07/20 The bilateral alveolar infiltrates is significantly improved. The bilateral moderate pleural effusions with compression atelectasis in the adjacent lung are unchanged. The subcutaneous dependent edema has improved. Left upper lo be lung nodules versus subsegmental infiltrate. Acute kidney injury Improved today Continue to monitor Type 2 diabetes Insulin sliding scale Glucose level under control Hypertension/hypertensive urgency Blood pressure under control Continue home cardioprotective medications Hydralazine 10 mg twice a day Hydralazine IV with parameters Normocytic Anemia Hemoglobin stable No signs of any acute bleed stool for occult blood negative Continue iron supplementation Hyperlipidemia Continue statin Coronary artery diseases status post stents Continue home cardioprotective medications Foot ulcers Stage II to stage III, noninfected Continue follow-up with wound care in the outpatient settings Vascular ultrasound was done and showed has diffuse calcification as well as diffuse stenoses throughout the bilateral lower extremities. Dr Ashley plan to proceed with arteriogram and possible surgical intervention and patient was agreed when I talked to him. Plan was to proceed with arteriogram with potential intervention 08/13/20, right lower extremity first since the wounds are the worst Dr. Ashley did arteriogram right lower extremity with tibial intervention on 08/13/20. On 08/16/20 surgical team did Angioplasty left superficial femoral artery, Stent to left mid distal superficial femoral artery, Angioplasty left anterior tibial artery, Angioplasty left peroneal and anterior tibial artery Restart Plavix for 60 days after surgery We will continue wound care Cachexia Patient has reduced muscle mass, temporal wasting Ensure Depression/anxiety Continue Home meds GERD PPI by mouth VS,Fishbone, I+O VS, Fishbone, I+O Laboratory Tests 08/16/20 05:35 Vital Signs Date Time Temp Pulse Resp B/P (MAP) Pulse Ox O2 Delivery O2 Flow Rate FiO2 08/16/20 15:00 98.0 74 18 146/64 (91) 95 Room Air 08/16/20 09:10 1.0 08/15/20 21:48 28 I&O- Last 24 Hours up to 6 AM 08/16/20 06:00 Intake Total 730 ml Output Total 375 ml Balance 355 ml CARL HERNANDEZ DO Aug 16, 2020 17:48
[2020-08-16] MEDS: NITROGLYCERIN 0.4 MG/HR PATCH TOP SCH (20:38)
[2020-08-16] MEDS: ATORVASTATIN 20 MG TAB PO SCH (20:39)
[2020-08-17] MEDS: IPRATROPIUM 0.5MG/ALBUTEROL 2.5MG INH SOL UD 3ML (DUONEB) NEB SCH ×2 (01:21→07:04)
[2020-08-17 06:00] VITALS: BP 135/59
[2020-08-17 06:02] LABS: BASO % 0.3 % (0.0-1.0); EOS # 0.2 10^3/uL (0.0-0.5); EOS % 2.7 % (0.0-3.0); HEMATOCRIT 29.3 % (42.0-52.0); HEMOGLOBIN 9.1 g/dl (13.5-17.5); LYMPH # 0.9 10^3/uL (1.5-5.0); LYMPH % 12.9 % (24.0-44.0); MEAN CORPUSCULAR HGB CONC 31.1 g/dl (32.0-36.5); MEAN CORPUSCULAR VOLUME 93.3 fl (80.0-96.0); MONO # 0.8 10^3/uL (0.0-0.8); MONO % 11.9 % (2.0-8.0); NEUTROPHILS # 5.1 10^3/uL (1.5-8.5); NEUTROPHILS % 71.8 % (36.0-66.0); PLATELET COUNT, AUTOMATED 211 10^3/uL (150-450); RED BLOOD COUNT 3.14 10^6/uL (4.30-6.10); WHITE BLOOD COUNT 7.1 10^3/uL (4.0-10.0)
[2020-08-17 06:25] LABS: ALBUMIN 2.4 GM/DL (3.2-5.2); BILIRUBIN,TOTAL 0.4 MG/DL (0.2-1.0); CALCIUM LEVEL 8.3 MG/DL (8.8-10.2); CREATININE FOR GFR 1.92 MG/DL (0.70-1.30); GLOMERULAR FILTRATION RATE 36.7 (>42); POTASSIUM SERUM 4.1 MEQ/L (3.5-5.1); TOTAL PROTEIN 6.2 GM/DL (6.4-8.2)
--- NOTE | 2020-08-17 07:41 | IPNPDOC ---
Date Seen The patient was seen on 08/17/20. Progress Note Patient seen and examined status post right lower extremity arteriogram last Sunday, left lower extremity arteriogram yesterday. Both groins are clean dry and intact. No bruising noted on the left, minimal bruising noted on the right. Both groins are soft without hematoma. Distal perfusion is excellent. Okay for discharge from vascular standpoint. Patient will need 60 days of Plavix at discharge due to stent placement in the left lower extremity. Recommend aspirin and statin daily for life. Recommend continue local wound care per the wound care nurse instructions bilateral feet. Frequently, the patient's heel lift boots are off, and he needs to have them on to provide protection as much as possible to help his feet to avoid additional pressure. Recommend that they are on consistently and only removed for transfers and ambulation. He will need follow-up with vascular surgery in 1 month for repeat arterial duplex to check perfusion. We appreciate the opportunity to participate in the care of this patient. VS, I&O, 24H, Fishbone Vital Signs/I&O Vital Signs Date Time Temp Pulse Resp B/P (MAP) Pulse Ox O2 Delivery O2 Flow Rate FiO2 08/17/20 06:00 98.5 75 18 135/59 (84) 96 Room Air 08/16/20 21:00 1.0 08/15/20 21:48 28 I&O- Last 24 Hours up to 6 AM 08/17/20 06:00 Intake Total 820 ml Output Total 1250 ml Balance -430 ml Laboratory Data 24H LABS Laboratory Tests 2 08/16/20 11:50: Bedside Glucose (Misc Panel) 182H 08/16/20 17:01: Bedside Glucose (Misc Panel) 200H 08/16/20 20:02: Bedside Glucose (Misc Panel) 75L 08/17/20 05:23: Immature Granulocyte % (Auto) 0.4, Neutrophils (%) (Auto) 71.8H, Lymphocytes (%) (Auto) 12.9L, Monocytes (%) (Auto) 11.9H, Eosinophils (%) (Auto) 2.7, Basophils (%) (Auto) 0.3, Neutrophils # (Auto) 5.1, Lymphocytes # (Auto) 0.9L, Monocytes # (Auto) 0.8, Eosinophils # (Auto) 0.2, Basophils # (Auto) 0.0, Nucleated Red Blood Cells % (auto) 0.0, Anion Gap 5L, Glomerular Filtration Rate 36.7L, Calcium Level 8.3L, Magnesium Level 2.0, Total Bilirubin 0.4, Aspartate Amino Transf (AST/SGOT) 15, Alanine Aminotransferase (ALT/SGPT) 13, Alkaline Phosphatase 116, Total Protein 6.2L, Albumin 2.4L, Albumin/Globulin Ratio 0.6 CBC/BMP Laboratory Tests 08/17/20 05:23 Microbiology Microbiology 08/13/20 Stool Occult Blood (JOSHUA) - Final, Complete YANIRA RAINEY MD Aug 17, 2020 07:41
[2020-08-17] MEDS: HumaLOG INSULIN (NovoLOG) PER UNIT SC SCH ×2 (07:46→11:53)
[2020-08-17] MEDS: ASPIRIN 81 MG CHEW TABLET PO SCH (07:47)
[2020-08-17] MEDS: ISOSORBIDE MON. (IMDUR) 30 MG XR TAB PO SCH (07:47)
[2020-08-17] MEDS: PANTOPRAZOLE 40MG TAB (PROTONIX) PO SCH (07:47)
[2020-08-17] MEDS: SERTRALINE 100 MG TAB PO SCH (07:48)
[2020-08-17] MEDS: FERROUS SULFATE 325MG TAB PO SCH (07:48)
[2020-08-17] MEDS: FOLIC ACID 1 MG TAB PO SCH (07:48)
[2020-08-17] MEDS: **hydrALAZINE** 10 MG TAB PO SCH (07:49)
[2020-08-17] MEDS: FUROSEMIDE 20MG/2ML VIAL (J1940) IV SCH (07:49)
[2020-08-17 07:50] VITALS: BP 135/59
[2020-08-17] MEDS: CARVedilol 3.125 MG TAB PO SCH (07:50)
[2020-08-17] MEDS: **NOTE PATIENT COMMENT** MISC XX SCH (07:51)
[2020-08-17] MEDS: CADEXOMER IODINE 10GM (IODOSORB) GEL TOP SCH (07:51)
[2020-08-17] MEDS: HEPARIN SOD (PORCINE) 5000UNITS/ML 1ML VIAL/SYRINGE SQ SCH (07:51)
[2020-08-17] MEDS ORDERED: CLOPIDOGREL 75 MG TAB PO SCH (09:00)
[2020-08-17] MEDS ORDERED: HYDR10TAB PO (10:08)
[2020-08-17] MEDS ORDERED: CLOP75TA2 PO (10:08)
[2020-08-17] MEDS ORDERED: TORS20TA2 PO (10:08)
[2020-08-17] MEDS ORDERED: TORS10TA3 PO (10:16)
--- NOTE | 2020-08-17 18:28 | DS.PDOC ---
Discharge Summary General Date of Admission Aug 02, 2020 at 15:52 Date of Discharge 08/17/20 Discharge Summary PROCEDURES PERFORMED DURING STAY: [None]. ADMITTING DIAGNOSES: Acute hypoxemic hypercapnic respiratory failure Diastolic CHF exacerbation Pulmonary edema Acute kidney injury Type 2 diabetes Hypertension/hypertensive urgency Normocytic Anemia Hyperlipidemia Coronary artery diseases status post stents Foot ulcers Cachexia Depression/anxiety GERD DISCHARGE DIAGNOSES: Acute hypoxemic hypercapnic respiratory failure Diastolic CHF exacerbation Pulmonary edema Acute kidney injury Type 2 diabetes Hypertension/hypertensive urgency Normocytic Anemia Hyperlipidemia Coronary artery diseases status post stents Foot ulcers Cachexia Depression/anxiety GERD COMPLICATIONS/CHIEF COMPLAINT: Acute Kidney Failure Acute Respiratory Failure. HISTORY OF PRESENT ILLNESS: Mr. Sebastian is a 74 year old male history of CHF and IDDM who presents with chest pain and dyspnea and found to have acute hypoxic hypercapnic respiratory failure. Patient is lethargic and unable to provide any history. Sister, Mary Ellen, is present and provided the history. Patient has been living his rehab for 7 months due to frequent falls. He was recently admitted at [facility] for CHF and Pneumonia. Afterwards, he was back at rehab. He was last seen by her on Sunday. He was alert and ambulatory. Today, he was being transported to Dr. Desai's office for his diabetic foot, when he was complaining of chest pain and dyspnea. He was then brought into the ED. He progressively got worse and became lethargic. POC abg was performed. Demonstrated pH of 7.015, pO2 87, and pCO2 of 117.2. Patient's MOLST was DNR/DNI. Patient's sister Mary Ellen was contacted and she came to the ED. When I went down to the ED, patient was in severe respiratory distress. He was breathing hard using his respiratory muscles and his abdomen. He was lethargic and would not answer questions or follow commands. The sister tells me that she is his only living blood relative. He was , but . They did not have children. Parents were . Sister was HCP, but she does not know where the paperwork is located. I discussed the options with the sister, Mary Ellen. We could continue with DNR/DNI, and he would be in distress and possibly pass away. Diuretics would not reveres his hypercarbia, and he would continue to be lethargic and would not be able to eat. The other options would be comfort measures only. We would make him comfortable and treat his symptoms, but he would not get better and he would pass away. The last option is to switch him to DNR with trial of BIPAP. It can be uncomfortable with the BIPAP, but it would treat his hypercarbia, and would most likely survive. She wanted to talk with her son who works in EMS. After discussion with her son, she wanted to do the BIPAP. We filled out the MOLST reflecting DNR/DNI with trial of BIPAP. Pulmonary was consulted. Patient will be admitted to the ICU for acute hypoxic hypercapnic respiratory failure 2/2 decompensated CHF. HOSPITAL COURSE: During hospital stay the following issues addressed Acute hypoxemic hypercapnic respiratory failure Secondary to decompensated CHF Patient received treatment with BiPAP daily at bedtime, supplemental oxygen daytime PRN Improved Diastolic CHF exacerbation Echo was done and showed: Normal LV systolic function. LVEF 60% by visual estimate. Probably normal LV diastolic function for age. Normal left atrial size. Suggestive of at least moderate elevation of estimated right ventricle systolic pressure 64-69 mmHg. Normal right ventricle size and systolic function I's and O's BNP continues to be elevated to 9324 08/05/20. Patient received intensive diuresis with Lasix IV and metolazone with positive dynamics Pulmonary edema Most likely secondary to CHF exacerbation Continue Lasix IV CT showed from 08/07/20 The bilateral alveolar infiltrates is significantly improved. The bilateral moderate pleural effusions with compression atelectasis in the adjacent lung are unchanged. The subcutaneous dependent edema has improved. Left upper lobe lung nodules versus subsegmental infiltrate. Acute kidney injury Improved today Continue to monitor Type 2 diabetes Insulin sliding scale Glucose level under control Hypertension/hypertensive urgency Blood pressure under control Continue home cardioprotective medications Hydralazine 10 mg twice a day Patient received treatment with Hydralazine IV with parameters Normocytic Anemia Hemoglobin stable No signs of any acute bleed stool for occult blood negative Continue iron supplementation Hyperlipidemia Continue statin Coronary artery diseases status post stents Continue home cardioprotective medications Foot ulcers Stage II to stage III, noninfected Continue follow-up with wound care in the outpatient settings Vascular ultrasound was done and showed has diffuse calcification as well as diffuse stenoses throughout the bilateral lower extremities. Dr Ashley plan to proceed with arteriogram and possible surgical intervention and patient was agreed when I talked to him. Plan was to proceed with arteriogram with potential intervention 08/13/20, right lower extremity first since the wounds are the worst Dr. Ashley did arteriogram right lower extremity with tibial intervention on 08/13/20. On 08/16/20 surgical team did Angioplasty left superficial femoral artery, Stent to left mid distal superficial femoral artery, Angioplasty left anterior tibial artery, Angioplasty left peroneal and anterior tibial artery Restart Plavix for 60 days after surgery Cachexia Patient has reduced muscle mass, temporal wasting Ensure Depression/anxiety Continue Home meds GERD PPI by mouth DISCHARGE MEDICATIONS: Please see below. ALLERGIES: Please see below. PHYSICAL EXAMINATION ON DISCHARGE: VITAL SIGNS: Please see below. GENERAL APPEARANCE: NAD HEENT: no scleral icterus, no JVD, EOMI CARDIOVASCULAR: S1S2 LUNGS: Diminished lung sounds bilaterally ABDOMEN: soft & not tender w palpitation, mildly distended MUSCULOSKELETAL: Both legs covered with dressing INTEGUMENT: no generalized pallor NEUROLOGICAL: cranial nerve function from 2-12 intact intact, follows commands, speech not dysarthric LABORATORY DATA: Please see below. IMAGING: INDICATION: resp failure. COMPARISON: A chest CT without IV contrast dated 08/02/2020. TECHNIQUE: Chest CT without IV contrast. FINDINGS: There are moderate bilateral pleural effusions, on changed. The compression atelectasis adjacent to the pleural effusions is unchanged. The bilateral alveolar infiltrates identified previously have significantly improved. There are ground-glass densities in the left upper lobe parahilar zone of uncertain significance, lung nodules versus infiltrates. Follow-up is recommended. The subcutaneous dependent edema previously has improved. The visualized upper abdominal structures are unremarkable. IMPRESSION: The bilateral alveolar infiltrates is significantly improved. The bilateral moderate pleural effusions with compression atelectasis in the adjacent lung are unchanged. The subcutaneous dependent edema has improved. Left upper lobe lung nodules versus subsegmental infiltrates. Follow-up recommended. <Electronically signed by Matt Ordonez > 08/07/20 1123 DD: Matt Ordonez MD 08/07/20 1118 DT: TARA 08/07/20 1123 DS: RESHMA 08/07/20 1118 08/07/20 1118 PROGNOSIS: Fair ACTIVITY: [As tolerated]. DIET: Cardiac DISPOSITION: [facility] Keep Home. DISCHARGE INSTRUCTIONS: Follow-up with PCP in 3 days, follow-up with retail department manager in 1 week, follow-up with scallop cutter machine in 1 week Follow-up with vascular surgeon in one month and cnc specialist Dr. Desai into 3 days Continue heel lift boots Continue Plavix for 60 days DISCHARGE CONDITION: [Stable]. TIME SPENT ON DISCHARGE: 40minutes. Vital Signs/I&Os Vital Signs Date Time Temp Pulse Resp B/P (MAP) Pulse Ox O2 Delivery O2 Flow Rate FiO2 08/17/20 09:00 1.0 08/17/20 07:50 75 135/59 08/17/20 06:00 98.5 18 96 Room Air 08/15/20 21:48 28 I&O- Last 24 Hours up to 6 AM 08/17/20 05:59 Intake Total 820 ml Output Total 1250 ml Balance -430 ml Laboratory Data Labs 24H Laboratory Tests 2 08/16/20 20:02: Bedside Glucose (Misc Panel) 75L 08/17/20 05:23: Immature Granulocyte % (Auto) 0.4, Neutrophils (%) (Auto) 71.8H, Lymphocytes (%) (Auto) 12.9L, Monocytes (%) (Auto) 11.9H, Eosinophils (%) (Auto) 2.7, Basophils (%) (Auto) 0.3, Neutrophils # (Auto) 5.1, Lymphocytes # (Auto) 0.9L, Monocytes # (Auto) 0.8, Eosinophils # (Auto) 0.2, Basophils # (Auto) 0.0, Nucleated Red Blood Cells % (auto) 0.0, Anion Gap 5L, Glomerular Filtration Rate 36.7L, Calcium Level 8.3L, Magnesium Level 2.0, Total Bilirubin 0.4, Aspartate Amino Transf (AST/SGOT) 15, Alanine Aminotransferase (ALT/SGPT) 13, Alkaline Phosphatase 116, Total Protein 6.2L, Albumin 2.4L, Albumin/Globulin Ratio 0.6 08/17/20 10:00: Coronavirus (COVID-19)(PCR) NEGATIVE 08/17/20 11:49: Bedside Glucose (Misc Panel) 275H CBC/BMP Laboratory Tests 08/17/20 05:23 FSBS Laboratory Tests Test 08/16/20 20:02 08/17/20 11:49 Range/Units Bedside Glucose (Misc Panel) 75 275 83-110 MG/DL Microbiology Microbiology 08/13/20 Stool Occult Blood (JOSHUA) - Final, Complete Discharge Medications Scheduled Amlodipine Besylate (Amlodipine Besylate) 10 Mg Tablet, 10 MG PO DAILY Aspirin (Children's Aspirin) 81 Mg Tab.chew, 81 MG PO DAILY Atorvastatin Calcium (Atorvastatin Calcium) 20 Mg Tablet, 20 MG PO QHS, (Reported) Carvedilol (Carvedilol) 3.125 Mg Tablet, 3.125 MG PO BID, (Reported) Clopidogrel Bisulfate (Clopidogrel) 75 Mg Tablet, 75 MG PO DAILY Ferrous Sulfate (Ferrous Sulfate) 325 Mg Tablet.dr, 325 MG PO BID, (Reported) Folic Acid (Folic Acid) 1 Mg Tablet, 1 MG PO DAILY, (Reported) Gabapentin (Gabapentin) 300 Mg Capsule, 300 MG PO DAILY, (Reported) Hydralazine HCl (Hydralazine HCl) 10 Mg Tablet, 10 MG PO BID Insulin Aspart (Insulin Aspart) 100 Unit/1 Ml Vial, 1 DOSE SC ACHS, (Reported) PER SLIDING SCALE Insulin Detemir (Levemir Flextouch) 100 Unit/1 Ml Insuln.pen, 10 UNIT SC QHS, (Reported) Isosorbide Mononitrate (Isosorbide Mononitrate ER) 30 Mg Tab.er.24h, 30 MG PO DAILY, (Reported) Multivitamins (Thera M Plus Tablet) 1 Each Tablet, 1 TAB PO DAILY, (Reported) Nitroglycerin (Nitroglycerin Patch) 0.4 Mg/Hr Patch.td24, 1 PATCH TOP QHS, (Reported) Pantoprazole Sodium (Pantoprazole Sodium) 40 Mg Tablet.dr, 40 MG PO DAILY, (Reported) Sertraline Hcl (Zoloft) 100 Mg Tablet, 100 MG PO DAILY, (Reported) Torsemide (Torsemide) 10 Mg Tablet, 10 MG PO DAILY Scheduled PRN Acetaminophen (Acetaminophen) 325 Mg Tablet, 650 MG PO Q4H PRN for PAIN / FEVER, (Reported) Docusate Sodium (Docusate Sodium) 100 Mg Capsule, 100 MG PO DAILY PRN for CONSTIPATION, (Reported) Ipratropium/Albuterol Sulfate (Iprat-Albut 0.5-3(2.5) mg/3 ml) 3 Ml Ampul.neb, 1 VIAL NEB Q4H PRN for SOB/WHEEZING, (Reported) Simethicone (Simethicone) 80 Mg Tab.chew, 120 MG PO TID PRN for GAS PAIN, (Reported) Miscellaneous Medications [Comments] , (Reported) MED LIST MADE WITH 5 DAY M.A.R. SUPPLIED BY [facility] Allergies Coded Allergies: No Known Allergies (Verified , 04/25/17) CARL HERNANDEZ DO Aug 17, 2020 18:28
== END 2020-08-17 12:03 | DRG 252 ==
LOC: M ED 11:31 → M ED INP 15:52 → ENRESERV 16:04 → M ICU 16:40 → M PCU 08-06 15:30 → M MSPAV 08-07 18:35
PROVIDERS: ADMIT Internal Medicine; ATTEND Internal Medicine
PROC: 047M3ZZ Dilation of Right Popliteal Artery, Percutaneous Approach (ICD-10-PCS; 2020-08-13)
PROC: 047P3ZZ Dilation of Right Anterior Tibial Artery, Percutaneous Approach (ICD-10-PCS; 2020-08-13)
PROC: 047V3ZZ Dilation of Right Foot Artery, Percutaneous Approach (ICD-10-PCS; 2020-08-13)
PROC: B41F1ZZ Fluoroscopy of Right Lower Extremity Arteries using Low Osmolar Contrast (ICD-10-PCS; 2020-08-13)
PROC: 047R3ZZ Dilation of Right Posterior Tibial Artery, Percutaneous Approach (ICD-10-PCS; principal; 2020-08-13 13:30)
PROC: 047R3ZZ Dilation of Right Posterior Tibial Artery, Percutaneous Approach (ICD-10-PCS; 2020-08-16)
PROC: 047M3ZZ Dilation of Right Popliteal Artery, Percutaneous Approach (ICD-10-PCS; 2020-08-16)
PROC: 047P3ZZ Dilation of Right Anterior Tibial Artery, Percutaneous Approach (ICD-10-PCS; 2020-08-16)
PROC: 047V3ZZ Dilation of Right Foot Artery, Percutaneous Approach (ICD-10-PCS; 2020-08-16)
PROC: B41F1ZZ Fluoroscopy of Right Lower Extremity Arteries using Low Osmolar Contrast (ICD-10-PCS; 2020-08-16)
DX: I11.0 Hypertensive heart disease with heart failure (principal); G93.41 Metabolic encephalopathy; J96.01 Acute respiratory failure with hypoxia; J96.02 Acute respiratory failure with hypercapnia; N17.9 Acute kidney failure, unspecified; R64 Cachexia; I50.33 Acute on chronic diastolic (congestive) heart failure; E11.621 Type 2 diabetes mellitus with foot ulcer; J44.9 Chronic obstructive pulmonary disease, unspecified; D64.9 Anemia, unspecified; I16.0 Hypertensive urgency; I70.209 Unspecified atherosclerosis of native arteries of extremities, unspecified extremity; L97.509 Non-pressure chronic ulcer of other part of unspecified foot with unspecified severity; K21.9 Gastro-esophageal reflux disease without esophagitis; I25.10 Atherosclerotic heart disease of native coronary artery without angina pectoris; Z95.2 Presence of prosthetic heart valve; Z66 Do not resuscitate; Z79.899 Other long term (current) drug therapy; Z79.82 Long term (current) use of aspirin; Z79.4 Long term (current) use of insulin; E78.5 Hyperlipidemia, unspecified; F41.9 Anxiety disorder, unspecified; F32.9 Major depressive disorder, single episode, unspecified; Z87.891 Personal history of nicotine dependence

== ENCOUNTER → 2020-08-23 | Outpatient (REF) ==
[~2020-08-23] MED LIST changes: +ACET1TAB55 PO; +AMLO1TAB24 PO; +AMLO2.5T3 PO; +ASPI81CH8 PO; +BUME0.5T2 PO; +CARV3.12 PO; +CLOP75TA2 PO; +COMMENTS; +FERR325T3 PO; +FURO80VL IV; +HEPA500011 SC; +HEPARIN; +HYDR10TAB PO; +INSU100V3 SC; +IPRA0.00 NEB; +ISOS1TAB35 PO; +LEVE1INJ5 SC; +METO5TA PO; +NITR0.4D6 TOP; +ONDA4INJ4 IV; +SIME80CH6 PO; +TORS10TA3 PO; +TORS20TA2 PO; +ZOLO100T PO
[2020-08-23 15:08] LABS: CALCIUM LEVEL 8.4 MG/DL (8.8-10.2); CREATININE FOR GFR 2.4 MG/DL (0.70-1.30); GLOMERULAR FILTRATION RATE 28.4 (>42); POTASSIUM SERUM 4.7 MEQ/L (3.5-5.1); PTH INTACT 95.1 PG/ML (18.5-88.0)
[2020-08-23 16:27] LABS: HEMOGLOBIN A1c 6.8 %
== END ==
LOC: SKLAB4 12:26
DX: I50.9 Heart failure, unspecified (principal); D64.9 Anemia, unspecified; E11.9 Type 2 diabetes mellitus without complications

== ENCOUNTER → 2020-08-24 | Outpatient (REF) | LOC: SKLAB4 12:21 | DX: I50.9 Heart failure, unspecified (principal) ==

== ENCOUNTER → 2020-08-25 | Outpatient (REF) ==
[2020-08-25 09:55] LABS: CREATININE FOR GFR 2.48 MG/DL (0.70-1.30); GLOMERULAR FILTRATION RATE 27.3 (>42); POTASSIUM SERUM 4.7 MEQ/L (3.5-5.1)
== END ==
LOC: SKLAB4 07:57
DX: I50.9 Heart failure, unspecified (principal)

== ENCOUNTER 2020-08-29 06:27 | Inpatient (IN) | payer MEDICARE, MEDICAID ==
[~2020-08-29] VITALS: Ht 167.6 cm; Wt 60.2 kg
[2020-08-29] MEDS ORDERED: HumuLIN R (REGULAR) INSULIN (NovoLIN R) **100U/ML** PER UNIT SC STA (06:33)
[2020-08-29] MEDS ORDERED: NS 1,000 ML IV ONE (06:35)
[2020-08-29 06:58] LABS: ABG BASE EXCESS 1.3 (-2.0-2.0); ABG O2 SATURATION 96.6 % (95.0-99.0); ABG PARTIAL PRESSURE CO2 41.4 mmHg (35.0-45.0); ABG PARTIAL PRESSURE O2 81.1 mmHg (75.0-100.0); ABG STANDARD HCO3 25.6 MEQ/L (22.0-26.0); ABG TOTAL CO2 27.2 MEQ/L (23.0-31.0); ABG pH (ARTERIAL) 7.415 UNITS (7.350-7.450)
[2020-08-29] MEDS ORDERED: ATOR80TA59 PO (07:09)
[2020-08-29] MEDS ORDERED: NITR0.4S14 SL (07:09)
[2020-08-29] MEDS ORDERED: ROPI0.253 PO (07:09)
[2020-08-29] MEDS ORDERED: AMLO1TAB25 PO (07:10)
[2020-08-29] MEDS ORDERED: MOM30SS PO (07:10)
[2020-08-29] MEDS ORDERED: ENEMENE PR (07:10)
[2020-08-29] MEDS ORDERED: TRAD5TAB PO (07:10)
[2020-08-29] MEDS ORDERED: ANOR1AER INH (07:10)
[2020-08-29] MEDS ORDERED: DULC10SU2 PR (07:10)
[2020-08-29] MEDS ORDERED: ENSU1LIQ36 PO (07:10)
[2020-08-29] MEDS ORDERED: FURO40TA2 PO (07:10)
[2020-08-29] MEDS ORDERED: PLAV1TAB2 PO (07:10)
[2020-08-29] MEDS ORDERED: ASPI-161 PO (07:10)
[2020-08-29 07:57] LABS: BASO % 0.1 % (0.0-1.0); EOS % 0.1 % (0.0-3.0); HEMATOCRIT 29.3 % (42.0-52.0); HEMOGLOBIN 9.4 g/dl (13.5-17.5); LYMPH # 0.6 10^3/uL (1.5-5.0); LYMPH % 3.4 % (24.0-44.0); MEAN CORPUSCULAR HEMOGLOBIN 29.1 pg (27.0-33.0); MEAN CORPUSCULAR HGB CONC 32.1 g/dl (32.0-36.5); MEAN CORPUSCULAR VOLUME 90.7 fl (80.0-96.0); MONO # 1.2 10^3/uL (0.0-0.8); MONO % 6.7 % (2.0-8.0); NEUTROPHILS # 16.5 10^3/uL (1.5-8.5); NEUTROPHILS % 89.1 % (36.0-66.0); PLATELET COUNT, AUTOMATED 233 10^3/uL (150-450); RED BLOOD COUNT 3.23 10^6/uL (4.30-6.10); WHITE BLOOD COUNT 18.5 10^3/uL (4.0-10.0)
[2020-08-29 08:15] LABS: OSMOLALITY SERUM 320 MOSM/KG (280-301)
[2020-08-29 08:17] LABS: HEMOGLOBIN A1c 7.3 %
[2020-08-29 08:30] LABS: BLOOD UREA NITROGEN 61 MG/DL (7-18); CALCIUM LEVEL 8.4 MG/DL (8.8-10.2); CARBON DIOXIDE LEVEL 29 MEQ/L (21-32); CHLORIDE LEVEL 96 MEQ/L (98-107); CREATININE FOR GFR 2.81 MG/DL (0.70-1.30); GLOMERULAR FILTRATION RATE 23.7 (>42); GLUCOSE, FASTING 594 MG/DL (70-100); POTASSIUM SERUM 4.5 MEQ/L (3.5-5.1); SODIUM LEVEL 132 MEQ/L (136-145); TROPONIN I < 0.02 NG/ML (< 0.10)
--- NOTE | 2020-08-29 08:32 | REP ---
INDICATION: high blood sugar COMPARISON: 08/05/2020 TECHNIQUE: Portable AP view of the chest FINDINGS: The mediastinum and cardiac silhouette are stable and within normal limits for portable technique. The lung bradford again demonstrate chronic changes with superimposed lower lobe opacities consistent with consolidations, possible left lower lobe collapse, and moderate pleural effusions. IMPRESSION: Opacities/consolidations and pleural effusions similar to prior examination. Differential diagnosis includes multifocal pneumonia as well as elements of CHF. <Electronically signed by Montrell Cole > 08/29/20 0883
[2020-08-29 09:09] LABS: NT-PRO BNP 18027 PG/ML (<125)
--- NOTE | 2020-08-29 09:27 | REP ---
INDICATION: DYSPNEA COMPARISON: 08/02/2020 TECHNIQUE: Axial noncontrast images from the thoracic inlet to the upper abdomen with coronal and sagittal reformations. This CT examination was performed using the following dose reduction techniques: Automated exposure control, adjustment of mA and/or kv according to the patient's size, and use of iterative reconstruction technique. FINDINGS: Large bilateral pleural effusions and lower lobe atelectasis/consolidations are appreciated along with mildly prominent pulmonary vasculature and mild cephalization. Differential diagnosis includes CHF/pulmonary edema. The tracheobronchial tree is patent. The mediastinum demonstrates significant atherosclerotic changes to the thoracic aorta and mild cardiomegaly. No pericardial effusion. IMPRESSION: Large bilateral pleural effusions and lower lobe atelectasis/consolidations. Differential diagnosis includes CHF/pulmonary edema and less likely multifocal pneumonia. <Electronically signed by Montrell Cole > 08/29/20 0987
[2020-08-29 10:19] LABS: ACETONE/KETONE 1.99 MG/DL (<2.81)
[2020-08-29] MEDS ORDERED: GLUCAGON INJ 1MG VIAL SC PRN (11:10)
[2020-08-29] MEDS ORDERED: DEXTROSE 50% 50 ML SYRINGE IV PRN (11:10)
[2020-08-29] MEDS ORDERED: NITROGLYCERIN 0.4 MG SUBL TABLET SL PRN (11:10)
[2020-08-29] MEDS ORDERED: GLUCOSE 4GM CHEW TABLET PO PRN (11:10)
[2020-08-29] MEDS: ADVAIR HFA 230/21MCG INHALER INH SCH ×2 (11:38→20:58)
[2020-08-29] MEDS: GASTROGRAFIN SOLUTION 30ML PO SCH ×2 (11:52→12:17)
--- NOTE | 2020-08-29 11:52 | ECGEPIP ---
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
--- NOTE | 2020-08-29 12:41 | HPEPDOC ---
General Date of Admission Aug 29, 2020 at 11:12 Date of Service: Aug 29, 2020 Chief Complaint The patient is a 74-year-old male admitted with a reason for visit of Bilateral Pleural Effusion Chf Exacerbation. History of Present Illness Mr. Sebastian is a 74 year old male with heart failure with preserved ejection fraction, CAD, and diabetes mellitus who presents with low grade temperature. He was recently in the hospital from 08/02/2020 to 08/17/2020 for acute hypoxic hypercapnic respiratory failure. Afterwards, he was sent to [facility]. For the past week, patient has been feeling more dyspneic. He does have a cough that is sometimes productive. This morning, he had a low grade temperature and he was brought into the ED for evaluation. In the ED, he was hyperglycemic with glucose of 594, but no acidosis. pH 7.415 and pCO2 41.4. What was significant was his WBC of 18.5. CT chest demonstrates large bilateral pleural effusion with atelectasis vs consolidation. [place] [address] which more than double his previous NT-Pro-BNP. When I spoke with him, he did report worsening dyspnea. Cough was present which was sometimes productive. He has abdominal pain and diarrhea. He was not able to tell me how much diarrhea, but he told me he had lots of diarrhea. Patient will be admitted for decompensated congested heart failure with preserved ejection fraction, acute kidney injury, and leukocytosis. Home Medications Scheduled Amlodipine Besylate (Amlodipine Besylate) 10 Mg Tablet, 10 MG PO DAILY, (Reported) Aspirin (Aspirin EC) 81 Mg Tablet.dr, 81 MG PO DAILY, (Reported) Atorvastatin Calcium (Atorvastatin Calcium) 80 Mg Tablet, 80 MG PO QHS, (Reported) Carvedilol (Carvedilol) 3.125 Mg Tablet, 3.125 MG PO BID, (Reported) Clopidogrel Bisulfate (Plavix) 75 Mg Tablet, 75 MG PO DAILY, (Reported) Furosemide (Furosemide) 40 Mg Tablet, 40 MG PO BID, (Reported) Gabapentin (Gabapentin) 300 Mg Capsule, 300 MG PO DAILY, (Reported) Isosorbide Mononitrate (Isosorbide Mononitrate ER) 30 Mg Tab.er.24h, 30 MG PO DAILY, (Reported) Lactose-Reduced Food (Ensure Enlive) 237 Ml Liquid, 120 ML PO BID, (Reported) Linagliptin (Tradjenta) 5 Mg Tablet, 5 MG PO DAILY, (Reported) Multivitamins (Thera M Plus Tablet) 1 Each Tablet, 1 TAB PO DAILY, (Reported) Pantoprazole Sodium (Pantoprazole Sodium) 40 Mg Tablet.dr, 40 MG PO DAILY, (Reported) Ropinirole HCl (Ropinirole HCl) 0.25 Mg Tablet, 0.25 MG PO QHS, (Reported) Sertraline Hcl (Zoloft) 100 Mg Tablet, 100 MG PO DAILY, (Reported) Umeclidinium Brm/Vilanterol Tr (Anoro Ellipta 62.5-25 Mcg INH) 1 Each Blst.w.dev, 1 PUFF INH DAILY, (Reported) Scheduled PRN Acetaminophen (Acetaminophen) 325 Mg Tablet, 650 MG PO Q4H PRN for PAIN / FEVER, (Reported) Bisacodyl (Dulcolax) 10 Mg Supp.rect, 10 MG RI DAILY PRN for CONSTIPATION, (Reported) Docusate Sodium (Docusate Sodium) 100 Mg Capsule, 100 MG PO DAILY PRN for CONSTIPATION, (Reported) Milk Of Magnesia (Milk of Magnesia) 2,400 Mg/10 Ml Oral.susp, 10 ML PO DAILY PRN for CONSTIPATION, (Reported) Nitroglycerin (Nitroglycerin) 0.4 Mg Tab.subl, 0.4 MG SL NITRO PRN for CHEST PAIN, (Reported) Sodium Phosphate,[place]-Dibasic (Enema) 133 Ml Enema, 1 MYRA RI DAILY PRN for CONSTIPATION, (Reported) Allergies Coded Allergies: No Known Allergies (Verified , 04/25/17) Past Medical History Medical History 1. IDDM Type 2 2. Hypertension 3. CAD s/p stents 4. Solitary Kidney 5. Anxiety/Depression 6. Hyperlipidemia 7. CHF with EF of 60% Surgical History 1. Left shoulder surgery for fracture 2. Rt wrist surgery 3. Right carotid endarterectomy Family History Patient did not remember father's PMH. Mother's history obtained from chart Mother: History of diabetes mellitus, COPD Social History * Smoker: former Smoker ((from chart)) Alcohol: Denies Drugs: denies A-FIB/CHADSVASC A-FIB History Current/History of A-Fib/PAF?: No Review of Systems Constitutional: Denies: Chills, Fever Eyes: Denies: Vision change ENT: Denies: Sore Throat Skin: Denies: Rash Pulmonary: Reports: Dyspnea (worsening over the past week), Cough (sometime pro ductive) Cardiovascular: Reports: Chest Pain (sometimes) Gastrointestinal: Reports: Abdominal Pain, Diarrhea Genitourinary: Denies: Dysuria Hematologic: Denies: Bruising Neurological: Denies: Numbness Psych: Denies: Anxiety, Depression Physical Examination General Exam: Positive: Cooperative, Mild Distress Eye Exam: Positive: EOMI; Negative: Sclera icteric ENT Exam: Positive: Atraumatic Neck Exam: Positive: Supple Chest Exam: Positive: Diminished Heart Exam: Positive: Rate Normal, Regular Rhythm Abdomen Exam: Positive: Normal bowel sounds, Soft, Tenderness Extremity Exam: Positive: Edema (Bilateral pitting) Neuro Exam: Positive: Normal Speech Psych Exam: Positive: Mood NL Vital Signs Vital Signs Date Time Temp Pulse Resp B/P (MAP) Pulse Ox O2 Delivery O2 Flow Rate FiO2 08/29/20 10:26 18 08/29/20 10:15 79 163/74 (103) 100 Nasal Cannula 1.0 08/29/20 06:44 96.0 Laboratory Data Labs 24H Laboratory Tests 2 08/29/20 06:33: Immature Granulocyte % (Auto) 0.6, Neutrophils (%) (Auto) 89.1H, Lymphocytes (%) (Auto) 3.4L, Monocytes (%) (Auto) 6.7, Eosinophils (%) (Auto) 0.1, Basophils (%) (Auto) 0.1, Neutrophils # (Auto) 16.5H, Lymphocytes # (Auto) 0.6L, Monocytes # (Auto) 1.2H, Eosinophils # (Auto) 0.0, Basophils # (Auto) 0.0, Nucleated Red Blood Cells % (auto) 0.0, Anion Gap 7L, Glomerular Filtration Rate 23.7L, Estimated Mean Plasma Glucose 163H, Hemoglobin A1c 7.3, Osmolality 320H, Calcium Level 8.4L, Phosphorus Level 3.0, Troponin I < 0.02, IC-Gbp-E-Type Natriuretic Peptide 14240T, B-Hydroxybutyrate 1.99 08/29/20 06:55: Blood Gas Bicarbonate Standard 25.6, Arterial Blood pH 7.415, Arterial Blood Partial Pressure CO2 41.4, Arterial Blood Partial Pressure O2 81.1, Arterial Blood Total CO2 27.2, Arterial Blood HCO3 26.0, Arterial Blood Base Excess 1.3, Arterial Blood Oxygen Saturation 96.6 08/29/20 07:52: Bedside Glucose (Misc Panel) 526*H 08/29/20 09:19: Bedside Glucose (Misc Panel) 468H CBC/BMP Laboratory Tests 08/29/20 06:33 Microbiology Microbiology 08/29/20 Respiratory Virus Panel (PCR) (JOSHUA) - Final, Complete 08/29/20 Blood Culture, Received Pending 08/29/20 Blood Culture, Received Pending Assessment/Plan Mr. Sebastian is a 74 year old male with heart failure with preserved ejection fraction, CAD, and diabetes mellitus who is here for acute kidney injury, decompensated congestive heart failure with preserved ejection fraction, and leukocytosis. Unlikely to have pneumonia. It is more likely atelectasis from the large pleural effusion. It is possible that he may have C.diff with his recent hospitalization, high leukocytosis, and diarrhea. Will test for C.diff and order for CT abd/pelvis. He may also have gastritis. Otherwise, he is in heart failure. The bilateral pleural effusions are larger and Pro-BNP is elevated more than 2 times the last Pro-BNP. His HOLGER may be from renal congestion from CHF. Plan / VTE VTE Prophylaxis Ordered?: Yes Plan Plan 1. Decompensated heart failure with preserved [place] [address] -Bilateral pleural effusions increasing -Increase diuretic dosage 2. Large bilateral pleural effusion -Causing telectasis -Diuretics -Will need to touch base with family about possible thoracentesis 3. Leukocytosis -Evaluate for C.diff -Ordered CT abd/pelvis looking for enteritis or other causes of abdominal pain and diarrhea. He has non-specific perinephric stranding. Will order bladder scan and UA to look for UTI to support diagnosis of pyelonephritis. -Monitor CBC 4. Acute renal injury on chronic kidney disease -Baseline creatinine around 2, creatinine on admission 2.8 -May be secondary to renal congestion from CHF -CT returned, patient may have acute urinary retention, ordered bladder scan and UA 5. Diabetes mellitus -On admission, glucose was elevated, nearly 600 -HbA1c 7.3 -Sliding scale insulin 6. Hypertension -Continue Imdur, Coreg, Norvasc, and Furosemide 7. CAD -Continue atorvastatin, aspirin, Plavix, Coreg, and Imdur -Troponin negative x2 8. GERD -Continue pantoprazole 9. DVT ppx -Lovenox TRACY COPE DO Aug 29, 2020 12:41
[2020-08-29 13:06] LABS: PHOSPHORUS LEVEL 3.3 MG/DL (2.5-4.9); TROPONIN I < 0.02 NG/ML (< 0.10)
[2020-08-29] MEDS: ASPIRIN 81MG ENTERIC TABLET PO SCH (13:21)
[2020-08-29] MEDS: MULTIVITAMINS/MINERALS THERAP 1 TAB PO SCH (13:21)
[2020-08-29] MEDS: CLOPIDOGREL 75 MG TAB PO SCH (13:21)
[2020-08-29] MEDS: SERTRALINE 100 MG TAB PO SCH (13:21)
[2020-08-29] MEDS: GABAPENTIN 300 MG CAP PO SCH (13:21)
[2020-08-29] MEDS: CARVedilol 3.125 MG TAB PO SCH ×2 (13:21→20:36)
[2020-08-29] MEDS: PANTOPRAZOLE 40MG TAB (PROTONIX) PO SCH (13:22)
[2020-08-29] MEDS: ISOSORBIDE MON. (IMDUR) 30 MG XR TAB PO SCH (13:22)
[2020-08-29 13:25] LABS: HEMOGLOBIN 9.9 g/dl (13.5-17.5); MEAN CORPUSCULAR HEMOGLOBIN 28.8 pg (27.0-33.0); MEAN CORPUSCULAR HGB CONC 31.9 g/dl (32.0-36.5); MEAN CORPUSCULAR VOLUME 90.1 fl (80.0-96.0); PLATELET COUNT, AUTOMATED 253 10^3/uL (150-450); RED BLOOD COUNT 3.44 10^6/uL (4.30-6.10); WHITE BLOOD COUNT 18.9 10^3/uL (4.0-10.0)
--- NOTE | 2020-08-29 13:25 | REP ---
INDICATION: Abdominal pain COMPARISON: 10/15/2017 TECHNIQUE: Axial noncontrast images from the lung bases to the pubic symphysis with coronal and sagittal reformations. This CT examination was performed using the following dose reduction techniques: Automated exposure control, adjustment of mA and/or kv according to the patient's size, and use of iterative reconstruction technique. FINDINGS: Lung bases demonstrate large pleural effusions and lower lobe consolidations. Liver, spleen, pancreas, gallbladder, and bilateral adrenal glands are normal/stable. Kidneys demonstrate bilateral extrarenal pelvis ease essentially unchanged compared with 2012. Perinephric stranding is nonspecific and possibly chronic although pyelonephritis cannot be excluded. The enteric system is without obstruction or obvious acute inflammatory process. Diffuse colonic diverticulosis noted without acute diverticulitis. Stable 3 cm fat containing periumbilical hernia is again identified unchanged compared with 2012. Pelvis demonstrates normal bladder and age-appropriate prostate/seminal vesicles. No ascites. No free air. Mildly prominent lymph nodes within the mesentery, retroperitoneal space and bilateral groin are nonspecific and may be related to underlying CHF and abnormal fluid dynamics. Osseous structures without acute process. IMPRESSION: 1. Large bilateral pleural effusions and lower lobe consolidations. Differential diagnosis includes CHF/pulmonary edema. 2. Bilateral perinephric stranding is nonspecific but should be correlated with urinalysis to exclude pyelonephritis. 3. Diverticulosis without acute diverticulitis. 4. Chronic stable changes as noted above. <Electronically signed by Montrell Cole > 08/29/20 4750
[2020-08-29] MEDS: FUROSEMIDE 40MG/4ML VIAL (J1940) IV SCH ×2 (13:48→18:02)
[2020-08-29] MEDS ORDERED: VANCOMYCIN HCL 750 MG, VIAL MATE ADAPTER 1 EACH in NS 250 ML IV SCH (15:15)
[2020-08-29] MEDS: HumaLOG INSULIN (NovoLOG) PER UNIT SC SCH ×3 (15:59→20:38)
[2020-08-29] MEDS ORDERED: VANCOMYCIN HCL 1,000 MG, VIAL MATE ADAPTER 1 EACH in NS 250 ML IV ONE (16:00)
[2020-08-29] MEDS ORDERED: VANCOMYCIN INTERMITTENT/PULSE DOSING BY CLINICAL PHARMACIST PER DOSING PROTOCOL XX SCH (16:00)
[2020-08-29 16:09] VITALS: BP 166/80
[2020-08-29 19:31] VITALS: BP 121/58
[2020-08-29] MEDS: ATORVASTATIN 20 MG TAB PO SCH (20:35)
[2020-08-29] MEDS: rOPINIRole 0.25 MG TAB(REQUIP) PO SCH (20:36)
[2020-08-29 22:00] VITALS: BP 127/61
[2020-08-30] VITALS: BP 142/65
[2020-08-30 05:30] LABS: BASO % 0.2 % (0.0-1.0); EOS # 0.2 10^3/uL (0.0-0.5); EOS % 1.3 % (0.0-3.0); HEMATOCRIT 27.3 % (42.0-52.0); HEMOGLOBIN 8.6 g/dl (13.5-17.5); LYMPH # 0.9 10^3/uL (1.5-5.0); LYMPH % 7.6 % (24.0-44.0); MEAN CORPUSCULAR HGB CONC 31.5 g/dl (32.0-36.5); MEAN CORPUSCULAR VOLUME 91.9 fl (80.0-96.0); MONO # 0.9 10^3/uL (0.0-0.8); MONO % 8.1 % (2.0-8.0); NEUTROPHILS # 9.6 10^3/uL (1.5-8.5); NEUTROPHILS % 82.5 % (36.0-66.0); PLATELET COUNT, AUTOMATED 212 10^3/uL (150-450); RED BLOOD COUNT 2.97 10^6/uL (4.30-6.10); WHITE BLOOD COUNT 11.6 10^3/uL (4.0-10.0)
[2020-08-30 05:51] LABS: CALCIUM LEVEL 8.5 MG/DL (8.8-10.2); CREATININE FOR GFR 2.8 MG/DL (0.70-1.30); GLOMERULAR FILTRATION RATE 23.8 (>42); MAGNESIUM LEVEL 2.1 MG/DL (1.8-2.4); POTASSIUM SERUM 4.5 MEQ/L (3.5-5.1)
[2020-08-30 06:00] VITALS: BP 122/58
[2020-08-30] MEDS: ADVAIR HFA 230/21MCG INHALER INH SCH ×2 (06:20→20:39)
[2020-08-30 07:10] VITALS: BP 140/67
[2020-08-30] MEDS: PANTOPRAZOLE 40MG TAB (PROTONIX) PO SCH (07:49)
[2020-08-30] MEDS: FUROSEMIDE 40MG/4ML VIAL (J1940) IV SCH ×2 (07:49→17:00)
[2020-08-30] MEDS: CARVedilol 3.125 MG TAB PO SCH ×2 (07:50→20:51)
[2020-08-30] MEDS: GABAPENTIN 300 MG CAP PO SCH (07:50)
[2020-08-30] MEDS: ASPIRIN 81MG ENTERIC TABLET PO SCH (07:50)
[2020-08-30] MEDS: ISOSORBIDE MON. (IMDUR) 30 MG XR TAB PO SCH (07:50)
[2020-08-30] MEDS: MULTIVITAMINS/MINERALS THERAP 1 TAB PO SCH (07:50)
[2020-08-30] MEDS: CLOPIDOGREL 75 MG TAB PO SCH (07:50)
[2020-08-30] MEDS: SERTRALINE 100 MG TAB PO SCH (07:51)
[2020-08-30] MEDS: ENOXAPARIN 40MG/0.4ML SYRINGE (J1650 PER 10MG) SC SCH (07:52)
[2020-08-30] MEDS: HumaLOG INSULIN (NovoLOG) PER UNIT SC SCH ×4 (07:52→20:52)
[2020-08-30] MEDS ORDERED: IPRATROPIUM 0.5MG/ALBUTEROL 2.5MG INH SOL UD 3ML (DUONEB) NEB PRN (08:10)
[2020-08-30 10:37] LABS: C REACTIVE PROTEIN QUANTITATIV 14.5 MG/DL (0.00-0.30)
[2020-08-30 12:00] VITALS: BP 119/58
--- NOTE | 2020-08-30 12:50 | IPNPDOC ---
Subjective Date Seen The patient was seen on 08/30/20. Subjective Chief Complaint/HPI Mr. Sebastian is a 74 year old male with heart failure with preserved ejection fraction, CAD, and diabetes mellitus who presents with low grade temperature. Last night, the wrappings around his foot was removed and he was found to have right foot cellulitis. In addition, he has multiple ulcers on his feet. He was started on vancomycin. This morning, he was breathing hard. Denies chest pain. Spoke with his sister about thoracentesis. She wanted to come in and have a family meeting with me to discuss thoracentesis. Objective Physical Examination General Exam: Positive: Cooperative, Mild Distress Eye Exam: Positive: EOMI; Negative: Sclera icteric ENT Exam: Positive: Atraumatic Neck Exam: Positive: Supple Chest Exam: Positive: Diminished Heart Exam: Positive: Rate Normal, Regular Rhythm Abdomen Exam: Positive: Normal bowel sounds, Soft, Tenderness Extremity Exam: Positive: Edema (Bilateral pitting) Neuro Exam: Positive: Normal Speech Psych Exam: Positive: Mood NL Assessment /Plan Assessment Mr. Sebastian is a 74 year old male with heart failure with preserved ejection fraction, CAD, and diabetes mellitus who is here for acute kidney injury, decompensated congestive heart failure with preserved ejection fraction, and leukocytosis. Unlikely to have pneumonia. It is more likely atelectasis from the large pleural effusion. His right foot appears to have cellulitis. Started patient on vancomycin for cellulitis. Otherwise there are multiple ulcers on both feet. Requested advance wound care consult, Dr. Desai's recommendations appreciated. Otherwise, he is in heart failure. The bilateral pleural effusions are larger and Pro-BNP is elevated more than 2 times the last Pro-BNP. His HOLGER may be from renal congestion from CHF. Will have a family meeting later today about thoracentesis. Plan/VTE VTE Prophylaxis Ordered?: Yes Plan 1. Decompensated heart failure with preserved [place] [address] -Bilateral pleural effusions increasing -Increase diuretic dosage 2. Large bilateral pleural effusion -Causing telectasis -Diuretics -Will have family meeting about thoracentesis. 3. Right foot cellulitis -Day 1 of Vancomycin -ESR and CRP elevated 4. Acute renal injury on chronic kidney disease -Baseline creatinine around 2, creatinine on admission 2.8 -May be secondary to renal congestion from CHF 5. Diabetes mellitus -On admission, glucose was elevated, nearly 600 -HbA1c 7.3 -Sliding scale insulin 6. Hypertension -Continue Imdur, Coreg, Norvasc, and Furosemide 7. CAD -Continue atorvastatin, aspirin, Plavix, Coreg, and Imdur -Troponin negative x2 8. GERD -Continue pantoprazole 9. DVT ppx -Lovenox Disposition: Pending wound care, clinical improvement from right foot cellulitis and CHF, and family's decision on thoracentesis. VS, I&O, 24H, Fishbone Vital Signs/I&O Vital Signs Date Time Temp Pulse Resp B/P (MAP) Pulse Ox O2 Delivery O2 Flow Rate FiO2 08/30/20 12:00 98.7 76 18 119/58 (78) 98 Nasal Cannula 2.0 I&O- Last 24 Hours up to 6 AM 08/30/20 05:59 Intake Total 1260 ml Output Total 550 ml Balance 710 ml Laboratory Data 24H LABS Laboratory Tests 2 08/29/20 14:20: Bedside Glucose (Misc Panel) 295H 08/29/20 15:18: Urine Color YELLOW, Urine Appearance HAZY, Urine pH 5.0, Urine Specific [place] 1.014, Urine Protein 3+H, Urine Glucose (UA) 3+H, Urine Ketones NEGATIVE, Urine Blood 1+H, Urine Nitrite NEGATIVE, Urine Bilirubin NEGATIVE, Urine Urobilinogen 0.2, Urine Leukocyte Esterase NEGATIVE, Urine WBC (Auto) 2, Urine RBC (Auto) 16H, Urine Hyaline Casts (Auto) 0, Urine Bacteria (Auto) NEGATIVE, Urine Squamous Epithelial Cells 0, Urine Mucus (Auto) SMALL, Urine Sperm (Auto) 08/29/20 15:58: Lactic Acid Level 0.9 08/29/20 17:33: Bedside Glucose (Misc Panel) 322H 08/29/20 20:11: Bedside Glucose (Misc Panel) 261H 08/30/20 05:11: Immature Granulocyte % (Auto) 0.3, Neutrophils (%) (Auto) 82.5H, Lymphocytes (%) (Auto) 7.6L, Monocytes (%) (Auto) 8.1H, Eosinophils (%) (Auto) 1.3, Basophils (%) (Auto) 0.2, Neutrophils # (Auto) 9.6H, Lymphocytes # (Auto) 0.9L, Monocytes # (Auto) 0.9H, Eosinophils # (Auto) 0.2, Basophils # (Auto) 0.0, Nucleated Red Blood Cells % (auto) 0.0, Anion Gap 7L, Glomerular Filtration Rate 23.8L, Calcium Level 8.5L, Magnesium Level 2.1, C-Reactive Protein, Quantitative 14.50H 08/30/20 09:42: Erythrocyte Sedimentation Rate 107H 08/30/20 11:43: Bedside Glucose (Misc Panel) 254H CBC/BMP Laboratory Tests 08/30/20 05:11 Microbiology Microbiology 08/29/20 Respiratory Virus Panel (PCR) (JOS[facility]UA) - Final, Complete 08/29/20 Blood Culture - Preliminary, Resulted No growth after 24 hours . All specim... 08/29/20 Blood Culture - Preliminary, Resulted No growth after 24 hours . All specim... TRACY COPE DO Aug 30, 2020 12:50
[2020-08-30 12:58] LABS: HEMATOCRIT 25.5 % (42.0-52.0); HEMOGLOBIN 7.9 g/dl (13.5-17.5); MEAN CORPUSCULAR HEMOGLOBIN 28.5 pg (27.0-33.0); MEAN CORPUSCULAR VOLUME 92.1 fl (80.0-96.0); PLATELET COUNT, AUTOMATED 209 10^3/uL (150-450); RED BLOOD COUNT 2.77 10^6/uL (4.30-6.10); WHITE BLOOD COUNT 11.2 10^3/uL (4.0-10.0)
[2020-08-30 15:34] LABS: HEMATOCRIT 26.1 % (42.0-52.0); HEMOGLOBIN 8.1 g/dl (13.5-17.5); MEAN CORPUSCULAR HEMOGLOBIN 28.7 pg (27.0-33.0); MEAN CORPUSCULAR VOLUME 92.6 fl (80.0-96.0); PLATELET COUNT, AUTOMATED 196 10^3/uL (150-450); RED BLOOD COUNT 2.82 10^6/uL (4.30-6.10); WHITE BLOOD COUNT 10.4 10^3/uL (4.0-10.0)
--- NOTE | 2020-08-30 15:37 | CR ---
TELEMEDICINE CONSULTATION DATE: 08/30/2020 CONSULTATION REQUESTED BY: Yared Coles DO. REASON FOR CONSULTATION: Bilateral lower extremity diabetic foot ulcers. HISTORY OF PRESENT ILLNESS: Verbal consent obtained. Patient identified. Note, wound care telemedicine provides a visual assessment of a wound without the benefit of physical examination. It can assist with establishing a diagnosis and etiology. This allows for treatment plan. As wounds often change, it may be necessary to modify the original care. Our recommendation is periodic wound reassessment to monitor treatment. Failure for the patient to comply may result in nonhealing of the wound, possible complications, and/or poor outcome. The recommendations given in this consultation will serve as treatment options. As I will not be following this patient, this care plan will require the attending physician to give and sign the orders. Upon discharge, outpatient follow-up can be scheduled at our wound care center. I have discussed this case via telephone with the attending, Dr. Coles, regarding treatment options. This 74-year-old neuropathic diabetic male poorly controlled with recent blood glucose 254 is seen for right and left lower extremity diabetic foot ulcers. On the right foot lateral fifth metatarsal head area, there is a wound measuring 9.0 cm x 2.5 cm with a wound depth of 0.4 cm. The drainage is minimal. On the left foot on the lateral aspect of the midfoot, there is a wound measuring 0.5 cm x 1.0 cm with a depth of 0.2 cm and the left heel, there is a wound measuring 3.0 x 4.0 cm with a depth of 0.2 cm. Additional mention is made of the dorsal aspect of the left first metatarsal head area, which shows a 0.2 cm x 0.2 cm dry eschar. TREATMENT RECOMMENDATIONS: 1. All wounds should be cleaned Vashe wound cleanser for 10 minutes. 2. The wounds should be cleansed with saline and then Santyl ointment applied a nickel thick to all wounds. This should then be covered with a Hydrofera BLUE transfer, which will require an outer dressing such has an OptiLock or a Hydrofera BLUE read, which has a silicone backing and does not require an outer dressing. Either dressing would be suitable. It is mandatory that the patient have heel-float boots for both right and left feet. Dressing changes are to be performed on an every other day basis. The patient's diabetes has to be addressed with a tighter control per medicine. A hemoglobin A1c for baseline should be obtained. Additionally, a long arterial ultrasound of both right and left lower extremities should be considered as a follow-up to the patient's Recent angioplasty intervention. BACILIO
[2020-08-30 15:44] LABS: INR 1.29; PROTHROMBIN TIME 16.3 SECONDS (12.5-14.3)
[2020-08-30 15:45] LABS: PARTIAL THROMBOPLASTIN TIME 43.4 SECONDS (24.2-38.5)
[2020-08-30 15:59] LABS: PERCENT SATURATION 7.2 % (19.7-50.0)
[2020-08-30 16:00] VITALS: BP 117/59
[2020-08-30] MEDS ORDERED: VANCOMYCIN HCL 1,000 MG, VIAL MATE ADAPTER 1 EACH in NS 250 ML IV SCH (17:00)
[2020-08-30 20:00] VITALS: BP 121/53
[2020-08-30 20:05] LABS: HEMATOCRIT 24.5 % (42.0-52.0); HEMOGLOBIN 7.8 g/dl (13.5-17.5); MEAN CORPUSCULAR HEMOGLOBIN 29.4 pg (27.0-33.0); MEAN CORPUSCULAR HGB CONC 31.8 g/dl (32.0-36.5); MEAN CORPUSCULAR VOLUME 92.5 fl (80.0-96.0); PLATELET COUNT, AUTOMATED 197 10^3/uL (150-450); RED BLOOD COUNT 2.65 10^6/uL (4.30-6.10); WHITE BLOOD COUNT 10.5 10^3/uL (4.0-10.0)
[2020-08-30] MEDS: ATORVASTATIN 20 MG TAB PO SCH (20:50)
[2020-08-30] MEDS: rOPINIRole 0.25 MG TAB(REQUIP) PO SCH (20:50)
[2020-08-31] VITALS: BP 123/74
[2020-08-31 04:00] VITALS: BP 127/57
[2020-08-31 05:38] LABS: BASO % 0.3 % (0.0-1.0); EOS # 0.1 10^3/uL (0.0-0.5); EOS % 1.4 % (0.0-3.0); HEMATOCRIT 26.7 % (42.0-52.0); HEMOGLOBIN 8.3 g/dl (13.5-17.5); LYMPH % 11.4 % (24.0-44.0); MEAN CORPUSCULAR HEMOGLOBIN 28.7 pg (27.0-33.0); MEAN CORPUSCULAR HGB CONC 31.1 g/dl (32.0-36.5); MEAN CORPUSCULAR VOLUME 92.4 fl (80.0-96.0); MONO # 0.9 10^3/uL (0.0-0.8); MONO % 10.8 % (2.0-8.0); NEUTROPHILS # 6.6 10^3/uL (1.5-8.5); NEUTROPHILS % 75.6 % (36.0-66.0); PLATELET COUNT, AUTOMATED 196 10^3/uL (150-450); RED BLOOD COUNT 2.89 10^6/uL (4.30-6.10); WHITE BLOOD COUNT 8.7 10^3/uL (4.0-10.0)
[2020-08-31 06:09] LABS: ALBUMIN 2.5 GM/DL (3.2-5.2); BILIRUBIN,TOTAL 0.5 MG/DL (0.2-1.0); CALCIUM LEVEL 8.3 MG/DL (8.8-10.2); CREATININE FOR GFR 3.16 MG/DL (0.70-1.30); GLOMERULAR FILTRATION RATE 20.7 (>42); MAGNESIUM LEVEL 2.3 MG/DL (1.8-2.4); POTASSIUM SERUM 4.4 MEQ/L (3.5-5.1); TOTAL PROTEIN 6.1 GM/DL (6.4-8.2)
[2020-08-31] MEDS: ADVAIR HFA 230/21MCG INHALER INH SCH ×2 (07:28→19:58)
[2020-08-31 08:00] VITALS: BP 128/61
[2020-08-31] MEDS: HumaLOG INSULIN (NovoLOG) PER UNIT SC SCH ×4 (08:04→20:42)
[2020-08-31] MEDS: PANTOPRAZOLE 40MG TAB (PROTONIX) PO SCH (08:05)
[2020-08-31] MEDS: ASPIRIN 81MG ENTERIC TABLET PO SCH (08:05)
[2020-08-31] MEDS: CARVedilol 3.125 MG TAB PO SCH ×2 (08:05→20:36)
[2020-08-31] MEDS: GABAPENTIN 300 MG CAP PO SCH (08:05)
[2020-08-31] MEDS: SERTRALINE 100 MG TAB PO SCH (08:05)
[2020-08-31] MEDS: ISOSORBIDE MON. (IMDUR) 30 MG XR TAB PO SCH (08:06)
[2020-08-31] MEDS: MULTIVITAMINS/MINERALS THERAP 1 TAB PO SCH (08:07)
[2020-08-31] MEDS: ENOXAPARIN 40MG/0.4ML SYRINGE (J1650 PER 10MG) SC SCH (09:01)
--- NOTE | 2020-08-31 11:29 | REP ---
INDICATION: Bilateral feet ulcers COMPARISON: 08/11/2020. TECHNIQUE: Real time purcell scale and Duplex Doppler evaluation of the bilateral lower extremity arterial vasculature using linear high frequency transducer. FINDINGS: Purcell scale and duplex doppler images demonstrate significant calcific plaquing diffusely bilaterally. Multiple focal areas of mild, approximately 2-1 stenosis is seen from the right common femoral artery through the right popliteal artery. There are diffuse biphasic waveforms in the right lower extremity with monophasic waveforms in the anterior tibial artery and distal posterior tibial artery. Increased diastolic flow in the right anterior tibial artery may be indicative of hyperemia secondary to foot wounds. There has been placement of a stent in the distal left superficial femoral artery, which is patent. There is no definite focal hemodynamically significant stenosis in the left lower extremity arterial system. Diffuse biphasic waveforms are noted in the left lower extremity arterial system. Peak systolic velocities (cm/sec) Common femoral artery: Right 152; Left 158 Profunda femoris: Right 109; Left 163 SFA (proximal): Right 128; Left 158 SFA (mid): Right 227; Left 116 SFA (distal): Right 199; Left 113 Popliteal artery: Right 198; Left 134 ELIAS (prox.): Right 104; Left 109 Tibioperoneal trunk: Right 103; Left 95 ARCADE TECHNICIAN (prox.): Right 145; Left 79 ARCADE TECHNICIAN (distal): Right 105; Left 92 ELIAS (distal): Right 147; Left 104 IMPRESSION: Significant calcific plaque again seen bilaterally. No change in the right lower extremity arterial system as discussed in detail above. Patent stent distal left SFA. <Electronically signed by Matt Purcell > 08/31/20 7611
[2020-08-31] MEDS ORDERED: CEFTAROLINE FOSAMIL 600 MG in D5W MINI-BAG PLUS 50 ML IV SCH (11:55)
[2020-08-31 12:00] VITALS: BP 109/55
[2020-08-31 12:09] LABS: TOTAL PROTEIN,RANDOM URINE 232.2 MG/DL (0.0-12.0)
--- NOTE | 2020-08-31 12:30 | IPNPDOC ---
Text Note Date of Service The patient was seen on 08/31/20. NOTE Subjective: In the morning patient was on room air without shortness of breath. Urine output during the night decreased to 260 cc Objective: GENERAL APPEARANCE: NAD HEENT: no scleral icterus, no JVD, EOMI CARDIOVASCULAR: S1S2 LUNGS: Diminished lung sounds bilaterally ABDOMEN: soft & not tender w palpitation MUSCULOSKELETAL: no cyanosis, no swelling, mild erythema of the right foot, multiple wounds of both feet in different stages of healing INTEGUMENT: no generalized pallor NEUROLOGICAL: cranial nerve function from 2-12 intact intact, follows commands, speech not dysarthric Assessment and plan Patient is 74 years old male with past history of diastolic CHF, coronary artery diseases, peripheral vascular diseases, type 2 diabetes with neuropathy presented to the hospital with increased shortness of breath and a right foot cellulitis. Acute on chronic diastolic CHF Patient [place] [address] with bilateral pleural effusion Most likely patient will need thoracocentesis, Plavix on hold. Thoracocentesis w ill be done when patient will be 5 days off Plavix Cardiac diet Continue diuresis Bilateral pleural effusion Most likely secondary to acute CHF exacerbation Thoracocentesis Right foot cellulitis Patient has increased sedimentation rate and CRP I changed vancomycin to Ceftaroline due to nephrotoxicity. Date 2 of antibiotic therapy Normocytic anemia Hemoglobin in the morning 8.3 Venofer IV for 3 days We'll check stool for occult blood Peripheral vascular diseases Dr. Ashley did arteriogram right lower extremity with tibial intervention on 08/13/20. On 08/16/20 surgical team did Angioplasty left superficial femoral artery, Stent to left mid distal superficial femoral artery, Angioplasty left anterior tibial artery, Angioplasty left peroneal and anterior tibial artery Plavix on hold due to planned thoracocentesis Patient will need follow-up with vascular surgeon in the outpatient settings Acute on chronic renal failure Creatinine elevated to 3.1 Overnight urine output decreased to 260 mL Appreciate agree with baker operator automatic consult Type 2 diabetes Yesterday glucose level was not optimally controlled I added 5 units of detemir twice a day Hypertension Blood pressures under control Continue home cardioprotective medications Coronary artery diseases Patient denied any chest pain EKG didn't show any acute ischemic changes Cachexia Patient has reduced muscle mass, temporal wasting Ensure GERD Continue PPI Hyperlipidemia Continue statin VS,Fishbone, I+O VS, Fishbone, I+O Laboratory Tests 08/30/20 12:44 08/30/20 14:57 08/30/20 19:43 08/31/20 05:09 Vital Signs Date Time Temp Pulse Resp B/P (MAP) Pulse Ox O2 Delivery O2 Flow Rate FiO2 08/31/20 08:05 69 128/61 08/31/20 08:00 98.4 18 90 Room Air 08/31/20 04:00 2.0 I&O- Last 24 Hours up to 6 AM 08/31/20 06:00 Intake Total 958 ml Output Total 560 ml Balance 398 ml CARL HERNANDEZ DO Aug 31, 2020 12:30
[2020-08-31] MEDS: LEVEMIR (INSULIN DETEMIR) 1 UNITS/0.01ML SC SCH ×2 (12:47→20:42)
[2020-08-31] MEDS ORDERED: FUROSEMIDE 100MG/10ML VIAL (J1940) IV ONE ×2 (14:00→21:00)
[2020-08-31] MEDS ORDERED: CHLOROTHIAZIDE 500 MG VIAL (J1205 PER 1) IV ONE (14:00)
[2020-08-31] MEDS: IRON SUCROSE 200 MG in NS 100 ML IV SCH (15:19)
[2020-08-31 15:36] VITALS: BP 114/68
[2020-08-31] MEDS: CEFTAROLINE FOSAMIL 300 MG in D5W 50 ML IV SCH (16:44)
[2020-08-31 20:00] VITALS: BP 111/59
[2020-08-31] MEDS: ATORVASTATIN 20 MG TAB PO SCH (20:41)
[2020-08-31] MEDS: rOPINIRole 0.25 MG TAB(REQUIP) PO SCH (20:41)
--- NOTE | 2020-08-31 22:46 | CR ---
CONSULTATION DATE: 08/31/2020 REQUESTING PHYSICIAN: Dr. Yared Coles REASON FOR CONSULTATION: Management of acute oliguric renal failure. CHIEF COMPLAINT: Patient presented to the hospital on 08/29/2020 with progressive shortness of breath and low-grade temperatures. HISTORY OF PRESENT ILLNESS: Seven Sebastian is a 74-year-old male with a past medical history of chronic kidney disease stage 3 with baseline creatinine of around 2 as per previous records, history of congestive heart failure with preserved ejection fraction; LV ejection fraction of around 60%, coronary artery disease, diabetes mellitus type 2, multiple other comorbidities as mentioned below. He presented to the hospital on August 29, 2020 with progressive shortness of breath and low-grade temperatures. Further evaluation including imaging showed that the patient had bilateral pleural effusions and he had atelectasis versus consolidation in the lungs. He had an elevated Pro-PNB of 18,027. Patient was also in acute renal failure with a creatinine of 2 on arrival. Patient was admitted to the hospitalist service. He was started on I.V. diuretics and he was also started on I.V. antibiotics because of leukocytosis and bilateral consolidations versus infiltrates in the atelectatic portion of the lungs. Despite I.V. diuretics, patient did not make much urine and his renal function did not improve, rather his creatinine has worsened to 3.1 today. Nephrology service was called for further help in the management of this patient. I saw and evaluated the patient today morning at the bedside. Most of the history was obtained from patient's chart. He was unable to provide me with any reliable history. The only thing he told me was that he had some vascular problems and he got an angiogram from the right groin done. PAST MEDICAL HISTORY: Chronic kidney disease stage 3; baseline creatinine of 2, diabetes mellitus type 2 insulin dependent, hypertension, coronary artery disease; status post stent, history of depression and anxiety, congestive heart failure with preserved ejection fraction of 60%, solitary functioning kidney. PAST SURGICAL HISTORY: Status post left shoulder surgery, right wrist surgery and right carotid endarterectomy in the past. FAMILY HISTORY: Unable to review any family history. ALLERGIES: No known drug allergies. SOCIAL HISTORY: Patient denies any drug abuse, smoking or alcohol abuse. REVIEW OF SYSTEMS: CONSTITUTIONAL: He denies any chills, but he did have low-grade temperatures on arrival. EYES: He denies any blurry vision, double vision. ENT: He denies any dysphagia or odynophagia. CARDIOVASCULAR: He denies any chest pain. He does report shortness of breath. RESPIRATORY: He reports dyspnea, which is worsening. He had a productive cough. GI: He denies any nausea or vomiting. GENITOURINARY: He denies any dysuria. MUSCULOSKELETAL: He denies any muscle aches and pains. SKIN: He denies any rashes or ulcers. HEMATOLOGIC/ONCOLOGIC: He denies any easy bleeding or bruising. All other review of systems is negative. PHYSICAL EXAMINATION: GENERAL: Patient is awake, alert and oriented x2, lying in bed. VITAL SIGNS: Temperature 96.9 degrees Fahrenheit, blood pressure 111/59, pulse 64, respiratory rate 20, saturating 92% on nasal cannula at 2 liters. HEAD AND NECK: Extraocular muscles intact. Pupils equally round and reactive to light. Mucous membranes are moist. Neck supple. Moderately elevated JVD was noted. CARDIOVASCULAR: S1, S2, regular rate. 1+ edema of the bilateral lower extremities. RESPIRATORY: Decreased breath sounds at the bases. Decreased vocal resonance bilaterally at the bases as well. ABDOMEN: Soft, positive bowel sounds, nontender. No organomegaly. GENITOURINARY: He has an indwelling Weaver catheter. MUSCULOSKELETAL: No clubbing or cyanosis. Edema of the lower extremities as mentioned above. Patient is wearing a Waffle boot on bilateral lower extremities. INCINERATOR OPERATOR: No focal deficit at this time. Patient is awake, able to follow commands and moves upper extremities. LABORATORY REVIEW: CBC showed WBC 11.6; it was 18.5 on arrival, hemoglobin 8.6, platelets 212,000. Urinalysis done on arrival showed 3+ protein, 1+ blood. Urine random creatinine is 128, random protein is 232. BMP showed sodium 135, potassium 4.4, chloride 99, bicarb 28, BUN 64, creatinine 3.1; it was 2.8 yesterday. Calcium 8.3. Magnesium 2.3. Iron 11, transferrin saturation 7.2, ferritin 370. Albumin 2.5. MICROBIOLOGY: Respiratory viral panel is negative. Blood cultures are negative. IMAGING STUDIES: CT of the chest was done on arrival, which showed large bilateral pleural effusions and low lobe atelectasis and consolidations. DIFFERENTIAL DIAGNOSES: Acute CHF, pulmonary edema and less likely multifocal pneumonia. CURRENT INPATIENT MEDICATIONS: Patient's medications were all reviewed by myself. He is currently on I.V. Ceftaroline. He was on Vancomycin, which has been stopped now because of acute renal failure. I have started the patient on I.V. Venofer. He is on Tylenol p.r.n., Amlodipine 10 mg p.o. daily, aspirin 81 mg p.o. daily, Lipitor 80 mg q.h.s., Coreg 3.125 mg p.o. twice a day. Patient was given a dose of Lasix 80 mg I.V. with Diuril 500 mg I.V. times one dose. He is on Lovenox 40 mg subq daily. He was getting Lasix 40 mg I.V. b.i.d., which has been stopped. Insulin Levemir 5 units subq twice a day, Insulin Lispro sliding scale, Isosorbide Mononitrate 30 mg p.o. daily, multivitamin, Protonix 40 mg p.o. daily, Requip 0.25 mg p.o. q.h.s., Advair two puffs twice a day, Sertraline 100 mg p.o. daily. ASSESSMENT AND PLAN: 1. Acute oliguric renal failure: Patient is in decompensated congestive heart failure, he has bilateral effusions. At this time, patient needs diuresis. As mentioned above, I have ordered Lasix 80 mg I.V. times one dose with Diuril for sequential nephron blockade. Depending upon his response, he will given another dose of Lasix in the evening as well. There is no urgent need of hemodialysis, however if patient's renal function does not improve, I would have a low threshold to dialyze this patient. 2. Acute decompensated diastolic congestive heart failure, preserved ejection fraction: LV ejection fraction of 60%, he has bilateral large effusions. Continue the diuretic regimen as mentioned above. If he does not start improving, he might need thoracentesis. I am going to stop the Amlodipine at this time because sometimes it can be associated with pleural effusions. 3. Iron deficiency anemia: I have started the patient on I.V. Venofer. 4. Hypertension: Okay to continue current dose of Coreg. Amlodipine is being stopped because of pleural effusions. Okay to continue Isosorbide. If needed, patient can be started on oral Hydralazine as well. 5. Diabetes mellitus type 2 insulin dependent: Okay to continue current insulin regimen. Avoid use of Metformin in this patient with acute renal failure. 6. Bilateral atelectasis possible infiltrates and leukocytosis with low-grade fever: Patient is currently on I.V. Ceftaroline. Leukocytosis is getting better. Antibiotic management is as per medical team. MTDD
[2020-09-01] VITALS (8 sets, daily range): BP systolic 118–136; BP diastolic 57–81
[2020-09-01] MEDS: CEFTAROLINE FOSAMIL 300 MG in D5W 50 ML IV SCH (03:21)
[2020-09-01 05:35] LABS: BASO % 0.1 % (0.0-1.0); EOS # 0.3 10^3/uL (0.0-0.5); EOS % 3.4 % (0.0-3.0); HEMATOCRIT 26.4 % (42.0-52.0); HEMOGLOBIN 8.4 g/dl (13.5-17.5); LYMPH # 0.8 10^3/uL (1.5-5.0); LYMPH % 11.3 % (24.0-44.0); MEAN CORPUSCULAR HGB CONC 31.8 g/dl (32.0-36.5); MONO % 12.9 % (2.0-8.0); NEUTROPHILS # 5.3 10^3/uL (1.5-8.5); NEUTROPHILS % 71.6 % (36.0-66.0); PLATELET COUNT, AUTOMATED 204 10^3/uL (150-450); WHITE BLOOD COUNT 7.5 10^3/uL (4.0-10.0)
[2020-09-01 05:55] LABS: BLOOD UREA NITROGEN 68 MG/DL (7-18); CALCIUM LEVEL 8.2 MG/DL (8.8-10.2); CARBON DIOXIDE LEVEL 30 MEQ/L (21-32); CHLORIDE LEVEL 101 MEQ/L (98-107); CREATININE FOR GFR 3.02 MG/DL (0.70-1.30); GLOMERULAR FILTRATION RATE 21.8 (>42); GLUCOSE, FASTING 106 MG/DL (70-100); MAGNESIUM LEVEL 2.3 MG/DL (1.8-2.4); POTASSIUM SERUM 3.9 MEQ/L (3.5-5.1); SODIUM LEVEL 138 MEQ/L (136-145)
[2020-09-01] MEDS: ADVAIR HFA 230/21MCG INHALER INH SCH ×2 (07:35→20:18)
[2020-09-01] MEDS: LEVEMIR (INSULIN DETEMIR) 1 UNITS/0.01ML SC SCH ×2 (08:52→20:38)
[2020-09-01] MEDS: ASPIRIN 81MG ENTERIC TABLET PO SCH (08:53)
[2020-09-01] MEDS: HumaLOG INSULIN (NovoLOG) PER UNIT SC SCH ×4 (08:53→20:44)
[2020-09-01] MEDS: MULTIVITAMINS/MINERALS THERAP 1 TAB PO SCH (08:53)
[2020-09-01] MEDS: CARVedilol 3.125 MG TAB PO SCH ×2 (08:53→20:39)
[2020-09-01] MEDS: ENOXAPARIN 40MG/0.4ML SYRINGE (J1650 PER 10MG) SC SCH (08:53)
[2020-09-01] MEDS: GABAPENTIN 300 MG CAP PO SCH (08:53)
[2020-09-01] MEDS: ISOSORBIDE MON. (IMDUR) 30 MG XR TAB PO SCH (08:54)
[2020-09-01] MEDS: PANTOPRAZOLE 40MG TAB (PROTONIX) PO SCH (08:54)
[2020-09-01] MEDS: SERTRALINE 100 MG TAB PO SCH (08:54)
[2020-09-01] MEDS: FUROSEMIDE 100MG/10ML VIAL (J1940) IV SCH ×2 (11:59→19:05)
--- NOTE | 2020-09-01 12:51 | IPNPDOC ---
Text Note Date of Service The patient was seen on 09/01/20. NOTE Subjective: No any acute events overnight. Urine output during the night around 500 cc Objective: GENERAL APPEARANCE: NAD HEENT: no scleral icterus, no JVD, EOMI CARDIOVASCULAR: S1S2 LUNGS: Diminished lung sounds bilaterally ABDOMEN: soft & not tender w palpitation MUSCULOSKELETAL: no cyanosis, no swelling, multiple wounds of both feet in different stages of healing INTEGUMENT: no generalized pallor NEUROLOGICAL: cranial nerve function from 2-12 intact intact, follows commands, speech not dysarthric Assessment and plan Patient is 74 years old male with past history of diastolic CHF, coronary artery diseases, peripheral vascular diseases, type 2 diabetes with neuropathy presented to the hospital with increased shortness of breath and a right foot cellulitis. Acute on chronic diastolic CHF Patient [place] [address] with bilateral pleural effusion Most likely patient will need thoracocentesis, Plavix on hold. Thoracocentesis will be done when patient will be 6 days off Plavix Cardiac diet Continue diuresis Bilateral pleural effusion Most likely secondary to acute CHF exacerbation Thoracocentesis on Sunday, after 6 days off Plavix Right foot cellulitis Patient has increased sedimentation rate and CRP Stop antibiotics today. On my inspection on the foot patient does not have any redness or swelling, no tenderness. Patient doesn't have leukocytosis, afebrile. Normocytic anemia Hemoglobin in the morning 8.4 Venofer IV for 3 days stool for occult blood negative Peripheral vascular diseases Dr. Ashley did arteriogram right lower extremity with tibial intervention on 08/13/20. On 08/16/20 surgical team did Angioplasty left superficial femoral artery, Stent to left mid distal superficial femoral artery, Angioplasty left anterior tibial artery, Angioplasty left peroneal and anterior tibial artery Plavix on hold due to planned thoracocentesis Patient will need follow-up with vascular surgeon in the outpatient settings Acute on chronic renal failure Creatinine slightly improved today to 3.02 Overnight urine output around [address] Interpreter team increased dose of Lasix to 80 mg IV every 8 hours Type 2 diabetes Diabetes diet Glucose level under control Insulin sliding scale Hypertension Blood pressures under control Continue home cardioprotective medications Coronary artery diseases Patient denied any chest pain EKG didn't show any acute ischemic changes Cachexia Patient has reduced muscle mass, temporal wasting Ensure GERD Continue PPI Hyperlipidemia Continue statin VS,Fishbone, I+O VS, Fishbone, I+O Laboratory Tests 09/01/20 05:13 Vital Signs Date Time Temp Pulse Resp B/P (MAP) Pulse Ox O2 Delivery O2 Flow Rate FiO2 09/01/20 12:06 97.4 62 18 93 Room Air 09/01/20 11:54 121/57 (78) 09/01/20 08:00 2.0 I&O- Last 24 Hours up to 6 AM 09/01/20 06:00 Intake Total 1360 ml Output Total 1050 ml Balance 310 ml CARL HERNANDEZ DO Sep 01, 2020 12:51
[2020-09-01 13:30] LABS: FOLATE > 24.0 NG/ML; VITAMIN B12 LEVEL 1218 PG/ML
--- NOTE | 2020-09-01 13:31 | IPN ---
PROGRESS NOTE DATE: 09/01/2020 SUBJECTIVE: The patient was seen and examined at the bedside today morning. He reports that his breathing is better today as compared with yesterday. He was given IV Lasix with IV diuretic yesterday. His urine output is improving. Renal function is almost stable as yesterday. OBJECTIVE: VITAL SIGNS: Temperature is 97.4 degrees Fahrenheit, blood pressure 121/57, pulse is 62, respiratory rate of 18, saturating 93% on room air. INTAKE AND OUTPUT: Urine output recorded as 610 mL yesterday, 900 mL so far today, and weight on the bed scale is 64.2 kg. GENERAL: The patient is awake, alert, and oriented x2 lying in bed in no apparent distress. HEAD/NECK: Extraocular muscles are intact. Pupils are equally round and reactive to light. Mucous membranes are moist. Neck is supple with mildly elevated JVD. CARDIOVASCULAR: S1, S2. Regular rate. 1+ edema of the right lower extremity and trace edema of the left lower extremity. RESPIRATORY: Decreased breath sounds bilaterally at the bases with decreased focal resonance. ABDOMEN: Soft with positive bowel sounds and nontender. GENITOURINARY: He has an indwelling Weaver catheter. MUSCULOSKELETAL: Edema of the lower extremities as mentioned above and Waffle boot on both legs. 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 Power is 5/5 in all extremities right now. LABORATORY DATA: CBC showed WBC of 7.5, hemoglobin 8.4, platelets 204,000. BMP showed sodium 138, potassium 3.9, chloride 101, bicarb 30, BUN 68, creatinine 3. CURRENT INPATIENT MEDICATIONS: The patient's medications were all reviewed by myself. IV Ceftaroline has been stopped. She continues to be on IV Venofer. Amlodipine has been stopped. No other significant change in the medications today. ASSESSMENT AND PLAN: 1. Acute oliguric renal failure. The patient was started on high dose diuretic. His urine output is improving. Creatinine is stable since yesterday. I have started the patient on Lasix 80 mg IV q. 8 hourly. 2. Acute decompensated diastolic congestive heart failure with preserved ejection fraction. The patient has large bilateral effusions. Continue with diuretic as mentioned above. Continue to monitor intake and output. Avoid further use of amlodipine. 3. Iron deficiency anemia. The patient is getting IV Venofer. Hemoglobin level is improving. 4. Hypertension. Continue current dose of Coreg and diuretic. Avoid use of amlodipine because of pleural effusions. Diabetes mellitus type 2. Continue current insulin regimen. 5. Bilateral infiltrates on the imaging. The patient is currently on Ceftaroline. Leukocytosis has improved. Effusions are being managed with diuretic.
--- NOTE | 2020-09-01 13:40 | REP ---
INDICATION: pleural effusion. COMPARISON: 08/29/2020 a portable exam TECHNIQUE: PA and lateral FINDINGS: There is mild cardiomegaly status quo. There is persistent silhouetting out of the diaphragmatic surface of the left lung. There is persistent bilateral CP angle blunting status quo. There are patchy bibasilar opacities which appears stable. No definite new abnormal lung field opacities have developed. There is no significant change in appearance of the osseous structures. IMPRESSION: No significant change with findings as described above. Bilateral pleural effusions and lung field opacities as described above. <Electronically signed by Zach Sweeney > 09/01/20 [id number]
[2020-09-01] MEDS: IRON SUCROSE 200 MG in NS 100 ML IV SCH (14:35)
[2020-09-01] MEDS: ACETAMINOPHEN 325 MG TAB PO PRN ×2 (15:51→20:37)
[2020-09-01] MEDS: ATORVASTATIN 20 MG TAB PO SCH (20:39)
[2020-09-01] MEDS: rOPINIRole 0.25 MG TAB(REQUIP) PO SCH (20:39)
[2020-09-02] VITALS (7 sets, daily range): BP systolic 113–148; BP diastolic 55–73
[2020-09-02] MEDS: FUROSEMIDE 100MG/10ML VIAL (J1940) IV SCH ×3 (03:31→18:58)
[2020-09-02 05:53] LABS: BASO % 0.2 % (0.0-1.0); EOS # 0.2 10^3/uL (0.0-0.5); EOS % 1.9 % (0.0-3.0); LYMPH % 12.4 % (24.0-44.0); MEAN CORPUSCULAR HEMOGLOBIN 28.8 pg (27.0-33.0); MEAN CORPUSCULAR VOLUME 89.9 fl (80.0-96.0); MONO # 0.9 10^3/uL (0.0-0.8); MONO % 10.5 % (2.0-8.0); NEUTROPHILS % 74.5 % (36.0-66.0); PLATELET COUNT, AUTOMATED 215 10^3/uL (150-450); RED BLOOD COUNT 2.78 10^6/uL (4.30-6.10); WHITE BLOOD COUNT 8.1 10^3/uL (4.0-10.0)
[2020-09-02 06:18] LABS: BLOOD UREA NITROGEN 72 MG/DL (7-18); CALCIUM LEVEL 8.4 MG/DL (8.8-10.2); CARBON DIOXIDE LEVEL 30 MEQ/L (21-32); CHLORIDE LEVEL 102 MEQ/L (98-107); CREATININE FOR GFR 3.21 MG/DL (0.70-1.30); GLOMERULAR FILTRATION RATE 20.3 (>42); GLUCOSE, FASTING 219 MG/DL (70-100); MAGNESIUM LEVEL 2.3 MG/DL (1.8-2.4); POTASSIUM SERUM 3.8 MEQ/L (3.5-5.1); SODIUM LEVEL 139 MEQ/L (136-145)
[2020-09-02] MEDS: ADVAIR HFA 230/21MCG INHALER INH SCH ×2 (07:00→20:06)
[2020-09-02] MEDS: ENOXAPARIN 40MG/0.4ML SYRINGE (J1650 PER 10MG) SC SCH (09:10)
[2020-09-02] MEDS: ASPIRIN 81MG ENTERIC TABLET PO SCH (09:12)
[2020-09-02] MEDS: LEVEMIR (INSULIN DETEMIR) 1 UNITS/0.01ML SC SCH ×2 (09:12→22:30)
[2020-09-02] MEDS: MULTIVITAMINS/MINERALS THERAP 1 TAB PO SCH (09:12)
[2020-09-02] MEDS: SERTRALINE 100 MG TAB PO SCH (09:12)
[2020-09-02] MEDS: HumaLOG INSULIN (NovoLOG) PER UNIT SC SCH ×4 (09:12→21:00)
[2020-09-02] MEDS: ISOSORBIDE MON. (IMDUR) 30 MG XR TAB PO SCH (09:14)
[2020-09-02] MEDS: CARVedilol 3.125 MG TAB PO SCH ×2 (09:19→20:51)
[2020-09-02] MEDS: PANTOPRAZOLE 40MG TAB (PROTONIX) PO SCH (09:19)
[2020-09-02] MEDS: GABAPENTIN 300 MG CAP PO SCH (09:19)
[2020-09-02 09:31] LABS: CK-MB VALUE MASS 1.6 NG/ML (<3.6); CPK CREATINE PHOSPHOKINASE 75 U/L (39-308); MB/CK RELATIVE INDEX 2.13 (< OR =4); TROPONIN I < 0.02 NG/ML (< 0.10)
[2020-09-02] MEDS ORDERED: metOLazone 5 MG TAB PO ONE (11:40)
[2020-09-02] MEDS ORDERED: POTASSIUM CHLORIDE 10 MEQ SR TABLET PO ONE (11:40)
--- NOTE | 2020-09-02 12:51 | IPNPDOC ---
Text Note Date of Service The patient was seen on 09/02/20. NOTE Subjective: Patient stated that he has chest pain, substernal with radiation to left shoulder, intermittent. He stated that pain started in the middle of the night. Objective: GENERAL APPEARANCE: NAD HEENT: no scleral icterus, no JVD, EOMI CARDIOVASCULAR: S1S2 LUNGS: Diminished lung sounds bilaterally ABDOMEN: soft & not tender w palpitation MUSCULOSKELETAL: no cyanosis, no swelling, multiple wounds of both feet in different stages of healing INTEGUMENT: no generalized pallor NEUROLOGICAL: cranial nerve function from 2-12 intact intact, follows commands, speech not dysarthric Assessment and plan Patient is 74 years old male with past history of diastolic CHF, coronary artery diseases, peripheral vascular diseases, type 2 diabetes with neuropathy presen georgina to the hospital with increased shortness of breath and a right foot cellulitis. Acute on chronic diastolic CHF Patient [place] [address] with bilateral pleural effusion Most likely patient will need thoracocentesis, Plavix on hold. Thoracocentesis will be done when patient will be 6 days off Plavix Cardiac diet Urine output 1.9 L for past 24 hours Continue diuresis Bilateral pleural effusion Most likely secondary to acute CHF exacerbation Thoracocentesis on Sunday, after 6 days off Plavix Right foot cellulitis Patient had increased sedimentation rate and CRP Stop antibiotics yesterday. On my inspection on the foot patient does not have any redness or swelling, no tenderness. Patient doesn't have leukocytosis, afebrile. Normocytic anemia Hemoglobin dropped to 8 Venofer IV for 3 days stool for occult blood negative I ordered one unit of blood Peripheral vascular diseases Dr. Ashley did arteriogram right lower extremity with tibial intervention on 08/13/20. On 08/16/20 surgical team did Angioplasty left superficial femoral artery, Stent to left mid distal superficial femoral artery, Angioplasty left anterior tibial artery, Angioplasty left peroneal and anterior tibial artery Plavix on hold due to planned thoracocentesis Patient will need follow-up with vascular surgeon in the outpatient settings Acute on chronic renal failure Creatinine worsened to 3.2 Nephrology team follows him Type 2 diabetes Diabetes diet Glucose level under control Insulin sliding scale Hypertension Blood pressures under control Continue home cardioprotective medications Coronary artery diseases Patient denied any chest pain EKG didn't show any acute ischemic changes Chest pain Troponin negative, EKG negative for new acute ischemic changes Nitroglycerin when necessary Cachexia Patient has reduced muscle mass, temporal wasting Ensure GERD Continue PPI Hyperlipidemia Continue statin VS,Fishbone, I+O VS, Fishbone, I+O Laboratory Tests 09/02/20 05:26 Vital Signs Date Time Temp Pulse Resp B/P (MAP) Pulse Ox O2 Delivery O2 Flow Rate FiO2 09/02/20 11:50 113/73 (86) 09/02/20 07:38 98.4 71 22 91 Room Air 09/01/20 08:00 2.0 I&O- Last 24 Hours up to 6 AM0 09/02/20 06:00 Intake Total 1370 ml Output Total 1400 ml Balance -30 ml CARL HERNANDEZ DO Sep 02, 2020 12:50
--- NOTE | 2020-09-02 13:37 | ECGEPIP ---
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
--- NOTE | 2020-09-02 13:58 | IPN ---
NEPHROLOGY PROGRESS NOTE DATE: 09/02/2020 SUBJECTIVE: Patient was seen and examined at the bedside today morning. He continues to be on intravenous (IV) diuretics. Urine output is improving. Creatinine has been fluctuating between 3 to 3.2. He still reports persistent shortness of breath. Patient is supposed to get thoracentesis done after holding his antiplatelets. OBJECTIVE: VITAL SIGNS: Temperature 98.4 degrees Fahrenheit, blood pressure 113/73, pulse 71, respiratory rate 22, saturating 91% on room air. INTAKE AND OUTPUT: Urine output recorded as 1200 mL yesterday, 700 mL so far today since overnight. Weight in the bed scale is 63 kg. PHYSICAL EXAMINATION: GENERAL: Patient is awake, alert, oriented times two, sitting up in the bed, in no distress. HEAD AND NECK EXAM: Extraocular muscles intact. Pupils equally round and reactive to light. Mucous membranes are moist. Neck is supple. Mildly elevated jugular venous distention (JVD). CARDIOVASCULAR: S1, S2. Regular rate. Trace edema of the bilateral lower extremities. RESPIRATORY: Decreased breath sounds and decreased vocal resonance bilaterally at the bases. ABDOMEN: Soft. Positive bowel sounds. Nontender. No organomegaly MUSCULOSKELETAL: No clubbing or cyanosis. 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 Power is 5/5 in bilateral upper extremities. LABORATORY REVIEW: CBC showed WBC 8.1, hemoglobin 8, platelets 215. BMP showed sodium 139, potassium 3.8, chloride 102, bicarbonate 30, BUN 72, creatinine 3.2. CURRENT INPATIENT MEDICATIONS: Patient's medications were all reviewed by myself. He continues to be on Venofer. He is on Lasix 80 mg IV every 8 hours. He was given a dose of metolazone 5 mg by mouth times one dose. ASSESSMENT AND PLAN: 1. Acute oliguric renal failure. Patient is on high dose diuretic. His creatinine is fluctuation between 3 to 3.2. Continue the Lasix. He has bilateral effusions. 2. Acute decompensated diastolic congestive heart failure. Patient has bilateral pleural effusions. Continue IV Lasix. Management of effusions as mentioned below. 3. Iron deficiency anemia. Patient is getting IV Venofer. Transfuse as needed for hemoglobin below 8 only. 4. Hypertension. Continue current dose of Coreg. Avoid further use of amlodipine. 5. Bilateral infiltrates and effusions. Patient is on antibiotics for the infiltrates on imaging. The effusions will be tapped after holding antiplatelets for a few days.
[2020-09-02 14:19] LABS: HEMATOCRIT 28.4 % (42.0-52.0)
[2020-09-02] MEDS: IRON SUCROSE 200 MG in NS 100 ML IV SCH (14:26)
[2020-09-02 19:55] LABS: HEMATOCRIT 27.9 % (42.0-52.0)
[2020-09-02] MEDS: rOPINIRole 0.25 MG TAB(REQUIP) PO SCH (20:50)
[2020-09-02] MEDS: ATORVASTATIN 20 MG TAB PO SCH (20:50)
[2020-09-02] MEDS ORDERED: ONDANSETRON 4MG/2ML VIAL IV PRN (22:55)
[2020-09-03] VITALS: BP 139/62
[2020-09-03 02:33] LABS: HEMATOCRIT 26.3 % (42.0-52.0); HEMOGLOBIN 8.5 g/dl (13.5-17.5)
[2020-09-03 03:56] VITALS: BP 125/61
[2020-09-03] MEDS: FUROSEMIDE 100MG/10ML VIAL (J1940) IV SCH ×2 (03:56→23:04)
[2020-09-03 07:28] VITALS: BP 133/66
[2020-09-03] MEDS: PANTOPRAZOLE 40MG TAB (PROTONIX) PO SCH (07:42)
[2020-09-03] MEDS: GABAPENTIN 300 MG CAP PO SCH (07:43)
[2020-09-03] MEDS: ASPIRIN 81MG ENTERIC TABLET PO SCH (07:43)
[2020-09-03] MEDS: CARVedilol 3.125 MG TAB PO SCH ×2 (07:43→21:37)
[2020-09-03] MEDS: ISOSORBIDE MON. (IMDUR) 30 MG XR TAB PO SCH (07:43)
[2020-09-03] MEDS: SERTRALINE 100 MG TAB PO SCH (07:43)
[2020-09-03] MEDS: MULTIVITAMINS/MINERALS THERAP 1 TAB PO SCH (07:43)
[2020-09-03] MEDS: HumaLOG INSULIN (NovoLOG) PER UNIT SC SCH ×4 (07:44→21:00)
[2020-09-03] MEDS: ENOXAPARIN 40MG/0.4ML SYRINGE (J1650 PER 10MG) SC SCH (07:44)
[2020-09-03] MEDS: LEVEMIR (INSULIN DETEMIR) 1 UNITS/0.01ML SC SCH ×2 (07:44→21:36)
[2020-09-03] MEDS: ADVAIR HFA 230/21MCG INHALER INH SCH ×2 (08:28→20:03)
[2020-09-03 08:58] LABS: BASO % 0.3 % (0.0-1.0); EOS # 0.1 10^3/uL (0.0-0.5); EOS % 0.8 % (0.0-3.0); HEMATOCRIT 29.6 % (42.0-52.0); HEMOGLOBIN 9.2 g/dl (13.5-17.5); LYMPH # 1.1 10^3/uL (1.5-5.0); LYMPH % 9.2 % (24.0-44.0); MEAN CORPUSCULAR HEMOGLOBIN 28.5 pg (27.0-33.0); MEAN CORPUSCULAR HGB CONC 31.1 g/dl (32.0-36.5); MEAN CORPUSCULAR VOLUME 91.6 fl (80.0-96.0); NEUTROPHILS # 9.3 10^3/uL (1.5-8.5); NEUTROPHILS % 79.8 % (36.0-66.0); PLATELET COUNT, AUTOMATED 274 10^3/uL (150-450); RED BLOOD COUNT 3.23 10^6/uL (4.30-6.10); WHITE BLOOD COUNT 11.6 10^3/uL (4.0-10.0)
[2020-09-03 09:20] LABS: CALCIUM LEVEL 8.4 MG/DL (8.8-10.2); CREATININE FOR GFR 3.38 MG/DL (0.70-1.30); GLOMERULAR FILTRATION RATE 19.1 (>42); MAGNESIUM LEVEL 2.3 MG/DL (1.8-2.4); POTASSIUM SERUM 4.3 MEQ/L (3.5-5.1)
[2020-09-03] MEDS ORDERED: metOLazone 5 MG TAB PO ONE (12:00)
[2020-09-03 14:10] LABS: HEMATOCRIT 28.4 % (42.0-52.0); HEMOGLOBIN 8.9 g/dl (13.5-17.5)
[2020-09-03] MEDS: ACETAMINOPHEN 325 MG TAB PO PRN (16:00)
--- NOTE | 2020-09-03 16:14 | IPNPDOC ---
Text Note Date of Service The patient was seen on 09/03/20. NOTE Subjective: No any acute events overnight. Patient denied any chest pain or p alpitations Objective: GENERAL APPEARANCE: NAD HEENT: no scleral icterus, no JVD, EOMI CARDIOVASCULAR: S1S2 LUNGS: Diminished lung sounds bilaterally ABDOMEN: soft & not tender w palpitation MUSCULOSKELETAL: no cyanosis, no swelling, multiple wounds of both feet in different stages of healing INTEGUMENT: no generalized pallor NEUROLOGICAL: cranial nerve function from 2-12 intact intact, follows commands, speech not dysarthric Assessment and plan Patient is 74 years old male with past history of diastolic CHF, coronary artery diseases, peripheral vascular diseases, type 2 diabetes with neuropathy presented to the hospital with increased shortness of breath and a right foot cellulitis. Acute on chronic diastolic CHF Patient [place] [address] with bilateral pleural effusion Most likely patient will need thoracocentesis, Plavix on hold. Thoracocentesis will be done when patient will be 6 days off Plavix Cardiac diet Urine output 2.2 L for past 24 hours Continue diuresis, BNP downtrending to 13,000 Bilateral pleural effusion Most likely secondary to acute CHF exacerbation Thoracocentesis on Sunday, after 6 days off Plavix Right foot cellulitis Patient had increased sedimentation rate and CRP On my inspection on the foot patient does not have any redness or swelling, no tenderness. Patient doesn't have leukocytosis, afebrile. Stop antibiotics. Normocytic anemia Hemoglobin 9.2 Venofer IV for 3 days stool for occult blood negative Peripheral vascular diseases Dr. Ashley did arteriogram right lower extremity with tibial intervention on 08/13/20. On 08/16/20 surgical team did Angioplasty left superficial femoral artery, Stent to left mid distal superficial femoral artery, Angioplasty left anterior tibial artery, Angioplasty left peroneal and anterior tibial artery Plavix on hold due to planned thoracocentesis Patient will need follow-up with vascular surgeon in the outpatient settings Acute on chronic renal failure Creatinine worsened to 3.38 Nephrology team follows him Type 2 diabetes Diabetes diet Glucose level under control Insulin sliding scale Hypertension Blood pressures under control Continue home cardioprotective medications Coronary artery diseases Patient denied any chest pain EKG didn't show any acute ischemic changes Chest pain Troponin negative, EKG negative for new acute ischemic changes Nitroglycerin when necessary Cachexia Patient has reduced muscle mass, temporal wasting Ensure GERD Continue PPI Hyperlipidemia Continue statin VS,Fishbone, I+O VS, Fishbone, I+O Laboratory Tests 09/02/20 19:36 09/03/20 02:16 09/03/20 07:55 09/03/20 13:46 Vital Signs Date Time Temp Pulse Resp B/P (MAP) Pulse Ox O2 Delivery O2 Flow Rate FiO2 09/03/20 08:00 3.0 09/03/20 07:43 133/66 09/03/20 07:43 72 09/03/20 07:28 97.6 20 96 Nasal Cannula I&O- Last 24 Hours up to 6 AM 09/03/20 06:00 Intake Total 1270 ml Output Total 1275 ml Balance -5 ml CARL HERNANDEZ DO Sep 03, 2020 16:14
[2020-09-03 16:18] VITALS: BP 138/65
--- NOTE | 2020-09-03 18:00 | IPN ---
PROGRESS NOTE DATE: 09/03/2020 SUBJECTIVE: Patient was seen and examined today morning at the bedside. He continues to be on intravenous (IV) Lasix 80 mg three times a day. He is diuresing well. there is a slight bump in his creatinine from 3.2 to 3.3 today. OBJECTIVE: Vital signs: Temperature is 97.8 degrees Fahrenheit, blood pressure 138/65, pulse is 67, respiratory rate of 20, saturating 96% on nasal cannula at 2 liters. Intake and output: Urine output recorded is 1.6 liters yesterday, 625 mL so far today since overnight. Weight in the bed scale is 63 kg, which is stable since yesterday. PHYSICAL EXAMINATION: GENERAL: Patient is awake, alert, oriented times three, lying in bed. HEAD AND NECK: Extraocular muscles are intact. Pupils equally round and reactive to light. Mucous membranes are moist. Neck is supple. He has mildly elevated jugular venous distention (JVD). CARDIOVASCULAR: S1, S2, regular rate. Edema 1+ of the ankles. RESPIRATORY: Mildly decreased breath sounds at the bases with decreased vocal resonance bilaterally at the bases. ABDOMEN: Soft. Positive bowel sounds. Nontender. No organomegaly. MUSCULOSKELETAL: No clubbing or cyanosis. CENTRAL NERVOUS SYSTEM: No focal deficit. Power is 5/5 in all extremities. LABORATORY REVIEW: CBC showed a WBC 11.6, hemoglobin 9.2, platelets 274. BMP shows sodium 138, potassium 4.3, chloride 99, bicarbonate 31, BUN 66. Creatinine 3.3; it was 3.2 yesterday. Calcium is 8.4, phosphorus 2.3. BNP is 13,269. CURRENT INPATIENT MEDICATIONS: Patient's medications were all reviewed by myself. IV Lasix has been decreased to 80 mg IV twice a day. I also gave him a dose of metolazone 5 mg by mouth times one dose. ASSESSMENT AND PLAN: 1. Acute renal failure. Patient is nonoliguric at this time. He is responding to the diuretics. Because of a slight bump in the creatinine, I am going to decrease the diuretic dose now. 2. Acute decompensated diastolic congestive heart failure. Lasix dose has been decreased to 80 mg IV twice a day, but for sequential nephron blockade, I have added a dose of metolazone 5 mg by mouth today morning. 3. Iron deficiency anemia. He was given IV Venofer. Hemoglobin level is stable and improving. It is 8.9 today. There is no need of packed red blood cells (PRBC) transfusion. 4. Bilateral pleural effusions. Patient will get the thoracentesis done after the weekend. His antiplatelets are on hold.
[2020-09-03 20:01] LABS: HEMATOCRIT 25.5 % (42.0-52.0); HEMOGLOBIN 7.9 g/dl (13.5-17.5)
[2020-09-03 21:00] VITALS: BP 122/57
[2020-09-03] MEDS: ATORVASTATIN 20 MG TAB PO SCH (21:36)
[2020-09-03] MEDS: SANTYL OINT 30GM TOP SCH (21:36)
[2020-09-03] MEDS: rOPINIRole 0.25 MG TAB(REQUIP) PO SCH (21:38)
[2020-09-03 23:00] VITALS: BP 121/58
[2020-09-04 02:18] LABS: HEMATOCRIT 25.3 % (42.0-52.0); HEMOGLOBIN 7.9 g/dl (13.5-17.5)
[2020-09-04 06:00] VITALS: BP 135/60
[2020-09-04 06:08] LABS: BASO % 0.4 % (0.0-1.0); EOS # 0.2 10^3/uL (0.0-0.5); EOS % 1.8 % (0.0-3.0); HEMATOCRIT 27.6 % (42.0-52.0); HEMOGLOBIN 8.4 g/dl (13.5-17.5); LYMPH # 1.3 10^3/uL (1.5-5.0); LYMPH % 13.8 % (24.0-44.0); MEAN CORPUSCULAR HEMOGLOBIN 28.4 pg (27.0-33.0); MEAN CORPUSCULAR HGB CONC 30.4 g/dl (32.0-36.5); MEAN CORPUSCULAR VOLUME 93.2 fl (80.0-96.0); MONO # 0.9 10^3/uL (0.0-0.8); MONO % 9.6 % (2.0-8.0); NEUTROPHILS # 6.7 10^3/uL (1.5-8.5); NEUTROPHILS % 73.5 % (36.0-66.0); PLATELET COUNT, AUTOMATED 248 10^3/uL (150-450); RED BLOOD COUNT 2.96 10^6/uL (4.30-6.10); WHITE BLOOD COUNT 9.1 10^3/uL (4.0-10.0)
[2020-09-04 06:32] LABS: ALBUMIN 2.5 GM/DL (3.2-5.2); BILIRUBIN,TOTAL 0.3 MG/DL (0.2-1.0); CALCIUM LEVEL 8.4 MG/DL (8.8-10.2); CREATININE FOR GFR 3.97 MG/DL (0.70-1.30); GLOMERULAR FILTRATION RATE 15.9 (>42); MAGNESIUM LEVEL 2.5 MG/DL (1.8-2.4); POTASSIUM SERUM 4.4 MEQ/L (3.5-5.1); TOTAL PROTEIN 6.2 GM/DL (6.4-8.2)
[2020-09-04 07:03] VITALS: BP 127/59
[2020-09-04] MEDS: ADVAIR HFA 230/21MCG INHALER INH SCH ×2 (07:58→19:59)
[2020-09-04 08:09] LABS: HEMATOCRIT 28.9 % (42.0-52.0); HEMOGLOBIN 8.9 g/dl (13.5-17.5)
[2020-09-04] MEDS: PANTOPRAZOLE 40MG TAB (PROTONIX) PO SCH (08:25)
[2020-09-04] MEDS: CARVedilol 3.125 MG TAB PO SCH ×2 (08:25→21:26)
[2020-09-04] MEDS: ENOXAPARIN 40MG/0.4ML SYRINGE (J1650 PER 10MG) SC SCH (08:26)
[2020-09-04] MEDS: MULTIVITAMINS/MINERALS THERAP 1 TAB PO SCH (08:26)
[2020-09-04] MEDS: ISOSORBIDE MON. (IMDUR) 30 MG XR TAB PO SCH (08:26)
[2020-09-04] MEDS: ASPIRIN 81MG ENTERIC TABLET PO SCH (08:26)
[2020-09-04] MEDS: GABAPENTIN 300 MG CAP PO SCH (08:26)
[2020-09-04] MEDS: SERTRALINE 100 MG TAB PO SCH (08:26)
[2020-09-04] MEDS: LEVEMIR (INSULIN DETEMIR) 1 UNITS/0.01ML SC SCH ×2 (08:27→21:27)
[2020-09-04] MEDS: HumaLOG INSULIN (NovoLOG) PER UNIT SC SCH ×4 (08:27→21:00)
[2020-09-04] MEDS ORDERED: DARBEPOETIN 100 MCG/0.5 ML *NON-DIALYSIS* SYRINGE (J0881) SC SCH (09:00)
[2020-09-04 11:36] VITALS: BP 133/63
[2020-09-04] MEDS: FUROSEMIDE 100MG/10ML VIAL (J1940) IV SCH ×2 (11:51→23:09)
--- NOTE | 2020-09-04 12:03 | IPNPDOC ---
Text Note Date of Service The patient was seen on 09/04/20. NOTE Subjective: No any acute events overnight. Patient denied any chest pain or pa lpitations Objective: GENERAL APPEARANCE: NAD HEENT: no scleral icterus, no JVD, EOMI CARDIOVASCULAR: S1S2 LUNGS: Diminished lung sounds bilaterally ABDOMEN: soft & not tender w palpitation MUSCULOSKELETAL: no cyanosis, no swelling, multiple wounds of both feet in different stages of healing INTEGUMENT: no generalized pallor NEUROLOGICAL: cranial nerve function from 2-12 intact intact, follows commands, speech not dysarthric Assessment and plan Patient is 74 years old male with past history of diastolic CHF, coronary artery diseases, peripheral vascular diseases, type 2 diabetes with neuropathy presented to the hospital with increased shortness of breath and a right foot cellulitis. Acute on chronic diastolic CHF Patient [place] [address] with bilateral pleural effusion Most likely patient will need thoracocentesis, Plavix on hold. Thoracocentesis w ill be done when patient will be 6 days off Plavix Cardiac diet Urine output 700 cc overnight Nephrology team reduce dose of Lasix IV, due to worsening kidney function Bilateral pleural effusion Most likely secondary to acute CHF exacerbation Thoracocentesis on Sunday, after 6 days off Plavix Right foot cellulitis Patient had increased sedimentation rate and CRP On my inspection on the foot patient does not have any redness or swelling, no tenderness. Patient doesn't have leukocytosis, afebrile. Stop antibiotics. Normocytic anemia Hemoglobin 9.2 Venofer IV for 3 days stool for occult blood negative Peripheral vascular diseases Dr. Ashley did arteriogram right lower extremity with tibial intervention on 08/13/20. On 08/16/20 surgical team did Angioplasty left superficial femoral artery, Stent to left mid distal superficial femoral artery, Angioplasty left anterior tibial artery, Angioplasty left peroneal and anterior tibial artery Plavix on hold due to planned thoracocentesis Patient will need follow-up with vascular surgeon in the outpatient settings Acute on chronic renal failure Creatinine worsened to 3.9 Nephrology team follows him Type 2 diabetes Diabetes diet Glucose level under control Insulin sliding scale Hypertension Blood pressures under control Continue home cardioprotective medications Coronary artery diseases Patient denied any chest pain EKG didn't show any acute ischemic changes Chest pain Troponin negative, EKG negative for new acute ischemic changes Nitroglycerin when necessary Cachexia Patient has reduced muscle mass, temporal wasting Ensure GERD Continue PPI Hyperlipidemia Continue statin VS,Fishbone, I+O VS, Fishbone, I+O Laboratory Tests 09/03/20 13:46 09/03/20 19:42 09/04/20 01:59 09/04/20 05:25 09/04/20 07:55 Vital Signs Date Time Temp Pulse Resp B/P (MAP) Pulse Ox O2 Delivery O2 Flow Rate FiO2 09/04/20 11:36 97.8 64 18 133/63 (86) 92 Room Air 09/04/20 07:03 2.0 I&O- Last 24 Hours up to 6 AM 09/04/20 06:00 Intake Total 480 ml Output Total 325 ml Balance 155 ml CARL HERNANDEZ DO September 04, 2020 12:03
--- NOTE | 2020-09-04 14:24 | IPN ---
NEPHROLOGY PROGRESS NOTE DATE: 09/04/2020 SUBJECTIVE: Patient was seen and examined at the [facility] today morning. He continues to be on intravenous (IV) Lasix; however, the dose was decreased to 80 mg twice a day. He denies any shortness of breath at this time. He is hemodynamically stable. OBJECTIVE: VITAL SIGNS: Temperature 97.8 degrees Fahrenheit, blood pressure 133/63, pulse 64, respiratory rate 18, saturating 92% on room air. INTAKE AND OUTPUT: Urine output recorded as 700 mL yesterday. Weight in the bed scale is 61.3. PHYSICAL EXAMINATION: GENERAL: Patient is awake, alert, oriented times three, laying in bed, no apparent distress. HEAD AND NECK EXAM: Extraocular muscles intact. Pupils equally round and reactive to light. Mucous membranes are moist. Neck is supple. There is no jugular venous distention (JVD). CARDIOVASCULAR: S1, S2. Regular rate. Trace edema of the bilateral lower extremities. RESPIRATORY: Mildly decreased breath sounds at the bases bilaterally. ABDOMEN: Soft. Positive bowel sounds. Nontender. No organomegaly MUSCULOSKELETAL: No clubbing or cyanosis. Pulses 2+. 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 Power is 5/5 in all extremities. LABORATORY REVIEW: CBC showed WBC 9.1, hemoglobin 8.9, platelets 248. BMP showed sodium 139, potassium 4.4, chloride 101, bicarbonate 34, BUN 71, creatinine 3.9, calcium 8.4, magnesium 2.5. CURRENT INPATIENT MEDICATIONS: Patient's medications were all reviewed by myself. His furosemide dose has been decreased to 80 mg IV every 12 hours. No other significant change in the medications today as compared with yesterday. ASSESSMENT AND PLAN: 1. Acute renal failure. Patient's creatinine is slowly trending up. As mentioned above, his diuretic dose has been decreased to 80 mg twice a day. Continue to monitor intake and output. 2. Acute decompensated diastolic heart failure. Continue Lasix 80 mg twice a day. No need of metolazone today. 3. Bilateral pleural effusions. Patient will get pleuracentesis done in the coming week. 4. Iron deficiency anemia. Patient is status post IV Venofer. I am going to give him a dose of Aranesp as well. Hemoglobin level is stable.
[2020-09-04 15:22] VITALS: BP 127/68
[2020-09-04 20:00] VITALS: BP 149/67
[2020-09-04] MEDS: rOPINIRole 0.25 MG TAB(REQUIP) PO SCH (21:25)
[2020-09-04] MEDS: ATORVASTATIN 20 MG TAB PO SCH (21:25)
[2020-09-05 04:00] VITALS: BP 143/62
[2020-09-05 06:51] LABS: BASO % 0.2 % (0.0-1.0); EOS # 0.2 10^3/uL (0.0-0.5); EOS % 2.6 % (0.0-3.0); HEMATOCRIT 27.4 % (42.0-52.0); HEMOGLOBIN 8.4 g/dl (13.5-17.5); LYMPH # 1.3 10^3/uL (1.5-5.0); LYMPH % 14.6 % (24.0-44.0); MEAN CORPUSCULAR HEMOGLOBIN 28.7 pg (27.0-33.0); MEAN CORPUSCULAR HGB CONC 30.7 g/dl (32.0-36.5); MEAN CORPUSCULAR VOLUME 93.5 fl (80.0-96.0); MONO # 0.9 10^3/uL (0.0-0.8); NEUTROPHILS # 6.4 10^3/uL (1.5-8.5); NEUTROPHILS % 71.4 % (36.0-66.0); PLATELET COUNT, AUTOMATED 276 10^3/uL (150-450); RED BLOOD COUNT 2.93 10^6/uL (4.30-6.10)
[2020-09-05 07:07] LABS: ALBUMIN 2.3 GM/DL (3.2-5.2); BILIRUBIN,TOTAL 0.2 MG/DL (0.2-1.0); CALCIUM LEVEL 8.3 MG/DL (8.8-10.2); CREATININE FOR GFR 4.1 MG/DL (0.70-1.30); GLOMERULAR FILTRATION RATE 15.3 (>42); MAGNESIUM LEVEL 2.5 MG/DL (1.8-2.4); POTASSIUM SERUM 4.4 MEQ/L (3.5-5.1); TOTAL PROTEIN 6.7 GM/DL (6.4-8.2)
[2020-09-05 07:08] VITALS: BP 131/62
[2020-09-05] MEDS: ADVAIR HFA 230/21MCG INHALER INH SCH ×2 (07:11→19:47)
[2020-09-05] MEDS: ASPIRIN 81MG ENTERIC TABLET PO SCH (08:14)
[2020-09-05] MEDS: MULTIVITAMINS/MINERALS THERAP 1 TAB PO SCH (08:14)
[2020-09-05] MEDS: ENOXAPARIN 40MG/0.4ML SYRINGE (J1650 PER 10MG) SC SCH ×2 (08:14→09:27)
[2020-09-05] MEDS: LEVEMIR (INSULIN DETEMIR) 1 UNITS/0.01ML SC SCH ×2 (08:14→20:43)
[2020-09-05] MEDS: HumaLOG INSULIN (NovoLOG) PER UNIT SC SCH ×4 (08:14→20:43)
[2020-09-05] MEDS: PANTOPRAZOLE 40MG TAB (PROTONIX) PO SCH (08:14)
[2020-09-05] MEDS: GABAPENTIN 300 MG CAP PO SCH (08:14)
[2020-09-05] MEDS: CARVedilol 3.125 MG TAB PO SCH ×2 (08:15→20:41)
[2020-09-05] MEDS: ISOSORBIDE MON. (IMDUR) 30 MG XR TAB PO SCH (08:15)
[2020-09-05] MEDS: SERTRALINE 100 MG TAB PO SCH (08:15)
[2020-09-05] MEDS ORDERED: ACETAMINOPHEN TAB 650MG DOSE (2X325MG) PO PRN (10:00)
[2020-09-05 11:08] LABS: TOTAL PROTEIN 6.2 GM/DL (6.4-8.2)
[2020-09-05 11:20] LABS: APPEARANCE, URINE HAZY (CLEAR); BACTERIA, URINE AUTO 1+ (NEGATIVE); BILIRUBIN, URINE AUTO NEGATIVE (NEGATIVE); BLOOD, URINE BLOOD 2+ (NEGATIVE); COLOR, URINE YELLOW (YELLOW); GLUCOSE, URINE (UA) AUTO 1+ mg/dL (NEGATIVE); KETONE, URINE AUTO NEGATIVE (NEGATIVE); LEUKOCYTE ESTERASE, URINE AUTO 2+ (NEGATIVE); NITRITE, URINE AUTO NEGATIVE (NEGATIVE); PROTEIN, URINE AUTO 2+ mg/dL (NEGATIVE); RBC, URINE AUTO 12 /HPF (0-3); SPECIFIC GRAVITY URINE AUTO 1.009 (1.002-1.035); SQUAMOUS EPITHELIAL CELL UR AU 0 /HPF (0-6); UROBILINOGEN, URINE AUTO 0.2 mg/dL (0.0-2.0); WBC, URINE AUTO 6 /HPF (0-3)
--- NOTE | 2020-09-05 11:37 | IPNPDOC ---
Text Note Date of Service The patient was seen on 09/05/20. NOTE Subjective: No any acute events overnight. Patient stated that he feels better today, breathing improved Objective: GENERAL APPEARANCE: NAD HEENT: no scleral icterus, no JVD, EOMI CARDIOVASCULAR: S1S2 LUNGS: Diminished lung sounds bilaterally ABDOMEN: soft & not tender w palpitation MUSCULOSKELETAL: no cyanosis, no swelling, multiple wounds of both feet in different stages of healing INTEGUMENT: no generalized pallor NEUROLOGICAL: cranial nerve function from 2-12 intact intact, follows commands, speech not dysarthric Assessment and plan Patient is 74 years old male with past history of diastolic CHF, coronary artery diseases, peripheral vascular diseases, type 2 diabetes with neuropathy presented to the hospital with increased shortness of breath and a right foot c ellulitis. Acute on chronic diastolic CHF Patient [place] [address] with bilateral pleural effusion Most likely patient will need thoracocentesis, Plavix on hold. Thoracocentesis will be done when patient will be 6 days off Plavix Cardiac diet Urine output 375 cc overnight Nephrology team reduce dose of Lasix IV due to worsening kidney function Bilateral pleural effusion Most likely secondary to acute CHF exacerbation Thoracocentesis on Sunday, after 6 days off Plavix Right foot cellulitis Patient had increased sedimentation rate and CRP On my inspection on the foot patient does not have any redness or swelling, no tenderness. Patient doesn't have leukocytosis, afebrile. Stop antibiotics. Normocytic anemia Hemoglobin 8.4 Completed course of Venofer IV Nephrology team will start Aranesp stool for occult blood negative Peripheral vascular diseases Dr. Ashley did arteriogram right lower extremity with tibial intervention on 08/13/20. On 08/16/20 surgical team did Angioplasty left superficial femoral artery, Stent to left mid distal superficial femoral artery, Angioplasty left anterior tibial artery, Angioplasty left peroneal and anterior tibial artery Plavix on hold due to planned thoracocentesis Patient will need follow-up with vascular surgeon in the outpatient settings Acute on chronic renal failure Creatinine worsened to 4 Nephrology team follows him Type 2 diabetes Diabetes diet Glucose level under control Insulin sliding scale Hypertension Blood pressures under control Continue home cardioprotective medications Coronary artery diseases Patient denied any chest pain EKG didn't show any acute ischemic changes Chest pain Troponin negative, EKG negative for new acute ischemic changes Nitroglycerin when necessary Cachexia/protein deficiency Patient has reduced muscle mass, temporal wasting Ensure GERD Continue PPI Hyperlipidemia Continue statin VS,Fishbone, I+O VS, Fishbone, I+O Laboratory Tests 09/05/20 06:09 Vital Signs Date Time Temp Pulse Resp B/P (MAP) Pulse Ox O2 Delivery O2 Flow Rate FiO2 09/05/20 08:15 65 131/62 09/05/20 08:00 2.0 09/05/20 07:08 98.6 18 99 Nasal Cannula I&O- Last 24 Hours up to 6 AM 09/05/20 06:00 Intake Total 1080 ml Output Total 950 ml Balance 130 ml CARL HERNANDEZ DO September 05, 2020 11:37
--- NOTE | 2020-09-05 15:06 | REP ---
INDICATION: Rt sided chest pain. Pl effusion COMPARISON: 09/01/2020 TECHNIQUE: Portable AP view of the chest FINDINGS: Cardiomegaly is appreciated. Bilateral lower lobe opacities (right greater than left) consistent with airspace disease and pleural effusions. No pneumothorax. Skeletal structures intact. IMPRESSION: Cardiomegaly and findings to suggest CHF/pulmonary venous congestion. Differential diagnosis includes acute infectious process and less likely malignancy cannot be excluded. <Electronically signed by Montrell Cole > 09/05/20 [id number]
[2020-09-05 15:07] VITALS: BP 126/60
[2020-09-05] MEDS: SANTYL OINT 30GM TOP SCH (15:25)
--- NOTE | 2020-09-05 15:57 | IPN ---
NEPHROLOGY PROGRESS NOTE DATE: 09/05/2020 SUBJECTIVE: Patient was seen and examined at the bedside today morning. His diuretic dose was decreased; however, his creatinine is still worse today as compared with yesterday. Creatinine is up to 4 today. He denies any shortness of breath at this time. OBJECTIVE: VITAL SIGNS: Temperature 98.6 degrees Fahrenheit, blood pressure 131/62, pulse 65, respiratory rate 18, saturating 99% on nasal cannula at 2 liters. INTAKE AND OUTPUT: Urine output recorded as 575 mL yesterday, 475 mL so far today. Weight in the bed scale is 61.5 kg, which is still the same as yesterday.. PHYSICAL EXAMINATION: GENERAL: Patient is awake, alert, oriented times two, laying in bed, no apparent distress. HEAD AND NECK EXAM: Extraocular muscles intact. Pupils equally round and reactive to light. Mucous membranes are moist. Neck is supple. There is no jugular venous distention (JVD). CARDIOVASCULAR: S1, S2. Regular rate. No edema of the bilateral lower extremities. RESPIRATORY: Decreased breath sounds at the bases with decreased vocal resonance at the bases. ABDOMEN: Soft. Positive bowel sounds. Nontender. No organomegaly MUSCULOSKELETAL: No clubbing or cyanosis. Pulses 2+. GENITOURINARY: He has an indwelling Weaver catheter. LABORATORY REVIEW: CBC showed WBC 9, hemoglobin 8.4, platelets 276. BMP showed sodium 141, potassium 4.4, chloride 103, bicarbonate 34, BUN 75, creatinine 4.1, it was 3.9 yesterday. IMAGING: There is no new imaging available since September 01, 2020. I am ordering another chest portable x-ray. CURRENT INPATIENT MEDICATIONS: Patient's medications were all reviewed by myself. Because of worsening renal function, I have stopped the IV Lasix now. ASSESSMENT AND PLAN: 1. Acute renal failure superimposed on chronic kidney disease. Patient is needing aggressive IV diuretics because of congestive heart failure. However, because of rising creatinine, I have stopped the Lasix now. Patient will need to get thoracentesis done. 2. Acute on chronic diastolic congestive heart failure. As mentioned above, because of worsening creatinine, diuretics have been stopped. Pleurocentesis to be done on Sunday. 3. Bilateral pleural effusions. Repeat another chest x-ray to look at the effusions. Patient is off Plavix now. He will be going for thoracentesis in the morning. 4. Iron deficiency anemia and chronic kidney disease. Patient got IV Venofer. He was started on Aranesp yesterday. Hemoglobin level is stable. No need of blood transfusion at this time.
[2020-09-05 20:00] VITALS: BP 146/67
[2020-09-05] MEDS: ATORVASTATIN 20 MG TAB PO SCH (20:41)
[2020-09-05] MEDS: rOPINIRole 0.25 MG TAB(REQUIP) PO SCH (20:42)
[2020-09-06] VITALS (7 sets, daily range): BP systolic 133–164; BP diastolic 64–90
[2020-09-06 06:17] LABS: BASO % 0.4 % (0.0-1.0); EOS # 0.3 10^3/uL (0.0-0.5); EOS % 3.9 % (0.0-3.0); HEMATOCRIT 28.4 % (42.0-52.0); HEMOGLOBIN 8.7 g/dl (13.5-17.5); LYMPH # 1.6 10^3/uL (1.5-5.0); LYMPH % 19.2 % (24.0-44.0); MEAN CORPUSCULAR HEMOGLOBIN 28.5 pg (27.0-33.0); MEAN CORPUSCULAR HGB CONC 30.6 g/dl (32.0-36.5); MEAN CORPUSCULAR VOLUME 93.1 fl (80.0-96.0); MONO # 0.9 10^3/uL (0.0-0.8); NEUTROPHILS # 5.3 10^3/uL (1.5-8.5); NEUTROPHILS % 64.1 % (36.0-66.0); PLATELET COUNT, AUTOMATED 278 10^3/uL (150-450); RED BLOOD COUNT 3.05 10^6/uL (4.30-6.10); WHITE BLOOD COUNT 8.3 10^3/uL (4.0-10.0)
[2020-09-06 06:43] LABS: ALBUMIN 2.4 GM/DL (3.2-5.2); BILIRUBIN,TOTAL 0.3 MG/DL (0.2-1.0); CALCIUM LEVEL 9.1 MG/DL (8.8-10.2); CREATININE FOR GFR 3.56 MG/DL (0.70-1.30); MAGNESIUM LEVEL 2.7 MG/DL (1.8-2.4); POTASSIUM SERUM 4.6 MEQ/L (3.5-5.1); TOTAL PROTEIN 6.4 GM/DL (6.4-8.2)
[2020-09-06] MEDS: HumaLOG INSULIN (NovoLOG) PER UNIT SC SCH ×4 (07:30→20:37)
[2020-09-06] MEDS: ADVAIR HFA 230/21MCG INHALER INH SCH ×2 (08:32→19:59)
[2020-09-06] MEDS: LEVEMIR (INSULIN DETEMIR) 1 UNITS/0.01ML SC SCH ×2 (08:33→20:38)
[2020-09-06] MEDS: ISOSORBIDE MON. (IMDUR) 30 MG XR TAB PO SCH (08:42)
[2020-09-06] MEDS: PANTOPRAZOLE 40MG TAB (PROTONIX) PO SCH (08:42)
[2020-09-06] MEDS: ASPIRIN 81MG ENTERIC TABLET PO SCH (08:42)
[2020-09-06] MEDS: GABAPENTIN 300 MG CAP PO SCH (08:42)
[2020-09-06] MEDS: MULTIVITAMINS/MINERALS THERAP 1 TAB PO SCH (08:42)
[2020-09-06] MEDS: SERTRALINE 100 MG TAB PO SCH (08:43)
[2020-09-06] MEDS: CARVedilol 3.125 MG TAB PO SCH ×2 (08:43→20:36)
[2020-09-06] MEDS ORDERED: LIDOCAINE 1% MDV 20ML VIAL As Ordered ONE (10:52)
[2020-09-06 11:52] LABS: PH BODY FLUID 7.733 UNITS (NOT ESTABLISHED); SOURCE, BODY FLUID pH PLEURAL
[2020-09-06 12:00] LABS: APPEARANCE, BODY FLUID HAZY (CLEAR); PLEURAL FL COLOR PALE YELLOW (COLORLESS); SOURCE, BODY FLUID PLEURAL
--- NOTE | 2020-09-06 12:00 | REP ---
INDICATION: POST LEFT THORA, 2 VIEW. COMPARISON: 09/05/2020. TECHNIQUE: Two views chest. FINDINGS: There is decreased amount of left pleural fluid status post left thoracentesis. There appears to be very small amount of left pleural fluid remaining. Moderate to large right effusion is noted. There is bibasilar parenchymal opacity. Heart and mediastinum are grossly unchanged. IMPRESSION: No pneumothorax status post left thoracentesis, with a decreased amount of left pleural fluid. There is a moderate to large right pleural effusion. <Electronically signed by Matt Purcell > 09/06/20 1154
[2020-09-06 13:14] LABS: AMYLASE, BODY FLUID 39 U/L (NOT ESTABLISHED); LDH, BODY FLUID 57 U/L (NOT ESTABLISHED); SOURCE, BODY FLUID AMYLASE PLEURAL; SOURCE, BODY FLUID GLUCOSE PLEURAL; SOURCE, BODY FLUID LDH PLEURAL; SOURCE, BODY FLUID TOT PROTEIN PLEURAL
--- NOTE | 2020-09-06 13:51 | IPNPDOC ---
Text Note Date of Service The patient was seen on 09/06/20. NOTE Subjective: No any acute events overnight. Patient agrees to have thoracocente sis. Objective: GENERAL APPEARANCE: NAD HEENT: no scleral icterus, no JVD, EOMI CARDIOVASCULAR: S1S2 LUNGS: Diminished lung sounds bilaterally ABDOMEN: soft & not tender w palpitation MUSCULOSKELETAL: no cyanosis, no swelling, multiple wounds of both feet in different stages of healing INTEGUMENT: no generalized pallor NEUROLOGICAL: cranial nerve function from 2-12 intact intact, follows commands, speech not dysarthric Assessment and plan Patient is 74 years old male with past history of diastolic CHF, coronary artery diseases, peripheral vascular diseases, type 2 diabetes with neuropathy presented to the hospital with increased shortness of breath and a right foot cellulitis. Acute on chronic diastolic CHF Patient [place] [address] eural effusion Most likely patient will need thoracocentesis, Plavix on hold. Thoracocentesis will be done when patient will be 6 days off Plavix Cardiac diet Nephrology team stopped Lasix IV due to worsening kidney function Bilateral pleural effusion Most likely secondary to acute CHF exacerbation Thoracocentesis today Right foot cellulitis Patient had increased sedimentation rate and CRP On my inspection on the foot patient does not have any redness or swelling, no tenderness. Patient doesn't have leukocytosis, afebrile. Stop antibiotics. Normocytic anemia Hemoglobin 8.7 Completed course of Venofer IV Nephrology team will start Aranesp stool for occult blood negative Peripheral vascular diseases Dr. Ashley did arteriogram right lower extremity with tibial intervention on 08/13/20. On 08/16/20 surgical team did Angioplasty left superficial femoral artery, Stent to left mid distal superficial femoral artery, Angioplasty left anterior tibial artery, Angioplasty left peroneal and anterior tibial artery Plavix on hold due to planned thoracocentesis Patient will need follow-up with vascular surgeon in the outpatient settings Acute on chronic renal failure Creatinine 3.5 Nephrology team follows him Type 2 diabetes Diabetes diet Glucose level under control Insulin sliding scale Hypertension Blood pressures under control Continue home cardioprotective medications Coronary artery diseases Patient denied any chest pain EKG didn't show any acute ischemic changes Chest pain Troponin negative, EKG negative for new acute ischemic changes Nitroglycerin when necessary Cachexia/protein deficiency Patient has reduced muscle mass, temporal wasting Ensure GERD Continue PPI Hyperlipidemia Continue statin VS,Fishbone, I+O VS, Fishbone, I+O Laboratory Tests 09/06/20 05:44 Vital Signs Date Time Temp Pulse Resp B/P (MAP) Pulse Ox O2 Delivery O2 Flow Rate FiO2 09/06/20 12:45 97.3 64 20 158/71 (100) 98 Nasal Cannula 2.0 I&O- Last 24 Hours up to 6 AM 09/06/20 06:00 Intake Total 1140 ml Output Total 700 ml Balance 440 ml CARL HERNANDEZ DO September 06, 2020 13:51
--- NOTE | 2020-09-06 16:36 | REP ---
INDICATION: Large left pleural effusion 5/3 WILL BE 6 DAYS OFF PLAVIX. COMPARISON: None. TECHNIQUE: The procedure was performed under the direct supervision Dr. Purcell. The risks and benefits of the procedure were explained to the patient and informed consent was obtained. The left pleural effusion was localized using ultrasound guidance. The skin was prepped and draped in a sterile fashion. 1% lidocaine was used as a local anesthetic. An 8 [place]an multi side hole catheter was inserted using trocar technique. 780 cc of yellow fluid was withdrawn with a sample sent to the lab for analysis. The patient tolerated the procedure well and there were no immediate complications. After the appropriate amount to monitor convalescence the patient was discharged from the department. FINDINGS: None IMPRESSION: Ultrasound-guided left thoracentesis yielding 780 cc of yellow fluid. <Electronically signed by Kojo Otero > 09/06/20 1138 <Electronically signed by Matt Purcell > 09/06/20 [id number]
[2020-09-06] MEDS: rOPINIRole 0.25 MG TAB(REQUIP) PO SCH (20:36)
[2020-09-06] MEDS: ATORVASTATIN 20 MG TAB PO SCH (20:36)
[2020-09-07] VITALS (7 sets, daily range): BP systolic 125–168; BP diastolic 60–74
[2020-09-07] MEDS: DOCUSATE SODIUM 100MG CAPSULE PO SCH ×3 (00:30→21:29)
[2020-09-07 05:39] LABS: BASO % 0.3 % (0.0-1.0); EOS # 0.3 10^3/uL (0.0-0.5); EOS % 2.9 % (0.0-3.0); HEMATOCRIT 29.5 % (42.0-52.0); HEMOGLOBIN 9.2 g/dl (13.5-17.5); LYMPH # 1.2 10^3/uL (1.5-5.0); LYMPH % 12.4 % (24.0-44.0); MEAN CORPUSCULAR HEMOGLOBIN 29.1 pg (27.0-33.0); MEAN CORPUSCULAR HGB CONC 31.2 g/dl (32.0-36.5); MEAN CORPUSCULAR VOLUME 93.4 fl (80.0-96.0); MONO % 10.3 % (2.0-8.0); NEUTROPHILS % 72.8 % (36.0-66.0); PLATELET COUNT, AUTOMATED 288 10^3/uL (150-450); RED BLOOD COUNT 3.16 10^6/uL (4.30-6.10); WHITE BLOOD COUNT 9.7 10^3/uL (4.0-10.0)
[2020-09-07 06:07] LABS: ALBUMIN 2.3 GM/DL (3.2-5.2); BILIRUBIN,TOTAL 0.4 MG/DL (0.2-1.0); CREATININE FOR GFR 2.8 MG/DL (0.70-1.30); GLOMERULAR FILTRATION RATE 23.8 (>42); MAGNESIUM LEVEL 2.5 MG/DL (1.8-2.4); POTASSIUM SERUM 4.4 MEQ/L (3.5-5.1); TOTAL PROTEIN 6.6 GM/DL (6.4-8.2)
[2020-09-07] MEDS: ADVAIR HFA 230/21MCG INHALER INH SCH ×2 (07:19→20:02)
[2020-09-07] MEDS: ENOXAPARIN 40MG/0.4ML SYRINGE (J1650 PER 10MG) SC SCH (07:40)
[2020-09-07] MEDS: MULTIVITAMINS/MINERALS THERAP 1 TAB PO SCH (08:22)
[2020-09-07] MEDS: ASPIRIN 81MG ENTERIC TABLET PO SCH (08:22)
[2020-09-07] MEDS: SERTRALINE 100 MG TAB PO SCH (08:23)
[2020-09-07] MEDS: PANTOPRAZOLE 40MG TAB (PROTONIX) PO SCH (08:24)
[2020-09-07] MEDS: GABAPENTIN 300 MG CAP PO SCH (08:24)
[2020-09-07] MEDS: CARVedilol 3.125 MG TAB PO SCH ×2 (08:24→21:31)
[2020-09-07] MEDS: ISOSORBIDE MON. (IMDUR) 30 MG XR TAB PO SCH (08:25)
[2020-09-07] MEDS: LEVEMIR (INSULIN DETEMIR) 1 UNITS/0.01ML SC SCH ×2 (08:25→21:32)
[2020-09-07] MEDS: HumaLOG INSULIN (NovoLOG) PER UNIT SC SCH ×4 (08:26→21:32)
--- NOTE | 2020-09-07 11:31 | IPNPDOC ---
Text Note Date of Service The patient was seen on 09/07/20. NOTE Subjective: No any acute events overnight. Objective: GENERAL APPEARANCE: NAD HEENT: no scleral icterus, no JVD, EOMI CARDIOVASCULAR: S1S2 LUNGS: Diminished lung sounds bilaterally ABDOMEN: soft & not tender w palpitation MUSCULOSKELETAL: no cyanosis, no swelling, multiple wounds of both feet in different stages of healing INTEGUMENT: no generalized pallor NEUROLOGICAL: cranial nerve function from 2-12 intact intact, follows commands, speech not dysarthric Assessment and plan Patient is 74 years old male with past history of diastolic CHF, coronary artery diseases, peripheral vascular diseases, type 2 diabetes with neuropathy presented to the hospital with increased shortness of breath and a right foot cellulitis. Acute on chronic diastolic CHF Patient [place] [address] with bilateral pleural effusion Cardiac diet Nephrology team stopped Lasix IV due to worsening kidney function Left Thoracocentesis was done yesterday, fluid transudate Bilateral pleural effusion Most likely secondary to acute CHF exacerbation Right Thoracocentesis today Right foot cellulitis Patient had increased sedimentation rate and CRP On my inspection on the foot patient does not have any redness or swelling, no tenderness. Patient doesn't have leukocytosis, afebrile. Stop antibiotics. Normocytic anemia Hemoglobin 9.2 Completed course of Venofer IV Nephrology team will start Aranesp stool for occult blood negative Peripheral vascular diseases Dr. Ashley did arteriogram right lower extremity with tibial intervention on 08/13/20. On 08/16/20 surgical team did Angioplasty left superficial femoral artery, Stent to left mid distal superficial femoral artery, Angioplasty left anterior tibial artery, Angioplasty left peroneal and anterior tibial artery Plavix on hold due to planned thoracocentesis Patient will need follow-up with vascular surgeon in the outpatient settings Acute on chronic renal failure Improved Nephrology team follows him Type 2 diabetes Diabetes diet Glucose level under control Insulin sliding scale Hypertension Blood pressures under control Continue home cardioprotective medications Coronary artery diseases Patient denied any chest pain EKG didn't show any acute ischemic changes Chest pain Troponin negative, EKG negative for new acute ischemic changes Nitroglycerin when necessary Cachexia/protein deficiency Patient has reduced muscle mass, temporal wasting Ensure GERD Continue PPI Hyperlipidemia Continue statin VS,Fishbone, I+O VS, Fishbone, I+O Laboratory Tests 09/07/20 05:12 Vital Signs Date Time Temp Pulse Resp B/P (MAP) Pulse Ox O2 Delivery O2 Flow Rate FiO2 09/07/20 11:00 92 Room Air 09/07/20 09:00 2.0 09/07/20 08:23 65 164/74 09/07/20 08:00 96.9 18 I&O- Last 24 Hours up to 6 AM 09/07/20 06:00 Intake Total 510 ml Output Total 1050 ml Balance -540 ml CARL HERNANDEZ DO September 07, 2020 11:31
--- NOTE | 2020-09-07 11:39 | IPN ---
INPATIENT PROGRESS NOTE DATE: 09/06/2020 SUBJECTIVE: Patient is seen and examined this morning at the bedside while he was sitting on the commode and waiting for transport to take him to interventional radiology for a thoracentesis. He complains of shortness of breath even at rest and continues to require supplemental oxygen. His I.V. diuretics were held because of worsening renal failure and actually both is renal function and his urine output looked improved yesterday despite the fact that patient was off of diuretics. PHYSICAL EXAMINATION: Vital signs: Temperature 97.3, pulse 64, respiratory rate 20, blood pressure 158/71, saturating 98% on 2 liters nasal cannula. Intake yesterday was 1140, urine output was 1075 in equivalent fluid balance. Weight on the bed scale today is 61.8 kg. General: Patient was seen and examined while he was sitting on the commode at the bedside and getting ready to be transported for his thoracentesis. He is awake, alert, oriented and in no apparent distress. HEENT: Extraocular muscles are intact. Tongue was moist. Nasal cannula was in place. Neck: Supple, jugular veins were not elevated while he was sitting upright. Heart: Sounds are regular S1 and S2. There was no peripheral edema. He was noted to have wrinkling of his calves and there is no edema at the hip or dependent area. Lungs: There are diminished breath sounds longterm down both of the lungs and there is no accessory muscle use or tachypneic. Abdomen: Soft and nontender. Extremities: No significant edema. His feet were not examined. Neurologic: He was cooperative with physical exam and was oriented to person, place, situation and appeared to be at baseline mentation. LABORATORY DATA: Sodium 141, potassium 4.6, bicarbonate 35, BUN 75, creatinine 3.5 improved from 4.1 yesterday and 3.9 the day before, magnesium 2.7, albumin 2.4. Hemoglobin 8.7, platelets 278. IMAGING STUDIES: Patient had a left sided thoracentesis with 780 mL of fluid removed and imaging after the thoracentesis was done was significant for a moderate to large right sided pleural effusion. INPATIENT MEDICATIONS: Reviewed by myself and no changes noted over the past day. PROBLEMS/PLAN: 1. Nonoliguric acute renal failure superimposed on CKD stage 3B: Patient was diuresed earlier on this admission; however, he then developed worsening renal function and his clinical exam shows no signs of ongoing hypervolemia with the exception of his bilateral pleural effusions. His diuretics were held since Sunday evening and actually since the diuretics were held both his urine output and his renal function have improved. I am going to keep him off of diuretic at this time. I do not feel that further diuresis is going to help with is pleural effusions rather it will likely cause ongoing acute renal failure. 2. Bilateral pleural effusions: The patient is status post left sided thoracentesis today with 780 mL of fluid removed. I suggest to get his right effusion drained as well. Patient continues to require supplemental oxygen. 3. Anemia related to iron deficiency and chronic kidney disease: The patient has received I.V. Venofer and is now on Aranesp and hemoglobin is suboptimal, but stable in the 8s. His FOBT was negative. 4. Hypoalbuminemia: Albumin level is 2.5 and it is also predisposing to pleural effusion. 5. Hypertension: Blood pressures are acceptable on the current regimen of carvedilol and Imdur and no changes are being made today. 6. Hypermagnesemia: It is mild. He is not receiving any magnesium containing supplements. 7. Chronic diastolic congestive heart failure: Patient's renal function was worsening with I.V. Lasix. His urine output had also diminished despite diuretic therapy. Significantly his Lasix was held since Sunday evening and had improved urine output and improved renal function on Sunday and I would continue to hold diuretic at present. His BNP has been down trending over this admission and I am going to get a repeat level for tomorrow morning and I suggest to get his right effusion drained as well while his Plavix remains on-hold.
[2020-09-07 13:20] LABS: ALBUMIN 2.65 GM/DL (3.29-5.55); ALBUMIN % 42.8 % (55.8-66.1); ALPHA-1-GLOBULIN % 8.1 % (2.9-4.9); ALPHA-2-GLOBULINS % 17.8 % (7.1-11.8); BETA-1-GLOBULINS % 3.7 % (4.7-7.2); BETA-2-GLOBULINS % 7.5 % (3.2-6.5); GAMMA GLOBULIN % 20.1 % (11.1-18.8)
[2020-09-07 13:21] LABS: BETA-1-GLOBULINS 0.23 GM/DL (0.28-0.60); BETA-2-GLOBULINS 0.47 GM/DL (0.19-0.55); GAMMA GLOBULINS 1.25 GM/DL (0.65-1.58)
[2020-09-07] MEDS ORDERED: LIDOCAINE 1% MDV 20ML VIAL As Ordered ONE (13:50)
[2020-09-07 15:20] LABS: PH BODY FLUID 7.781 UNITS (NOT ESTABLISHED); SOURCE, BODY FLUID pH PLEURAL
--- NOTE | 2020-09-07 15:29 | REP ---
INDICATION: pleural effusion. COMPARISON: PA view obtained yesterday TECHNIQUE: PA and lateral views FINDINGS: The cardiomediastinal silhouette is unchanged. Once again, there are bibasilar opacities with bilateral CP angle blunting changed little from the prior exam. No new abnormal opacities have developed. There is no change in the osseous structures. IMPRESSION: Bilateral pleural effusions and likely compressive subsegmental atelectatic change in the lung bases. Basilar pneumonia cannot be ruled out by this exam. <Electronically signed by Zach Sweeney > 09/07/20 [id number]
[2020-09-07 15:38] LABS: APPEARANCE, BODY FLUID CLEAR (CLEAR); PLEURAL FL COLOR PALE YELLOW (COLORLESS); SOURCE, BODY FLUID PLEURAL
[2020-09-07 15:40] LABS: AMYLASE, BODY FLUID 56 U/L (NOT ESTABLISHED); LDH, BODY FLUID 110 U/L (NOT ESTABLISHED); SOURCE, BODY FLUID AMYLASE PLEURAL; SOURCE, BODY FLUID GLUCOSE PLEURAL; SOURCE, BODY FLUID LDH PLEURAL; SOURCE, BODY FLUID TOT PROTEIN PLEURAL
--- NOTE | 2020-09-07 16:40 | REP ---
INDICATION: RIGHT THORACENTESIS. COMPARISON: None. TECHNIQUE: The procedure was performed under the direct supervision of Dr. Purcell. The risks and benefits of the procedure were explained to the patient and informed consent was obtained. The right pleural effusion was localized using ultrasound guidance. The skin was prepped and draped in a sterile fashion. 1% lidocaine was used as a local anesthetic. An 8 [place]ian multi side hole catheter was inserted using trocar technique. 1200 cc of yellow fluid was withdrawn with a sample sent to the lab for analysis. The patient tolerated the procedure well and there were no immediate complications. After the appropriate amount to monitor convalescence the patient was discharged from the department. FINDINGS: None IMPRESSION: Ultrasound-guided right thoracentesis. <Electronically signed by Kojo Otero > 09/07/20 [id number] <Electronically signed by Matt Purcell > 09/07/20 [id number]
[2020-09-07 18:11] LABS: FREE KAPPA LIGHT CHAINS SERUM 149.4 mg/L (3.3-19.4); KAPPA/LAMBDA RATIO SERUM 1.94 (0.26-1.65)
[2020-09-07] MEDS: rOPINIRole 0.25 MG TAB(REQUIP) PO SCH (21:29)
[2020-09-07] MEDS: ATORVASTATIN 20 MG TAB PO SCH (21:29)
[2020-09-08] VITALS (12 sets, daily range): BP systolic 107–162; BP diastolic 56–80
[2020-09-08 06:08] LABS: BASO % 0.4 % (0.0-1.0); EOS # 0.3 10^3/uL (0.0-0.5); EOS % 3.7 % (0.0-3.0); HEMATOCRIT 28.4 % (42.0-52.0); HEMOGLOBIN 8.9 g/dl (13.5-17.5); LYMPH # 1.4 10^3/uL (1.5-5.0); LYMPH % 16.5 % (24.0-44.0); MEAN CORPUSCULAR HEMOGLOBIN 29.2 pg (27.0-33.0); MEAN CORPUSCULAR HGB CONC 31.3 g/dl (32.0-36.5); MEAN CORPUSCULAR VOLUME 93.1 fl (80.0-96.0); MONO # 0.9 10^3/uL (0.0-0.8); MONO % 10.1 % (2.0-8.0); NEUTROPHILS # 5.8 10^3/uL (1.5-8.5); PLATELET COUNT, AUTOMATED 259 10^3/uL (150-450); RED BLOOD COUNT 3.05 10^6/uL (4.30-6.10); WHITE BLOOD COUNT 8.6 10^3/uL (4.0-10.0)
[2020-09-08 06:26] LABS: ALBUMIN 2.3 GM/DL (3.2-5.2); BILIRUBIN,TOTAL 0.3 MG/DL (0.2-1.0); CALCIUM LEVEL 8.5 MG/DL (8.8-10.2); CREATININE FOR GFR 2.27 MG/DL (0.70-1.30); GLOMERULAR FILTRATION RATE 30.3 (>42); MAGNESIUM LEVEL 2.3 MG/DL (1.8-2.4); POTASSIUM SERUM 4.5 MEQ/L (3.5-5.1); TOTAL PROTEIN 5.9 GM/DL (6.4-8.2)
[2020-09-08] MEDS: ENOXAPARIN 40MG/0.4ML SYRINGE (J1650 PER 10MG) SC SCH (08:02)
[2020-09-08] MEDS: SERTRALINE 100 MG TAB PO SCH (08:03)
[2020-09-08] MEDS: GABAPENTIN 300 MG CAP PO SCH (08:03)
[2020-09-08] MEDS: MULTIVITAMINS/MINERALS THERAP 1 TAB PO SCH (08:03)
[2020-09-08] MEDS: ASPIRIN 81MG ENTERIC TABLET PO SCH (08:03)
[2020-09-08] MEDS: LEVEMIR (INSULIN DETEMIR) 1 UNITS/0.01ML SC SCH ×2 (08:03→21:23)
[2020-09-08] MEDS: HumaLOG INSULIN (NovoLOG) PER UNIT SC SCH ×4 (08:03→21:22)
[2020-09-08] MEDS: ISOSORBIDE MON. (IMDUR) 30 MG XR TAB PO SCH (08:04)
[2020-09-08] MEDS: DOCUSATE SODIUM 100MG CAPSULE PO SCH ×2 (08:04→21:20)
[2020-09-08] MEDS: CARVedilol 3.125 MG TAB PO SCH ×2 (08:04→21:21)
[2020-09-08] MEDS: PANTOPRAZOLE 40MG TAB (PROTONIX) PO SCH (08:04)
[2020-09-08] MEDS: ADVAIR HFA 230/21MCG INHALER INH SCH ×2 (08:13→20:21)
--- NOTE | 2020-09-08 13:37 | IPN ---
INPATIENT PROGRESS NOTE DATE: 09/07/2020 SUBJECTIVE: Mr. Sebastian is seen and examined this morning at the bedside. He reports that he feels that his shortness of breath has gotten better after he had the left thoracentesis done yesterday with 780 mL of fluid removed. He is pending right sided thoracentesis this afternoon. He continues on nasal cannula. He has no other complaints beyond the shortness of breath. His renal function continues to improve and his diuretics are on-hold. PHYSICAL EXAMINATION: Vital signs: Temperature 97.6, pulse 65, respiratory rate 18, blood pressure 125/60, saturating 97% on 2 liters nasal cannula. Intake yesterday was not fully recorded. Urine output yesterday was recorded as 650 mL. Urine output today is already more than 1 liter. Weight on the bed scale today is 61.6 kg. General: Patient is seen lying in bed, head of the bed elevated. An elderly male in no apparent distress. HEENT: Extraocular muscles are intact. His tongue is moist. Nasal cannula is in place. Pupils are reactive to light. Heart sounds: Regular S1 and S2. There is no peripheral edema. There is wrinkling of the calves. Lungs: Diminished breath sounds at both bases, but more diminished on the right base. Abdomen: Soft and nontender. Extremities: Dressings on his feet and wounds were not examined and there is no edema visible in the dependent areas or on the calves. Neurologic: He is interactive, conversational, cooperative with physical exam and oriented times 3. LABORATORY DATA: Sodium 137, potassium 4.4, bicarbonate 33, BUN 67, creatinine 2.8, magnesium 2.5. BNP 13,800. Albumin 2.3. Hemoglobin 9.2, platelets 288. Thoracentesis of the right effusion done today removed 1200 mL and thoracentesis of the left effusion yesterday removed 780 mL. INPATIENT MEDICATIONS: Reviewed by myself. I note he was restarted on amlodipine 10 mg by mouth daily. His remainder of medications are unchanged from prior. PROBLEMS/PLAN: 1. Nonoliguric acute renal failure superimposed on CKD stage 3: Patient's renal function worsened earlier on this admission while he was receiving diuretics. Subsequently his diuretics were held and patient is status post thoracentesis of both of his bilateral pleural effusions now. His renal function is recovering. His creatinine is down to 2.8 on the labs today. His peak creatinine was 4.1. I am planning to resume oral diuretic regimen tomorrow and I will also give albumin given his hypoalbuminemia and recent large volume pleural effusions. 2. Bilateral pleural effusions in this patient with hypoalbuminemia: HE is status post left sided thoracentesis with 780 mL of fluid removed and status post right sided thoracentesis with 1200 mL removed. Hopefully his oxygen requirements will be weaned. I will start oral diuretic from tomorrow and patient is going to receive albumin as well to help with his oncotic pressure. 3. Anemia related to iron deficiency and chronic kidney disease: Patient is status post I.V. Venofer and he is now on Aranesp. His hemoglobin is improving and up to 9.2 on the latest labs. FOBT 1 week ago was negative. 4. Chronic diastolic congestive heart failure: Patient had worsening renal function while he was receiving I.V. diuretics. Creatinine peaked at 4.1, diuretics were held. He had bilateral thoracentesis for his pleural effusions. His renal function is recovering. I plan to resume oral diuretic regimen from tomorrow and we will give albumin as well.
[2020-09-08] MEDS: rOPINIRole 0.25 MG TAB(REQUIP) PO SCH (21:20)
[2020-09-08] MEDS: ATORVASTATIN 20 MG TAB PO SCH (21:20)
[2020-09-09 06:00] VITALS: BP 147/64
[2020-09-09 06:31] LABS: BASO % 0.3 % (0.0-1.0); EOS # 0.3 10^3/uL (0.0-0.5); HEMATOCRIT 30.5 % (42.0-52.0); HEMOGLOBIN 9.3 g/dl (13.5-17.5); LYMPH # 1.3 10^3/uL (1.5-5.0); LYMPH % 12.2 % (24.0-44.0); MEAN CORPUSCULAR HEMOGLOBIN 28.2 pg (27.0-33.0); MEAN CORPUSCULAR HGB CONC 30.5 g/dl (32.0-36.5); MEAN CORPUSCULAR VOLUME 92.4 fl (80.0-96.0); MONO # 0.9 10^3/uL (0.0-0.8); MONO % 8.5 % (2.0-8.0); NEUTROPHILS # 8.1 10^3/uL (1.5-8.5); NEUTROPHILS % 75.1 % (36.0-66.0); PLATELET COUNT, AUTOMATED 267 10^3/uL (150-450); WHITE BLOOD COUNT 10.8 10^3/uL (4.0-10.0)
[2020-09-09 06:53] LABS: ALBUMIN 2.5 GM/DL (3.2-5.2); BILIRUBIN,TOTAL 0.4 MG/DL (0.2-1.0); CALCIUM LEVEL 8.6 MG/DL (8.8-10.2); CREATININE FOR GFR 2.15 MG/DL (0.70-1.30); GLOMERULAR FILTRATION RATE 32.2 (>42); MAGNESIUM LEVEL 2.5 MG/DL (1.8-2.4); POTASSIUM SERUM 4.8 MEQ/L (3.5-5.1); TOTAL PROTEIN 6.4 GM/DL (6.4-8.2)
[2020-09-09] MEDS: ADVAIR HFA 230/21MCG INHALER INH SCH (07:51)
[2020-09-09] MEDS ORDERED: FUROSEMIDE 40 MG TAB PO SCH (09:00)
[2020-09-09] MEDS: LEVEMIR (INSULIN DETEMIR) 1 UNITS/0.01ML SC SCH (09:04)
[2020-09-09] MEDS: HumaLOG INSULIN (NovoLOG) PER UNIT SC SCH (09:04)
[2020-09-09] MEDS: ASPIRIN 81MG ENTERIC TABLET PO SCH (09:05)
[2020-09-09] MEDS: ENOXAPARIN 40MG/0.4ML SYRINGE (J1650 PER 10MG) SC SCH (09:05)
[2020-09-09] MEDS: SERTRALINE 100 MG TAB PO SCH (09:06)
[2020-09-09] MEDS: MULTIVITAMINS/MINERALS THERAP 1 TAB PO SCH (09:06)
[2020-09-09] MEDS: PANTOPRAZOLE 40MG TAB (PROTONIX) PO SCH (09:06)
[2020-09-09 09:07] VITALS: BP 168/74
[2020-09-09] MEDS: DOCUSATE SODIUM 100MG CAPSULE PO SCH (09:07)
[2020-09-09] MEDS: GABAPENTIN 300 MG CAP PO SCH (09:07)
[2020-09-09] MEDS: ISOSORBIDE MON. (IMDUR) 30 MG XR TAB PO SCH (09:08)
[2020-09-09] MEDS: CARVedilol 3.125 MG TAB PO SCH (09:08)
[2020-09-09] MEDS ORDERED: SANT250O8 TOP (10:31)
--- NOTE | 2020-09-09 15:51 | DS.PDOC ---
Discharge Summary General Date of Admission Aug 29, 2020 at 11:12 Date of Discharge 09/09/20 Discharge Summary PROCEDURES PERFORMED DURING STAY: [None]. ADMITTING DIAGNOSES: Acute on chronic diastolic CHF Bilateral pleural effusion Normocytic anemia Peripheral vascular diseases Acute on chronic renal failure Hypertension Coronary artery diseases Chest pain Type 2 diabetes Cachexia/protein deficiency Hyperlipidemia GERD DISCHARGE DIAGNOSES: Acute on chronic diastolic CHF Bilateral pleural effusion Normocytic anemia Peripheral vascular diseases Acute on chronic renal failure Hypertension Coronary artery diseases Chest pain Type 2 diabetes Cachexia/protein deficiency Hyperlipidemia GERD COMPLICATIONS/CHIEF COMPLAINT: Bilateral Pleural Effusion Chf Exacerbation. HISTORY OF PRESENT ILLNESS:Patient is 74 years old male with past history of diastolic CHF, coronary artery diseases, peripheral vascular diseases, type 2 diabetes with neuropathy presented to the hospital with increased shortness of breath and a right foot cellulitis. HOSPITAL COURSE: During the hospital stay following issues addressed Acute on chronic diastolic CHF Patient [place] [address] with bilateral pleural effusion Patient received Cardiac diet Bilateral Thoracocentesis was done, after thoracocentesis breathing improved Bilateral pleural effusion Most likely secondary to acute CHF exacerbation Right foot cellulitis Patient had increased sedimentation rate and CRP On my inspection on the foot patient does not have any redness or swelling, no tenderness. Patient doesn't have leukocytosis, afebrile. Stop antibiotics. Normocytic anemia Hemoglobin stable Completed course of Venofer IV stool for occult blood negative Peripheral vascular diseases Dr. Ashley did arteriogram right lower extremity with tibial intervention on 08/13/20. On 08/16/20 surgical team did Angioplasty left superficial femoral artery, Stent to left mid distal superficial femoral artery, Angioplasty left anterior tibial artery, Angioplasty left peroneal and anterior tibial artery Plavix on hold due to planned thoracocentesis Patient will need follow-up with vascular surgeon in the outpatient settings Acute on chronic renal failure Improved Nephrology team follows him Type 2 diabetes Diabetes diet Glucose level under control Insulin sliding scale Hypertension Blood pressures under control Continue home cardioprotective medications Coronary artery diseases Patient denied any chest pain EKG didn't show any acute ischemic changes Chest pain Troponin negative, EKG negative for new acute ischemic changes Nitroglycerin when necessary Cachexia/protein deficiency Patient has reduced muscle mass, temporal wasting Ensure GERD Continue PPI Hyperlipidemia Continue statin DISCHARGE MEDICATIONS: Please see below. ALLERGIES: Please see below. PHYSICAL EXAMINATION ON DISCHARGE: VITAL SIGNS: Please see below. GENERAL APPEARANCE: NAD HEENT: no scleral icterus, no JVD, EOMI CARDIOVASCULAR: S1S2 LUNGS: Diminished lung sounds bilaterally ABDOMEN: soft & not tender w palpitation MUSCULOSKELETAL: no cyanosis, no swelling, multiple wounds of both feet in different stages of healing INTEGUMENT: no generalized pallor NEUROLOGICAL: cranial nerve function from 2-12 intact intact, follows commands, speech not dysarthric LABORATORY DATA: Please see below. IMAGING: [facility] NAME: ELFEGO DAVIS DATE OF : 1945 AGE: 74 SEX: M REPORT #: [id number] ROOM: ED TECHNOLOGIST: [id number] DOCTOR: Elan Huang M.D. Ordered for Date&Time: 08/29/20847 cc: [~ rep ct ivnm] Service Date&Time: 08/29/20900 This report is in Signed status. If this report is in a DRAFT status it has not yet been reviewed by the radiologist for accuracy. Thank you for having your radiology procedures performed at [facility] RADIOLOGY REPORT Date&Time printed: [~ rep prt dt last] [~ rep prt tm last] Page 2 of [address] [address] RADIOLOGY REPORT This report is in Signed status. If this report is in a DRAFT status it has not yet been reviewed by the radiologist for accuracy. Thank you for having your radiology procedures performed at [facility] RADIOLOGY REPORT Date&Time printed: [~ rep prt dt last] [~ rep prt tm last] Page 1 of 1 DYSPNEA COMPARISON: 08/02/2020 TECHNIQUE: Axial noncontrast images from the thoracic inlet to the upper abdomen with coronal and sagittal reformations. This CT examination was performed using the following dose reduction techniques: Automated exposure control, adjustment of mA and/or kv according to the patient's size, and use of iterative reconstruction technique. FINDINGS: Large bilateral pleural effusions and lower lobe atelectasis/consolidations are appreciated along with mildly prominent pulmonary vasculature and mild cephalization. Differential diagnosis includes CHF/pulmonary edema. The tracheobronchial tree is patent. The mediastinum demonstrates significant atherosclerotic changes to the thoracic aorta and mild cardiomegaly. No pericardial effusion. IMPRESSION: Large bilateral pleural effusions and lower lobe atelectasis/consolidations. Differential diagnosis includes CHF/pulmonary edema and less likely multifocal pneumonia. <Electronically signed by Montrell Cole > 08/29/20922 DD: Montrell Cole MD 08/29/20918 DT: TARA 08/29/20922 DS: SATHYA 08/29/2091808/29/20918 [~ rep ct labl] PROGNOSIS: Fair ACTIVITY: [As tolerated]. DIET: Cardiac DISPOSITION: [facility]. ITEMS TO FOLLOWUP ON ON OUTPATIENT: Follow-up with Wound Care, vascular surgeon, email producer, PCP DISCHARGE CONDITION: [Stable]. TIME SPENT ON DISCHARGE: 50minutes. Vital Signs/I&Os Vital Signs Date Time Temp Pulse Resp B/P (MAP) Pulse Ox O2 Delivery O2 Flow Rate FiO2 09/09/20 09:07 83 168/74 09/09/20 06:00 98.8 20 92 Room Air 09/08/20 16:00 2.0 I&O- Last 24 Hours up to 6 AM 09/09/20 06:00 Intake Total 406.0 ml Output Total 675 ml Balance -269.0 ml Laboratory Data Labs 24H Laboratory Tests 2 09/08/20 16:27: Bedside Glucose (Misc Panel) 260H 09/08/20 20:07: Bedside Glucose (Misc Panel) 313H 09/09/20 06:05: Immature Granulocyte % (Auto) 0.9, Neutrophils (%) (Auto) 75.1H, Lymphocytes (%) (Auto) 12.2L, Monocytes (%) (Auto) 8.5H, Eosinophils (%) (Auto) 3.0, Basophils (%) (Auto) 0.3, Neutrophils # (Auto) 8.1, Lymphocytes # (Auto) 1.3L, Monocytes # (Auto) 0.9H, Eosinophils # (Auto) 0.3, Basophils # (Auto) 0.0, Nucleated Red Blood Cells % (auto) 0.0, Anion Gap 3L, Glomerular Filtration Rate 32.2L, Calcium Level 8.6L, Magnesium Level 2.5H, Total Bilirubin 0.4, Aspartate Amino Transf (AST/SGOT) 20, Alanine Aminotransferase (ALT/SGPT) 19, Alkaline Phosphatase 105, Total Protein 6.4, Albumin 2.5L, Albumin/Globulin Ratio 0.6 CBC/BMP Laboratory Tests 09/09/20 06:05 FSBS Laboratory Tests Test 09/08/20 16:27 09/08/20 20:07 Range/Units Bedside Glucose (Misc Panel) 260 313 83-110 MG/DL Microbiology Microbiology 09/07/20 Acid Fast Stain, Received Pending 09/07/20 Mycobacterial Culture, Received Pending 09/07/20 Fungal Smear, Received Pending 09/07/20 Fungal Culture, Received Pending 09/07/20 Body Fluid Culture - Final, Complete 09/06/20 Acid Fast Stain, Received Pending 09/06/20 Mycobacterial Culture, Received Pending 09/06/20 Fungal Smear, Received Pending 09/06/20 Fungal Culture, Received Pending 09/06/20 Gram Stain - Final, Complete 09/06/20 Body Fluid Culture - Final, Complete 09/01/20 Stool Occult Blood (JOSHUA) - Final, Complete Discharge Medications Scheduled Amlodipine Besylate (Amlodipine Besylate) 10 Mg Tablet, 10 MG PO DAILY, (Reported) Aspirin (Aspirin EC) 81 Mg Tablet.dr, 81 MG PO DAILY, (Reported) Atorvastatin Calcium (Atorvastatin Calcium) 80 Mg Tablet, 80 MG PO QHS, (Reported) Carvedilol (Carvedilol) 3.125 Mg Tablet, 3.125 MG PO BID, (Reported) Clopidogrel Bisulfate (Plavix) 75 Mg Tablet, 75 MG PO DAILY, (Reported) Collagenase Clostridium Hist. (Santyl) 30 Gm Oint...g., 1 APLCT TOP DAILY Furosemide (Furosemide) 40 Mg Tablet, 40 MG PO BID, (Reported) Gabapentin (Gabapentin) 300 Mg Capsule, 300 MG PO DAILY, (Reported) Isosorbide Mononitrate (Isosorbide Mononitrate ER) 30 Mg Tab.er.24h, 30 MG PO DAILY, (Reported) Lactose-Reduced Food (Ensure Enlive) 237 Ml Liquid, 120 ML PO BID, (Reported) Linagliptin (Tradjenta) 5 Mg Tablet, 5 MG PO DAILY, (Reported) Multivitamins (Thera M Plus Tablet) 1 Each Tablet, 1 TAB PO DAILY, (Reported) Pantoprazole Sodium (Pantoprazole Sodium) 40 Mg Tablet.dr, 40 MG PO DAILY, ( Reported) Ropinirole HCl (Ropinirole HCl) 0.25 Mg Tablet, 0.25 MG PO QHS, (Reported) Sertraline Hcl (Zoloft) 100 Mg Tablet, 100 MG PO DAILY, (Reported) Umeclidinium Brm/Vilanterol Tr (Anoro Ellipta 62.5-25 Mcg INH) 1 Each Blst.w.dev, 1 PUFF INH DAILY, (Reported) Scheduled PRN Acetaminophen (Acetaminophen) 325 Mg Tablet, 650 MG PO Q4H PRN for PAIN / FEVER, (Reported) Bisacodyl (Dulcolax) 10 Mg Supp.rect, 10 MG OR DAILY PRN for CONSTIPATION, (Reported) Docusate Sodium (Docusate Sodium) 100 Mg Capsule, 100 MG PO DAILY PRN for CONSTIPATION, (Reported) Milk Of Magnesia (Milk of Magnesia) 2,400 Mg/10 Ml Oral.susp, 10 ML PO DAILY PRN for CONSTIPATION, (Reported) Nitroglycerin (Nitroglycerin) 0.4 Mg Tab.subl, 0.4 MG SL NITRO PRN for CHEST PA IN, (Reported) Sodium Phosphate,[place]-Dibasic (Enema) 133 Ml Enema, 1 MYRA OR DAILY PRN for CONSTIPATION, (Reported) Allergies Coded Allergies: No Known Allergies (Verified , 04/25/17) CARL HERNANDEZ DO September 09, 2020 15:51
== END 2020-09-09 11:35 | DRG 291 ==
LOC: M ED 06:27 → M ED INP 11:12 → M PCU 14:30 → M MSPAV 09-08 23:22
PROVIDERS: ADMIT Internal Medicine; ATTEND Internal Medicine
PROC: 0W9B3ZZ Drainage of Left Pleural Cavity, Percutaneous Approach (ICD-10-PCS; principal; 2020-09-06 10:45)
PROC: 0W993ZZ Drainage of Right Pleural Cavity, Percutaneous Approach (ICD-10-PCS; 2020-09-07)
DX: I13.0 Hypertensive heart and chronic kidney disease with heart failure and stage 1 through stage 4 chronic kidney disease, or unspecified chronic kidney disease (principal); I50.33 Acute on chronic diastolic (congestive) heart failure; N17.9 Acute kidney failure, unspecified; L97.929 Non-pressure chronic ulcer of unspecified part of left lower leg with unspecified severity; L97.919 Non-pressure chronic ulcer of unspecified part of right lower leg with unspecified severity; L03.115 Cellulitis of right lower limb; E11.621 Type 2 diabetes mellitus with foot ulcer; K21.9 Gastro-esophageal reflux disease without esophagitis; E78.5 Hyperlipidemia, unspecified; I25.10 Atherosclerotic heart disease of native coronary artery without angina pectoris; E11.51 Type 2 diabetes mellitus with diabetic peripheral angiopathy without gangrene; N18.9 Chronic kidney disease, unspecified; D50.9 Iron deficiency anemia, unspecified; Z79.82 Long term (current) use of aspirin; Z79.899 Other long term (current) drug therapy; Z95.2 Presence of prosthetic heart valve; F41.9 Anxiety disorder, unspecified; F32.9 Major depressive disorder, single episode, unspecified; Z87.891 Personal history of nicotine dependence; Z79.4 Long term (current) use of insulin; D63.1 Anemia in chronic kidney disease; E83.41 Hypermagnesemia

== ENCOUNTER → 2020-08-31 | Outpatient (REF) ==
[~2020-08-31] MED LIST changes: +ANOR1AER INH; +ASPI-161 PO; +ATOR80TA59 PO; +DULC10SU2 PR; +ENEMENE PR; +ENSU1LIQ36 PO; +FURO40TA2 PO; +MOM30SS PO; +NITR0.4S14 SL; +PLAV1TAB2 PO; +ROPI0.253 PO; +TRAD5TAB PO
== END ==
LOC: SKLAB4 10:47
DX: Z53.8 Procedure and treatment not carried out for other reasons (principal)

== ENCOUNTER → 2020-09-16 | Outpatient (REF) | payer MEDICARE, MEDICAID ==
[~2020-09-16] MED LIST changes: +ALLO100T PO; +HUMA100I3 SC; +INSUDET SC; +ROCA0.25 PO; +SANT250O8 TOP
== END ==
LOC: M LAB REF 15:50
PROVIDERS: ATTEND Surgery
DX: L97.515 Non-pressure chronic ulcer of other part of right foot with muscle involvement without evidence of necrosis (principal)

== ENCOUNTER → 2020-09-16 | Outpatient (REF) ==
[~2020-09-16] MED LIST changes: -ALLO100T PO; -HUMA100I3 SC; -INSUDET SC; -ROCA0.25 PO
[2020-09-16 08:39] LABS: HEMATOCRIT 34.4 % (42.0-52.0); HEMOGLOBIN 10.4 g/dl (13.5-17.5); MEAN CORPUSCULAR HEMOGLOBIN 28.4 pg (27.0-33.0); MEAN CORPUSCULAR HGB CONC 30.2 g/dl (32.0-36.5); PLATELET COUNT, AUTOMATED 273 10^3/uL (150-450); RED BLOOD COUNT 3.66 10^6/uL (4.30-6.10); WHITE BLOOD COUNT 8.2 10^3/uL (4.0-10.0)
[2020-09-16 09:08] LABS: CALCIUM LEVEL 8.7 MG/DL (8.8-10.2); CREATININE FOR GFR 2.31 MG/DL (0.70-1.30); GLOMERULAR FILTRATION RATE 29.7 (>42); POTASSIUM SERUM 4.6 MEQ/L (3.5-5.1)
[2020-09-16 10:32] LABS: PTH INTACT 89.9 PG/ML (18.5-88.0)
== END ==
LOC: SKLAB4 10:17
DX: I50.9 Heart failure, unspecified (principal); E11.9 Type 2 diabetes mellitus without complications

== ENCOUNTER → 2020-09-23 | Outpatient (REF) | payer MEDICARE, MEDICAID ==
[~2020-09-23] MED LIST changes: +ALBU83IN INH; +ALLO100T PO; +ATIV1TAB10 PO; +CALC1CAP31 PO; +GLUC1LIQ7 PO; +HUMA100I3 SC; +HYOS125TA PO; +INSUDET SC; +MORP20SO3 PO; +ROCA0.25 PO
[2020-09-23 09:53] LABS: HEMATOCRIT 31.9 % (42.0-52.0); HEMOGLOBIN 9.8 g/dl (13.5-17.5); MEAN CORPUSCULAR HEMOGLOBIN 28.3 pg (27.0-33.0); MEAN CORPUSCULAR HGB CONC 30.7 g/dl (32.0-36.5); MEAN CORPUSCULAR VOLUME 92.2 fl (80.0-96.0); PLATELET COUNT, AUTOMATED 253 10^3/uL (150-450); RED BLOOD COUNT 3.46 10^6/uL (4.30-6.10)
[2020-09-23 10:15] LABS: CALCIUM LEVEL 8.9 MG/DL (8.8-10.2); CREATININE FOR GFR 2.3 MG/DL (0.70-1.30); GLOMERULAR FILTRATION RATE 29.8 (>42); POTASSIUM SERUM 4.1 MEQ/L (3.5-5.1)
== END ==
LOC: SKLAB4 08:38
DX: I50.9 Heart failure, unspecified (principal); E11.9 Type 2 diabetes mellitus without complications

== ENCOUNTER → 2020-09-27 | Outpatient (REF) | payer MEDICARE, MEDICAID ==
[~2020-09-27] MED LIST changes: -ALBU83IN INH; -ALLO100T PO; -ATIV1TAB10 PO; -CALC1CAP31 PO; -GLUC1LIQ7 PO; -HUMA100I3 SC; -HYOS125TA PO; -INSUDET SC; -MORP20SO3 PO; -ROCA0.25 PO
--- NOTE | 2020-09-27 13:56 | REP ---
INDICATION: PLUERAL IFFUSION COMPARISON: 09/07/2020 TECHNIQUE: PA and lateral. FINDINGS: Moderate to large bilateral pleural effusions with lower lobe infiltrate/atelectasis relatively unchanged. Visualized portions of the mediastinum and cardiac silhouette are stable. No pneumothorax. Skeletal structures are intact. IMPRESSION: Moderate to large bilateral pleural effusions and lower lobe atelectasis/infiltrates unchanged. <Electronically signed by Montrell Cole > 09/27/20 [id number]
== END ==
LOC: SKLAB4 08:40
DX: J90 Pleural effusion, not elsewhere classified (principal); R91.8 Other nonspecific abnormal finding of lung field

== ENCOUNTER → 2020-09-27 | Outpatient (CLI) | payer MEDICARE, MEDICAID ==
--- NOTE | 2020-09-27 13:09 | REP ---
INDICATION: PAD COMPARISON: 08/31/2020 TECHNIQUE: Real time purcell scale and color Doppler evaluation of the bilateral lower extremity arterial vasculature using linear high frequency transducer. FINDINGS: Purcell scale and color images demonstrate significant bilateral atheromatous plaquing similar to prior examination. Right lower extremity demonstrates approximately 2.5:1 stenosis through the proximal anterior tibial artery. Triphasic wave patterns noted to the mid superficial femoral artery followed by monophasic wave patterns to the ankle. Left lower extremity demonstrates patent superficial femoral arterial stent without areas of stenosis or occlusion and biphasic wave patterns from the common femoral artery to the ankle. Peak systolic velocities (cm/sec) Common femoral artery: Right 134.5; Left 153.5 Profunda femoris: Right 69.5; Left 130.2 SFA (proximal): Right 126.2; Left 133.9 SFA (mid): Right 197.8; Left 114.6 SFA (distal): Right 162.9; Left 103.1 Popliteal artery: Right 177.7; Left 134.0 ELIAS (prox.): Right 99.6/246.0; Left 94.0 Tibioperoneal trunk: Right 110.5; Left 97.5 PHOTOSTAT OPERATOR (prox.): Right 136.5; Left 50.1 PHOTOSTAT OPERATOR (distal): Right 97.2; Left 91.7 ELIAS (distal): Right 112.9; Left 72.8 IMPRESSION: Significant bilateral atheromatous plaquing. Continued evidence for stenosis through the proximal anterior tibial artery. Patent left superficial femoral arterial stent. <Electronically signed by Montrell Cole > 09/27/20 [id number]
== END ==
LOC: M RAD 11:21
PROVIDERS: ATTEND Nurse Practitioner Family
DX: I73.9 Peripheral vascular disease, unspecified (principal)

== ENCOUNTER → 2020-10-01 | Outpatient (REF) | payer MEDICARE, MEDICAID ==
[~2020-10-01] MED LIST changes: +ALBU83IN INH; +ALLO100T PO; +ATIV1TAB10 PO; +CALC1CAP31 PO; +GLUC1LIQ7 PO; +HUMA100I3 SC; +HYOS125TA PO; +INSUDET SC; +MORP20SO3 PO; +ROCA0.25 PO
[2020-10-01 09:50] LABS: HEMATOCRIT 31.1 % (42.0-52.0); HEMOGLOBIN 9.7 g/dl (13.5-17.5); MEAN CORPUSCULAR HEMOGLOBIN 28.2 pg (27.0-33.0); MEAN CORPUSCULAR HGB CONC 31.2 g/dl (32.0-36.5); MEAN CORPUSCULAR VOLUME 90.4 fl (80.0-96.0); PLATELET COUNT, AUTOMATED 273 10^3/uL (150-450); RED BLOOD COUNT 3.44 10^6/uL (4.30-6.10); WHITE BLOOD COUNT 7.6 10^3/uL (4.0-10.0)
[2020-10-01 10:16] LABS: CALCIUM LEVEL 9.2 MG/DL (8.8-10.2); CREATININE FOR GFR 2.48 MG/DL (0.70-1.30); GLOMERULAR FILTRATION RATE 27.3 (>42); POTASSIUM SERUM 3.6 MEQ/L (3.5-5.1)
== END ==
LOC: SKLAB4 09-30 08:24
DX: I50.9 Heart failure, unspecified (principal); E11.9 Type 2 diabetes mellitus without complications

== ENCOUNTER → 2020-10-01 | Outpatient (REF) | payer MEDICARE, MEDICAID ==
[~2020-10-01] MED LIST changes: -ALBU83IN INH; -ALLO100T PO; -ATIV1TAB10 PO; -CALC1CAP31 PO; -GLUC1LIQ7 PO; -HUMA100I3 SC; -HYOS125TA PO; -INSUDET SC; -MORP20SO3 PO; -ROCA0.25 PO
[2020-10-01 14:47] LABS: CALCIUM LEVEL 9.7 MG/DL (8.8-10.2); CREATININE FOR GFR 2.46 MG/DL (0.70-1.30); GLOMERULAR FILTRATION RATE 27.6 (>42); POTASSIUM SERUM 3.8 MEQ/L (3.5-5.1)
== END ==
LOC: SKLAB4 08:00
DX: R79.89 Other specified abnormal findings of blood chemistry (principal)

== ENCOUNTER → 2020-10-01 | Outpatient (REF) | payer MEDICARE, MEDICAID ==
--- NOTE | 2020-10-01 09:47 | REP ---
INDICATION: PLEURAL EFFUSION COMPARISON: 09/27/2020 TECHNIQUE: PA and lateral. FINDINGS: Moderate bilateral pleural effusions and lower lobe opacities unchanged from prior examination. No new acute process identified. The mediastinum and cardiac silhouette are stable and grossly within normal limits. The skeletal structures are intact. IMPRESSION: Moderate bilateral pleural effusions and lower lobe opacities unchanged. <Electronically signed by Montrell Cole > 10/01/20 0943
== END ==
LOC: SKLAB4 06:56
DX: J90 Pleural effusion, not elsewhere classified (principal); R91.8 Other nonspecific abnormal finding of lung field

== ENCOUNTER → 2020-10-04 | Outpatient (CLI) | payer MEDICARE, MEDICAID ==
[~2020-10-04] MED LIST changes: +ALLO100T PO; +HUMA100I3 SC; +INSUDET SC; +ROCA0.25 PO
[2020-10-04 14:35] LABS: CALCIUM LEVEL 8.9 MG/DL (8.8-10.2); CREATININE FOR GFR 2.75 MG/DL (0.70-1.30); GLOMERULAR FILTRATION RATE 24.3 (>42); POTASSIUM SERUM 4.1 MEQ/L (3.5-5.1)
== END ==
LOC: M LAB 13:35 → SKLAB4 13:35
DX: R79.89 Other specified abnormal findings of blood chemistry (principal)

== ENCOUNTER → 2020-10-05 | Outpatient (REF) | payer MEDICARE, MEDICAID ==
[2020-10-05 12:40] LABS: INR 1.1; PROTHROMBIN TIME 14.4 SECONDS (12.5-14.3)
== END ==
LOC: SKLAB4 11:32
DX: Z01.818 Encounter for other preprocedural examination (principal); Z79.01 Long term (current) use of anticoagulants

== ENCOUNTER → 2020-10-06 | Outpatient (CLI) | payer MEDICARE, MEDICAID ==
--- NOTE | 2020-10-06 12:16 | REP ---
INDICATION: POST THORA, 2 VIEW. COMPARISON: 10/01/2020. TECHNIQUE: Two views chest performed. FINDINGS: There is no pneumothorax status post right thoracentesis. There are small bilateral pleural effusions, unchanged on the left and decreased on the right. The heart and mediastinum are unchanged. IMPRESSION: No pneumothorax status post right thoracentesis. <Electronically signed by Matt Purcell > 10/06/20 1212
[2020-10-06 13:44] VITALS: BP 127/60
--- NOTE | 2020-10-06 16:41 | REP ---
INDICATION: PLEURAL EFFUSION. COMPARISON: None. TECHNIQUE: The procedure was performed under the direct supervision of Dr. Purcell. The risks and benefits of the procedure were explained to the patient and informed consent was obtained. The right pleural effusion was localized using ultrasound guidance. The skin was prepped and draped in a sterile fashion. 1% lidocaine was used as a local anesthetic. An 8 Armenian multi side hole catheter was inserted using trocar technique. 1000 cc of yellow fluid was withdrawn and discarded. The patient tolerated the procedure well and there were no immediate complications. After the appropriate amount to monitor convalescence the patient was discharged from the department.. FINDINGS: None IMPRESSION: Ultrasound-guided right thoracentesis yielding 1000 cc of yellow fluid. <Electronically signed by Kojo Otero > 10/06/20 1525 <Electronically signed by Matt Purcell > 10/06/20 [id number]
== END ==
LOC: M IRPRO 11:01
DX: J90 Pleural effusion, not elsewhere classified (principal)

== ENCOUNTER → 2020-10-07 | Outpatient (REF) | payer MEDICARE, MEDICAID | LOC: SKLAB4 10:38 | DX: Z53.8 Procedure and treatment not carried out for other reasons (principal) ==

== ENCOUNTER → 2020-10-07 | Outpatient (REF) | payer MEDICARE, MEDICAID ==
[2020-10-07 09:27] LABS: HEMATOCRIT 26.1 % (42.0-52.0); HEMOGLOBIN 8.3 g/dl (13.5-17.5); MEAN CORPUSCULAR HEMOGLOBIN 28.8 pg (27.0-33.0); MEAN CORPUSCULAR HGB CONC 31.8 g/dl (32.0-36.5); MEAN CORPUSCULAR VOLUME 90.6 fl (80.0-96.0); PLATELET COUNT, AUTOMATED 191 10^3/uL (150-450); RED BLOOD COUNT 2.88 10^6/uL (4.30-6.10); WHITE BLOOD COUNT 9.5 10^3/uL (4.0-10.0)
[2020-10-07 09:54] LABS: CALCIUM LEVEL 8.5 MG/DL (8.8-10.2); CHOLESTEROL RISK RATIO 3.062 (<5); CREATININE FOR GFR 2.96 MG/DL (0.70-1.30); GLOMERULAR FILTRATION RATE 22.3 (>42); POTASSIUM SERUM 3.8 MEQ/L (3.5-5.1)
== END ==
LOC: SKLAB4 10:39
DX: I50.9 Heart failure, unspecified (principal); E11.9 Type 2 diabetes mellitus without complications

== ENCOUNTER → 2020-10-10 | Outpatient (REF) | payer MEDICARE, MEDICAID ==
[2020-10-10 08:52] LABS: CALCIUM LEVEL 8.4 MG/DL (8.8-10.2); CREATININE FOR GFR 2.55 MG/DL (0.70-1.30); GLOMERULAR FILTRATION RATE 26.5 (>42); POTASSIUM SERUM 4.2 MEQ/L (3.5-5.1)
== END ==
LOC: SKLAB4 10:36
DX: I50.9 Heart failure, unspecified (principal)

== ENCOUNTER → 2020-10-10 | Outpatient (REF) | payer MEDICARE, MEDICAID | LOC: SKLAB4 10:36 | DX: Z53.8 Procedure and treatment not carried out for other reasons (principal) ==

== ENCOUNTER → 2020-10-12 | Outpatient (REF) | payer MEDICARE, MEDICAID ==
[2020-10-12 10:57] LABS: HEMATOCRIT 28.2 % (42.0-52.0); HEMOGLOBIN 8.7 g/dl (13.5-17.5); MEAN CORPUSCULAR HEMOGLOBIN 28.2 pg (27.0-33.0); MEAN CORPUSCULAR HGB CONC 30.9 g/dl (32.0-36.5); MEAN CORPUSCULAR VOLUME 91.3 fl (80.0-96.0); PLATELET COUNT, AUTOMATED 216 10^3/uL (150-450); RED BLOOD COUNT 3.09 10^6/uL (4.30-6.10); WHITE BLOOD COUNT 8.4 10^3/uL (4.0-10.0)
[2020-10-12 11:29] LABS: CALCIUM LEVEL 9.1 MG/DL (8.8-10.2); CREATININE FOR GFR 2.58 MG/DL (0.70-1.30); POTASSIUM SERUM 4.3 MEQ/L (3.5-5.1)
[2020-10-12 12:02] LABS: ALBUMIN 2.6 GM/DL (3.2-5.2); PHOSPHORUS LEVEL 3.6 MG/DL (2.5-4.9)
== END ==
LOC: SKLAB4 10:35
DX: D64.9 Anemia, unspecified (principal)

== ENCOUNTER → 2020-10-14 | Outpatient (REF) | payer MEDICARE, MEDICAID ==
[2020-10-14 11:39] LABS: CALCIUM LEVEL 8.4 MG/DL (8.8-10.2); CREATININE FOR GFR 2.38 MG/DL (0.70-1.30); GLOMERULAR FILTRATION RATE 28.6 (>42); POTASSIUM SERUM 4.7 MEQ/L (3.5-5.1)
--- NOTE | 2020-10-14 14:38 | REP ---
INDICATION: BILATERAL PLEURAL EFFUSION. COMPARISON: Multiple the latest 10/06/2020 TECHNIQUE: PA and lateral FINDINGS: There is a right lower lobe opacity with costophrenic angle blunting. This has increased significantly from the prior exam. There are chronic left lung bases status quo. There is no change in the cardiomediastinal silhouette. There is no change in the osseous structures. IMPRESSION: New right lung base opacities consistent with a pleural effusion and probable concomitant compressive subsegmental atelectatic change. The left pleural effusion appears stable. <Electronically signed by Zach Sweeney > 10/14/20 [id number]
== END ==
LOC: EEVIPCON → SKLAB4 11:09
DX: I50.9 Heart failure, unspecified (principal); J90 Pleural effusion, not elsewhere classified

== ENCOUNTER → 2020-10-18 | Outpatient (REF) | payer MEDICARE, MEDICAID ==
[~2020-10-18] MED LIST changes: +ALBU83IN INH; +CALC1CAP31 PO; +GLUC1LIQ7 PO
[2020-10-18 08:57] LABS: BASO % 0.3 % (0.0-1.0); EOS # 0.6 10^3/uL (0.0-0.5); HEMATOCRIT 27.3 % (42.0-52.0); HEMOGLOBIN 8.3 g/dl (13.5-17.5); LYMPH # 1.2 10^3/uL (1.5-5.0); LYMPH % 12.2 % (24.0-44.0); MEAN CORPUSCULAR HEMOGLOBIN 27.8 pg (27.0-33.0); MEAN CORPUSCULAR HGB CONC 30.4 g/dl (32.0-36.5); MEAN CORPUSCULAR VOLUME 91.3 fl (80.0-96.0); MONO # 0.5 10^3/uL (0.0-0.8); NEUTROPHILS # 7.4 10^3/uL (1.5-8.5); PLATELET COUNT, AUTOMATED 259 10^3/uL (150-450); RED BLOOD COUNT 2.99 10^6/uL (4.30-6.10); WHITE BLOOD COUNT 9.8 10^3/uL (4.0-10.0)
[2020-10-18 09:22] LABS: MAGNESIUM LEVEL 2.7 MG/DL (1.8-2.4); URIC ACID 5.5 MG/DL (3.5-7.2)
[2020-10-18 09:24] LABS: ALBUMIN 2.9 GM/DL (3.2-5.2); CALCIUM LEVEL 9.1 MG/DL (8.8-10.2); CREATININE FOR GFR 2.28 MG/DL (0.70-1.30); PHOSPHORUS LEVEL 4.2 MG/DL (2.5-4.9); POTASSIUM SERUM 4.6 MEQ/L (3.5-5.1)
[2020-10-18 10:00] LABS: APPEARANCE, URINE HAZY (CLEAR); BACTERIA, URINE AUTO NEGATIVE (NEGATIVE); BILIRUBIN, URINE AUTO NEGATIVE (NEGATIVE); BLOOD, URINE BLOOD NEGATIVE (NEGATIVE); COLOR, URINE YELLOW (YELLOW); GLUCOSE, URINE (UA) AUTO 1+ mg/dL (NEGATIVE); KETONE, URINE AUTO NEGATIVE (NEGATIVE); LEUKOCYTE ESTERASE, URINE AUTO NEGATIVE (NEGATIVE); NITRITE, URINE AUTO NEGATIVE (NEGATIVE); PROTEIN, URINE AUTO 3+ mg/dL (NEGATIVE); RBC, URINE AUTO 16 /HPF (0-3); SPECIFIC GRAVITY URINE AUTO 1.017 (1.002-1.035); SQUAMOUS EPITHELIAL CELL UR AU 0 /HPF (0-6); UROBILINOGEN, URINE AUTO 0.2 mg/dL (0.0-2.0); WBC, URINE AUTO 4 /HPF (0-3)
[2020-10-18 11:28] LABS: PTH INTACT 65.2 PG/ML (18.5-88.0)
== END ==
LOC: SKLAB4 11:49
DX: N18.9 Chronic kidney disease, unspecified (principal)